=== PATIENT | male | born 1930 | race Caucasian/White ===

== ENCOUNTER 2017-05-12 09:23 | Emergency (ER) | payer MEDICARE, OTHER ==
[2017-05-12] MEDS ORDERED: Albuterol/Ipratropium 3.0-0.5 MG/3 ML Neb Soln NEB ONE (09:44)
[2017-05-12] MEDS ORDERED: Furosemide 40 MG Tab PO ONE (09:44)
[2017-05-12] MEDS ORDERED: Nitroglycerin 0.4 MG Tab.SL SL ONE (09:45)
[2017-05-12] MEDS ORDERED: Sodium Chloride 0.9% 10 ML Syringe FLUSH PRN (09:45)
--- NOTE | 2017-05-12 09:54 | EDM.PDOC ---
ED HPI GENERAL MEDICAL PROBLEM - General Chief Complaint: Respiratory Problem Stated Complaint[facility] Time Seen by Provider: 05/12/17 09:40 Source of Information: Reports: Patient, RN Notes Reviewed - History of Present Illness INITIAL COMMENTS - FREE TEXT/NARRATIVE: 86-year-old male comes in severely short of breath. He states he was somewhat short of breath during the night that became much worse this morning and as the morning has progressed. He denies chest pain. He does have occasional nonproductive cough. Yesterday he felt like he was doing quite well from a breathing standpoint. Have some history of COPD and also some history of congestive heart failure. He does have history of coronary artery disease. He states he had 2 stents placed this past February at a hospital in [place] when he happened to be visiting friends or family in that area. He also is diabetic. He is on Plavix, has been insulin diabetic for about 15-20 years. Does have history of renal insufficiency. He states he also is on medication for hypertension and also on a statin. He has not been running fever or chills. Did take his morning meds including his morning furosemide. No major abdominal pain nausea vomiting or diaphoresis. - Related Data Allergies Allergy/AdvReac Type Severity Reaction Status Date / Time No Known Allergies Allergy Verified 05/12/17 09:38 Home Meds: Home Meds Albuterol Sulfate [Proair Respiclick] 2 puff INH Q6H PRN 05/12/17 [History] Albuterol/Ipratropium [DuoNeb 3.0-0.5 MG/3 ML] 3 ml INH Q6H PRN 05/12/17 [ History] Allopurinol [Zyloprim] 300 mg PO DAILY 05/12/17 [History] Budesonide/Formoterol [Symbicort 80-4.5 MCG] 2 puff INH BID 05/12/17 [History] Carvedilol 12.5 mg PO BID 05/12/17 [History] Docusate Sodium [Stool Softener] 50 mg PO BID PRN 05/12/17 [History] FLUoxetine [PROzac] 20 mg PO DAILY 05/12/17 [History] Finasteride [Proscar] 5 mg PO DAILY 05/12/17 [History] Furosemide 40 mg PO DAILY 05/12/17 [History] Furosemide 60 mg PO DAILY 05/12/17 [History] Insulin Aspart [Novolog Flexpen] 25 units SUBCUT TID 05/12/17 [History] Insulin Glargine,Hum.Rec.Anlog [Lantus Solostar] 50 units SUBCUT BID 05/12/17 [ History] Levothyroxine 150 mcg PO DAILY 05/12/17 [History] Losartan [Cozaar] 50 mg PO BID 05/12/17 [History] Pantoprazole Sodium 40 mg PO DAILY 05/12/17 [History] Potassium Chloride 20 meq PO DAILY 05/12/17 [History] Simvastatin [Zocor] 40 mg PO BEDTIME 05/12/17 [History] Tamsulosin [Flomax] 0.4 mg PO BEDTIME 05/12/17 [History] Tiotropium [Spiriva HandiHaler] 2 puff INH DAILY 05/12/17 [History] atorvaSTATin Calcium [Atorvastatin Calcium] 40 mg PO BEDTIME 05/12/17 [History] ED ROS GENERAL - Review of Systems Review Of Systems: See Below Constitutional: Denies: Fever, Chills, Diaphoresis HEENT: Denies: Throat Pain Respiratory: Reports: Shortness of Breath, Wheezing, Cough. Denies: Sputum Cardiovascular: Reports: Lightheadedness. Denies: Chest Pain Endocrine: Reports: Fatigue GI/Abdominal: Denies: Abdominal Pain, Nausea, Vomiting Musculoskeletal: Denies: Shoulder Pain, Arm Pain Skin: Reports: No Symptoms Neurological: Reports: Dizziness ED EXAM, GENERAL - Physical Exam Exam: See Below General Appearance: Alert, Moderate Distress Eye Exam: Bilateral Eye: PERRL Throat/Mouth: Normal Inspection Head: Atraumatic. No: Facial Swelling Neck: Supple, Full Range of Motion, Other (No JVD) Respiratory/Chest: Respiratory Distress (Moderate), Rales (Mild bilateral), Wheezing (Mild bilateral) Cardiovascular: Tachycardia GI/Abdominal: Soft, Tender (Mild tenderness upper mid abdomen) Back Exam: No: CVA Tenderness (L), CVA Tenderness (R) Extremities: Pedal Edema. No: Leg Pain (Moderate bilateral calves nontender) Neurological: Alert, Oriented, No Motor/Sensory Deficits Skin Exam: Warm, Dry, Normal Color EKG INTERPRETATION EKG Date: 05/12/17 Rhythm: NSR P-Wave: Present QRS: Other (LAFB) ST-T: Depressed (Anterior leads) Course - Vital Signs Last Recorded V/S: Last Vital Signs Temp 97.0 F 05/12/17 09:39 Pulse 102 H 05/12/17 09:39 Resp BP 137/92 H 05/12/17 09:51 Pulse Ox 98 05/12/17 10:05 - Orders/Labs/Meds Orders: Active Orders 24 hr Category Date Time Status EKG 12 Lead [EKG Documentation Completion] [RC] STAT Care 05/12/17 09:46 Active Oxygen Therapy [RC] ASDIRECTED Care 05/12/17 09:46 Active Peripheral IV Care [RC] . DIRECTED Care 05/12/17 09:46 Active RT Aerosol Therapy [RC] ASDIRECTED Care 05/12/17 09:45 Active Sodium Chloride 0.9% [Saline Flush] Med 05/12/17 09:45 Active 10 ml FLUSH ASDIRECTED PRN Peripheral IV Insertion Adult [OM.PC] Stat Oth 05/12/17 09:46 Ordered Medication Orders Sodium Chloride (Saline Flush) 10 ml FLUSH ASDIRECTED PRN PRN Reason: Keep Vein Open Last Admin: 05/12/17 13:32 Dose: 10 ml Labs: Laboratory Tests 05/12/17 05/12/17 05/12/17 Range/Units 10:35 10:35 10:35 WBC 11.25 H (4.23-9.07) K/mm3 RBC 3.86 L (4.63-6.08) M/mm3 Hgb 12.1 L (13.7-17.5) gm/L Hct 37.8 L (40.1-51.0) % MCV 97.9 H (79.0-92.2) fl MCH 31.3 (25.7-32.2) pg MCHC 32.0 L (32.2-35.5) g/dl RDW Std Deviation 50.8 H (35.1-43.9) fL Plt Count 237 (163-337) K/mm3 MPV 11.2 (9.4-12.3) fl Neut % (Auto) 85.0 H (34.0-67.9) % Lymph % (Auto) 7.3 L (21.8-53.1) % [place] % (Auto) 5.0 L (5.3-12.2) % Eos % (Auto) 1.3 (0.8-7.0) Baso % (Auto) 0.5 (0.1-1.2) % Neut # (Auto) 9.56 H (1.78-5.38) K/mm3 Lymph # (Auto) 0.82 L (1.32-3.57) K/mm3 [place] # (Auto) 0.56 (0.30-0.82) K/mm3 Eos # (Auto) 0.15 (0.04-0.54) K/mm3 Baso # (Auto) 0.06 (0.01-0.08) K/mm3 Manual Slide Review Normal smear Sodium 135 L (136-145) mEq/L Potassium 5.5 H (3.5-5.1) mEq/L Chloride 102 (98-107) mEq/L Carbon Dioxide 26 (21-32) mEq/L Anion Gap 12.5 (5-15) BUN 36 H (7-18) mg/dL Creatinine 2.0 H (0.7-1.3) mg/dL Est Cr Clr Drug Dosing 22.20 mL/min Estimated GFR (MDRD) 32 (>60) mL/min BUN/Creatinine Ratio 18.0 (14-18) Glucose 331 H (83-115) mg/dL Calcium 9.1 (8.5-10.1) mg/dL Total Bilirubin 0.5 (0.2-1.0) mg/dL AST 22 (15-37) U/L ALT 22 (16-63) U/L Alkaline Phosphatase 97 (46-116) U/L Troponin I 0.349 H* (0.00-0.056) ng/mL C-Reactive Protein 0.7 (<1.0) mg/dL NT-Pro-B Natriuret Pep (0-450) pg/mL Total Protein 7.1 (6.4-8.2) g/dl Albumin 3.1 L (3.4-5.0) g/dl Globulin 4.0 gm/dL Albumin/Globulin Ratio 0.8 L (1-2) 05/12/ Range/Units 10:35 WBC (4.23-9.07) K/mm3 RBC (4.63-6.08) M/mm3 Hgb (13.7-17.5) gm/L Hct (40.1-51.0) % MCV (79.0-92.2) fl MCH (25.7-32.2) pg MCHC (32.2-35.5) g/dl RDW Std Deviation (35.1-43.9) fL Plt Count (163-337) K/mm3 MPV (9.4-12.3) fl Neut % (Auto) (34.0-67.9) % Lymph % (Auto) (21.8-53.1) % [place] % (Auto) (5.3-12.2) % Eos % (Auto) (0.8-7.0) Baso % (Auto) (0.1-1.2) % Neut # (Auto) (1.78-5.38) K/mm3 Lymph # (Auto) (1.32-3.57) K/mm3 [place] # (Auto) (0.30-0.82) K/mm3 Eos # (Auto) (0.04-0.54) K/mm3 Baso # (Auto) (0.01-0.08) K/mm3 Manual Slide Review Sodium (136-145) mEq/L Potassium (3.5-5.1) mEq/L Chloride (98-107) mEq/L Carbon Dioxide (21-32) mEq/L Anion Gap (5-15) BUN (7-18) mg/dL Creatinine (0.7-1.3) mg/dL Est Cr Clr Drug Dosing mL/min Estimated GFR (MDRD) (>60) mL/min BUN/Creatinine Ratio (14-18) Glucose (83-115) mg/dL Calcium (8.5-10.1) mg/dL Total Bilirubin (0.2-1.0) mg/dL AST (15-37) U/L ALT (16-63) U/L Alkaline Phosphatase (46-116) U/L Troponin I (0.00-0.056) ng/mL C-Reactive Protein (<1.0) mg/dL NT-Pro-B Natriuret Pep 4081 H (0-450) pg/mL Total Protein (6.4-8.2) g/dl Albumin (3.4-5.0) g/dl Globulin gm/dL Albumin/Globulin Ratio (1-2) Meds: Medications Generic Name Dose Route Start Last Admin Trade Name Cristine PRN Reason Stop Dose Admin Sodium Chloride 10 ml 05/12/17 09:45 05/12/17 13:32 Saline Flush FLUSH 10 ml ASDIRECTED PRN Administration Keep Vein Open Discontinued Medications Generic Name Dose Route Start Last Admin Trade Name Cristine PRN Reason Stop Dose Admin Albuterol/Ipratropium 3 ml 05/12/17 09:44 05/12/17 10:05 Duoneb 3.0-0.5 Mg/3 Ml NEB 05/12/17 09:45 3 ml ONETIME ONE Administration Furosemide 80 mg 05/12/17 09:44 05/12/17 09:50 Lasix PO 05/12/17 09:45 80 mg ONETIME ONE Administration Furosemide 40 mg 05/12/17 12:59 05/12/17 13:30 Lasix IVPUSH 05/12/17 13:00 40 mg NOW ONE Administration Nitroglycerin 0.4 mg 05/12/17 09:45 05/12/17 09:51 Nitrostat SL 05/12/17 09:46 0.4 mg ONETIME ONE Administration Nitroglycerin 1 gm 05/12/17 12:59 05/12/17 13:28 Nitro-Bid 2% TOP 05/12/17 13:00 1 gm ONETIME ONE Administration - Re-Assessments/Exams Free Text/Narrative Re-Assessment/Exam: 05/12/17 10:25. On arrival to ED patient was in quite severe respiratory distress as documented. His veins looked extremely difficult. With the realization that it was going to be a while before we get a working IV we did give furosemide 80 mg by mouth very quickly and also did give her nitroglycerin 0.4 mg sublingual. Those Meds did help him tremendously. His breathing is much more relaxed at this time. Sats continue to run 96-100%. EKG is abnormal with right bundle branch block, left anterior fascicular block and ST depression visible V3 to V6 in particular. Chest x-ray does show pulmonary congestion compatible with CHF 05/12/17 11:28. I have discussed this with our Hospitalist who has visited with patient. He has had patient visit with his sons regarding level of care who are requesting he be transferred to a higher level of care. He does request to remain Code Level 1. 05/12/17 13:[address] Macdonald, Hospitalist [facility] who does accept patient in transfer. Patient has requested [facility] because he has been there in the past. He will be transported ground ambulance. Vitals do remain stable and patient continues to breathe much more comfortably at time of transfer. Departure - Departure Time of Disposition: 13:46 Disposition: DC/Tfer to [facility] 02 Condition: Fair Clinical Impression: Renal insufficiency, Acute coronary syndrome Congestive heart failure Qualifiers: Congestive heart failure type: unspecified congestive heart failure type Congestive heart failure chronicity: acute on chronic Qualified Code(s): I50.9 - Heart failure, unspecified - Discharge Information Referrals: Kanchan Strange DO [Primary Care Provider] - Forms: ED Department Discharge - My Orders Last 24 Hours: My Active Orders 05/12/17 09:45 RT Aerosol Therapy [RC] ASDIRECTED Sodium Chloride 0.9% [Saline Flush] 10 ml FLUSH ASDIRECTED PRN 05/12/17 09:46 EKG 12 Lead [EKG Documentation Completion] [RC] STAT Oxygen Therapy [RC] ASDIRECTED Peripheral IV Care [RC] . DIRECTED Peripheral IV Insertion Adult [OM.PC] Stat - Assessment/Plan Last 24 Hours: My Active Orders 05/12/17 09:45 RT Aerosol Therapy [RC] ASDIRECTED Sodium Chloride 0.9% [Saline Flush] 10 ml FLUSH ASDIRECTED PRN 05/12/17 09:46 EKG 12 Lead [EKG Documentation Completion] [RC] STAT Oxygen Therapy [RC] ASDIRECTED Peripheral IV Care [RC] . DIRECTED Peripheral IV Insertion Adult [OM.PC] Stat
--- NOTE | 2017-05-12 10:34 | CR ---
Chest: Portable view of the chest was obtained. Comparison: No prior study. Heart size and mediastinum are within normal limits for portable technique. Central lung markings are mildly increased. Without old study difficult to know if this is chronic or due to slight bronchitis. Lungs otherwise are clear. Bony structures are grossly intact. Impression: 1. Increased central lung markings as described above. Diagnostic code #3
[2017-05-12] MEDS ORDERED: Furosemide 40 MG/4 ML VIAL IVPUSH ONE (12:59)
[2017-05-12] MEDS ORDERED: Nitroglycerin 2% Oint 1 GM UD Packet TOP ONE (12:59)
--- NOTE | 2017-05-12 14:45 | PCM.SN ---
- Free Text/Narrative Note: 05-12-17 Start 1210 end 1220 Called to ED for difficult IV start. Upon arrival the patient had multiple unsuccessful attempts. The left forearm was prepped with chloraprep. Sterile tegaderm applied to US probe. A vein was easily visualized with the US. 1% lidocaine used to localized insertion site. 20ga 1.88" IV inserted under US guidance. Good blood return. Lab there to obtain blood from the IV. 7ml of blood given to bal tech. Flushed well. Secured with tegaderm. Taped well. Patient tolerated procedure well. Steven Bai CRNA
[2017-05-12 14:57] VITALS: BP 148/65
== END 2017-05-12 14:15 ==
LOC: JD.ED 09:23
DX: I24.9 Acute ischemic heart disease, unspecified (principal); I11.0 Hypertensive heart disease with heart failure; E11.9 Type 2 diabetes mellitus without complications; I50.9 Heart failure, unspecified; N28.9 Disorder of kidney and ureter, unspecified; Z79.899 Other long term (current) drug therapy; Z79.4 Long term (current) use of insulin
CPT/HCPCS: 36415; 71010; 80053; 83880; 84484; 85025; 86140; 93005; 94640; 96374; 99285; A9270; J1940; J7050

== ENCOUNTER 2017-07-02 12:02 | Inpatient (IN) | payer OTHER, MEDICARE ==
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
[2017-07-02] MEDS ORDERED: Sodium Chloride 0.9% 10 ML Syringe FLUSH PRN (12:23)
[2017-07-02] MEDS ORDERED: methylPREDNISolone Sodium Succinate 125 MG/2 ML SDV IVPUSH ONE (12:25)
[2017-07-02] MEDS ORDERED: Albuterol/Ipratropium 3.0-0.5 MG/3 ML Neb Soln NEB ONE (12:25)
[2017-07-02] MEDS ORDERED: Furosemide 40 MG/4 ML VIAL IVPUSH ONE (12:26)
[2017-07-02] MEDS ORDERED: Furosemide 40 MG/4 ML VIAL ONE (12:34)
--- NOTE | 2017-07-02 14:02 | CR ---
Chest: Portable view of the chest was obtained. Comparison: Prior chest x-ray of 05/12/17. Heart size appears within normal limits for portable technique. Lung markings are diffusely increased possibly due to mild pulmonary vascular congestion. Small pleural effusions are also suggested. Impression: 1. Findings suspicious for mild CHF. Diagnostic code #3
--- NOTE | 2017-07-02 16:12 | US ---
Limited abdominal ultrasound: Multiple real-time images of the upper right abdomen were obtained. Technologist's note: Patient had difficulty holding breath, suboptimal exam due to body habitus Liver is echogenic. No discrete abnormality is otherwise seen within the liver. Gallbladder shows a single small intraluminal abnormality measuring about 8 mm most likely representing minimal polyp. No gallbladder wall thickening or biliary duct dilatation is seen. Cyst is noted within the right kidney measuring 2.7 cm. Right kidney shows no hydronephrosis. Right kidney measures 11.9 cm in length. Pancreas is incompletely seen. Visualized portions of the pancreas are within normal limits. Impression: 1. Less than optimal study as noted above. 2. Fatty infiltration within the liver is likely present. 3. Single small gallstone with no gallbladder wall thickening or biliary duct dilatation. 4. Incidental right renal cyst. Diagnostic code #3
[2017-07-02] MEDS ORDERED: Pantoprazole 40 MG Tab.CR PO ONE (16:52)
[2017-07-02] MEDS ORDERED: Potassium Chloride 20 MEQ Tab.ER PO ONE (16:53)
[2017-07-02] MEDS ORDERED: hydrALAZINE 25 MG Tab PO ONE (16:54)
[2017-07-02] MEDS ORDERED: Isosorbide Mononitrate 30 MG Tab.ER PO ONE (16:55)
[2017-07-02] MEDS ORDERED: Sodium Chloride 0.65% Nasal Spray 45 ML Bottle NAS PRN (18:07)
[2017-07-02] MEDS ORDERED: Docusate Sodium 100 MG Cap PO PRN (18:12)
[2017-07-02] MEDS ORDERED: Ondansetron 4 MG Tab.DIS PO PRN (18:12)
[2017-07-02] MEDS ORDERED: Ondansetron 4 MG/2 ML SDV IV PRN (18:12)
[2017-07-02] MEDS ORDERED: 50% Dextrose in Water 50 ML Syringe IVPUSH PRN (18:51)
--- NOTE | 2017-07-02 19:48 | PCM.HP ---
H&P History of Present Illness - General Date of Service: 07/02/17 Admit Problem/Dx: Admission Diagnosis/Problem Admission Diagnosis/Problem CHF, Congestive heart failure Source of Information: Patient, Old Records, Provider, RN, RN Notes Reviewed History Limitations: Reports: No Limitations - History of Present Illness Initial Comments - Free Text/Narative: Adilson Barajas (red) is an 86 yo male who presented to our ED today with shortness of breath that has been getting worse over the past several days. He notes a 45 pound weight gain along with pedal edema. He has needed to utilize his oxygen all the time, whereas before it was just overnight and when needed. He is normally on 3 L of oxygen. He has had some right-sided abdominal pain and nausea he denies fever, chills, cough, chest pain, vomiting, diarrhea. He has had decreased appetite. His history of CHF and COPD. Once in the ED a 12-lead was obtained showing a first 3 heart block with right bundle branch block at 67 bpm. QTC was 519. He was afebrile with a temperature of 97.6. Pulse 83. Respirations 25. Blood pressure 159/78. Pulse ox 99% on 3 L. Labs are obtained: WBC 7.3. Hemoglobin low at 10.6. Hematocrit low at 33.8. He wasn't macrocytic. Platelet normal at 234,000. Neutrophils elevated at 80.1%. Sodium 143. Potassium 3.9. Chloride 106. Carbon dioxide 29. Anion gap 11.9. BUN 26. Creatinine 1.8. GFR 36. Glucose elevated at 162. Calcium 9.0. Total bilirubin 0.5. Liver enzymes looked okay with AST at 12, ALT 20, alkaline phosphatase 88. Troponin was negative at 0.028. BNP was high at 3997. Protein normal at 6.6. Albumin was low at 3.0. His given a DuoNeb, 80 mg Lasix IVP, and 125 mg Solu-Medrol. Portal chest x- ray was obtained. Lung markings found to be diffusely increase possible for mild pulmonary vascular congestion. Small pleural effusions were also noted. This was interpreted by Dr. Lincoln as suspicious for mild CHF. Due to his abdominal pain and abdominal ultrasound was obtained. The patient had difficulty holding his breath and is suboptimal exam due to body habitus. This was interpreted by Dr. Lincoln as 1. Less than optimal study as noted. 2. Fatty infiltration within the liver is likely present. 3. Single small gallstone with no gallbladder wall thickening or biliary duct dilation. 4. Incidental right renal cyst. He carries a history of: Cataracts, CO with stent placement, COPD, interstitial lung disease, sleep apnea and wears CPAP at night, bladder cancer treated in December 2016, arthritis, type II DM, hypothyroidism, vitamin D deficiency, and melanoma. He is a former smoker. He was subsequently admitted to the medical floor on telemetry. He is a full code. [facility] Right Middle Abdomen Pain Score (Numeric/FACES): 5 - Related Data Allergies/Adverse Reactions: Allergies Allergy/AdvReac Type Severity Reaction Status Date / Time No Known Allergies Allergy Verified 07/02/17 18:45 Home Medications: Home Meds Allopurinol [Zyloprim] 150 mg PO DAILY 07/02/17 [History] Aspirin [Adult Low Dose Aspirin EC] 81 mg PO DAILY PRN 07/02/17 [History] Carvedilol 12.5 mg PO BID 07/02/17 [History] Clopidogrel Bisulfate [Plavix] 75 mg PO DAILY 07/02/17 [History] Docusate Sodium [Stool Softener] 50 mg PO DAILY PRN 07/02/17 [History] FLUoxetine HCl [Fluoxetine HCl] 20 mg PO DAILY 07/02/17 [History] Finasteride 5 mg PO DAILY 07/02/17 [History] Furosemide [Lasix] 40 mg PO BID 07/02/17 [History] Insulin Aspart [NovoLOG] 100 unit SUBCUT TIDAC 07/02/17 [History] Insulin Detemir [Levemir] 55 unit SUBCUT BEDTIME 07/02/17 [History] Isosorbide Dinitrate [Isordil] 30 mg PO TID 07/02/17 [History] Levothyroxine Sodium [Levoxyl] 0.5 mg PO 07/02/17 [History] Pantoprazole Sodium 40 mg PO DAILY 07/02/17 [History] Polyethylene Glycol 3350 [MiraLAX] 17 gm PO DAILY PRN 07/02/17 [History] Potassium Chloride 20 meq PO DAILY 07/02/17 [History] Tamsulosin HCl 0.4 mg PO BEDTIME 07/02/17 [History] atorvaSTATin Calcium [Atorvastatin Calcium] 40 mg PO BEDTIME 07/02/17 [History] hydrALAZINE HCl [Hydralazine HCl] 25 mg PO TID 07/02/17 [History] Past Medical History HEENT History: Reports: Cataract, Impaired Vision Other HEENT History: wears eye glasses Cardiovascular History: Reports: Heart Failure, High Cholesterol, CO, Stents, Other (See Below) Other Cardiovascular History: stents placed this february of 2017 Respiratory History: Reports: COPD, Sleep Apnea Other Respiratory History: wears CPAP at HS Gastrointestinal History: Reports: Diverticulosis, Other (See Below) Other Gastrointestinal History: 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 Other Genitourinary History: bladder CA Musculoskeletal History: Reports: Gout Endocrine/Metabolic History: Reports: Diabetes, Type II, Hypothyroidism, Obesity /BMI 30+ Hematologic History: Reports: Anticoagulation Therapy Oncologic (Cancer) History: Reports: Bladder Other Oncologic History: states had "tumor of the index wall" of abdomen removed many yrs ago. 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 Dermatologic History: Reports: Eczema, Melanoma Other Dermatologic History: from face removed x 2 in last 5 years - Infectious Disease History Infectious Disease History: Reports: Influenza, Measles, Mumps - Past Surgical History HEENT Surgical History: Reports: Cataract Surgery Cardiovascular Surgical History: Reports: None, Coronary Artery Stent Respiratory Surgical History: Reports: None GI Surgical History: Reports: Colonoscopy, EGD Male Surgical History: Reports: Other (See Below) Other Male Surgeries/Procedures: tumor in bladder x 3 burnt off in December 2016, been through chemo and radiation for the bladder cancer. follow up july 11. Endocrine Surgical History: Reports: None Musculoskeletal Surgical History: Reports: Amputation Other Musculoskeletal Surgeries/Procedures:: right pointer [facility] Oncologic Surgical History: Reports: Other (See Below) Other Oncologic Surgeries/Procedures: tumors burnt off in December 2016 Dermatological Surgical History: Reports: None Social & Family History - Family History Family Medical History: Noncontributory HEENT: Reports: None Cardiac: Reports: CAD, CO Oncologic: Reports: Esophageal, Prostate - Tobacco Use Smoking Status *Q: Former Smoker Used Tobacco, but Quit: Yes Month Tobacco Last Used: 1999 Second Hand Smoke Exposure: No - Caffeine Use Caffeine Use: Reports: Tea - Recreational Drug Use Recreational Drug Use: No H&P Review of Systems - Review of Systems: Review Of Systems: See Below General: Reports: Decreased Appetite, Weight Gain (4-5 lbs ). Denies: Fever, Chills, Malaise, Weakness, Fatigue HEENT: Reports: Sinus Congestion. Denies: Dysphasia, Ear Pain, Eye Pain, Headaches, Sore Throat, Vertigo Pulmonary: Reports: Shortness of Breath, Wheezing. Denies: Pleuritic Chest Pain , Cough, Sputum Cardiovascular: Reports: Dyspnea on Exertion, Orthopnea (Sleeps with 2 pillows) , Edema. Denies: Chest Pain, Palpitations, Lightheadedness, Syncope Gastrointestinal: Reports: Abdominal Pain (RUQ ), Nausea. Denies: Constipation , Diarrhea, Vomiting Genitourinary: Reports: No Symptoms. Denies: Dysuria, Frequency, Burning, Pain , Urgency Musculoskeletal: Reports: No Symptoms. Denies: Neck Pain, Shoulder Pain, Arm Pain, Back Pain, Hand Pain, Leg Pain, Foot Pain, Joint Pain, Joint Swelling Skin: Reports: No Symptoms. Denies: Cyanosis, Jaundice, Mottled, Pallor, Diaphoresis Psychiatric: Reports: No Symptoms. Denies: Confusion, Depression, Mood Lability , Anxiety, Hallucinations (Auditory) Neurological: Reports: No Symptoms. Denies: Confusion, Dizziness, Headache, Numbness, Tingling, Trouble Speaking, Difficulty Walking, Weakness, Gait Disturbance Hematologic/Lymphatic: Reports: No Symptoms Immunologic: Reports: No Symptoms Exam - Exam Exam: See Below - Vital Signs Vital Signs: Last Vital Signs Temp 97.6 F 07/02/17 12:12 Pulse 77 07/02/17 18:24 Resp 18 07/02/17 18:24 BP 177/82 H 07/02/17 18:24 Pulse Ox 96 07/02/17 18:24 Weight: 295 lb 6.4 oz - Exam Quality Assessment: Supplemental Oxygen (3L - baseline ), DVT Prophylaxis, Other (Morbidly obese) General: Alert, Oriented, Cooperative. No: Mild Distress HEENT: Conjunctiva Clear, EACs Clear, EOMI, Hearing Intact, Mucosa Moist & [place] , Nares Patent, Normal Nasal Septum, Posterior Pharynx Clear, PERRLA Neck: Supple, Trachea Midline. No: Lymphadenopathy, JVD Lungs: Normal Respiratory Effort, Decreased Breath Sounds, Rales, Wheezing. No : Rhonchi, Rub, Stridor Cardiovascular: Regular Rate, Regular Rhythm GI/Abdominal Exam: Normal Bowel Sounds, Soft, No Organomegaly, No Distention, No Abnormal Bruit, No Mass, Pelvis Stable, Tender (RUQ) (Male) Exam: Deferred Rectal (Males) Exam: Deferred Back Exam: Normal Inspection, Full Range of Motion Extremities: Normal Range of Motion, Non-Tender, Pedal Edema (2+), Other ( Discoloration, loss of hair, flaking of skin bilaterally on legs) Peripheral Pulses: 0: Posterior Tibial (L), Posterior Tibial (R), Dorsalis Pedis (L), Dorsalis Pedis (R), 1+: Radial (L), Radial (R) Skin: Warm, Dry Neurological: Cranial Nerves Intact (Grossly) Neuro Extensive - Mental Status: Alert, Oriented x3, Normal Mood/Affect, Normal Cognition Neuro Extensive - Motor, Sensory, Reflexes: CN II-XII Intact (Grossly), Normal Gait Psychiatric: Alert, Normal Affect, Normal Mood Physical Exam Comments:: Patient is lying in hospital bed when examined. He reportedly uses CPAP at night does not have this with him. Per his report he sleeps with 2 pillows at night. - Patient Data Lab Results Last 24 hrs: Laboratory Results - last 24 hr 07/02/17 Range/Units 18:11 POC Glucose 144 H (83-110) mg/dL Result Diagrams: 07/02/17 14:00 07/02/17 14:00 *Q Meaningful Use (ADM) - VTE *Q VTE Criteria *Q: - Stroke *Q Stroke Criteria *Q: - AMI *Q AMI Criteria *Q: - Problem List (1) CHF exacerbation SNOMED Code(s): 82805359 ICD Code: I50.9 - HEART FAILURE, UNSPECIFIED Status: Acute Priority: High Current Visit: Yes Qualifiers: Congestive heart failure type: unspecified congestive heart failure type Qualified Code(s): I50.9 - Heart failure, unspecified (2) COPD with exacerbation SNOMED Code(s): 628727003395499 ICD Code: J44.1 - CHRONIC OBSTRUCTIVE PULMONARY DISEASE W (ACUTE) EXACERBATION Status: Acute Priority: High Current Visit: Yes (3) Abdominal pain SNOMED Code(s): 67554745 ICD Code: R10.9 - UNSPECIFIED ABDOMINAL PAIN Status: Acute Priority: High Current Visit: Yes Qualifiers: Abdominal location: right upper quadrant Qualified Code(s): R10.11 - Right upper quadrant pain (4) Type II diabetes mellitus SNOMED Code(s): 30542379 ICD Code: E11.9 - TYPE 2 DIABETES MELLITUS WITHOUT COMPLICATIONS Status: Chronic Priority: Medium Current Visit: Yes Qualifiers: Diabetes mellitus complication status: with unspecified complications Diabetes mellitus prison insulin use: with 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 Qualified Code(s) : E11.8 - Type 2 diabetes mellitus with unspecified complications; Z79.4 - manager intermediate (current) use of insulin; Z79.4 - half-way (current) use of insulin; Z79.4 - manager intermediate (current) use of insulin; Z79.4 - manager intermediate (current) use of insulin (5) CKD (chronic kidney disease) stage 3, GFR 30-59 ml/min SNOMED Code(s): 261603317 ICD Code: N18.3 - CHRONIC KIDNEY DISEASE, STAGE 3 (MODERATE) Status: Chronic Priority: High Current Visit: Yes (6) Pedal edema SNOMED Code(s): 135750497 ICD Code: R60.0 - LOCALIZED EDEMA Status: Acute Priority: High Current Visit: Yes (7) Sleep apnea in adult SNOMED Code(s): 39991576 ICD Code: G47.30 - SLEEP APNEA, UNSPECIFIED Status: Chronic Priority: Medium Current Visit: Yes (8) Hypothyroidism SNOMED Code(s): 20647515 ICD Code: E03.9 - HYPOTHYROIDISM, UNSPECIFIED Status: Chronic Priority: Low Current Visit: No Qualifiers: Hypothyroidism type: unspecified Qualified Code(s): E03.9 - Hypothyroidism , unspecified (9) CAD (coronary artery disease) SNOMED Code(s): 64879190 ICD Code: I25.10 - ATHSCL HEART DISEASE OF [place] CORONARY ARTERY W/O ANG PCTRS Status: Chronic Priority: Medium Current Visit: No Qualifiers: Coronary Disease-Associated Artery/Lesion type: unspecified vessel or lesion type [place] vs. transplanted heart: [place] heart Associated angina: angina presence unspecified Qualified Code(s): I25.10 - Atherosclerotic heart disease of [place] coronary artery without angina pectoris (10) Morbid obesity with BMI of 50.0-59.9, adult SNOMED Code(s): 644680142 ICD Code: E66.01 - MORBID (SEVERE) OBESITY DUE TO EXCESS CALORIES; Z68.43 - BODY MASS INDEX (BMI) 50-59.9 , ADULT Status: Chronic Priority: Medium Current Visit: Yes (11) Nasal congestion SNOMED Code(s): 67569616 ICD Code: R09.81 - NASAL CONGESTION Status: Acute Priority: Low Current Visit: Yes Problem List Initiated/Reviewed/Updated: Yes Orders Last 24hrs: Active Orders 24 hr Category Date Time Status Ambulate [RC] , Care 07/02/17 18:12 Active Antiembolic Devices [RC] 10, Care 07/02/17 18:14 Active Blood Glucose Check, Bedside [RC] QIDACANDBED Care 07/02/17 18:12 Active Height and Weight [RC] 04 Care 07/02/17 18:12 Active Intake and Output [RC] 04,16 Care 07/02/17 18:12 Active RT Aerosol Therapy [RC] ASDIRECTED Care 07/02/17 18:14 Active Up With Assistance [RC] , Care 07/02/17 18:12 Active VTE/DVT Education [RC] , Care 07/02/17 18:12 Active Vital Signs [RC] Q4H Care 07/02/17 18:12 Active Consult to Case Management [CONS] Routine Cons 07/02/17 18:12 Active Consult to Dietary [Consult to Relay Adjuster] [CONS] Cons 07/02/17 19:12 Active Routine Consult to Carving Machine Operator [CONS] Routine Cons 07/02/17 18:12 Active OT Evaluation and Treatment [CONS] Routine Cons 07/02/17 18:12 Active PT Evaluation and Treatment [CONS] Routine Cons 07/02/17 18:12 Active Respiratory Care Assess and Treatment [CONS] Routine Cons 07/02/17 18:12 Active 2 Gram Sodium Diet [DIET] Diet 07/02/17 Dinner Active ADA Diabetic [[place] [employer] Diet] [DIET Diet 07/02/17 Dinner Active ] BASIC METABOLIC PANEL,BMP [CHEM] AM Lab 07/03/17 05:11 Ordered BASIC METABOLIC PANEL,BMP [CHEM] AM Lab 07/04/17 05:11 Ordered BASIC METABOLIC PANEL,BMP [CHEM] AM Lab 07/05/17 05:11 Ordered BASIC METABOLIC PANEL,BMP [CHEM] AM Lab 07/06/17 05:11 Ordered CBC WITH AUTO DIFF [HEME] AM Lab 07/03/17 05:11 Ordered CBC WITH AUTO DIFF [HEME] AM Lab 07/04/17 05:11 Ordered CBC WITH AUTO DIFF [HEME] AM Lab 07/05/17 05:11 Ordered CBC WITH AUTO DIFF [HEME] AM Lab 07/06/17 05:11 Ordered CRP [C-REACTIVE PROTEIN] [CHEM] Routine Lab 07/02/17 19:37 Ordered INFLUENZA A+B AG SCREEN [RM] Routine Lab 07/02/17 19:30 Ordered MAGNESIUM [CHEM] AM Lab 07/03/17 05:11 Ordered MAGNESIUM [CHEM] AM Lab 07/04/17 05:11 Ordered MAGNESIUM [CHEM] AM Lab 07/05/17 05:11 Ordered MAGNESIUM [CHEM] AM Lab 07/06/17 05:11 Ordered PRO B-TYPE NATRIUR PEPT,BNPPRO [CHEM] DAILY Lab 07/03/17 05:11 Ordered PRO B-TYPE NATRIUR PEPT,BNPPRO [CHEM] DAILY Lab 07/04/17 05:11 Ordered PRO B-TYPE NATRIUR PEPT,BNPPRO [CHEM] DAILY Lab 07/05/17 05:11 Ordered PRO B-TYPE NATRIUR PEPT,BNPPRO [CHEM] DAILY Lab 07/06/17 05:11 Ordered STREP PNEUMONIAE ANTIGEN [MREF] Routine Lab 07/02/17 18:20 Uncollected TROPONIN I [CHEM] Routine Lab 07/03/17 05:11 Ordered Acetaminophen [Tylenol] Med 07/02/17 18:12 Active 650 mg PO Q4H PRN Acetaminophen/HYDROcodone [[place] 325-5 MG] Med 07/02/17 18:12 Active 1 tab PO Q4H PRN Albuterol/Ipratropium [DuoNeb 3.0-0.5 MG/3 ML] Med 07/02/17 18:12 Active 3 ml NEB Q4H PRN Allopurinol [Zyloprim] Med 07/03/17 09:00 Active 150 mg PO DAILY Bumetanide [Bumex] Med 07/02/17 21:00 Active 1 mg IVPUSH BID Carvedilol [Coreg] Med 07/02/17 21:00 Active 12.5 mg PO BID Clopidogrel [Plavix] Med 07/03/17 09:00 Active 75 mg PO DAILY Dextrose 50% in Water Med 07/02/17 18:51 Active 25 - 50 ml IVPUSH ASDIRECTED PRN Docusate Sodium [Colace] Med 07/02/17 18:12 Active 100 mg PO BID PRN Docusate Sodium/Sennosides [Senna Plus] Med 07/02/17 18:12 Active 1 tab PO BID PRN FLUoxetine [PROzac] Med 07/03/17 09:00 Active 20 mg PO DAILY Finasteride [Proscar] Med 07/03/17 09:00 Active 5 mg PO DAILY Insulin Aspart [NovoLOG] Med 07/02/17 19:00 Active See Protocol SUBCUT QIDACANDBED Insulin Detemir [Levemir] Med 07/02/17 21:00 Active 55 unit SUBCUT BEDTIME Isosorbide Dinitrate [Isordil] Med 07/02/17 21:00 Active 30 mg PO TID Ondansetron [Zofran ODT] Med 07/02/17 18:12 Active 4 mg PO Q6H PRN Ondansetron [Zofran] Med 07/02/17 18:12 Active 4 mg IV Q6H PRN Polyethylene Glycol 3350 [MiraLAX] Med 07/02/17 18:12 Active 17 gm PO DAILY PRN Potassium Chloride [Klor-Con M20] Med 07/03/17 09:00 Active 20 meq PO DAILY Rosuvastatin [Crestor] Med 07/02/17 21:00 Active 10 mg PO BEDTIME Sodium Chloride 0.65% [[place] Nasal [place]] Med 07/02/17 18:07 Active 0 ml BUTCH QID PRN Tamsulosin [Flomax] Med 07/02/17 21:00 Active 0.4 mg PO BEDTIME hydrALAZINE [Apresoline] Med 07/02/17 21:00 Active 25 mg PO TID Antiembolic Hose [OM.PC] Per Unit Routine Oth 07/02/17 18:12 Ordered Resuscitation Status Routine Resus Stat 07/02/17 18:12 Ordered Medication Orders Acetaminophen (Tylenol) 650 mg PO Q4H PRN PRN Reason: Pain (Mild 1-3)/fever Hydrocodone Bitart/Acetaminophen ([place] 325-5 Mg) 1 tab PO Q4H PRN PRN Reason: Pain (moderate 4-6) Albuterol/Ipratropium (Duoneb 3.0-0.5 Mg/3 Ml) 3 ml NEB Q4H PRN PRN Reason: Shortness Of Breath/wheezing Allopurinol (Zyloprim) 150 mg PO DAILY [facility] Bumetanide (Bumex) 1 mg IVPUSH BID [facility] Carvedilol (Coreg) 12.5 mg PO BID [facility] Clopidogrel Bisulfate (Plavix) 75 mg PO DAILY [facility] Dextrose/Water (Dextrose 50% In Water) 25 - 50 ml IVPUSH ASDIRECTED PRN PRN Reason: hypoglycemia Docusate Sodium (Colace) 100 mg PO BID PRN PRN Reason: Constipation Finasteride (Proscar) 5 mg PO DAILY [facility] Fluoxetine HCl (Prozac) 20 mg PO DAILY [facility] Hydralazine HCl (Apresoline) 25 mg PO TID [facility] Insulin Aspart (Novolog) 0 unit SUBCUT QIDACANDBED [facility] PRN Reason: Protocol Insulin Detemir (Levemir) 55 unit SUBCUT BEDTIME [facility] Isosorbide Dinitrate (Isordil) 30 mg PO TID [facility] Ondansetron HCl (Zofran Odt) 4 mg PO Q6H PRN PRN Reason: nausea, able to take PO Ondansetron HCl (Zofran) 4 mg IV Q6H PRN PRN Reason: Nausea/Vomiting Polyethylene Glycol (Miralax) 17 gm PO DAILY PRN PRN Reason: Constipation Potassium Chloride (Klor-Con M20) 20 meq PO DAILY [facility] Rosuvastatin Calcium (Crestor) 10 mg PO BEDTIME [facility] Senna/Docusate Sodium (Senna Plus) 1 tab PO BID PRN PRN Reason: Constipation Sodium Chloride (Saline Flush) 10 ml FLUSH ASDIRECTED PRN PRN Reason: Keep Vein Open Last Admin: 07/02/17 12:48 Dose: 10 ml Sodium Chloride ([place] Nasal [place]) 0 ml BUTCH QID PRN PRN Reason: nasal congestion and dryness Tamsulosin HCl (Flomax) 0.4 mg PO BEDTIME [facility] Assessment/Plan Comment:: I/P: Acute: CHF exacerbation -SOB worsening over last few days -4-5 lb weight gain with increasing pedal edema -Usually utilized oxygen at night and PRN but has needed to utilize constantly recently -Usually sleeps with 2 pillows at night and utilizes CPAP -Pro-BNP in ED 3997, repeat in AM -Prior CO with stent placement in [place] recently -12-lead EKG shows RBBB with 1st degree HB at 67 BPM. This was unchanged from prior EKG in our system -Trop negative at 0.028 -80mg lasix given IV in ED -Will hold home PO lasix and order IVP bumex 1mg BID -Pt. reports SOB is improved from prior to ED, but still not at baseline -Titrate O2 as needed - pt. currently on 3L which is his home amount per his report -RT to evaluate and treat -Last echo from before pt. had stents placed in [place]. Echo ordered in AM -Consider fluid restrictions COPD exacerbation -Questioning possibility, symptoms most likely from CHF -In addition to above -125mg solu-medrol given in ED -CRP slightly elevated at 2.2 but WBC WNL. Azithromycin not recommended due to prolonged QTc. Doxycycline ordered -Denies fever or cough -Magnesium 2.3 -Mycoplasma pneumoniae negative -Influenza A and B, as well as strep pneumonia ordered -Consider f/u CXR in 24-48 hrs Abdominal pain -RUQ -Pain for last month -Nausea but no vomiting -Afebrile -Denies constipation or diarrhea -Abdominal ultrasound done in ED: -1. Less than optimal study due to body habitus and difficulty holding breath -2. Fatty infiltration within the liver is likely present -3. Single small gallstone with no gallbladder wall thickening or biliary duct dilation -4. Incidental renal cyst. -Lipase ordered -CRP elevated at 2.2 -WBC normal at 7.30 -Consider Abdominal CT and/or HIDA scan once respiratory status improves Nasal congestion -Reports difficult breathing out of both nostrils -Nasal saline flushes as ordered -Humidified oxygen -Consider Afrin if no improvement -Patient inquired about adding humidifier to his home oxygen setup - reports he has been contacted already about this CKD Stage III -BUN 26 -Creatinine 1.8 -eGFR 36 -Unsure what baseline is -He has only been here one other time and kidney function was similar then -Monitor need for fluids vs. worsening CHF Chronic: Type II DM - Continue long acting insulin, will switch from usual NovoLog to sliding scale with blood glucose checks as ordered; A1C 7.5 here Pedal edema - treat as above Sleep apnea on CPAP - Does not have own CPAP here, RT to assist Hypothyroidism CAD Morbid obesity with BMI of 50.7 Plan: Admit to medical floor with telemetry CM/SW for discharge planning PT/OT RT to assess and treat as above DVT/PE prophylaxis: SHAYLA lira, on Plavix as home med. Lovenox contraindicated due to poor renal function GI prophylaxis - Pepcid Routine AM labs Other orders as above Code status: Full Code. [facility]
[2017-07-02] MEDS: Insulin Aspart 100 Units/ML 3 ML Pen SUBCUT SCH ×2 (20:58→22:21)
[2017-07-02] MEDS ORDERED: Famotidine 20 MG Tab PO SCH (21:00)
[2017-07-02] MEDS ORDERED: Insulin Detemir 100 Units/ML 3 ML Pen SUBCUT SCH (21:00)
[2017-07-02] MEDS ORDERED: Bumetanide 1 MG/4 ML MDV IVPUSH SCH (21:00)
[2017-07-02] MEDS ORDERED: Aspirin 81 MG Tab.EC PO PRN (21:10)
[2017-07-02] MEDS: Isosorbide Dinitrate 10 MG Tab PO SCH (21:30)
[2017-07-02] MEDS: Acetaminophen 325 MG Tab PO PRN (21:31)
[2017-07-02] MEDS: Carvedilol 12.5 MG Tab PO SCH (21:31)
[2017-07-02] MEDS: hydrALAZINE 25 MG Tab PO SCH (21:31)
[2017-07-02] MEDS: Doxycycline 100 MG Cap PO SCH (21:31)
[2017-07-02] MEDS: Tamsulosin 0.4 MG Cap.ER PO SCH (21:32)
[2017-07-02] MEDS: Rosuvastatin 10 MG Tab PO SCH (21:32)
[2017-07-03] MEDS: Insulin Aspart 100 Units/ML 3 ML Pen SUBCUT SCH ×4 (06:56→22:08)
[2017-07-03] MEDS ORDERED: Bumetanide 1 MG/4 ML MDV IVPUSH SCH (09:00)
[2017-07-03] MEDS: hydrALAZINE 25 MG Tab PO SCH ×3 (09:05→20:27)
[2017-07-03] MEDS: Doxycycline 100 MG Cap PO SCH ×2 (09:05→20:26)
[2017-07-03] MEDS: Carvedilol 12.5 MG Tab PO SCH ×2 (09:05→20:26)
[2017-07-03] MEDS: Finasteride 5 MG Tab PO SCH (09:06)
[2017-07-03] MEDS: Isosorbide Dinitrate 10 MG Tab PO SCH ×3 (09:06→20:27)
[2017-07-03] MEDS: Famotidine 20 MG Tab PO SCH (09:06)
[2017-07-03] MEDS: Clopidogrel 75 MG Tab PO SCH (09:07)
[2017-07-03] MEDS: Potassium Chloride 20 MEQ Tab.ER PO SCH (09:07)
[2017-07-03] MEDS: Allopurinol 300 MG Tab PO SCH (09:07)
[2017-07-03] MEDS: FLUoxetine 20 MG Cap PO SCH (09:07)
[2017-07-03] MEDS: Albuterol/Ipratropium 3.0-0.5 MG/3 ML Neb Soln NEB PRN ×2 (09:14→14:04)
[2017-07-03] MEDS: Levothyroxine 75 MCG Tab PO SCH (11:48)
[2017-07-03] MEDS: Albuterol 0.083% 2.5 MG/3 ML Neb Soln INH SCH ×3 (14:48→20:57)
[2017-07-03] MEDS: Bumetanide 1 MG/4 ML MDV IVPUSH SCH (16:48)
--- NOTE | 2017-07-03 17:09 | PCM.PN ---
- General Info Date of Service: 07/03/17 Functional Status: Reports: Tolerating Diet - Review of Systems General: Reports: Weakness, Fatigue Pulmonary: Reports: Shortness of Breath Cardiovascular: Reports: No Symptoms Gastrointestinal: Reports: Abdominal Pain Genitourinary: Reports: No Symptoms Musculoskeletal: Reports: No Symptoms Skin: Reports: No Symptoms Neurological: Reports: No Symptoms Psychiatric: Reports: No Symptoms - Patient Data Vitals - Most Recent: Last Vital Signs Temp 36.4 C 07/03/17 15:12 Pulse 75 07/03/17 15:12 Resp 19 07/03/17 15:12 BP 161/93 H 07/03/17 15:13 Pulse Ox 100 07/03/17 15:12 Weight - Most Recent: 134.535 kg I&O - Last 24 Hours: Intake & Output 07/03/17 07/03/17 07/03/17 06:59 14:59 22:59 Intake Total 500 600 Balance 500 600 Lab Results Last 24 Hours: Laboratory Results - last 24 hr 07/02/17 07/02/17 07/03/17 Range/Units 18:11 22:02 05:57 WBC 7.58 (4.23-9.07) K/mm3 RBC 3.68 L (4.63-6.08) M/mm3 Hgb 11.1 L (13.7-17.5) gm/L Hct 36.0 L (40.1-51.0) % MCV 97.8 H (79.0-92.2) fl MCH 30.2 (25.7-32.2) pg MCHC 30.8 L (32.2-35.5) g/dl RDW Std Deviation 50.9 H (35.1-43.9) fL Plt Count 257 (163-337) K/mm3 MPV 11.0 (9.4-12.3) fl Neut % (Auto) 88.7 H (34.0-67.9) % Lymph % (Auto) 7.0 L (21.8-53.1) % [place] % (Auto) 4.2 L (5.3-12.2) % Eos % (Auto) 0 L (0.8-7.0) Baso % (Auto) 0.0 L (0.1-1.2) % Neut # (Auto) 6.72 H (1.78-5.38) K/mm3 Lymph # (Auto) 0.53 L (1.32-3.57) K/mm3 [place] # (Auto) 0.32 (0.30-0.82) K/mm3 Eos # (Auto) 0.00 L (0.04-0.54) K/mm3 Baso # (Auto) 0.00 L (0.01-0.08) K/mm3 Manual Slide Review Normal smear Sodium (136-145) mEq/L Potassium (3.5-5.1) mEq/L Chloride (98-107) mEq/L Carbon Dioxide (21-32) mEq/L Anion Gap (5-15) BUN (7-18) mg/dL Creatinine (0.7-1.3) mg/dL Est Cr Clr Drug Dosing mL/min Estimated GFR (MDRD) (>60) mL/min BUN/Creatinine Ratio (14-18) Glucose (83-115) mg/dL POC Glucose 144 H 370 H (83-110) mg/dL Calcium (8.5-10.1) mg/dL Magnesium (1.8-2.4) mg/dl Troponin I (0.00-0.056) ng/mL NT-Pro-B Natriuret Pep (0-450) pg/mL 07/03/17 07/03/17 07/03/17 Range/Units 05:57 05:57 06:41 WBC (4.23-9.07) K/mm3 RBC (4.63-6.08) M/mm3 Hgb (13.7-17.5) gm/L Hct (40.1-51.0) % MCV (79.0-92.2) fl MCH (25.7-32.2) pg MCHC (32.2-35.5) g/dl RDW Std Deviation (35.1-43.9) fL Plt Count (163-337) K/mm3 MPV (9.4-12.3) fl Neut % (Auto) (34.0-67.9) % Lymph % (Auto) (21.8-53.1) % [place] % (Auto) (5.3-12.2) % Eos % (Auto) (0.8-7.0) Baso % (Auto) (0.1-1.2) % Neut # (Auto) (1.78-5.38) K/mm3 Lymph # (Auto) (1.32-3.57) K/mm3 [place] # (Auto) (0.30-0.82) K/mm3 Eos # (Auto) (0.04-0.54) K/mm3 Baso # (Auto) (0.01-0.08) K/mm3 Manual Slide Review Sodium 143 (136-145) mEq/L Potassium 4.4 (3.5-5.1) mEq/L Chloride 106 (98-107) mEq/L Carbon Dioxide 27 (21-32) mEq/L Anion Gap 14.4 (5-15) BUN 31 H (7-18) mg/dL Creatinine 1.9 H (0.7-1.3) mg/dL Est Cr Clr Drug Dosing 23.37 mL/min Estimated GFR (MDRD) 34 (>60) mL/min BUN/Creatinine Ratio 16.3 (14-18) Glucose 245 H (83-115) mg/dL POC Glucose 220 H (83-110) mg/dL Calcium 9.6 (8.5-10.1) mg/dL Magnesium 2.4 (1.8-2.4) mg/dl Troponin I 0.024 (0.00-0.056) ng/mL NT-Pro-B Natriuret Pep 9126 H 9058 H (0-450) pg/mL 07/03/17 07/03/17 07/03/17 Range/Units 11:30 15:00 16:45 WBC (4.23-9.07) K/mm3 RBC (4.63-6.08) M/mm3 Hgb (13.7-17.5) gm/L Hct (40.1-51.0) % MCV (79.0-92.2) fl MCH (25.7-32.2) pg MCHC (32.2-35.5) g/dl RDW Std Deviation (35.1-43.9) fL Plt Count (163-337) K/mm3 MPV (9.4-12.3) fl Neut % (Auto) (34.0-67.9) % Lymph % (Auto) (21.8-53.1) % [place] % (Auto) (5.3-12.2) % Eos % (Auto) (0.8-7.0) Baso % (Auto) (0.1-1.2) % Neut # (Auto) (1.78-5.38) K/mm3 Lymph # (Auto) (1.32-3.57) K/mm3 [place] # (Auto) (0.30-0.82) K/mm3 Eos # (Auto) (0.04-0.54) K/mm3 Baso # (Auto) (0.01-0.08) K/mm3 Manual Slide Review Sodium (136-145) mEq/L Potassium (3.5-5.1) mEq/L Chloride (98-107) mEq/L Carbon Dioxide (21-32) mEq/L Anion Gap (5-15) BUN (7-18) mg/dL Creatinine (0.7-1.3) mg/dL Est Cr Clr Drug Dosing mL/min Estimated GFR (MDRD) (>60) mL/min BUN/Creatinine Ratio (14-18) Glucose (83-115) mg/dL POC Glucose 217 H 272 H (83-110) mg/dL Calcium (8.5-10.1) mg/dL Magnesium (1.8-2.4) mg/dl Troponin I (0.00-0.056) ng/mL NT-Pro-B Natriuret Pep 8054 H (0-450) pg/mL Omega Results Last 24 Hours: Microbiology 07/02/17 19:30 Influenza Type A Antigen Screen - Final Nasal, Left NEGATIVE INFLUENZA A VIRUS AG Influenza Type B Antigen Screen - Final NEGATIVE INFLUENZA B VIRUS AG Med Orders - Current: Current Medications Acetaminophen (Tylenol) 650 mg PO Q4H PRN PRN Reason: Pain (Mild 1-3)/fever Last Admin: 07/02/17 21:31 Dose: 650 mg Hydrocodone Bitart/Acetaminophen ([place] 325-5 Mg) 1 tab PO Q4H PRN PRN Reason: Pain (moderate 4-6) Albuterol (Proventil Neb Soln) 2.5 mg INH Q6HRRT [place] Last Admin: 07/03/17 14:48 Dose: Not Given Albuterol/Ipratropium (Duoneb 3.0-0.5 Mg/3 Ml) 3 ml NEB Q4H PRN PRN Reason: Shortness Of Breath/wheezing Last Admin: 07/03/17 14:04 Dose: 3 ml Allopurinol (Zyloprim) 150 mg PO DAILY [facility] Last Admin: 07/03/17 09:07 Dose: 150 mg Aspirin (Halfprin) 81 mg PO DAILY PRN PRN Reason: Chest Pain Last Admin: 07/02/17 21:30 Dose: 81 mg Bumetanide (Bumex) 1 mg IVPUSH BIDDIURETIC [facility] Last Admin: 07/03/17 16:48 Dose: 1 mg Carvedilol (Coreg) 12.5 mg PO BID [facility] Last Admin: 07/03/17 09:05 Dose: 12.5 mg Clopidogrel Bisulfate (Plavix) 75 mg PO DAILY [facility] Last Admin: 07/03/17 09:07 Dose: 75 mg Dextrose/Water (Dextrose 50% In Water) 25 - 50 ml IVPUSH ASDIRECTED PRN PRN Reason: hypoglycemia Docusate Sodium (Colace) 100 mg PO BID PRN PRN Reason: Constipation Doxycycline Hyclate (Vibramycin) 100 mg PO Q12HR [facility] Last Admin: 07/03/17 09:05 Dose: 100 mg Famotidine (Pepcid) 20 mg PO DAILY [facility] Last Admin: 07/03/17 09:06 Dose: 20 mg Finasteride (Proscar) 5 mg PO DAILY [facility] Last Admin: 07/03/17 09:06 Dose: 5 mg Fluoxetine HCl (Prozac) 20 mg PO DAILY [facility] Last Admin: 07/03/17 09:07 Dose: 20 mg Hydralazine HCl (Apresoline) 25 mg PO TID [facility] Last Admin: 07/03/17 15:13 Dose: 25 mg Insulin Aspart (Novolog) 0 unit SUBCUT QIDACANDBED [facility] PRN Reason: Protocol Last Admin: 07/03/17 16:49 Dose: 6 units Insulin Detemir (Levemir) 50 unit SUBCUT BID [facility] Isosorbide Dinitrate (Isordil) 30 mg PO TID [facility] Last Admin: 07/03/17 15:11 Dose: 30 mg Levothyroxine Sodium (Levothyroxine) 75 mcg PO DAILY [facility] Last Admin: 07/03/17 11:48 Dose: 75 mcg Methylprednisolone Sodium Succinate (Solu-Medrol) 125 mg IVPUSH Q6H [facility] Ondansetron HCl (Zofran Odt) 4 mg PO Q6H PRN PRN Reason: nausea, able to take PO Ondansetron HCl (Zofran) 4 mg IV Q6H PRN PRN Reason: Nausea/Vomiting Polyethylene Glycol (Miralax) 17 gm PO DAILY PRN PRN Reason: Constipation Potassium Chloride (Klor-Con M20) 20 meq PO DAILY [facility] Last Admin: 07/03/17 09:07 Dose: 20 meq Rosuvastatin Calcium (Crestor) 10 mg PO BEDTIME [facility] Last Admin: 07/02/17 21:32 Dose: 10 mg Senna/Docusate Sodium (Senna Plus) 1 tab PO BID PRN PRN Reason: Constipation Sodium Chloride (Saline Flush) 10 ml FLUSH ASDIRECTED PRN PRN Reason: Keep Vein Open Last Admin: 07/02/17 12:48 Dose: 10 ml Sodium Chloride ([place] Nasal [place]) 0 ml BUTCH QID PRN PRN Reason: nasal congestion and dryness Tamsulosin HCl (Flomax) 0.4 mg PO BEDTIME [facility] Last Admin: 07/02/17 21:32 Dose: 0.4 mg Tiotropium [place] (Spiriva Handihaler) 0 mcg INH DAILY [facility] Discontinued Medications Albuterol/Ipratropium (Duoneb 3.0-0.5 Mg/3 Ml) 3 ml NEB ONETIME ONE Stop: 07/02/17 12:26 Last Admin: 07/02/17 12:53 Dose: 3 ml Bumetanide (Bumex) 1 mg IVPUSH BID [facility] Last Admin: 07/03/17 01:50 Dose: Not Given Bumetanide (Bumex) 1 mg IVPUSH BID [facility] Last Admin: 07/03/17 09:07 Dose: 1 mg Famotidine (Pepcid) 20 mg PO BID [facility] Last Admin: 07/03/17 01:50 Dose: Not Given Furosemide (Lasix) 80 mg IVPUSH NOW ONE Stop: 07/02/17 12:27 Last Admin: 07/02/17 12:48 Dose: 80 mg Furosemide (Lasix) Confirm Administered Dose 40 mg .ROUTE .STK-MED ONE Stop: 07/02/17 12:35 Last Admin: 07/02/17 12:48 Dose: Not Given Hydralazine HCl (Apresoline) 25 mg PO ONETIME ONE Stop: 07/02/17 16:55 Last Admin: 07/02/17 17:16 Dose: 25 mg Insulin Detemir (Levemir) 55 unit SUBCUT BEDTIME [facility] Last Admin: 07/02/17 22:20 Dose: 55 units Isosorbide Mononitrate (Imdur) 30 mg PO ONETIME ONE Stop: 07/02/17 16:56 Last Admin: 07/02/17 17:16 Dose: 30 mg Methylprednisolone Sodium Succinate (Solu-Medrol) 125 mg IVPUSH ONETIME ONE Stop: 07/02/17 12:26 Last Admin: 07/02/17 12:46 Dose: 125 mg Pantoprazole Sodium (Protonix) 40 mg PO ONETIME ONE Stop: 07/02/17 16:53 Last Admin: 07/02/17 17:10 Dose: 40 mg Potassium Chloride (Klor-Con M20) 20 meq PO ONETIME ONE Stop: 07/02/17 16:54 Last Admin: 07/02/17 17:10 Dose: 20 meq - Exam Quality Assessment: DVT Prophylaxis General: Alert, Oriented, Cooperative, No Acute Distress HEENT: Pupils Equal, Pupils Reactive, EOMI Neck: Trachea Midline Lungs: Normal Respiratory Effort, Decreased Breath Sounds, Wheezing Cardiovascular: Regular Rate GI/Abdominal Exam: Normal Bowel Sounds, Soft, Tender (RUQ) (Male) Exam: Deferred Back Exam: Normal Inspection Extremities: Normal Inspection, Pedal Edema Skin: Warm Neurological: No New Focal Deficit Psy/Mental Status: Alert, Normal Affect, Normal Mood - Problem List Review Problem List Initiated/Reviewed/Updated: Yes - My Orders Last 24 Hours: My Active Orders 07/02/17 21:11 CPAP Adult [RT BiPAP/CPAP] [RC] ASDIRECTED 07/03/17 03:25 STREP PNEUMONIAE ANTIGEN [MREF] Routine 07/03/17 11:15 Levothyroxine 75 mcg PO DAILY 07/03/17 17:00 URINALYSIS W/MICROSCOPIC [UA W/MICROSCOPIC] [URIN] Routine methylPREDNISolone Sod Succ [Solu-MEDROL] 125 mg IVPUSH Q6H 07/03/17 17:01 CULTURE URINE [RM] Routine 07/03/17 17:02 RESPIRATORY PANEL BY PCR [MREF] Routine 07/03/17 Dinner Fluid Restriction [DIET] - Plan Plan:: I/P: Acute: CHF exacerbation -SOB worsening over last few days -4-5 lb weight gain with increasing pedal edema -Usually utilized oxygen at night and PRN but has needed to utilize constantly recently -Usually sleeps with 2 pillows at night and utilizes CPAP -Pro-BNP in ED 3997, repeat in AM -Prior MT with stent placement in [place] recently -12-lead EKG shows RBBB with 1st degree HB at 67 BPM. This was unchanged from prior EKG in our system -Trop negative at 0.028 -80mg lasix given IV in ED -Will hold home PO lasix and order IVP bumex 1mg BID -Pt. reports SOB is improved from prior to ED, but still not at baseline -Titrate O2 as needed - pt. currently on 3L which is his home amount per his report -RT to evaluate and treat -Last echo from before pt. had stents placed in [place]. Echo ordered in AM -Consider fluid restrictions COPD exacerbation -Questioning possibility, symptoms most likely from CHF -In addition to above -125mg solu-medrol given in ED; resumed today q 6 -CRP slightly elevated at 2.2 but WBC WNL. Azithromycin not recommended due to prolonged QTc. Doxycycline ordered -Resp panel -Magnesium 2.3 -Mycoplasma pneumoniae negative -Influenza A and B, as well as strep pneumonia ordered -Consider f/u CXR in 24-48 hrs Abdominal pain -RUQ -Pain for last month -Nausea but no vomiting -Afebrile -Denies constipation or diarrhea -Abdominal ultrasound done in ED: -1. Less than optimal study due to body habitus and difficulty holding breath -2. Fatty infiltration within the liver is likely present -3. Single small gallstone with no gallbladder wall thickening or biliary duct dilation -4. Incidental renal cyst. -Lipase ordered -CRP elevated at 2.2 -WBC normal at 7.30 -Consider Abdominal CT and/or HIDA scan once respiratory status improves; gen surg consult as needed. Nasal congestion -Reports difficult breathing out of both nostrils -Nasal saline flushes as ordered -Humidified oxygen -Consider Afrin if no improvement -Patient inquired about adding humidifier to his home oxygen setup - reports he has been contacted already about this CKD Stage III -BUN 26 -Creatinine 1.8 -eGFR 36 -Unsure what baseline is -He has only been here one other time and kidney function was similar then -Monitor need for fluids vs. worsening CHF Chronic: Type II DM - Continue long acting insulin, will switch from usual NovoLog to sliding scale with blood glucose checks as ordered; A1C 7.5 here Pedal edema - treat as above Sleep apnea on CPAP - Does not have own CPAP here, RT to assist Hypothyroidism CAD Morbid obesity with BMI of 50.7 Plan: Diurese as tolerated Continue Doxy orally for now 2 liter fluid restrict Trend cardiac enzymes UA/UC IV steroids CM/SW for discharge planning PT/OT RT to assess and treat as above DVT/PE prophylaxis: SHAYLA lira, on Plavix as home med. Lovenox contraindicated due to poor renal function GI prophylaxis - Pepcid Routine AM labs Other orders as above Code status: Full Code. His P[facility] is [facility].
[2017-07-03] MEDS: methylPREDNISolone Sodium Succinate 125 MG/2 ML SDV IVPUSH SCH ×2 (18:16→22:09)
--- NOTE | 2017-07-03 18:17 | PCM.SN ---
- Free Text/Narrative Note: 1757 in room IV start hand #24 ga. good flush good blood return X 2 attempts out room at 1814
[2017-07-03] MEDS: Rosuvastatin 10 MG Tab PO SCH (20:26)
[2017-07-03] MEDS: Tamsulosin 0.4 MG Cap.ER PO SCH (20:26)
[2017-07-03] MEDS: Insulin Detemir 100 Units/ML 3 ML Pen SUBCUT SCH (20:27)
[2017-07-04] MEDS: Albuterol 0.083% 2.5 MG/3 ML Neb Soln INH SCH ×4 (03:03→20:14)
[2017-07-04] MEDS: methylPREDNISolone Sodium Succinate 125 MG/2 ML SDV IVPUSH SCH ×3 (05:57→16:19)
[2017-07-04] MEDS: Bumetanide 1 MG/4 ML MDV IVPUSH SCH ×3 (06:05→17:07)
[2017-07-04] MEDS: Insulin Aspart 100 Units/ML 3 ML Pen SUBCUT SCH ×4 (06:47→21:17)
[2017-07-04] MEDS: Acetaminophen 325 MG Tab PO PRN (08:12)
[2017-07-04] MEDS: Acetaminophen/HYDROcodone 325-5 MG Tab PO PRN (08:41)
[2017-07-04] MEDS: Tiotropium Inhaler 18 MCG Inhalation Powder Cap Kit of 5 INH SCH (08:58)
--- NOTE | 2017-07-04 09:03 | CR ---
Chest: Two views of the chest are obtained. Comparison: Prior chest x-ray of 07/02/17. Blunting of the posterior costophrenic angles are seen compatible with small pleural effusions. Lung markings are mildly increased most likely due to mild pulmonary vascular congestion. Heart does not appear enlarged. Upper mediastinum within normal limits for the patient's age. Mild degenerative change is scattered within the spine. Impression: 1. Small pleural effusions. Mild pulmonary vascular congestion suggested. Diagnostic code #3
[2017-07-04] MEDS ORDERED: HYDROmorphone 0.5 MG/0.5 ML Syringe IVPUSH PRN (09:16)
[2017-07-04] MEDS: Insulin Detemir 100 Units/ML 3 ML Pen SUBCUT SCH ×2 (10:20→21:17)
[2017-07-04] MEDS: Doxycycline 100 MG Cap PO SCH (10:36)
[2017-07-04] MEDS: FLUoxetine 20 MG Cap PO SCH (10:36)
[2017-07-04] MEDS: Allopurinol 300 MG Tab PO SCH (10:37)
[2017-07-04] MEDS: Isosorbide Dinitrate 10 MG Tab PO SCH ×3 (10:37→21:16)
[2017-07-04] MEDS: Levothyroxine 75 MCG Tab PO SCH (10:38)
[2017-07-04] MEDS: Potassium Chloride 20 MEQ Tab.ER PO SCH (10:38)
[2017-07-04] MEDS: Famotidine 20 MG Tab PO SCH (10:39)
[2017-07-04] MEDS: Aspirin 81 MG Tab.EC PO SCH (10:39)
[2017-07-04] MEDS: hydrALAZINE 25 MG Tab PO SCH ×3 (10:39→21:15)
[2017-07-04] MEDS: Carvedilol 12.5 MG Tab PO SCH ×2 (10:39→21:15)
[2017-07-04] MEDS: Finasteride 5 MG Tab PO SCH (10:39)
[2017-07-04] MEDS: Clopidogrel 75 MG Tab PO SCH (10:39)
--- NOTE | 2017-07-04 15:42 | PCM.PN ---
- General Info Date of Service: 07/04/17 Admission Dx/Problem (Free Text): Admission Diagnosis/Problem Admission Diagnosis/Problem CHF, Congestive heart failure Subjective Update: Follow Up Functional Status: Reports: Pain Controlled, Ambulating, Urinating. Denies: Tolerating Diet, New Symptoms Pain Score: 3 - Review of Systems General: Denies: Fever, Chills HEENT: Reports: No Symptoms Pulmonary: Denies: Shortness of Breath Cardiovascular: Denies: Chest Pain Gastrointestinal: Reports: Abdominal Pain, Decreased Appetite, Flatus, Nausea. Denies: Vomiting Genitourinary: Reports: No Symptoms Musculoskeletal: Reports: No Symptoms Skin: Denies: Cyanosis, Jaundice, Mottled, Pallor, Diaphoresis, Bruising, Pruritis Neurological: Denies: Confusion, Pre-Existing Deficit, Weakness, Gait Disturbance Psychiatric: Denies: Depression, Anxiety, Agitation, Hallucinations Systems Review Comment:: No significant overnight issues. He had abdominal pain but improved with pain medication this morning. He is nauseous but w/o emesis. He has no new complaints. He has been afebrile w/o leukocytosis. His pressures are not controlled. - Patient Data Vitals - Most Recent: Last Vital Signs Temp 36.4 C 07/04/17 11:47 Pulse 77 07/04/17 11:47 Resp 18 07/04/17 11:47 BP 138/59 L 07/04/17 11:47 Pulse Ox 91 L 07/04/17 11:47 Weight - Most Recent: 134.309 kg I&O - Last 24 Hours: Intake & Output 07/04/17 07/04/17 07/04/17 06:59 14:59 22:59 Intake Total 400 360 Output Total 1000 Balance -600 360 Lab Results Last 24 Hours: Laboratory Results - last 24 hr 07/03/17 07/03/17 07/03/17 Range/Units 15:00 16:45 18:35 WBC (4.23-9.07) K/mm3 RBC (4.63-6.08) M/mm3 Hgb (13.7-17.5) gm/L Hct (40.1-51.0) % MCV (79.0-92.2) fl MCH (25.7-32.2) pg MCHC (32.2-35.5) g/dl RDW Std Deviation (35.1-43.9) fL Plt Count (163-337) K/mm3 MPV (9.4-12.3) fl Neut % (Auto) (34.0-67.9) % Lymph % (Auto) (21.8-53.1) % [place] % (Auto) (5.3-12.2) % Eos % (Auto) (0.8-7.0) Baso % (Auto) (0.1-1.2) % Neut # (Auto) (1.78-5.38) K/mm3 Lymph # (Auto) (1.32-3.57) K/mm3 [place] # (Auto) (0.30-0.82) K/mm3 Eos # (Auto) (0.04-0.54) K/mm3 Baso # (Auto) (0.01-0.08) K/mm3 Manual Slide Review Sodium (136-145) mEq/L Potassium (3.5-5.1) mEq/L Chloride (98-107) mEq/L Carbon Dioxide (21-32) mEq/L Anion Gap (5-15) BUN (7-18) mg/dL Creatinine (0.7-1.3) mg/dL Est Cr Clr Drug Dosing mL/min Estimated GFR (MDRD) (>60) mL/min BUN/Creatinine Ratio (14-18) Glucose (83-115) mg/dL POC Glucose 272 H (83-110) mg/dL Calcium (8.5-10.1) mg/dL Magnesium (1.8-2.4) mg/dl Total Bilirubin (0.2-1.0) mg/dL Direct Bilirubin (0.0-0.2) mg/dl Indirect Bilirubin AST (15-37) U/L ALT (16-63) U/L Alkaline Phosphatase (46-116) U/L Troponin I (0.00-0.056) ng/mL NT-Pro-B Natriuret Pep 8054 H (0-450) pg/mL Total Protein (6.4-8.2) g/dl Albumin (3.4-5.0) g/dl Globulin gm/dL Albumin/Globulin Ratio (1-2) Urine Color Yellow (Yellow) Urine Appearance Clear (Clear) Urine pH 5.5 (5.0-8.0) Ur Specific [place] 1.020 (1.005-1.030) Urine Protein 2+ H (Negative) Urine Glucose (UA) Negative (Negative) Urine Ketones Negative (Negative) Urine Occult Blood Negative (Negative) Urine Nitrite Negative (Negative) Urine Bilirubin Negative (Negative) Urine Urobilinogen 0.2 (0.2-1.0) Ur Leukocyte Esterase Negative (Negative) Urine RBC 0-5 (0-5) /hpf Urine WBC 0-5 (0-5) /hpf Ur Epithelial Cells 0-5 (0-5) /hpf Urine Bacteria Occasional (FEW) /hpf Urine Mucus Few (FEW) /hpf 07/03/17 07/04/17 07/04/17 Range/Units 19:53 06:15 06:15 WBC 6.43 (4.23-9.07) K/mm3 RBC 3.59 L (4.63-6.08) M/mm3 Hgb 11.1 L (13.7-17.5) gm/L Hct 35.4 L (40.1-51.0) % MCV 98.6 H (79.0-92.2) fl MCH 30.9 (25.7-32.2) pg MCHC 31.4 L (32.2-35.5) g/dl RDW Std Deviation 51.5 H (35.1-43.9) fL Plt Count 269 (163-337) K/mm3 MPV 10.8 (9.4-12.3) fl Neut % (Auto) 91.3 H (34.0-67.9) % Lymph % (Auto) 8.1 L (21.8-53.1) % Sherman % (Auto) 0.6 L (5.3-12.2) % Eos % (Auto) 0 L (0.8-7.0) Baso % (Auto) 0.0 L (0.1-1.2) % Neut # (Auto) 5.87 H (1.78-5.38) K/mm3 Lymph # (Auto) 0.52 L (1.32-3.57) K/mm3 Sherman # (Auto) 0.04 L (0.30-0.82) K/mm3 Eos # (Auto) 0.00 L (0.04-0.54) K/mm3 Baso # (Auto) 0.00 L (0.01-0.08) K/mm3 Manual Slide Review Abnormal smear Sodium 140 (136-145) mEq/L Potassium 5.3 H (3.5-5.1) mEq/L Chloride 104 (98-107) mEq/L Carbon Dioxide 23 (21-32) mEq/L Anion Gap 18.3 H (5-15) BUN 42 H (7-18) mg/dL Creatinine 2.1 H (0.7-1.3) mg/dL Est Cr Clr Drug Dosing 21.14 mL/min Estimated GFR (MDRD) 30 (>60) mL/min BUN/Creatinine Ratio 20.0 H (14-18) Glucose 340 H (83-115) mg/dL POC Glucose 267 H (83-110) mg/dL Calcium 9.6 (8.5-10.1) mg/dL Magnesium 2.4 (1.8-2.4) mg/dl Total Bilirubin (0.2-1.0) mg/dL Direct Bilirubin (0.0-0.2) mg/dl Indirect Bilirubin AST (15-37) U/L ALT (16-63) U/L Alkaline Phosphatase (46-116) U/L Troponin I (0.00-0.056) ng/mL NT-Pro-B Natriuret Pep 4597 H (0-450) pg/mL Total Protein (6.4-8.2) g/dl Albumin (3.4-5.0) g/dl Globulin gm/dL Albumin/Globulin Ratio (1-2) Urine Color (Yellow) Urine Appearance (Clear) Urine pH (5.0-8.0) Ur Specific [place] (1.005-1.030) Urine Protein (Negative) Urine Glucose (UA) (Negative) Urine Ketones (Negative) Urine Occult Blood (Negative) Urine Nitrite (Negative) Urine Bilirubin (Negative) Urine Urobilinogen (0.2-1.0) Ur Leukocyte Esterase (Negative) Urine RBC (0-5) /hpf Urine WBC (0-5) /hpf Ur Epithelial Cells (0-5) /hpf Urine Bacteria (FEW) /hpf Urine Mucus (FEW) /hpf 07/04/17 07/04/17 07/04/17 Range/Units 06:15 06:29 09:45 WBC (4.23-9.07) K/mm3 RBC (4.63-6.08) M/mm3 Hgb (13.7-17.5) gm/L Hct (40.1-51.0) % MCV (79.0-92.2) fl MCH (25.7-32.2) pg MCHC (32.2-35.5) g/dl RDW Std Deviation (35.1-43.9) fL Plt Count (163-337) K/mm3 MPV (9.4-12.3) fl Neut % (Auto) (34.0-67.9) % Lymph % (Auto) (21.8-53.1) % Sherman % (Auto) (5.3-12.2) % Eos % (Auto) (0.8-7.0) Baso % (Auto) (0.1-1.2) % Neut # (Auto) (1.78-5.38) K/mm3 Lymph # (Auto) (1.32-3.57) K/mm3 [place] # (Auto) (0.30-0.82) K/mm3 Eos # (Auto) (0.04-0.54) K/mm3 Baso # (Auto) (0.01-0.08) K/mm3 Manual Slide Review Sodium (136-145) mEq/L Potassium (3.5-5.1) mEq/L Chloride (98-107) mEq/L Carbon Dioxide (21-32) mEq/L Anion Gap (5-15) BUN (7-18) mg/dL Creatinine (0.7-1.3) mg/dL Est Cr Clr Drug Dosing mL/min Estimated GFR (MDRD) (>60) mL/min BUN/Creatinine Ratio (14-18) Glucose (83-115) mg/dL POC Glucose 291 H (83-110) mg/dL Calcium (8.5-10.1) mg/dL Magnesium (1.8-2.4) mg/dl Total Bilirubin 0.6 (0.2-1.0) mg/dL Direct Bilirubin 0.10 (0.0-0.2) mg/dl Indirect Bilirubin 0.50 AST 11 L (15-37) U/L ALT 20 (16-63) U/L Alkaline Phosphatase 105 (46-116) U/L Troponin I 0.018 (0.00-0.056) ng/mL NT-Pro-B Natriuret Pep (0-450) pg/mL Total Protein 7.8 (6.4-8.2) g/dl Albumin 3.5 (3.4-5.0) g/dl Globulin 4.3 gm/dL Albumin/Globulin Ratio 0.8 L (1-2) Urine Color (Yellow) Urine Appearance (Clear) Urine pH (5.0-8.0) Ur Specific [place] (1.005-1.030) Urine Protein (Negative) Urine Glucose (UA) (Negative) Urine Ketones (Negative) Urine Occult Blood (Negative) Urine Nitrite (Negative) Urine Bilirubin (Negative) Urine Urobilinogen (0.2-1.0) Ur Leukocyte Esterase (Negative) Urine RBC (0-5) /hpf Urine WBC (0-5) /hpf Ur Epithelial Cells (0-5) /hpf Urine Bacteria (FEW) /hpf Urine Mucus (FEW) /hpf 07/04/17 Range/Units 11:32 WBC (4.23-9.07) K/mm3 RBC (4.63-6.08) M/mm3 Hgb (13.7-17.5) gm/L Hct (40.1-51.0) % MCV (79.0-92.2) fl MCH (25.7-32.2) pg MCHC (32.2-35.5) g/dl RDW Std Deviation (35.1-43.9) fL Plt Count (163-337) K/mm3 MPV (9.4-12.3) fl Neut % (Auto) (34.0-67.9) % Lymph % (Auto) (21.8-53.1) % [place] % (Auto) (5.3-12.2) % Eos % (Auto) (0.8-7.0) Baso % (Auto) (0.1-1.2) % Neut # (Auto) (1.78-5.38) K/mm3 Lymph # (Auto) (1.32-3.57) K/mm3 [place] # (Auto) (0.30-0.82) K/mm3 Eos # (Auto) (0.04-0.54) K/mm3 Baso # (Auto) (0.01-0.08) K/mm3 Manual Slide Review Sodium (136-145) mEq/L Potassium (3.5-5.1) mEq/L Chloride (98-107) mEq/L Carbon Dioxide (21-32) mEq/L Anion Gap (5-15) BUN (7-18) mg/dL Creatinine (0.7-1.3) mg/dL Est Cr Clr Drug Dosing mL/min Estimated GFR (MDRD) (>60) mL/min BUN/Creatinine Ratio (14-18) Glucose (83-115) mg/dL POC Glucose 357 H (83-110) mg/dL Calcium (8.5-10.1) mg/dL Magnesium (1.8-2.4) mg/dl Total Bilirubin (0.2-1.0) mg/dL Direct Bilirubin (0.0-0.2) mg/dl Indirect Bilirubin AST (15-37) U/L ALT (16-63) U/L Alkaline Phosphatase (46-116) U/L Troponin I (0.00-0.056) ng/mL NT-Pro-B Natriuret Pep (0-450) pg/mL Total Protein (6.4-8.2) g/dl Albumin (3.4-5.0) g/dl Globulin gm/dL Albumin/Globulin Ratio (1-2) Urine Color (Yellow) Urine Appearance (Clear) Urine pH (5.0-8.0) Ur Specific [place] (1.005-1.030) Urine Protein (Negative) Urine Glucose (UA) (Negative) Urine Ketones (Negative) Urine Occult Blood (Negative) Urine Nitrite (Negative) Urine Bilirubin (Negative) Urine Urobilinogen (0.2-1.0) Ur Leukocyte Esterase (Negative) Urine RBC (0-5) /hpf Urine WBC (0-5) /hpf Ur Epithelial Cells (0-5) /hpf Urine Bacteria (FEW) /hpf Urine Mucus (FEW) /hpf Omega Results Last 24 Hours: Microbiology 07/03/17 18:35 Urine Culture - Preliminary Urine, Clean Catch NO GROWTH AFTER 1 DAY 07/03/17 03:25 Streptococcus pneumoniae Antigen (M - Final Urine Med Orders - Current: Current Medications Acetaminophen (Tylenol) 650 mg PO Q4H PRN PRN Reason: Pain (Mild 1-3)/fever Last Admin: 07/04/17 08:12 Dose: 650 mg Hydrocodone Bitart/Acetaminophen ([place] 325-5 Mg) 1 tab PO Q4H PRN PRN Reason: Pain (moderate 4-6) Last Admin: 07/04/17 08:41 Dose: 1 tab Albuterol (Proventil Neb Soln) 2.5 mg INH Q6HRRT [facility] Last Admin: 07/04/17 08:53 Dose: 2.5 mg Albuterol/Ipratropium (Duoneb 3.0-0.5 Mg/3 Ml) 3 ml NEB Q4H PRN PRN Reason: Shortness Of Breath/wheezing Last Admin: 07/03/17 14:04 Dose: 3 ml Allopurinol (Zyloprim) 150 mg PO DAILY [facility] Last Admin: 07/04/17 10:37 Dose: 150 mg Aspirin (Halfprin) 81 mg PO DAILY [facility] Last Admin: 07/04/17 10:39 Dose: 81 mg Bumetanide (Bumex) 1 mg IVPUSH BIDDIURETIC [facility] Last Admin: 07/04/17 13:46 Dose: 1 mg Carvedilol (Coreg) 12.5 mg PO BID [facility] Last Admin: 07/04/17 10:39 Dose: 12.5 mg Clopidogrel Bisulfate (Plavix) 75 mg PO DAILY [facility] Last Admin: 07/04/17 10:39 Dose: 75 mg Dextrose/Water (Dextrose 50% In Water) 25 - 50 ml IVPUSH ASDIRECTED PRN PRN Reason: hypoglycemia Docusate Sodium (Colace) 100 mg PO BID PRN PRN Reason: Constipation Last Admin: 07/04/17 10:41 Dose: 100 mg Doxycycline Hyclate (Vibramycin) 100 mg PO Q12HR [facility] Last Admin: 07/04/17 10:36 Dose: 100 mg Famotidine (Pepcid) 20 mg PO DAILY [facility] Last Admin: 07/04/17 10:39 Dose: 20 mg Finasteride (Proscar) 5 mg PO DAILY [facility] Last Admin: 07/04/17 10:39 Dose: 5 mg Fluoxetine HCl (Prozac) 20 mg PO DAILY [facility] Last Admin: 07/04/17 10:36 Dose: 20 mg Hydralazine HCl (Apresoline) 25 mg PO TID [facility] Last Admin: 07/04/17 10:39 Dose: 25 mg Hydromorphone HCl (Dilaudid) 0.5 mg IVPUSH Q4H PRN PRN Reason: Pain Last Admin: 07/04/17 09:28 Dose: 0.5 mg Insulin Aspart (Novolog) 0 unit SUBCUT QIDACANDBED [facility] PRN Reason: Protocol Last Admin: 07/04/17 11:36 Dose: 10 units Insulin Detemir (Levemir) 50 unit SUBCUT BID [facility] Last Admin: 07/04/17 10:20 Dose: 50 units Isosorbide Dinitrate (Isordil) 30 mg PO TID [facility] Last Admin: 07/04/17 10:37 Dose: 30 mg Levothyroxine Sodium (Levothyroxine) 75 mcg PO DAILY [facility] Last Admin: 07/04/17 10:38 Dose: 75 mcg Methylprednisolone Sodium Succinate (Solu-Medrol) 125 mg IVPUSH Q6H [facility] Last Admin: 07/04/17 10:21 Dose: 125 mg Ondansetron HCl (Zofran Odt) 4 mg PO Q6H PRN PRN Reason: nausea, able to take PO Ondansetron HCl (Zofran) 4 mg IV Q6H PRN PRN Reason: Nausea/Vomiting Polyethylene Glycol (Miralax) 17 gm PO DAILY PRN PRN Reason: Constipation Potassium Chloride (Klor-Con M20) 20 meq PO DAILY [facility] Last Admin: 07/04/17 10:38 Dose: 20 meq Rosuvastatin Calcium (Crestor) 10 mg PO BEDTIME [facility] Last Admin: 07/03/17 20:26 Dose: 10 mg Senna/Docusate Sodium (Senna Plus) 1 tab PO BID PRN PRN Reason: Constipation Sodium Chloride (Saline Flush) 10 ml FLUSH ASDIRECTED PRN PRN Reason: Keep Vein Open Last Admin: 07/02/17 12:48 Dose: 10 ml Sodium Chloride (Olar Nasal [place]) 0 ml BUTCH QID PRN PRN Reason: nasal congestion and dryness Tamsulosin HCl (Flomax) 0.4 mg PO BEDTIME [facility] Last Admin: 07/03/17 20:26 Dose: 0.4 mg Tiotropium [place] (Spiriva Handihaler) 0 mcg INH DAILY [facility] Last Admin: 07/04/17 08:58 Dose: 1 cap Discontinued Medications Albuterol/Ipratropium (Duoneb 3.0-0.5 Mg/3 Ml) 3 ml NEB ONETIME ONE Stop: 07/02/17 12:26 Last Admin: 07/02/17 12:53 Dose: 3 ml Aspirin (Halfprin) 81 mg PO DAILY PRN PRN Reason: Chest Pain Last Admin: 07/02/17 21:30 Dose: 81 mg Bumetanide (Bumex) 1 mg IVPUSH BID [facility] Last Admin: 07/03/17 01:50 Dose: Not Given Bumetanide (Bumex) 1 mg IVPUSH BID [facility] Last Admin: 07/03/17 09:07 Dose: 1 mg Famotidine (Pepcid) 20 mg PO BID [facility] Last Admin: 07/03/17 01:50 Dose: Not Given Furosemide (Lasix) 80 mg IVPUSH NOW ONE Stop: 07/02/17 12:27 Last Admin: 07/02/17 12:48 Dose: 80 mg Furosemide (Lasix) Confirm Administered Dose 40 mg .ROUTE .STK-MED ONE Stop: 07/02/17 12:35 Last Admin: 07/02/17 12:48 Dose: Not Given Hydralazine HCl (Apresoline) 25 mg PO ONETIME ONE Stop: 07/02/17 16:55 Last Admin: 07/02/17 17:16 Dose: 25 mg Insulin Detemir (Levemir) 55 unit SUBCUT BEDTIME [facility] Last Admin: 07/02/17 22:20 Dose: 55 units Isosorbide Mononitrate (Imdur) 30 mg PO ONETIME ONE Stop: 07/02/17 16:56 Last Admin: 07/02/17 17:16 Dose: 30 mg Methylprednisolone Sodium Succinate (Solu-Medrol) 125 mg IVPUSH ONETIME ONE Stop: 07/02/17 12:26 Last Admin: 07/02/17 12:46 Dose: 125 mg Pantoprazole Sodium (Protonix) 40 mg PO ONETIME ONE Stop: 07/02/17 16:53 Last Admin: 07/02/17 17:10 Dose: 40 mg Potassium Chloride (Klor-Con M20) 20 meq PO ONETIME ONE Stop: 07/02/17 16:54 Last Admin: 07/02/17 17:10 Dose: 20 meq - Exam Quality Assessment: Supplemental Oxygen General: Alert, Oriented, Cooperative, No Acute Distress, Other (Morbidly Obese. He is currently on CPAP) HEENT: Pupils Equal, Pupils Reactive, EOMI Neck: Supple, Trachea Midline, No JVD, Other (short and thick) Lungs: Normal Respiratory Effort, Decreased Breath Sounds, Rhonchi Cardiovascular: Regular Rate, Regular Rhythm GI/Abdominal Exam: Normal Bowel Sounds, Soft, No Organomegaly, No Distention, No Abnormal Bruit, Other (Obese; RUQ pain with palpation). No: Guarding, Rigid , Rebound (Male) Exam: Deferred Back Exam: Normal Inspection, Decreased Range of Motion Extremities: Normal Inspection, Normal Range of Motion, Non-Tender, Pedal Edema Peripheral Pulses: 1+: Dorsalis Pedis (L), Dorsalis Pedis (R) Skin: Warm, Dry, Intact Neurological: No New Focal Deficit Psy/Mental Status: Alert, Normal Affect, Normal Mood - Problem List Review Problem List Initiated/Reviewed/Updated: Yes - My Orders Last 24 Hours: My Active Orders 07/04/17 12:17 Consult to Physician [CONS] Routine 07/04/17 12:20 Notify Provider Consults [RC] ASDIRECTED - Plan Plan:: I/P: Acute: CHF Exacerbation - SOB worsening over last few days - 4-5 lb weight gain with increasing pedal edema - Usually utilized oxygen at night and PRN but has needed to utilize constantly recently - Usually sleeps with 2 pillows at night and utilizes CPAP - Pro-BNP in ED 3997, now 4597 - Prior MT with stent placement in [place] recently - 12-lead EKG shows RBBB with 1st degree HB at 67 BPM. This was unchanged from prior EKG in our system - Trop negative at 0.028 - Continue with reduced acuña of IVP Bumex 0.5 mg BID - Titrate O2 as needed - pt. currently on 3L which is his home amount per his report - RT to evaluate and treat - Last echo from before pt. had stents placed in [place]. Echo completed this AM - NPO except ice chips/sips of water due to gall bladder problem COPD Exacerbation - Questioning possibility, symptoms most likely from CHF - In addition to above - Changed 125 mg solu-medrol to TID form QID - CRP slightly elevated at 2.2 but WBC WNL - Respiratory panel still pending - Magnesium 2.3 --> 2.4 - Mycoplasma pneumoniae/Influenza A and B/strep pneumonia: all negative - Follow up CXR this am: Small pleural effusions and mildly increased pulmonary vascular congestion - Discontinue Doxycycline Cholelithiasis w/o Cholecystitis - RUQ - Pain for last month - Nausea but no vomiting - Afebrile w/o leukocytosis - Denies constipation or diarrhea - Abdominal ultrasound done in ED: 1. Less than optimal study due to body habitus and difficulty holding breath 2. Fatty infiltration within the liver is likely present 3. Single small gallstone with no gallbladder wall thickening or biliary duct dilation 4. Incidental renal cyst - Lipase 69; CRP elevated at 2.2; WBC normal at 7.30 - Pain control medication - MRCP this afternoon and General Surgery consult for further evaluation Nasal Congestion - Reports difficult breathing out of both nostrils - Nasal saline flushes as ordered - Humidified oxygen - Consider Afrin if no improvement - Patient inquired about adding humidifier to his home oxygen setup - reports he has been contacted already about this CKD Stage III, at baseline - BUN 26 - Creatinine 1.8 - eGFR 36 - Unsure what baseline is - He has only been here one other time and kidney function was similar then - Monitor need for fluids vs. worsening CHF Chronic: Type II DM - Continue long acting insulin, will switch from usual NovoLog to sliding scale with blood glucose checks as ordered; A1C 7.5 here Pedal edema - treat as above Sleep apnea on CPAP - Does not have own CPAP here, RT to assist Hypothyroidism CAD Morbid obesity with BMI of 50.7 Plan: He looks stable 2 liter fluid restrict once po meals NPO for now due to MRCP and cholelithiasis UA: negative Continue PT/OT/RT to assess and treat as above DVT/PE prophylaxis: SHAYLA lira, on Plavix as home med. Lovenox contraindicated due to poor renal function CM/SW for discharge planning GI prophylaxis: H2B Routine AM labs Other orders as above Code status: Full Code. His PCP is Dr. Strange with the [facility]
--- NOTE | 2017-07-04 16:23 | MR ---
MR cholangiogram Technique: Various sequences were obtained through the upper abdomen and axial coronal planes as well as MR cholangiogram study. Findings: Common bile duct and common hepatic duct appear within normal limits in size. No discrete filling defects are seen within the CHD or CBD. Cyst identified within each kidney. Several small filling defects are seen within the gallbladder suspicious for several small gallstones. Bilateral pleural effusions are seen. Atelectasis also appears to be present within both lung bases. Impression: 1. 2 filling defects within the gallbladder suspicious for small gallstones. No CHD or CBD dilatation is seen. No findings of choledocholithiasis. 2. Cyst within either kidney. 3. Small pleural effusions and bibasilar atelectasis. Diagnostic code #3
[2017-07-04] MEDS: Rosuvastatin 10 MG Tab PO SCH (21:15)
[2017-07-04] MEDS: Tamsulosin 0.4 MG Cap.ER PO SCH (21:16)
[2017-07-05] MEDS: methylPREDNISolone Sodium Succinate 125 MG/2 ML SDV IVPUSH SCH ×3 (00:15→20:57)
[2017-07-05] MEDS: Albuterol 0.083% 2.5 MG/3 ML Neb Soln INH SCH ×2 (03:07→08:01)
[2017-07-05] MEDS: Acetaminophen/HYDROcodone 325-5 MG Tab PO PRN (06:33)
[2017-07-05] MEDS: Bumetanide 1 MG/4 ML MDV IVPUSH SCH (06:33)
[2017-07-05] MEDS: Insulin Aspart 100 Units/ML 3 ML Pen SUBCUT SCH ×6 (06:47→22:51)
--- NOTE | 2017-07-05 07:47 | PCM.PN ---
- General Info Date of Service: 07/05/17 Admission Dx/Problem (Free Text): Admission Diagnosis/Problem Admission Diagnosis/Problem CHF, Congestive heart failure Subjective Update: Follow Up Functional Status: Reports: Pain Controlled, Ambulating, Urinating. Denies: New Symptoms - Review of Systems General: Denies: Fever, Weakness, Chills HEENT: Reports: No Symptoms Pulmonary: Denies: Shortness of Breath Cardiovascular: Denies: Chest Pain Gastrointestinal: Reports: Abdominal Pain, Flatus. Denies: Diarrhea, Nausea, Vomiting Genitourinary: Reports: No Symptoms Musculoskeletal: Reports: No Symptoms Skin: Denies: Cyanosis, Jaundice, Mottled, Pallor, Diaphoresis, Dryness Neurological: Reports: Difficulty Walking, Gait Disturbance. Denies: Confusion Psychiatric: Denies: Depression, Anxiety, Agitation, Hallucinations Systems Review Comment:: No significant overnight or acute issues. Pain is controlled at 3/10. He is not nauseous or dry heaving. He has no new complaints. He is afebrile w/o leukocytosis. - Patient Data Vitals - Most Recent: Last Vital Signs Temp 36.7 C 07/05/17 04:41 Pulse 69 07/05/17 04:41 Resp 12 07/05/17 04:41 BP 157/49 H 07/05/17 04:41 Pulse Ox 97 07/05/17 04:41 Weight - Most Recent: 131.995 kg I&O - Last 24 Hours: Intake & Output 07/04/17 07/05/17 07/05/17 22:59 06:59 14:59 Intake Total 200 100 Output Total 800 2050 Balance -600 -1950 Lab Results Last 24 Hours: Laboratory Results - last 24 hr 07/04/17 07/04/17 07/04/17 Range/Units 06:15 06:15 09:45 WBC (4.23-9.07) K/mm3 RBC (4.63-6.08) M/mm3 Hgb (13.7-17.5) gm/L Hct (40.1-51.0) % MCV (79.0-92.2) fl MCH (25.7-32.2) pg MCHC (32.2-35.5) g/dl RDW Std Deviation (35.1-43.9) fL Plt Count (163-337) K/mm3 MPV (9.4-12.3) fl Neut % (Auto) (34.0-67.9) % Lymph % (Auto) (21.8-53.1) % [place] % (Auto) (5.3-12.2) % Eos % (Auto) (0.8-7.0) Baso % (Auto) (0.1-1.2) % Neut # (Auto) (1.78-5.38) K/mm3 Lymph # (Auto) (1.32-3.57) K/mm3 [place] # (Auto) (0.30-0.82) K/mm3 Eos # (Auto) (0.04-0.54) K/mm3 Baso # (Auto) (0.01-0.08) K/mm3 Manual Slide Review Sodium 140 (136-145) mEq/L Potassium 5.3 H (3.5-5.1) mEq/L Chloride 104 (98-107) mEq/L Carbon Dioxide 23 (21-32) mEq/L Anion Gap 18.3 H (5-15) BUN 42 H (7-18) mg/dL Creatinine 2.1 H (0.7-1.3) mg/dL Est Cr Clr Drug Dosing 21.14 mL/min Estimated GFR (MDRD) 30 (>60) mL/min BUN/Creatinine Ratio 20.0 H (14-18) Glucose 340 H (83-115) mg/dL POC Glucose (83-110) mg/dL Calcium 9.6 (8.5-10.1) mg/dL Magnesium 2.4 (1.8-2.4) mg/dl Total Bilirubin 0.6 (0.2-1.0) mg/dL Direct Bilirubin 0.10 (0.0-0.2) mg/dl Indirect Bilirubin 0.50 AST 11 L (15-37) U/L ALT 20 (16-63) U/L Alkaline Phosphatase 105 (46-116) U/L Troponin I 0.018 (0.00-0.056) ng/mL NT-Pro-B Natriuret Pep 4597 H (0-450) pg/mL Total Protein 7.8 (6.4-8.2) g/dl Albumin 3.5 (3.4-5.0) g/dl Globulin 4.3 gm/dL Albumin/Globulin Ratio 0.8 L (1-2) 07/04/17 07/04/17 07/04/17 Range/Units 11:32 17:06 21:09 WBC (4.23-9.07) K/mm3 RBC (4.63-6.08) M/mm3 Hgb (13.7-17.5) gm/L Hct (40.1-51.0) % MCV (79.0-92.2) fl MCH (25.7-32.2) pg MCHC (32.2-35.5) g/dl RDW Std Deviation (35.1-43.9) fL Plt Count (163-337) K/mm3 MPV (9.4-12.3) fl Neut % (Auto) (34.0-67.9) % Lymph % (Auto) (21.8-53.1) % [place] % (Auto) (5.3-12.2) % Eos % (Auto) (0.8-7.0) Baso % (Auto) (0.1-1.2) % Neut # (Auto) (1.78-5.38) K/mm3 Lymph # (Auto) (1.32-3.57) K/mm3 [place] # (Auto) (0.30-0.82) K/mm3 Eos # (Auto) (0.04-0.54) K/mm3 Baso # (Auto) (0.01-0.08) K/mm3 Manual Slide Review Sodium (136-145) mEq/L Potassium (3.5-5.1) mEq/L Chloride (98-107) mEq/L Carbon Dioxide (21-32) mEq/L Anion Gap (5-15) BUN (7-18) mg/dL Creatinine (0.7-1.3) mg/dL Est Cr Clr Drug Dosing mL/min Estimated GFR (MDRD) (>60) mL/min BUN/Creatinine Ratio (14-18) Glucose (83-115) mg/dL POC Glucose 357 H 282 H 248 H (83-110) mg/dL Calcium (8.5-10.1) mg/dL Magnesium (1.8-2.4) mg/dl Total Bilirubin (0.2-1.0) mg/dL Direct Bilirubin (0.0-0.2) mg/dl Indirect Bilirubin AST (15-37) U/L ALT (16-63) U/L Alkaline Phosphatase (46-116) U/L Troponin I (0.00-0.056) ng/mL NT-Pro-B Natriuret Pep (0-450) pg/mL Total Protein (6.4-8.2) g/dl Albumin (3.4-5.0) g/dl Globulin gm/dL Albumin/Globulin Ratio (1-2) 07/05/17 07/05/17 07/05/17 Range/Units 06:16 06:16 06:44 WBC 7.29 (4.23-9.07) K/mm3 RBC 3.53 L (4.63-6.08) M/mm3 Hgb 10.8 L (13.7-17.5) gm/L Hct 34.3 L (40.1-51.0) % MCV 97.2 H (79.0-92.2) fl MCH 30.6 (25.7-32.2) pg MCHC 31.5 L (32.2-35.5) g/dl RDW Std Deviation 50.3 H (35.1-43.9) fL Plt Count 241 (163-337) K/mm3 MPV 10.7 (9.4-12.3) fl Neut % (Auto) 92.4 H (34.0-67.9) % Lymph % (Auto) 5.9 L (21.8-53.1) % [place] % (Auto) 1.6 L (5.3-12.2) % Eos % (Auto) 0 L (0.8-7.0) Baso % (Auto) 0.0 L (0.1-1.2) % Neut # (Auto) 6.73 H (1.78-5.38) K/mm3 Lymph # (Auto) 0.43 L (1.32-3.57) K/mm3 [place] # (Auto) 0.12 L (0.30-0.82) K/mm3 Eos # (Auto) 0.00 L (0.04-0.54) K/mm3 Baso # (Auto) 0.00 L (0.01-0.08) K/mm3 Manual Slide Review Abnormal smear Sodium 145 (136-145) mEq/L Potassium 4.2 (3.5-5.1) mEq/L Chloride 106 (98-107) mEq/L Carbon Dioxide 28 (21-32) mEq/L Anion Gap 15.2 H (5-15) BUN 48 H (7-18) mg/dL Creatinine 2.0 H (0.7-1.3) mg/dL Est Cr Clr Drug Dosing 22.20 mL/min Estimated GFR (MDRD) 32 (>60) mL/min BUN/Creatinine Ratio 24.0 H (14-18) Glucose 251 H (83-115) mg/dL POC Glucose 234 H (83-110) mg/dL Calcium 9.3 (8.5-10.1) mg/dL Magnesium 2.3 (1.8-2.4) mg/dl Total Bilirubin (0.2-1.0) mg/dL Direct Bilirubin (0.0-0.2) mg/dl Indirect Bilirubin AST (15-37) U/L ALT (16-63) U/L Alkaline Phosphatase (46-116) U/L Troponin I (0.00-0.056) ng/mL NT-Pro-B Natriuret Pep (0-450) pg/mL Total Protein (6.4-8.2) g/dl Albumin (3.4-5.0) g/dl Globulin gm/dL Albumin/Globulin Ratio (1-2) Omega Results Last 24 Hours: Microbiology 07/03/17 18:40 Respiratory Virus Panel (PCR) (OMEGA) - Final Nasopharyngeal Swab - Nare, Right 07/03/17 18:35 Urine Culture - Preliminary Urine, Clean Catch NO GROWTH AFTER 1 DAY 07/03/17 03:25 Streptococcus pneumoniae Antigen (M - Final Urine Med Orders - Current: Current Medications Acetaminophen (Tylenol) 650 mg PO Q4H PRN PRN Reason: Pain (Mild 1-3)/fever Last Admin: 07/04/17 08:12 Dose: 650 mg Hydrocodone Bitart/Acetaminophen ([place] 325-5 Mg) 1 tab PO Q4H PRN PRN Reason: Pain (moderate 4-6) Last Admin: 07/05/17 06:33 Dose: 1 tab Albuterol (Proventil Neb Soln) 2.5 mg INH Q6HRRT [place] Last Admin: 07/05/17 03:07 Dose: 2.5 mg Albuterol/Ipratropium (Duoneb 3.0-0.5 Mg/3 Ml) 3 ml NEB Q4H PRN PRN Reason: Shortness Of Breath/wheezing Last Admin: 07/03/17 14:04 Dose: 3 ml Allopurinol (Zyloprim) 150 mg PO DAILY [facility] Last Admin: 07/04/17 10:37 Dose: 150 mg Aspirin (Halfprin) 81 mg PO DAILY [facility] Last Admin: 07/04/17 10:39 Dose: 81 mg Bumetanide (Bumex) 0.5 mg IVPUSH BIDDIURETIC [facility] Last Admin: 07/05/17 06:33 Dose: 0.5 mg Carvedilol (Coreg) 12.5 mg PO BID [facility] Last Admin: 07/04/17 21:15 Dose: 12.5 mg Clopidogrel Bisulfate (Plavix) 75 mg PO DAILY [facility] Last Admin: 07/04/17 10:39 Dose: 75 mg Dextrose/Water (Dextrose 50% In Water) 25 - 50 ml IVPUSH ASDIRECTED PRN PRN Reason: hypoglycemia Docusate Sodium (Colace) 100 mg PO BID PRN PRN Reason: Constipation Last Admin: 07/04/17 10:41 Dose: 100 mg Famotidine (Pepcid) 20 mg PO DAILY [facility] Last Admin: 07/04/17 10:39 Dose: 20 mg Finasteride (Proscar) 5 mg PO DAILY [facility] Last Admin: 07/04/17 10:39 Dose: 5 mg Fluoxetine HCl (Prozac) 20 mg PO DAILY [facility] Last Admin: 07/04/17 10:36 Dose: 20 mg Hydralazine HCl (Apresoline) 25 mg PO TID [facility] Last Admin: 07/04/17 21:15 Dose: 25 mg Hydrochlorothiazide (Hydrochlorothiazide) 12.5 mg PO BIDDIURETIC [facility] Hydromorphone HCl (Dilaudid) 0.5 mg IVPUSH Q4H PRN PRN Reason: Pain Last Admin: 07/04/17 09:28 Dose: 0.5 mg Insulin Aspart (Novolog) 0 unit SUBCUT QIDACANDBED [facility] PRN Reason: Protocol Last Admin: 07/05/17 06:47 Dose: 4 units Insulin Detemir (Levemir) 50 unit SUBCUT BID [facility] Last Admin: 07/04/17 21:17 Dose: 50 units Isosorbide Dinitrate (Isordil) 30 mg PO TID [facility] Last Admin: 07/04/17 21:16 Dose: 30 mg Levothyroxine Sodium (Levothyroxine) 75 mcg PO DAILY [facility] Last Admin: 07/04/17 10:38 Dose: 75 mcg Methylprednisolone Sodium Succinate (Solu-Medrol) 125 mg IVPUSH Q8H [facility] Last Admin: 07/05/17 00:15 Dose: 125 mg Ondansetron HCl (Zofran Odt) 4 mg PO Q6H PRN PRN Reason: nausea, able to take PO Ondansetron HCl (Zofran) 4 mg IV Q6H PRN PRN Reason: Nausea/Vomiting Polyethylene Glycol (Miralax) 17 gm PO DAILY PRN PRN Reason: Constipation Potassium Chloride (Klor-Con M20) 20 meq PO DAILY [facility] Last Admin: 07/04/17 10:38 Dose: 20 meq Rosuvastatin Calcium (Crestor) 10 mg PO BEDTIME [facility] Last Admin: 07/04/17 21:15 Dose: 10 mg Senna/Docusate Sodium (Senna Plus) 1 tab PO BID PRN PRN Reason: Constipation Sodium Chloride (Saline Flush) 10 ml FLUSH ASDIRECTED PRN PRN Reason: Keep Vein Open Last Admin: 07/02/17 12:48 Dose: 10 ml Sodium Chloride ([place] Nasal [place]) 0 ml BUTCH QID PRN PRN Reason: nasal congestion and dryness Tamsulosin HCl (Flomax) 0.4 mg PO BEDTIME [facility] Last Admin: 07/04/17 21:16 Dose: 0.4 mg Tiotropium [place] (Spiriva Handihaler) 0 mcg INH DAILY [facility] Last Admin: 07/04/17 08:58 Dose: 1 cap Discontinued Medications Albuterol/Ipratropium (Duoneb 3.0-0.5 Mg/3 Ml) 3 ml NEB ONETIME ONE Stop: 07/02/17 12:26 Last Admin: 07/02/17 12:53 Dose: 3 ml Aspirin (Halfprin) 81 mg PO DAILY PRN PRN Reason: Chest Pain Last Admin: 07/02/17 21:30 Dose: 81 mg Bumetanide (Bumex) 1 mg IVPUSH BID [facility] Last Admin: 07/03/17 01:50 Dose: Not Given Bumetanide (Bumex) 1 mg IVPUSH BID [facility] Last Admin: 07/03/17 09:07 Dose: 1 mg Bumetanide (Bumex) 1 mg IVPUSH BIDDIURETIC [facility] Last Admin: 07/04/17 13:46 Dose: 1 mg Doxycycline Hyclate (Vibramycin) 100 mg PO Q12HR [facility] Last Admin: 07/04/17 10:36 Dose: 100 mg Famotidine (Pepcid) 20 mg PO BID [facility] Last Admin: 07/03/17 01:50 Dose: Not Given Furosemide (Lasix) 80 mg IVPUSH NOW ONE Stop: 07/02/17 12:27 Last Admin: 07/02/17 12:48 Dose: 80 mg Furosemide (Lasix) Confirm Administered Dose 40 mg .ROUTE .STK-MED ONE Stop: 07/02/17 12:35 Last Admin: 07/02/17 12:48 Dose: Not Given Hydralazine HCl (Apresoline) 25 mg PO ONETIME ONE Stop: 07/02/17 16:55 Last Admin: 07/02/17 17:16 Dose: 25 mg Insulin Detemir (Levemir) 55 unit SUBCUT BEDTIME [facility] Last Admin: 07/02/17 22:20 Dose: 55 units Isosorbide Mononitrate (Imdur) 30 mg PO ONETIME ONE Stop: 07/02/17 16:56 Last Admin: 07/02/17 17:16 Dose: 30 mg Methylprednisolone Sodium Succinate (Solu-Medrol) 125 mg IVPUSH ONETIME ONE Stop: 07/02/17 12:26 Last Admin: 07/02/17 12:46 Dose: 125 mg Methylprednisolone Sodium Succinate (Solu-Medrol) 125 mg IVPUSH Q6H [facility] Last Admin: 07/04/17 10:21 Dose: 125 mg Pantoprazole Sodium (Protonix) 40 mg PO ONETIME ONE Stop: 07/02/17 16:53 Last Admin: 07/02/17 17:10 Dose: 40 mg Potassium Chloride (Klor-Con M20) 20 meq PO ONETIME ONE Stop: 07/02/17 16:54 Last Admin: 07/02/17 17:10 Dose: 20 meq - Exam Quality Assessment: Supplemental Oxygen General: Alert, Oriented, Cooperative, No Acute Distress, Other (Morbidly Obese) HEENT: Pupils Equal, Pupils Reactive, EOMI, Mucous Membr. Moist/[place] Neck: Supple, Trachea Midline, No JVD, Other (short and thick) Lungs: Normal Respiratory Effort, Decreased Breath Sounds, Rhonchi Cardiovascular: Regular Rate, Regular Rhythm GI/Abdominal Exam: Normal Bowel Sounds, Soft, Non-Tender, No Organomegaly, No Distention, Other (Obese) (Male) Exam: Deferred Back Exam: Normal Inspection, Decreased Range of Motion Extremities: Normal Inspection, Normal Range of Motion, Non-Tender, Pedal Edema (trace edema), Redness (baseline) Peripheral Pulses: 1+: Dorsalis Pedis (L), Dorsalis Pedis (R) Skin: Warm, Dry, Intact Neurological: No New Focal Deficit Psy/Mental Status: Alert, Normal Affect, Normal Mood - Problem List Review Problem List Initiated/Reviewed/Updated: Yes - My Orders Last 24 Hours: My Active Orders 07/04/17 12:17 Consult to Physician [CONS] Routine 07/04/17 12:20 Notify Provider Consults [RC] ASDIRECTED 07/04/17 16:00 methylPREDNISolone Sod Succ [Solu-MEDROL] 125 mg IVPUSH Q8H 07/04/17 18:00 Bumetanide [Bumex] 0.5 mg IVPUSH BIDDIURETIC 07/05/17 18:00 Hydrochlorothiazide 12.5 mg PO BIDDIURETIC 07/05/17 Breakfast NPO Now [Nothing per Oral Now Diet] [DIET] - Plan Plan:: Assessment/Plan: Acute: CHF Exacerbation, Unchanged - SOB worsening over last few days - 4-5 lb weight gain with increasing pedal edema - Usually utilized oxygen at night and PRN but has needed to utilize constantly recently - Usually sleeps with 2 pillows at night and utilizes CPAP - Pro-BNP in ED 3997--> 8370 - Prior [place] with stent placement in [place] recently - 12-lead EKG shows RBBB with 1st degree HB at 67 BPM. This was unchanged from prior EKG in our system - Trop negative at 0.028 - Discontinue IVP Bumex 0.5 mg BID; resume lasix home dose - Titrate O2 as needed - pt. currently on 3L which is his home amount per his report - RT to evaluate and treat - Last echo from before pt. had stents placed in [place]. Echo completed this AM - Start clear liquid diet COPD Exacerbation, Significantly Improved - Questioning possibility, symptoms most likely from CHF - In addition to above - Changed 125 mg solu-medrol to 80 mg IVP BID - CRP slightly elevated at 2.2 but WBC WNL - Respiratory panel still pending - Magnesium 2.3 --> 2.4 - Mycoplasma pneumoniae/Influenza A and B/strep pneumonia: all negative - Follow up CXR this am: Small pleural effusions and mildly increased pulmonary vascular congestion - Discontinue Doxycycline Cholelithiasis w/o Cholecystitis, Improved Pain - RUQ - Pain for last month - Nausea but no vomiting - Afebrile w/o leukocytosis - Denies constipation or diarrhea - Abdominal ultrasound done in ED: 1. Less than optimal study due to body habitus and difficulty holding breath 2. Fatty infiltration within the liver is likely present 3. Single small gallstone with no gallbladder wall thickening or biliary duct dilation 4. Incidental renal cyst - Lipase 69; CRP elevated at 2.2; WBC normal at 7.29 - Pain control medication - MRCP report: 2 filling defects within the gallbladder suspicious for small gallstone. No CHD or CBD dilatation seen. No findings of choledocholelithiasis. Cyst within either kidneys. Small pleural effusions and bibasilar atelectasis. 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 Lovenox contraindicated due to poor renal function GI prophylaxis: H2B CM/SW for discharge planning Pending GS consult Other orders as above Code status: Full Code. [facility]
[2017-07-05] MEDS: Tiotropium Inhaler 18 MCG Inhalation Powder Cap Kit of 5 INH SCH (08:01)
[2017-07-05] MEDS: hydrALAZINE 25 MG Tab PO SCH ×3 (08:28→20:54)
[2017-07-05] MEDS: Carvedilol 12.5 MG Tab PO SCH ×2 (08:29→20:54)
[2017-07-05] MEDS: Aspirin 81 MG Tab.EC PO SCH (08:31)
[2017-07-05] MEDS: Isosorbide Dinitrate 10 MG Tab PO SCH ×3 (08:31→20:55)
[2017-07-05] MEDS: Potassium Chloride 20 MEQ Tab.ER PO SCH (08:32)
[2017-07-05] MEDS: Insulin Detemir 100 Units/ML 3 ML Pen SUBCUT SCH ×2 (08:32→20:56)
[2017-07-05] MEDS: Levothyroxine 75 MCG Tab PO SCH (08:36)
[2017-07-05] MEDS: Clopidogrel 75 MG Tab PO SCH (08:36)
[2017-07-05] MEDS: Famotidine 20 MG Tab PO SCH (08:37)
[2017-07-05] MEDS: Finasteride 5 MG Tab PO SCH (08:37)
[2017-07-05] MEDS: FLUoxetine 20 MG Cap PO SCH (08:37)
[2017-07-05] MEDS: Allopurinol 300 MG Tab PO SCH (08:38)
[2017-07-05] MEDS ORDERED: cloNIDine 0.2 MG/Day Transdermal Patch TRDERM SCH (12:00)
[2017-07-05] MEDS: Albuterol 0.083% 2.5 MG/3 ML Neb Soln NEB SCH ×2 (15:28→20:08)
[2017-07-05] MEDS: Hydrochlorothiazide 12.5 MG Cap PO SCH (17:43)
[2017-07-05] MEDS: Polyethylene Glycol 3350 Powder 17 GM Packet PO PRN (17:44)
[2017-07-05] MEDS: Tamsulosin 0.4 MG Cap.ER PO SCH (20:55)
[2017-07-05] MEDS: Rosuvastatin 10 MG Tab PO SCH (20:55)
[2017-07-05] MEDS: Furosemide 40 MG Tab PO SCH (20:56)
[2017-07-06] MEDS: Albuterol 0.083% 2.5 MG/3 ML Neb Soln NEB SCH ×4 (06:11→20:16)
[2017-07-06] MEDS: Insulin Aspart 100 Units/ML 3 ML Pen SUBCUT SCH ×7 (06:39→21:21)
[2017-07-06] MEDS: Hydrochlorothiazide 12.5 MG Cap PO SCH ×2 (06:41→14:09)
[2017-07-06] MEDS: Polyethylene Glycol 3350 Powder 17 GM Packet PO PRN (06:42)
--- NOTE | 2017-07-06 07:25 | PCM.PN ---
- General Info Date of Service: 07/06/17 Admission Dx/Problem (Free Text): Admission Diagnosis/Problem Admission Diagnosis/Problem CHF, Congestive heart failure Subjective Update: Follow Up Functional Status: Reports: Pain Controlled, Tolerating Diet, Ambulating, Urinating. Denies: New Symptoms - Review of Systems General: Denies: Fever, Chills HEENT: Denies: No Symptoms Pulmonary: Reports: Shortness of Breath (baseline). Denies: Wheezing Cardiovascular: Denies: Chest Pain Gastrointestinal: Reports: Abdominal Pain, Flatus. Denies: Decreased Appetite, Diarrhea, Nausea, Vomiting Genitourinary: Reports: No Symptoms Musculoskeletal: Reports: No Symptoms Skin: Denies: Cyanosis, Pallor, Diaphoresis Neurological: Reports: Gait Disturbance. Denies: Confusion, Pre-Existing Deficit, Weakness Psychiatric: Denies: Depression, Anxiety, Agitation, Hallucinations Systems Review Comment:: No overnight or acute issues. He slept good last night. He feels "not too bad" this morning. His pain is controlled 2/10 on pain scale. He has no new complaints. He is tolerating clear liquid diet. - Patient Data Vitals - Most Recent: Last Vital Signs Temp 36.9 C 07/06/17 02:18 Pulse 55 L 07/06/17 02:18 Resp 16 07/06/17 02:18 BP 151/47 H 07/06/17 02:18 Pulse Ox 99 07/06/17 06:11 Weight - Most Recent: 132.268 kg I&O - Last 24 Hours: Intake & Output 07/05/17 07/06/17 07/06/17 22:59 06:59 14:59 Intake Total 1200 400 Output Total 1000 900 Balance 200 -500 Lab Results Last 24 Hours: Laboratory Results - last 24 hr 07/05/17 07/05/17 07/05/17 Range/Units 06:16 10:43 17:01 POC Glucose 255 H 280 H (83-110) mg/dL NT-Pro-B Natriuret Pep 8370 H (0-450) pg/mL 07/05/17 07/06/17 Range/Units 20:53 06:38 POC Glucose 212 H 87 (83-110) mg/dL NT-Pro-B Natriuret Pep (0-450) pg/mL Omega Results Last 24 Hours: Microbiology 07/03/17 18:35 Urine Culture - Final Urine, Clean Catch NO GROWTH AFTER 2 DAYS Med Orders - Current: Current Medications Acetaminophen (Tylenol) 650 mg PO Q4H PRN PRN Reason: Pain (Mild 1-3)/fever Last Admin: 07/04/17 08:12 Dose: 650 mg Hydrocodone Bitart/Acetaminophen ([place] 325-5 Mg) 1 tab PO Q4H PRN PRN Reason: Pain (moderate 4-6) Last Admin: 07/05/17 06:33 Dose: 1 tab Albuterol (Proventil Neb Soln) 2.5 mg NEB QIDRT [facility] Last Admin: 07/06/17 06:11 Dose: 2.5 mg Albuterol/Ipratropium (Duoneb 3.0-0.5 Mg/3 Ml) 3 ml NEB Q4H PRN PRN Reason: Shortness Of Breath/wheezing Last Admin: 07/03/17 14:04 Dose: 3 ml Allopurinol (Zyloprim) 150 mg PO DAILY [facility] Last Admin: 07/05/17 08:38 Dose: 150 mg Aspirin (Halfprin) 81 mg PO DAILY [facility] Last Admin: 07/05/17 08:31 Dose: 81 mg Carvedilol (Coreg) 12.5 mg PO BID [facility] Last Admin: 07/05/17 20:54 Dose: 12.5 mg Clonidine HCl (Catapres Tts-2) 0.2 mg TRDERM Sa@1200 [facility] Last Admin: 07/05/17 12:47 Dose: 0.2 mg Clopidogrel Bisulfate (Plavix) 75 mg PO DAILY [facility] Last Admin: 07/05/17 08:36 Dose: 75 mg Dextrose/Water (Dextrose 50% In Water) 25 - 50 ml IVPUSH ASDIRECTED PRN PRN Reason: hypoglycemia Docusate Sodium (Colace) 100 mg PO BID PRN PRN Reason: Constipation Last Admin: 07/04/17 10:41 Dose: 100 mg Famotidine (Pepcid) 20 mg PO DAILY [facility] Last Admin: 07/05/17 08:37 Dose: 20 mg Finasteride (Proscar) 5 mg PO DAILY [facility] Last Admin: 07/05/17 08:37 Dose: 5 mg Fluoxetine HCl (Prozac) 20 mg PO DAILY [facility] Last Admin: 07/05/17 08:37 Dose: 20 mg Furosemide (Lasix) 40 mg PO BID [facility] Last Admin: 07/05/17 20:56 Dose: 40 mg Hydralazine HCl (Apresoline) 25 mg PO TID [facility] Last Admin: 07/05/17 20:54 Dose: 25 mg Hydrochlorothiazide (Hydrochlorothiazide) 12.5 mg PO BIDDIURETIC [facility] Last Admin: 07/06/17 06:41 Dose: 12.5 mg Hydromorphone HCl (Dilaudid) 0.5 mg IVPUSH Q4H PRN PRN Reason: Pain Last Admin: 07/04/17 09:28 Dose: 0.5 mg Insulin Aspart (Novolog) 0 unit SUBCUT QIDACANDBED [facility] PRN Reason: Protocol Last Admin: 07/06/17 06:39 Dose: Not Given Insulin Aspart (Novolog) 25 unit SUBCUT TIDAC [facility] Last Admin: 07/06/17 06:40 Dose: Not Given Insulin Detemir (Levemir) 50 unit SUBCUT BID [facility] Last Admin: 07/05/17 20:56 Dose: 50 units Isosorbide Dinitrate (Isordil) 30 mg PO TID [facility] Last Admin: 07/05/17 20:55 Dose: 30 mg Levothyroxine Sodium (Levothyroxine) 75 mcg PO DAILY [facility] Last Admin: 07/05/17 08:36 Dose: 75 mcg Methylprednisolone Sodium Succinate (Solu-Medrol) 80 mg IVPUSH Q12H [facility] Last Admin: 07/05/17 20:57 Dose: 80 mg Miscellaneous Information (Remove Patch) 0 ea TRDERM Sa@1200 [facility] Ondansetron HCl (Zofran Odt) 4 mg PO Q6H PRN PRN Reason: nausea, able to take PO Ondansetron HCl (Zofran) 4 mg IV Q6H PRN PRN Reason: Nausea/Vomiting Polyethylene Glycol (Miralax) 17 gm PO DAILY PRN PRN Reason: Constipation Last Admin: 07/06/17 06:42 Dose: 17 gm Potassium Chloride (Klor-Con M20) 20 meq PO DAILY [facility] Last Admin: 07/05/17 08:32 Dose: 20 meq Rosuvastatin Calcium (Crestor) 10 mg PO BEDTIME [facility] Last Admin: 07/05/17 20:55 Dose: 10 mg Senna/Docusate Sodium (Senna Plus) 1 tab PO BID PRN PRN Reason: Constipation Sodium Chloride (Saline Flush) 10 ml FLUSH ASDIRECTED PRN PRN Reason: Keep Vein Open Last Admin: 07/02/17 12:48 Dose: 10 ml Sodium Chloride ([place] Nasal [place]) 0 ml BUTCH QID PRN PRN Reason: nasal congestion and dryness Tamsulosin HCl (Flomax) 0.4 mg PO BEDTIME [facility] Last Admin: 07/05/17 20:55 Dose: 0.4 mg Tiotropium [place] (Spiriva Handihaler) 0 mcg INH DAILY [facility] Last Admin: 07/05/17 08:01 Dose: 1 cap Discontinued Medications Albuterol (Proventil Neb Soln) 2.5 mg INH Q6HRRT [facility] Last Admin: 07/05/17 08:01 Dose: 2.5 mg Albuterol/Ipratropium (Duoneb 3.0-0.5 Mg/3 Ml) 3 ml NEB ONETIME ONE Stop: 07/02/17 12:26 Last Admin: 07/02/17 12:53 Dose: 3 ml Aspirin (Halfprin) 81 mg PO DAILY PRN PRN Reason: Chest Pain Last Admin: 07/02/17 21:30 Dose: 81 mg Bumetanide (Bumex) 1 mg IVPUSH BID [facility] Last Admin: 07/03/17 01:50 Dose: Not Given Bumetanide (Bumex) 1 mg IVPUSH BID [facility] Last Admin: 07/03/17 09:07 Dose: 1 mg Bumetanide (Bumex) 1 mg IVPUSH BIDDIURETIC [facility] Last Admin: 07/04/17 13:46 Dose: 1 mg Bumetanide (Bumex) 0.5 mg IVPUSH BIDDIURETIC [facility] Last Admin: 07/05/17 06:33 Dose: 0.5 mg Doxycycline Hyclate (Vibramycin) 100 mg PO Q12HR [facility] Last Admin: 07/04/17 10:36 Dose: 100 mg Famotidine (Pepcid) 20 mg PO BID [facility] Last Admin: 07/03/17 01:50 Dose: Not Given Furosemide (Lasix) 80 mg IVPUSH NOW ONE Stop: 07/02/17 12:27 Last Admin: 07/02/17 12:48 Dose: 80 mg Furosemide (Lasix) Confirm Administered Dose 40 mg .ROUTE .STK-MED ONE Stop: 07/02/17 12:35 Last Admin: 07/02/17 12:48 Dose: Not Given Hydralazine HCl (Apresoline) 25 mg PO ONETIME ONE Stop: 07/02/17 16:55 Last Admin: 07/02/17 17:16 Dose: 25 mg Insulin Aspart (Novolog) 0 unit SUBCUT QIDACANDBED [facility] PRN Reason: Protocol Last Admin: 07/05/17 12:59 Dose: 6 units Insulin Detemir (Levemir) 55 unit SUBCUT BEDTIME [facility] Last Admin: 07/02/17 22:20 Dose: 55 units Isosorbide Mononitrate (Imdur) 30 mg PO ONETIME ONE Stop: 07/02/17 16:56 Last Admin: 07/02/17 17:16 Dose: 30 mg Methylprednisolone Sodium Succinate (Solu-Medrol) 125 mg IVPUSH ONETIME ONE Stop: 07/02/17 12:26 Last Admin: 07/02/17 12:46 Dose: 125 mg Methylprednisolone Sodium Succinate (Solu-Medrol) 125 mg IVPUSH Q6H [facility] Last Admin: 07/04/17 10:21 Dose: 125 mg Methylprednisolone Sodium Succinate (Solu-Medrol) 125 mg IVPUSH Q8H [facility] Last Admin: 07/05/17 08:23 Dose: 125 mg Pantoprazole Sodium (Protonix) 40 mg PO ONETIME ONE Stop: 07/02/17 16:53 Last Admin: 07/02/17 17:10 Dose: 40 mg Potassium Chloride (Klor-Con M20) 20 meq PO ONETIME ONE Stop: 07/02/17 16:54 Last Admin: 07/02/17 17:10 Dose: 20 meq - Exam Quality Assessment: Supplemental Oxygen General: Alert, Oriented, Cooperative, No Acute Distress, Other (Obese) HEENT: Pupils Equal, Pupils Reactive, EOMI, Mucous Membr. Moist/[place] Neck: Supple, Trachea Midline, No JVD, No Thyromegaly, Other (short and thick) Lungs: Normal Respiratory Effort, Decreased Breath Sounds, Crackles (mild) Cardiovascular: Regular Rate, Regular Rhythm GI/Abdominal Exam: Normal Bowel Sounds, Soft, No Organomegaly, No Distention, Tender (right upper quadrant), Other (Obese). No: No Abnormal Bruit, Distended , Guarding, Rigid, Rebound (Male) Exam: Deferred Back Exam: Normal Inspection, Decreased Range of Motion Extremities: Normal Inspection, Normal Range of Motion, Non-Tender, No Pedal Edema Peripheral Pulses: 2+: Dorsalis Pedis (L), Dorsalis Pedis (R) Skin: Warm, Dry, Intact Neurological: No New Focal Deficit Psy/Mental Status: Alert, Normal Affect, Normal Mood - Problem List Review Problem List Initiated/Reviewed/Updated: Yes - My Orders Last 24 Hours: My Active Orders 07/05/17 11:37 Incentive Spirometry [RT Incentive Spirometry] [RC] ASDIRECTED 07/05/17 12:00 cloNIDine [Catapres TTS-2] 0.2 mg TRDERM Sa@1200 07/05/17 16:00 Albuterol [Proventil Neb Soln] 2.5 mg NEB QIDRT 07/05/17 17:00 Insulin Aspart [NovoLOG] 25 unit SUBCUT TIDAC Insulin Aspart [NovoLOG] See Protocol SUBCUT QIDACANDBED 07/05/17 18:00 Hydrochlorothiazide 12.5 mg PO BIDDIURETIC 07/05/17 21:00 Furosemide [Lasix] 40 mg PO BID methylPREDNISolone Sod Succ [Solu-MEDROL] 80 mg IVPUSH Q12H 07/05/17 Dinner Fluid Restriction [DIET] 07/05/17 Lunch Clear Liquid Diet [DIET] 07/07/17 05:11 BMP [BASIC METABOLIC PANEL,BMP] [CHEM] AM MG [MAGNESIUM] [CHEM] AM 07/12/17 12:00 Remove Patch 0 ea TRDERM Sa@1200 - Plan Plan:: Assessment/Plan: Acute: CHF Exacerbation - He is improving clinically - SOB worsening over last few days - 4-5 lb weight gain with increasing pedal edema - Usually utilized oxygen at night and PRN but has needed to utilize constantly recently - Usually sleeps with 2 pillows at night and utilizes CPAP - Pro-BNP in ED 3997--> 8370 --> 6206 - Prior ND with stent placement in [place] recently - 12-lead EKG shows RBBB with 1st degree HB at 67 BPM. This was unchanged from prior EKG in our system - Trop negative at 0.028 - Titrate O2 as needed - pt. currently on 3L which is his home amount per his report - RT to evaluate and treat - Last echo from before pt. had stents placed in [place]. Echo completed- awaiting final report Cholelithiasis w/o Cholecystitis, Improved Pain - RUQ - Pain for last month - Nausea but no vomiting - Afebrile w/o leukocytosis - Denies constipation or diarrhea - Abdominal ultrasound done in ED: 1. Less than optimal study due to body habitus and difficulty holding breath 2. Fatty infiltration within the liver is likely present 3. Single small gallstone with no gallbladder wall thickening or biliary duct dilation 4. Incidental renal cyst - Lipase 69; CRP elevated at 2.2; WBC remains normal at 7.56 - Pain control medication - MRCP report: 2 filling defects within the gallbladder suspicious for small gallstone. No CHD or CBD dilatation seen. No findings of choledocholelithiasis. Cyst within either kidneys. Small pleural effusions and bibasilar atelectasis. Small Pleural Effusion and Basilar Atelectasis - 2/2 COPD and CHF above - Encourage to use IS as directed Resolved: COPD Exacerbation - Questioning possibility, symptoms most likely from CHF - In addition to above - Changed 125 mg solu-medrol to 80 mg IVP BID - CRP slightly elevated at 2.2 but WBC WNL - Respiratory panel still pending - Magnesium 2.3 --> 2.4 - Mycoplasma pneumoniae/Influenza A and B/strep pneumonia: all negative - Follow up CXR this am: Small pleural effusions and mildly increased pulmonary vascular congestion - Discontinue Doxycycline Nasal Congestion - Reports difficult breathing out of both nostrils - Nasal saline flushes as ordered - Humidified oxygen - Consider Afrin if no improvement - Patient inquired about adding humidifier to his home oxygen setup - reports he has been contacted already about this 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 [facility] LOS > 96 hrs due to slow response to treatment and pending GS evaluation
[2017-07-06] MEDS: hydrALAZINE 25 MG Tab PO SCH ×3 (08:08→20:52)
[2017-07-06] MEDS: Aspirin 81 MG Tab.EC PO SCH (08:15)
[2017-07-06] MEDS: Isosorbide Dinitrate 10 MG Tab PO SCH ×3 (08:15→20:53)
[2017-07-06] MEDS: Carvedilol 12.5 MG Tab PO SCH ×2 (08:15→20:52)
[2017-07-06] MEDS: Potassium Chloride 20 MEQ Tab.ER PO SCH (08:16)
[2017-07-06] MEDS: Levothyroxine 75 MCG Tab PO SCH (08:17)
[2017-07-06] MEDS: Furosemide 40 MG Tab PO SCH ×2 (08:17→20:53)
[2017-07-06] MEDS: Finasteride 5 MG Tab PO SCH (08:18)
[2017-07-06] MEDS: Famotidine 20 MG Tab PO SCH (08:18)
[2017-07-06] MEDS: Clopidogrel 75 MG Tab PO SCH (08:18)
[2017-07-06] MEDS: FLUoxetine 20 MG Cap PO SCH (08:19)
[2017-07-06] MEDS: Allopurinol 300 MG Tab PO SCH (08:19)
[2017-07-06] MEDS: methylPREDNISolone Sodium Succinate 125 MG/2 ML SDV IVPUSH SCH ×2 (08:20→20:54)
[2017-07-06] MEDS: Tiotropium Inhaler 18 MCG Inhalation Powder Cap Kit of 5 INH SCH (10:48)
[2017-07-06] MEDS: Insulin Detemir 100 Units/ML 3 ML Pen SUBCUT SCH ×2 (11:59→20:54)
[2017-07-06] MEDS ORDERED: Bumetanide 1 MG/4 ML MDV IVPUSH ONE (15:02)
[2017-07-06] MEDS ORDERED: Heparin Sodium 10,000 Units/1 ML MDV SUBCUT SCH (16:00)
[2017-07-06] MEDS ORDERED: Heparin Sodium 5,000 Units/ML Vial SUBCUT SCH (18:00)
--- NOTE | 2017-07-06 19:46 | PCM.CONSN ---
- General Info Date of Service: 07/06/17 - Patient Data Vitals - Most Recent: Last Vital Signs Temp 97.9 F 07/06/17 16:53 Pulse 43 L 07/06/17 16:55 Resp 18 07/06/17 16:55 BP 161/48 H 07/06/17 16:55 Pulse Ox 100 07/06/17 16:55 Weight - Most Recent: 132.268 kg I&O - Last 24 Hours: Intake & Output 07/06/17 07/06/17 07/06/17 07:59 15:59 23:59 Intake Total 400 800 800 Output Total 900 850 Balance -500 800 -50 Lab Results Last 24 Hours: Laboratory Results - last 24 hr 07/05/17 07/06/17 07/06/17 Range/Units 20:53 06:38 06:55 WBC 7.56 (4.23-9.07) K/mm3 RBC 3.74 L (4.63-6.08) M/mm3 Hgb 11.5 L (13.7-17.5) gm/L Hct 36.4 L (40.1-51.0) % MCV 97.3 H (79.0-92.2) fl MCH 30.7 (25.7-32.2) pg MCHC 31.6 L (32.2-35.5) g/dl RDW Std Deviation 49.9 H (35.1-43.9) fL Plt Count 235 (163-337) K/mm3 MPV 11.0 (9.4-12.3) fl Neut % (Auto) 89.1 H (34.0-67.9) % Lymph % (Auto) 7.9 L (21.8-53.1) % [place] % (Auto) 2.6 L (5.3-12.2) % Eos % (Auto) 0 L (0.8-7.0) Baso % (Auto) 0.0 L (0.1-1.2) % Neut # (Auto) 6.73 H (1.78-5.38) K/mm3 Lymph # (Auto) 0.60 L (1.32-3.57) K/mm3 [place] # (Auto) 0.20 L (0.30-0.82) K/mm3 Eos # (Auto) 0.00 L (0.04-0.54) K/mm3 Baso # (Auto) 0.00 L (0.01-0.08) K/mm3 Manual Slide Review Abnormal smear Sodium (136-145) mEq/L Potassium (3.5-5.1) mEq/L Chloride (98-107) mEq/L Carbon Dioxide (21-32) mEq/L Anion Gap (5-15) BUN (7-18) mg/dL Creatinine (0.7-1.3) mg/dL Est Cr Clr Drug Dosing mL/min Estimated GFR (MDRD) (>60) mL/min BUN/Creatinine Ratio (14-18) Glucose (83-115) mg/dL POC Glucose 212 H 87 (83-110) mg/dL Calcium (8.5-10.1) mg/dL Magnesium (1.8-2.4) mg/dl NT-Pro-B Natriuret Pep (0-450) pg/mL 07/06/17 07/06/17 07/06/17 Range/Units 06:55 10:05 12:07 WBC (4.23-9.07) K/mm3 RBC (4.63-6.08) M/mm3 Hgb (13.7-17.5) gm/L Hct (40.1-51.0) % MCV (79.0-92.2) fl MCH (25.7-32.2) pg MCHC (32.2-35.5) g/dl RDW Std Deviation (35.1-43.9) fL Plt Count (163-337) K/mm3 MPV (9.4-12.3) fl Neut % (Auto) (34.0-67.9) % Lymph % (Auto) (21.8-53.1) % [place] % (Auto) (5.3-12.2) % Eos % (Auto) (0.8-7.0) Baso % (Auto) (0.1-1.2) % Neut # (Auto) (1.78-5.38) K/mm3 Lymph # (Auto) (1.32-3.57) K/mm3 [place] # (Auto) (0.30-0.82) K/mm3 Eos # (Auto) (0.04-0.54) K/mm3 Baso # (Auto) (0.01-0.08) K/mm3 Manual Slide Review Sodium 145 (136-145) mEq/L Potassium 4.3 (3.5-5.1) mEq/L Chloride 109 H (98-107) mEq/L Carbon Dioxide 29 (21-32) mEq/L Anion Gap 11.3 (5-15) BUN 47 H (7-18) mg/dL Creatinine 1.8 H (0.7-1.3) mg/dL Est Cr Clr Drug Dosing 24.67 mL/min Estimated GFR (MDRD) 36 (>60) mL/min BUN/Creatinine Ratio 26.1 H (14-18) Glucose 87 (83-115) mg/dL POC Glucose 84 80 L (83-110) mg/dL Calcium 9.1 (8.5-10.1) mg/dL Magnesium 2.7 H (1.8-2.4) mg/dl NT-Pro-B Natriuret Pep 6206 H (0-450) pg/mL 07/06/17 Range/Units 16:54 WBC (4.23-9.07) K/mm3 RBC (4.63-6.08) M/mm3 Hgb (13.7-17.5) gm/L Hct (40.1-51.0) % MCV (79.0-92.2) fl MCH (25.7-32.2) pg MCHC (32.2-35.5) g/dl RDW Std Deviation (35.1-43.9) fL Plt Count (163-337) K/mm3 MPV (9.4-12.3) fl Neut % (Auto) (34.0-67.9) % Lymph % (Auto) (21.8-53.1) % [place] % (Auto) (5.3-12.2) % Eos % (Auto) (0.8-7.0) Baso % (Auto) (0.1-1.2) % Neut # (Auto) (1.78-5.38) K/mm3 Lymph # (Auto) (1.32-3.57) K/mm3 [place] # (Auto) (0.30-0.82) K/mm3 Eos # (Auto) (0.04-0.54) K/mm3 Baso # (Auto) (0.01-0.08) K/mm3 Manual Slide Review Sodium (136-145) mEq/L Potassium (3.5-5.1) mEq/L Chloride (98-107) mEq/L Carbon Dioxide (21-32) mEq/L Anion Gap (5-15) BUN (7-18) mg/dL Creatinine (0.7-1.3) mg/dL Est Cr Clr Drug Dosing mL/min Estimated GFR (MDRD) (>60) mL/min BUN/Creatinine Ratio (14-18) Glucose (83-115) mg/dL POC Glucose 103 (83-110) mg/dL Calcium (8.5-10.1) mg/dL Magnesium (1.8-2.4) mg/dl NT-Pro-B Natriuret Pep (0-450) pg/mL Med Orders - Current: Current Medications Acetaminophen (Tylenol) 650 mg PO Q4H PRN PRN Reason: Pain (Mild 1-3)/fever Last Admin: 07/04/17 08:12 Dose: 650 mg Hydrocodone Bitart/Acetaminophen ([place] 325-5 Mg) 1 tab PO Q4H PRN PRN Reason: Pain (moderate 4-6) Last Admin: 07/05/17 06:33 Dose: 1 tab Albuterol (Proventil Neb Soln) 2.5 mg NEB QIDRT [facility] Last Admin: 07/06/17 15:19 Dose: 2.5 mg Albuterol/Ipratropium (Duoneb 3.0-0.5 Mg/3 Ml) 3 ml NEB Q4H PRN PRN Reason: Shortness Of Breath/wheezing Last Admin: 07/03/17 14:04 Dose: 3 ml Allopurinol (Zyloprim) 150 mg PO DAILY [facility] Last Admin: 07/06/17 08:19 Dose: 150 mg Aspirin (Halfprin) 81 mg PO DAILY [facility] Last Admin: 07/06/17 08:15 Dose: 81 mg Carvedilol (Coreg) 12.5 mg PO BID [facility] Last Admin: 07/06/17 08:15 Dose: 12.5 mg Clonidine HCl (Catapres Tts-2) 0.2 mg TRDERM Sa@1200 [facility] Last Admin: 07/05/17 12:47 Dose: 0.2 mg Clopidogrel Bisulfate (Plavix) 75 mg PO DAILY [facility] Last Admin: 07/06/17 08:18 Dose: 75 mg Dextrose/Water (Dextrose 50% In Water) 25 - 50 ml IVPUSH ASDIRECTED PRN PRN Reason: hypoglycemia Docusate Sodium (Colace) 100 mg PO BID PRN PRN Reason: Constipation Last Admin: 07/04/17 10:41 Dose: 100 mg Famotidine (Pepcid) 20 mg PO DAILY [facility] Last Admin: 07/06/17 08:18 Dose: 20 mg Finasteride (Proscar) 5 mg PO DAILY [facility] Last Admin: 07/06/17 08:18 Dose: 5 mg Fluoxetine HCl (Prozac) 20 mg PO DAILY [facility] Last Admin: 07/06/17 08:19 Dose: 20 mg Furosemide (Lasix) 40 mg PO BID [facility] Last Admin: 07/06/17 08:17 Dose: 40 mg Heparin Sodium (Porcine) (Heparin Sodium) 5,000 units SUBCUT Q8H [facility] Last Admin: 07/06/17 18:12 Dose: 5,000 units Hydralazine HCl (Apresoline) 25 mg PO TID [facility] Last Admin: 07/06/17 14:10 Dose: 25 mg Hydrochlorothiazide (Hydrochlorothiazide) 12.5 mg PO BIDDIURETIC [facility] Last Admin: 07/06/17 14:09 Dose: 12.5 mg Hydromorphone HCl (Dilaudid) 0.5 mg IVPUSH Q4H PRN PRN Reason: Pain Last Admin: 07/04/17 09:28 Dose: 0.5 mg Insulin Aspart (Novolog) 0 unit SUBCUT QIDACANDBED [facility] PRN Reason: Protocol Last Admin: 07/06/17 19:19 Dose: Not Given Insulin Aspart (Novolog) 25 unit SUBCUT TIDAC [facility] Last Admin: 07/06/17 17:05 Dose: Not Given Insulin Detemir (Levemir) 50 unit SUBCUT BID [facility] Last Admin: 07/06/17 11:59 Dose: Not Given Isosorbide Dinitrate (Isordil) 30 mg PO TID [facility] Last Admin: 07/06/17 14:10 Dose: 30 mg Levothyroxine Sodium (Levothyroxine) 75 mcg PO DAILY [facility] Last Admin: 07/06/17 08:17 Dose: 75 mcg Methylprednisolone Sodium Succinate (Solu-Medrol) 80 mg IVPUSH Q12H [facility] Last Admin: 07/06/17 08:20 Dose: 80 mg Miscellaneous Information (Remove Patch) 0 ea TRDERM Sa@1200 [facility] Ondansetron HCl (Zofran Odt) 4 mg PO Q6H PRN PRN Reason: nausea, able to take PO Ondansetron HCl (Zofran) 4 mg IV Q6H PRN PRN Reason: Nausea/Vomiting Polyethylene Glycol (Miralax) 17 gm PO DAILY PRN PRN Reason: Constipation Last Admin: 07/06/17 06:42 Dose: 17 gm Potassium Chloride (Klor-Con M20) 20 meq PO DAILY [facility] Last Admin: 07/06/17 08:16 Dose: 20 meq Rosuvastatin Calcium (Crestor) 10 mg PO BEDTIME [facility] Last Admin: 07/05/17 20:55 Dose: 10 mg Senna/Docusate Sodium (Senna Plus) 1 tab PO BID PRN PRN Reason: Constipation Sodium Chloride (Saline Flush) 10 ml FLUSH ASDIRECTED PRN PRN Reason: Keep Vein Open Last Admin: 07/02/17 12:48 Dose: 10 ml Sodium Chloride ([place] Nasal [place]) 0 ml BUTCH QID PRN PRN Reason: nasal congestion and dryness Tamsulosin HCl (Flomax) 0.4 mg PO BEDTIME [facility] Last Admin: 07/05/17 20:55 Dose: 0.4 mg Tiotropium [place] (Spiriva Handihaler) 0 mcg INH DAILY [facility] Last Admin: 07/06/17 10:48 Dose: 1 cap Discontinued Medications Albuterol (Proventil Neb Soln) 2.5 mg INH Q6HRRT [facility] Last Admin: 07/05/17 08:01 Dose: 2.5 mg Albuterol/Ipratropium (Duoneb 3.0-0.5 Mg/3 Ml) 3 ml NEB ONETIME ONE Stop: 07/02/17 12:26 Last Admin: 07/02/17 12:53 Dose: 3 ml Aspirin (Halfprin) 81 mg PO DAILY PRN PRN Reason: Chest Pain Last Admin: 07/02/17 21:30 Dose: 81 mg Bumetanide (Bumex) 1 mg IVPUSH BID [facility] Last Admin: 07/03/17 01:50 Dose: Not Given Bumetanide (Bumex) 1 mg IVPUSH BID [facility] Last Admin: 07/03/17 09:07 Dose: 1 mg Bumetanide (Bumex) 1 mg IVPUSH BIDDIURETIC [facility] Last Admin: 07/04/17 13:46 Dose: 1 mg Bumetanide (Bumex) 0.5 mg IVPUSH BIDDIURETIC [facility] Last Admin: 07/05/17 06:33 Dose: 0.5 mg Bumetanide (Bumex) 1 mg IVPUSH ONETIME ONE Stop: 07/06/17 15:03 Last Admin: 07/06/17 17:00 Dose: 1 mg Doxycycline Hyclate (Vibramycin) 100 mg PO Q12HR [facility] Last Admin: 07/04/17 10:36 Dose: 100 mg Famotidine (Pepcid) 20 mg PO BID [facility] Last Admin: 07/03/17 01:50 Dose: Not Given Furosemide (Lasix) 80 mg IVPUSH NOW ONE Stop: 07/02/17 12:27 Last Admin: 07/02/17 12:48 Dose: 80 mg Furosemide (Lasix) Confirm Administered Dose 40 mg .ROUTE .STK-MED ONE Stop: 07/02/17 12:35 Last Admin: 07/02/17 12:48 Dose: Not Given Heparin Sodium (Porcine) (Heparin Sodium) 5,000 units SUBCUT Q8H [facility] Hydralazine HCl (Apresoline) 25 mg PO ONETIME ONE Stop: 07/02/17 16:55 Last Admin: 07/02/17 17:16 Dose: 25 mg Insulin Aspart (Novolog) 0 unit SUBCUT QIDACANDBED [facility] PRN Reason: Protocol Last Admin: 07/05/17 12:59 Dose: 6 units Insulin Detemir (Levemir) 55 unit SUBCUT BEDTIME [facility] Last Admin: 07/02/17 22:20 Dose: 55 units Isosorbide Mononitrate (Imdur) 30 mg PO ONETIME ONE Stop: 07/02/17 16:56 Last Admin: 07/02/17 17:16 Dose: 30 mg Methylprednisolone Sodium Succinate (Solu-Medrol) 125 mg IVPUSH ONETIME ONE Stop: 07/02/17 12:26 Last Admin: 07/02/17 12:46 Dose: 125 mg Methylprednisolone Sodium Succinate (Solu-Medrol) 125 mg IVPUSH Q6H [facility] Last Admin: 07/04/17 10:21 Dose: 125 mg Methylprednisolone Sodium Succinate (Solu-Medrol) 125 mg IVPUSH Q8H [facility] Last Admin: 07/05/17 08:23 Dose: 125 mg Pantoprazole Sodium (Protonix) 40 mg PO ONETIME ONE Stop: 07/02/17 16:53 Last Admin: 07/02/17 17:10 Dose: 40 mg Potassium Chloride (Klor-Con M20) 20 meq PO ONETIME ONE Stop: 07/02/17 16:54 Last Admin: 07/02/17 17:10 Dose: 20 meq Consult PN Assessment/Plan Procedures: Procedures AIRWAY INHALATION TREATMENT (05/12/17) ASSAY OF NATRIURETIC PEPTIDE (05/12/17) ASSAY OF TROPONIN QUANT (05/12/17) C-REACTIVE PROTEIN (05/12/17) CHEST X-RAY 1 VIEW FRONTAL (05/12/17) COMPLETE CBC W/AUTO DIFF WBC (05/12/17) COMPREHEN METABOLIC PANEL (05/12/17) ELECTROCARDIOGRAM TRACING (05/12/17) EMERGENCY DEPT VISIT (05/12/17) EMERGENCY DEPT VISIT (05/30/15) ROUTINE VENIPUNCTURE (05/12/17) THER/PROPH/DIAG INJ IV PUSH (05/12/17) URINALYSIS AUTO W/O SCOPE (05/30/15) Problem List Initiated/Reviewed/Updated: Yes My Orders Last 24 Hours: surgical consult dictated RITA
[2017-07-06] MEDS: Rosuvastatin 10 MG Tab PO SCH (20:52)
[2017-07-06] MEDS: Tamsulosin 0.4 MG Cap.ER PO SCH (20:52)
[2017-07-07] MEDS: Albuterol 0.083% 2.5 MG/3 ML Neb Soln NEB SCH ×4 (06:11→20:03)
[2017-07-07] MEDS: Hydrochlorothiazide 12.5 MG Cap PO SCH ×2 (06:34→15:28)
[2017-07-07] MEDS: Furosemide 40 MG Tab PO SCH ×2 (06:34→15:27)
[2017-07-07] MEDS: Heparin Sodium 5,000 Units/ML Vial SUBCUT SCH ×3 (06:34→22:17)
[2017-07-07] MEDS: Insulin Aspart 100 Units/ML 3 ML Pen SUBCUT SCH ×8 (06:44→22:20)
[2017-07-07] MEDS ORDERED: Insulin Aspart 100 Units/ML 3 ML Pen SUBCUT ONE (07:15)
--- NOTE | 2017-07-07 07:21 | CONS ---
CONSULTING PHYSICIAN: Ozzie Valero MD DATE OF CONSULTATION: 07/06/2017 HISTORY OF PRESENT ILLNESS: The patient is an 86-year-old male I was asked to see because of cholelithiasis and abdominal pain. He presented on the 02 of July to the ER with complaint of shortness of breath that was getting worse over the last few days with swelling of the legs, 4 to 5 pound weight gain, and some right-sided abdominal pain that has been going on, he said to the ER about a month, but to me he said it is about 2 months. He denied any nausea or vomiting with the pain. The pain in the right side was more suprapubic and right lower quadrant. He was admitted to the hospital with a diagnosis of congestive heart failure based on the chest x-ray showing prominent markings with pleural effusion and presence of rales. His BNP was elevated at 3900, and gallstones were noted on ultrasound. The patient was admitted to the hospital with cholelithiasis, congestive heart failure. The patient was also noted to have type 2 diabetes, some COPD, chronic kidney disease with glomerular filtration rate about 30 to 59 mm/minutes, some edema, and sleep apnea. Treated hypothyroidism, coronary artery disease with stents and on Plavix, morbid obesity, and the need for nasal cannula. Vital signs; weight, the patient diuresis off some weight. Although his weight is 134 kg, I will see if I can get that to go all the way 34 kg, and it was down to 131 kg. He did continue on his Plavix. He states that his abdominal pain has improved. Further workup of his abdominal pain consists of an MRI scan showing 2 filling defects in the gallstones, no common hepatic duct or common bile duct dilatation were noted and the ultrasound did not show any edema, and his liver enzymes were not elevated and total bilirubin was normal. The patient's description of the pain is says it has been with him for 2 months, it would occur in the right lower quadrant and suprapubic area and then rotate up to the mid abdomen. It seemed to occur about 3 o'clock in the morning, and when it happened, he would notice his pulse rate go up and described it as very severe unless he had got some pain medication. There is no nausea or vomiting with it. No radiation into the back. He is pretty certain he says that it is abdominal, it is due to his gallbladder because his mother had similar problems. The patient also last year had bladder cancer which was treated initially with radiation and chemotherapy due to that and he was seen last December and he states that he told them they got it off. He has not had any bladder problems particularly such as dysuria or bleeding from the urine. His UA is negative for blood. The patient denies any BPH symptoms or bladder urgency. REVIEW OF SYSTEMS: Denies any chest pain. Does have shortness of breath. No cough or hoarseness. Does have lower extremity swelling. No fainting, weakness, numbness, convulsions. MEDICATIONS: Per medication reconciliation form. He is as stated above on Plavix, is on Catapres and Coreg, is on subcu heparin. SOCIAL HISTORY: Noncontributory except for gallstones in the mother. Tobacco use, a former smoker, last used 17 years ago, 1999, and no recreational drug. ALLERGIES: None known. PHYSICAL EXAMINATION: GENERAL: Reveals an obese male, morbid obesity with oxygen in place. He states he is short of breath. He states that the pain is quite severe and he wishes something done about it. VITAL SIGNS: Show a blood pressure of 153/42, his temperature is 97.5, respirations 18. CHEST: X-ray done on the shows small pleural effusion and mild pulmonary vascular congestion. EYES: Sclerae white. Extraocular muscle motion normal. Oral cavity healthy mucous membrane. NECK: Supple. No nodes. No thyromegaly. LUNGS: Clear. I do not hear any rales or rhonchi. HEART: Tones regular rate at this time. No S3. ABDOMEN: Rotund. No tenderness, guarding, or rebound. Could not feel ventral inguinal hernias. EXTREMITIES: Lower extremities show 3+ pitting edema. Upper extremities unremarkable. Moves all 4 extremities. No sensorineural deficit. NEUROLOGIC: He is alert and cooperative. SKIN: Warm and dry. ASSESSMENT: Abdominal pain and not clearly gallbladder in nature, although there are presence of gallstones. Other possibilities, he indeed has pain from his urinary bladder or possibility of peptic ulcer disease, possibility of nondescript abdominal pain from his congestive heart failure. RECOMMENDATION: Recommendation is that he is too high a surgical risk to have his gallbladder removed here at this time, and if it is to be done, it probably should be done in a higher level of care such as [facility]. Would at least recommend that he give a trial of Prilosec for the possibility of peptic ulcer disease as source of his pain. KATINA /[id number]
[2017-07-07] MEDS: Insulin Detemir 100 Units/ML 3 ML Pen SUBCUT SCH ×2 (08:30→22:25)
[2017-07-07] MEDS: Acetaminophen 325 MG Tab PO PRN (08:34)
[2017-07-07] MEDS: Famotidine 20 MG Tab PO SCH (08:34)
[2017-07-07] MEDS: Isosorbide Dinitrate 10 MG Tab PO SCH ×3 (08:35→22:19)
[2017-07-07] MEDS: FLUoxetine 20 MG Cap PO SCH (08:36)
[2017-07-07] MEDS: Clopidogrel 75 MG Tab PO SCH (08:36)
[2017-07-07] MEDS: Finasteride 5 MG Tab PO SCH (08:37)
[2017-07-07] MEDS: Pantoprazole 40 MG Tab.CR PO SCH (08:37)
[2017-07-07] MEDS: Levothyroxine 75 MCG Tab PO SCH (08:37)
[2017-07-07] MEDS: Potassium Chloride 20 MEQ Tab.ER PO SCH (08:37)
[2017-07-07] MEDS: Aspirin 81 MG Tab.EC PO SCH (08:38)
[2017-07-07] MEDS: Allopurinol 300 MG Tab PO SCH (08:38)
[2017-07-07] MEDS: methylPREDNISolone Sodium Succinate 125 MG/2 ML SDV IVPUSH SCH ×2 (08:39→22:18)
[2017-07-07] MEDS: hydrALAZINE 25 MG Tab PO SCH ×3 (08:41→22:18)
[2017-07-07] MEDS: Carvedilol 12.5 MG Tab PO SCH ×2 (08:41→22:19)
[2017-07-07] MEDS: Tiotropium Inhaler 18 MCG Inhalation Powder Cap Kit of 5 INH SCH (09:01)
--- NOTE | 2017-07-07 09:17 | PCM.PN ---
- General Info Date of Service: 07/07/17 Admission Dx/Problem (Free Text): Admission Diagnosis/Problem Admission Diagnosis/Problem CHF, Congestive heart failure Subjective Update: Follow Up Functional Status: Reports: Pain Controlled, Tolerating Diet, Urinating. Denies : New Symptoms - Review of Systems General: Denies: Fever, Chills HEENT: Reports: No Symptoms Cardiovascular: Denies: Chest Pain, Palpitations, Dyspnea on Exertion, Lightheadedness Gastrointestinal: Reports: Abdominal Pain (10/04). Denies: Constipation, Decreased Appetite, Diarrhea, Difficulty Swallowing, Nausea, Vomiting Genitourinary: Reports: No Symptoms Musculoskeletal: Reports: No Symptoms Skin: Denies: Cyanosis, Pallor, Diaphoresis, Pruritis, Rash Neurological: Reports: Gait Disturbance. Denies: Confusion, Pre-Existing Deficit, Weakness Psychiatric: Denies: Depression, Anxiety, Agitation, Hallucinations Systems Review Comment:: No significant overnight or acute issues. His pain is controlled. He has been tolerating clear liquids. He feels some tingling right after he eats but he tells me he does not get any other symptoms. He remains afebrile w/o leukocytosis. Dr. Valero saw him last night. - Patient Data Vitals - Most Recent: Last Vital Signs Temp 36.3 C 07/07/17 08:28 Pulse 60 07/07/17 08:28 Resp 20 07/07/17 08:28 BP 157/59 H 07/07/17 08:35 Pulse Ox 99 07/07/17 09:02 Weight - Most Recent: 130.317 kg I&O - Last 24 Hours: Intake & Output 07/06/17 07/07/17 07/07/17 22:59 06:59 14:59 Intake Total 800 300 Output Total 850 500 Balance -50 -200 Lab Results Last 24 Hours: Laboratory Results - last 24 hr 07/06/17 07/06/17 07/06/17 Range/Units 10:05 12:07 16:54 WBC (4.23-9.07) K/mm3 RBC (4.63-6.08) M/mm3 Hgb (13.7-17.5) gm/L Hct (40.1-51.0) % MCV (79.0-92.2) fl MCH (25.7-32.2) pg MCHC (32.2-35.5) g/dl RDW Std Deviation (35.1-43.9) fL Plt Count (163-337) K/mm3 MPV (9.4-12.3) fl Sodium (136-145) mEq/L Potassium (3.5-5.1) mEq/L Chloride (98-107) mEq/L Carbon Dioxide (21-32) mEq/L Anion Gap (5-15) BUN (7-18) mg/dL Creatinine (0.7-1.3) mg/dL Est Cr Clr Drug Dosing mL/min Estimated GFR (MDRD) (>60) mL/min BUN/Creatinine Ratio (14-18) Glucose (83-115) mg/dL POC Glucose 84 80 L 103 (83-110) mg/dL Calcium (8.5-10.1) mg/dL Magnesium (1.8-2.4) mg/dl 07/06/17 07/07/17 07/07/17 Range/Units 20:39 06:40 07:20 WBC (4.23-9.07) K/mm3 RBC (4.63-6.08) M/mm3 Hgb (13.7-17.5) gm/L Hct (40.1-51.0) % MCV (79.0-92.2) fl MCH (25.7-32.2) pg MCHC (32.2-35.5) g/dl RDW Std Deviation (35.1-43.9) fL Plt Count (163-337) K/mm3 MPV (9.4-12.3) fl Sodium 143 (136-145) mEq/L Potassium 4.2 (3.5-5.1) mEq/L Chloride 106 (98-107) mEq/L Carbon Dioxide 28 (21-32) mEq/L Anion Gap 13.2 (5-15) BUN 48 H (7-18) mg/dL Creatinine 1.8 H (0.7-1.3) mg/dL Est Cr Clr Drug Dosing 24.67 mL/min Estimated GFR (MDRD) 36 (>60) mL/min BUN/Creatinine Ratio 26.7 H (14-18) Glucose 190 H (83-115) mg/dL POC Glucose 146 H 163 H (83-110) mg/dL Calcium 8.9 (8.5-10.1) mg/dL Magnesium 2.6 H (1.8-2.4) mg/dl 07/07/17 Range/Units 07:20 WBC 5.51 (4.23-9.07) K/mm3 RBC 3.88 L (4.63-6.08) M/mm3 Hgb 11.7 L (13.7-17.5) gm/L Hct 37.4 L (40.1-51.0) % MCV 96.4 H (79.0-92.2) fl MCH 30.2 (25.7-32.2) pg MCHC 31.3 L (32.2-35.5) g/dl RDW Std Deviation 50.3 H (35.1-43.9) fL Plt Count 239 (163-337) K/mm3 MPV 11.1 (9.4-12.3) fl Sodium (136-145) mEq/L Potassium (3.5-5.1) mEq/L Chloride (98-107) mEq/L Carbon Dioxide (21-32) mEq/L Anion Gap (5-15) BUN (7-18) mg/dL Creatinine (0.7-1.3) mg/dL Est Cr Clr Drug Dosing mL/min Estimated GFR (MDRD) (>60) mL/min BUN/Creatinine Ratio (14-18) Glucose (83-115) mg/dL POC Glucose (83-110) mg/dL Calcium (8.5-10.1) mg/dL Magnesium (1.8-2.4) mg/dl Med Orders - Current: Current Medications Acetaminophen (Tylenol) 650 mg PO Q4H PRN PRN Reason: Pain (Mild 1-3)/fever Last Admin: 07/07/17 08:34 Dose: 650 mg Hydrocodone Bitart/Acetaminophen ([place] 325-5 Mg) 1 tab PO Q4H PRN PRN Reason: Pain (moderate 4-6) Last Admin: 07/05/17 06:33 Dose: 1 tab Albuterol (Proventil Neb Soln) 2.5 mg NEB QIDRT [facility] Last Admin: 07/07/17 09:01 Dose: 2.5 mg Albuterol/Ipratropium (Duoneb 3.0-0.5 Mg/3 Ml) 3 ml NEB Q4H PRN PRN Reason: Shortness Of Breath/wheezing Last Admin: 07/03/17 14:04 Dose: 3 ml Allopurinol (Zyloprim) 150 mg PO DAILY [facility] Last Admin: 07/07/17 08:38 Dose: 150 mg Aspirin (Halfprin) 81 mg PO DAILY [facility] Last Admin: 07/07/17 08:38 Dose: 81 mg Carvedilol (Coreg) 12.5 mg PO BID [facility] Last Admin: 07/07/17 08:41 Dose: Not Given Clonidine HCl (Catapres Tts-2) 0.2 mg TRDERM Sa@1200 [facility] Last Admin: 07/05/17 12:47 Dose: 0.2 mg Clopidogrel Bisulfate (Plavix) 75 mg PO DAILY [facility] Last Admin: 07/07/17 08:36 Dose: 75 mg Dextrose/Water (Dextrose 50% In Water) 25 - 50 ml IVPUSH ASDIRECTED PRN PRN Reason: hypoglycemia Docusate Sodium (Colace) 100 mg PO BID PRN PRN Reason: Constipation Last Admin: 07/04/17 10:41 Dose: 100 mg Famotidine (Pepcid) 20 mg PO DAILY [facility] Last Admin: 07/07/17 08:34 Dose: 20 mg Finasteride (Proscar) 5 mg PO DAILY [facility] Last Admin: 07/07/17 08:37 Dose: 5 mg Fluoxetine HCl (Prozac) 20 mg PO DAILY [facility] Last Admin: 07/07/17 08:36 Dose: 20 mg Furosemide (Lasix) 40 mg PO BIDDIURETIC [facility] Last Admin: 07/07/17 06:34 Dose: 40 mg Heparin Sodium (Porcine) (Heparin Sodium) 5,000 units SUBCUT Q8H [facility] Last Admin: 07/07/17 06:34 Dose: 5,000 units Hydralazine HCl (Apresoline) 25 mg PO TID [facility] Last Admin: 07/07/17 08:41 Dose: Not Given Hydrochlorothiazide (Hydrochlorothiazide) 12.5 mg PO BIDDIURETIC [facility] Last Admin: 07/07/17 06:34 Dose: 12.5 mg Hydromorphone HCl (Dilaudid) 0.5 mg IVPUSH Q4H PRN PRN Reason: Pain Last Admin: 07/04/17 09:28 Dose: 0.5 mg Insulin Aspart (Novolog) 0 unit SUBCUT QIDACANDBED [facility] PRN Reason: Protocol Last Admin: 07/07/17 06:44 Dose: Not Given Insulin Aspart (Novolog) 10 unit SUBCUT TIDAC [facility] Last Admin: 07/07/17 08:29 Dose: 10 units Insulin Detemir (Levemir) 50 unit SUBCUT BID [facility] Last Admin: 07/07/17 08:30 Dose: 50 units Isosorbide Dinitrate (Isordil) 30 mg PO TID [facility] Last Admin: 07/07/17 08:35 Dose: 30 mg Levothyroxine Sodium (Levothyroxine) 75 mcg PO DAILY [facility] Last Admin: 07/07/17 08:37 Dose: 75 mcg Methylprednisolone Sodium Succinate (Solu-Medrol) 80 mg IVPUSH Q12H [facility] Last Admin: 07/07/17 08:39 Dose: 80 mg Miscellaneous Information (Remove Patch) 0 ea TRDERM Sa@1200 [facility] Ondansetron HCl (Zofran Odt) 4 mg PO Q6H PRN PRN Reason: nausea, able to take PO Ondansetron HCl (Zofran) 4 mg IV Q6H PRN PRN Reason: Nausea/Vomiting Pantoprazole Sodium (Protonix) 40 mg PO DAILY [facility] Last Admin: 07/07/17 08:37 Dose: 40 mg Polyethylene Glycol (Miralax) 17 gm PO DAILY PRN PRN Reason: Constipation Last Admin: 07/06/17 06:42 Dose: 17 gm Potassium Chloride (Klor-Con M20) 20 meq PO DAILY [facility] Last Admin: 07/07/17 08:37 Dose: 20 meq Rosuvastatin Calcium (Crestor) 10 mg PO BEDTIME [facility] Last Admin: 07/06/17 20:52 Dose: 10 mg Senna/Docusate Sodium (Senna Plus) 1 tab PO BID PRN PRN Reason: Constipation Sodium Chloride (Saline Flush) 10 ml FLUSH ASDIRECTED PRN PRN Reason: Keep Vein Open Last Admin: 07/02/17 12:48 Dose: 10 ml Sodium Chloride (Webb Nasal [place]) 0 ml BUTCH QID PRN PRN Reason: nasal congestion and dryness Tamsulosin HCl (Flomax) 0.4 mg PO BEDTIME [facility] Last Admin: 07/06/17 20:52 Dose: 0.4 mg Tiotropium [place] (Spiriva Handihaler) 0 mcg INH DAILY [facility] Last Admin: 07/07/17 09:01 Dose: 1 cap Discontinued Medications Albuterol (Proventil Neb Soln) 2.5 mg INH Q6HRRT [facility] Last Admin: 07/05/17 08:01 Dose: 2.5 mg Albuterol/Ipratropium (Duoneb 3.0-0.5 Mg/3 Ml) 3 ml NEB ONETIME ONE Stop: 07/02/17 12:26 Last Admin: 07/02/17 12:53 Dose: 3 ml Aspirin (Halfprin) 81 mg PO DAILY PRN PRN Reason: Chest Pain Last Admin: 07/02/17 21:30 Dose: 81 mg Bumetanide (Bumex) 1 mg IVPUSH BID [facility] Last Admin: 07/03/17 01:50 Dose: Not Given Bumetanide (Bumex) 1 mg IVPUSH BID [facility] Last Admin: 07/03/17 09:07 Dose: 1 mg Bumetanide (Bumex) 1 mg IVPUSH BIDDIURETIC [facility] Last Admin: 07/04/17 13:46 Dose: 1 mg Bumetanide (Bumex) 0.5 mg IVPUSH BIDDIURETIC [facility] Last Admin: 07/05/17 06:33 Dose: 0.5 mg Bumetanide (Bumex) 1 mg IVPUSH ONETIME ONE Stop: 07/06/17 15:03 Last Admin: 07/06/17 17:00 Dose: 1 mg Doxycycline Hyclate (Vibramycin) 100 mg PO Q12HR [facility] Last Admin: 07/04/17 10:36 Dose: 100 mg Famotidine (Pepcid) 20 mg PO BID [facility] Last Admin: 07/03/17 01:50 Dose: Not Given Furosemide (Lasix) 80 mg IVPUSH NOW ONE Stop: 07/02/17 12:27 Last Admin: 07/02/17 12:48 Dose: 80 mg Furosemide (Lasix) Confirm Administered Dose 40 mg .ROUTE .STK-MED ONE Stop: 07/02/17 12:35 Last Admin: 07/02/17 12:48 Dose: Not Given Furosemide (Lasix) 40 mg PO BID [facility] Last Admin: 07/06/17 20:53 Dose: 40 mg Heparin Sodium (Porcine) (Heparin Sodium) 5,000 units SUBCUT Q8H [facility] Last Admin: 07/06/17 21:45 Dose: Not Given Heparin Sodium (Porcine) (Heparin Sodium) 5,000 units SUBCUT Q8H [facility] Last Admin: 07/06/17 18:12 Dose: 5,000 units Hydralazine HCl (Apresoline) 25 mg PO ONETIME ONE Stop: 07/02/17 16:55 Last Admin: 07/02/17 17:16 Dose: 25 mg Insulin Aspart (Novolog) 0 unit SUBCUT QIDACANDBED [facility] PRN Reason: Protocol Last Admin: 07/05/17 12:59 Dose: 6 units Insulin Aspart (Novolog) 25 unit SUBCUT TIDAC [facility] Last Admin: 07/07/17 06:57 Dose: Not Given Insulin Aspart (Novolog) 15 unit SUBCUT ONETIME ONE Stop: 07/07/17 07:16 Last Admin: 07/07/17 07:44 Dose: Not Given Insulin Detemir (Levemir) 55 unit SUBCUT BEDTIME [facility] Last Admin: 07/02/17 22:20 Dose: 55 units Isosorbide Mononitrate (Imdur) 30 mg PO ONETIME ONE Stop: 07/02/17 16:56 Last Admin: 07/02/17 17:16 Dose: 30 mg Methylprednisolone Sodium Succinate (Solu-Medrol) 125 mg IVPUSH ONETIME ONE Stop: 07/02/17 12:26 Last Admin: 07/02/17 12:46 Dose: 125 mg Methylprednisolone Sodium Succinate (Solu-Medrol) 125 mg IVPUSH Q6H [facility] Last Admin: 07/04/17 10:21 Dose: 125 mg Methylprednisolone Sodium Succinate (Solu-Medrol) 125 mg IVPUSH Q8H [facility] Last Admin: 07/05/17 08:23 Dose: 125 mg Pantoprazole Sodium (Protonix) 40 mg PO ONETIME ONE Stop: 07/02/17 16:53 Last Admin: 07/02/17 17:10 Dose: 40 mg Potassium Chloride (Klor-Con M20) 20 meq PO ONETIME ONE Stop: 07/02/17 16:54 Last Admin: 07/02/17 17:10 Dose: 20 meq - Exam Quality Assessment: Supplemental Oxygen General: Alert, Oriented, Cooperative, No Acute Distress, Mild Distress, Other ( Morbidly Obese) HEENT: Pupils Equal, Pupils Reactive, EOMI, Mucous Membr. Moist/[place] Neck: Supple, Trachea Midline, No JVD, No Thyromegaly, Other (short and thick) Lungs: Normal Respiratory Effort Cardiovascular: Regular Rate, Regular Rhythm GI/Abdominal Exam: Normal Bowel Sounds, Soft, No Organomegaly, No Distention, No Abnormal Bruit, Tender (Mildly tender left sided ), Other (Obese) (Male) Exam: Deferred Back Exam: Normal Inspection, Decreased Range of Motion Extremities: Normal Inspection, Normal Range of Motion, Non-Tender, No Pedal Edema, Normal Capillary Refill Peripheral Pulses: 2+: Dorsalis Pedis (L), Dorsalis Pedis (R) Skin: Warm, Dry, Intact Neurological: No New Focal Deficit Psy/Mental Status: Alert, Normal Affect, Normal Mood - Problem List Review Problem List Initiated/Reviewed/Updated: Yes - My Orders Last 24 Hours: My Active Orders 07/07/17 06:00 Furosemide [Lasix] 40 mg PO BIDDIURETIC Heparin Sodium 5,000 units SUBCUT Q8H 07/07/17 Breakfast Full Liquid Diet [DIET] 07/10/17 07:00 CBC W/O DIFF,HEMOGRAM [HEME] MOTH@0700 07/12/17 12:00 Remove Patch 0 ea TRDERM Sa@1200 07/14/17 07:00 CBC W/O DIFF,HEMOGRAM [HEME] MOTH@0700 07/17/17 07:00 CBC W/O DIFF,HEMOGRAM [HEME] MOTH@0700 07/21/17 07:00 CBC W/O DIFF,HEMOGRAM [HEME] MOTH@0700 07/24/17 07:00 CBC W/O DIFF,HEMOGRAM [HEME] MOTH@0700 - Plan Plan:: Assessment/Plan: Acute: CHF Exacerbation - He is improving clinically - SOB worsening over last few days - 4-5 lb weight gain with increasing pedal edema - Usually utilized oxygen at night and PRN but has needed to utilize constantly recently - Usually sleeps with 2 pillows at night and utilizes CPAP - Pro-BNP in ED 3997--> 8370 --> 6926 - Prior NH with stent placement in [place] recently - 12-lead EKG shows RBBB with 1st degree HB at 67 BPM. This was unchanged from prior EKG in our system - Trop negative at 0.028 - Titrate O2 as needed - pt. currently on 3L which is his home amount per his report - RT to evaluate and treat - Last echo from before pt. had stents placed in [place]. Echo 07/03/2017: LVEF 55-60%. Grade 1 diastolic dysfunction. Moderate aortic valve sclerosis. Moderate to severe mitral calcification. Moderate to severe mitral valve regurgitation. Moderate tricuspid valve regurgitation. Cholelithiasis w/o Cholecystitis, Improved Pain - RUQ - Pain for last month - Nausea but no vomiting - Afebrile w/o leukocytosis - Denies constipation or diarrhea - Abdominal ultrasound done in ED: 1. Less than optimal study due to body habitus and difficulty holding breath 2. Fatty infiltration within the liver is likely present 3. Single small gallstone with no gallbladder wall thickening or biliary duct dilation 4. Incidental renal cyst - Lipase 69; CRP elevated at 2.2; WBC remains normal at 7.56 - Pain control medication - MRCP report: 2 filling defects within the gallbladder suspicious for small gallstone. No CHD or CBD dilatation seen. No findings of choledocholelithiasis. Cyst within either kidneys. Small pleural effusions and bibasilar atelectasis. - Still reports after eating, describes as tingling - Dr. Valero felt elective and not urgent if he wishes his GB taken out - Will advanced diet as tolerated and HIDA scan to assess his GB function Small Pleural Effusion and Basilar Atelectasis - 2/2 COPD and CHF above - Encourage to use IS as directed Resolved: COPD Exacerbation - Questioning possibility, symptoms most likely from CHF - In addition to above - Changed 125 mg solu-medrol to 80 mg IVP BID - CRP slightly elevated at 2.2 but WBC WNL - Respiratory panel still pending - Magnesium 2.3 --> 2.4 - Mycoplasma pneumoniae/Influenza A and B/strep pneumonia: all negative - Follow up CXR this am: Small pleural effusions and mildly increased pulmonary vascular congestion - Discontinue Doxycycline Nasal Congestion - Reports difficult breathing out of both nostrils - Nasal saline flushes as ordered - Humidified oxygen - Consider Afrin if no improvement - Patient inquired about adding humidifier to his home oxygen setup - reports he has been contacted already about this Chronic: Type II DM with Hyperglycemia due to Steroid- Continue insulin regimen, added SA insulin with ISS coverage Pedal edema - treat as above Sleep apnea on CPAP - Does not have own CPAP here, RT to assist Hypothyroidism CKDF Stage 3, At baseline CAD Morbid obesity with BMI of 50.7 Plan: He remains clinically stable Continue current treatment Routine AM labs Continue PT/OT/RT to assess and treat as above; he has been refusing PT/OT DVT/PE/GI prophylaxis: Heparin 5000 units SubQ TID/H2B CM/SW for discharge planning GS consulted Other orders as above Code status: Full Code. His PCP is Dr. Strange with [facility] Patient is wanting to be shipped out to [place], I advised him will do HIDA scan and then will be making phone calls most likely in AM. LOS > 96 hrs due to slow response to treatment and possible transfer to [place] if accepted w/ pending HIDA scan test scheduled for tomorrow.
--- NOTE | 2017-07-07 20:12 | PCM.SN ---
- Free Text/Narrative Note: Patient was upset this afternoon and wanting to speak with me. He was promised he will have his surgery done today if not transferred to [place]. He was also told he will be leaving tomorrow. He told me that he was not clear with our game plan and that numerous staff told him different informations. I proceeded to see him back this evening and re-assured him of our game plan just as I explained to him this morning. We will advance his diet, get a HIDA scan and then make phone calls in AM. He will be NPO'd midnight. Patient expressed understanding and mellowed out.
[2017-07-07] MEDS: Tamsulosin 0.4 MG Cap.ER PO SCH (22:18)
[2017-07-07] MEDS: Rosuvastatin 10 MG Tab PO SCH (22:18)
[2017-07-08] MEDS: Albuterol 0.083% 2.5 MG/3 ML Neb Soln NEB SCH ×4 (08:59→20:32)
[2017-07-08] MEDS: Tiotropium Inhaler 18 MCG Inhalation Powder Cap Kit of 5 INH SCH (08:59)
[2017-07-08] MEDS: Hydrochlorothiazide 12.5 MG Cap PO SCH ×2 (11:55→16:21)
[2017-07-08] MEDS: Heparin Sodium 5,000 Units/ML Vial SUBCUT SCH ×3 (11:55→21:19)
[2017-07-08] MEDS: Furosemide 40 MG Tab PO SCH ×2 (11:55→16:21)
[2017-07-08] MEDS: Insulin Aspart 100 Units/ML 3 ML Pen SUBCUT SCH ×7 (11:56→21:19)
[2017-07-08] MEDS: Carvedilol 12.5 MG Tab PO SCH (11:58)
[2017-07-08] MEDS: hydrALAZINE 25 MG Tab PO SCH ×3 (11:58→21:18)
[2017-07-08] MEDS: Aspirin 81 MG Tab.EC PO SCH (11:58)
[2017-07-08] MEDS: Isosorbide Dinitrate 10 MG Tab PO SCH ×3 (11:59→21:19)
[2017-07-08] MEDS: Potassium Chloride 20 MEQ Tab.ER PO SCH (11:59)
[2017-07-08] MEDS: Insulin Detemir 100 Units/ML 3 ML Pen SUBCUT SCH ×2 (12:00→21:20)
[2017-07-08] MEDS: Finasteride 5 MG Tab PO SCH (12:06)
[2017-07-08] MEDS: Levothyroxine 75 MCG Tab PO SCH (12:06)
[2017-07-08] MEDS: Clopidogrel 75 MG Tab PO SCH (12:06)
[2017-07-08] MEDS: FLUoxetine 20 MG Cap PO SCH (12:07)
[2017-07-08] MEDS: Allopurinol 300 MG Tab PO SCH (12:07)
[2017-07-08] MEDS: Pantoprazole 40 MG Tab.CR PO SCH (12:07)
--- NOTE | 2017-07-08 14:56 | NM ---
Biliary HIDA scan with ejection fraction Technique: 3.0 mCi of technetium 99m mebrofenin was given intravenously. Scintigraphic imaging then obtained over the upper abdomen. During the study, 3 ounces of heavy whipping cream was given with 1 teaspoon of sugar. Continued scintigraphic imaging was performed. Findings: Normal activity seen within gallbladder and within small bowel. Gallbladder ejection fraction is normal at 53%. Impression: 1. Normal biliary HIDA scan with normal gallbladder ejection fraction. Diagnostic code #1
[2017-07-08] MEDS: Tamsulosin 0.4 MG Cap.ER PO SCH (21:19)
[2017-07-08] MEDS: Rosuvastatin 10 MG Tab PO SCH (21:19)
--- NOTE | 2017-07-08 23:42 | PCM.PN ---
- General Info Date of Service: 07/08/17 Admission Dx/Problem (Free Text): Admission Diagnosis/Problem Admission Diagnosis/Problem CHF, Congestive heart failure Subjective Update: Follow Up Functional Status: Reports: Pain Controlled, Tolerating Diet, Ambulating, Urinating. Denies: New Symptoms Pain Score: 2 - Review of Systems General: Denies: Fever, Chills HEENT: Reports: No Symptoms Pulmonary: Denies: Shortness of Breath Cardiovascular: Denies: Chest Pain Gastrointestinal: Reports: Abdominal Pain. Denies: Difficulty Swallowing, Nausea, Vomiting Genitourinary: Reports: No Symptoms Musculoskeletal: Reports: No Symptoms Skin: Denies: Cyanosis Neurological: Denies: Confusion, Difficulty Walking, Weakness, Gait Disturbance Psychiatric: Reports: Agitation. Denies: Depression, Anxiety, Hallucinations Systems Review Comment:: No overnight or acute issues. He slept really good. He has no new complaints. He is tolerating his regular diet. His abdominal pain is very mild. - Patient Data Vitals - Most Recent: Last Vital Signs Temp 36.6 C 07/08/17 19:58 Pulse 50 L 07/08/17 19:58 Resp 18 07/08/17 19:58 BP 131/81 07/08/17 21:19 Pulse Ox 96 07/08/17 20:32 Weight - Most Recent: 129.682 kg I&O - Last 24 Hours: Intake & Output 07/08/17 07/08/17 07/09/17 14:59 22:59 06:59 Intake Total 1460 Balance 1460 Lab Results Last 24 Hours: Laboratory Results - last 24 hr 07/08/17 07/08/17 07/08/17 Range/Units 06:20 06:29 16:51 POC Glucose 284 H 346 H (83-110) mg/dL NT-Pro-B Natriuret Pep 4862 H (0-450) pg/mL 07/08/17 Range/Units 20:41 POC Glucose 242 H (83-110) mg/dL NT-Pro-B Natriuret Pep (0-450) pg/mL Med Orders - Current: Current Medications Acetaminophen (Tylenol) 650 mg PO Q4H PRN PRN Reason: Pain (Mild 1-3)/fever Last Admin: 07/07/17 08:34 Dose: 650 mg Hydrocodone Bitart/Acetaminophen ([place] 325-5 Mg) 1 tab PO Q4H PRN PRN Reason: Pain (moderate 4-6) Last Admin: 07/05/17 06:33 Dose: 1 tab Albuterol (Proventil Neb Soln) 2.5 mg NEB QIDRT [facility] Last Admin: 07/08/17 20:32 Dose: 2.5 mg Albuterol/Ipratropium (Duoneb 3.0-0.5 Mg/3 Ml) 3 ml NEB Q4H PRN PRN Reason: Shortness Of Breath/wheezing Last Admin: 07/03/17 14:04 Dose: 3 ml Allopurinol (Zyloprim) 150 mg PO DAILY [facility] Last Admin: 07/08/17 12:07 Dose: Not Given Aspirin (Halfprin) 81 mg PO DAILY [facility] Last Admin: 07/08/17 11:58 Dose: Not Given Carvedilol (Coreg) 12.5 mg PO DAILY [facility] Last Admin: 07/08/17 11:58 Dose: Not Given Clopidogrel Bisulfate (Plavix) 75 mg PO DAILY [facility] Last Admin: 07/08/17 12:06 Dose: Not Given Dextrose/Water (Dextrose 50% In Water) 25 - 50 ml IVPUSH ASDIRECTED PRN PRN Reason: hypoglycemia Docusate Sodium (Colace) 100 mg PO BID PRN PRN Reason: Constipation Last Admin: 07/04/17 10:41 Dose: 100 mg Finasteride (Proscar) 5 mg PO DAILY [facility] Last Admin: 07/08/17 12:06 Dose: Not Given Fluoxetine HCl (Prozac) 20 mg PO DAILY [facility] Last Admin: 07/08/17 12:07 Dose: Not Given Furosemide (Lasix) 40 mg PO BIDDIURETIC [facility] Last Admin: 07/08/17 16:21 Dose: 40 mg Heparin Sodium (Porcine) (Heparin Sodium) 5,000 units SUBCUT Q8H [facility] Last Admin: 07/08/17 21:19 Dose: 5,000 units Hydralazine HCl (Apresoline) 25 mg PO TID [facility] Last Admin: 07/08/17 21:18 Dose: 25 mg Hydrochlorothiazide (Hydrochlorothiazide) 12.5 mg PO BIDDIURETIC [facility] Last Admin: 07/08/17 16:21 Dose: 12.5 mg Hydromorphone HCl (Dilaudid) 0.5 mg IVPUSH Q4H PRN PRN Reason: Pain Last Admin: 07/04/17 09:28 Dose: 0.5 mg Insulin Aspart (Novolog) 0 unit SUBCUT QIDACANDBED [facility] PRN Reason: Protocol Last Admin: 07/08/17 21:19 Dose: 6 units Insulin Aspart (Novolog) 10 unit SUBCUT TIDAC [facility] Last Admin: 07/08/17 16:54 Dose: 10 units Insulin Detemir (Levemir) 50 unit SUBCUT BID [facility] Last Admin: 07/08/17 21:20 Dose: 50 units Isosorbide Dinitrate (Isordil) 30 mg PO TID [facility] Last Admin: 07/08/17 21:19 Dose: 30 mg Levothyroxine Sodium (Levothyroxine) 75 mcg PO DAILY [facility] Last Admin: 07/08/17 12:06 Dose: Not Given Ondansetron HCl (Zofran Odt) 4 mg PO Q6H PRN PRN Reason: nausea, able to take PO Ondansetron HCl (Zofran) 4 mg IV Q6H PRN PRN Reason: Nausea/Vomiting Pantoprazole Sodium (Protonix) 40 mg PO DAILY [facility] Last Admin: 07/08/17 12:07 Dose: Not Given Polyethylene Glycol (Miralax) 17 gm PO DAILY PRN PRN Reason: Constipation Last Admin: 07/06/17 06:42 Dose: 17 gm Potassium Chloride (Klor-Con M20) 20 meq PO DAILY [facility] Last Admin: 07/08/17 11:59 Dose: Not Given Rosuvastatin Calcium (Crestor) 10 mg PO BEDTIME [facility] Last Admin: 07/08/17 21:19 Dose: 10 mg Senna/Docusate Sodium (Senna Plus) 1 tab PO BID PRN PRN Reason: Constipation Sodium Chloride (Saline Flush) 10 ml FLUSH ASDIRECTED PRN PRN Reason: Keep Vein Open Last Admin: 07/02/17 12:48 Dose: 10 ml Sodium Chloride ([place] Nasal [place]) 0 ml BUTCH QID PRN PRN Reason: nasal congestion and dryness Tamsulosin HCl (Flomax) 0.4 mg PO BEDTIME [facility] Last Admin: 07/08/17 21:19 Dose: 0.4 mg Tiotropium [place] (Spiriva Handihaler) 0 mcg INH DAILY [facility] Last Admin: 07/08/17 08:59 Dose: 1 cap Discontinued Medications Albuterol (Proventil Neb Soln) 2.5 mg INH Q6HRRT [facility] Last Admin: 07/05/17 08:01 Dose: 2.5 mg Albuterol/Ipratropium (Duoneb 3.0-0.5 Mg/3 Ml) 3 ml NEB ONETIME ONE Stop: 07/02/17 12:26 Last Admin: 07/02/17 12:53 Dose: 3 ml Aspirin (Halfprin) 81 mg PO DAILY PRN PRN Reason: Chest Pain Last Admin: 07/02/17 21:30 Dose: 81 mg Bumetanide (Bumex) 1 mg IVPUSH BID [facility] Last Admin: 07/03/17 01:50 Dose: Not Given Bumetanide (Bumex) 1 mg IVPUSH BID [facility] Last Admin: 07/03/17 09:07 Dose: 1 mg Bumetanide (Bumex) 1 mg IVPUSH BIDDIURETIC [facility] Last Admin: 07/04/17 13:46 Dose: 1 mg Bumetanide (Bumex) 0.5 mg IVPUSH BIDDIURETIC [facility] Last Admin: 07/05/17 06:33 Dose: 0.5 mg Bumetanide (Bumex) 1 mg IVPUSH ONETIME ONE Stop: 07/06/17 15:03 Last Admin: 07/06/17 17:00 Dose: 1 mg Carvedilol (Coreg) 12.5 mg PO BID [facility] Last Admin: 07/07/17 22:19 Dose: Not Given Clonidine HCl (Catapres Tts-2) 0.2 mg TRDERM Sa@1200 [facility] Last Admin: 07/05/17 12:47 Dose: 0.2 mg Doxycycline Hyclate (Vibramycin) 100 mg PO Q12HR [facility] Last Admin: 07/04/17 10:36 Dose: 100 mg Famotidine (Pepcid) 20 mg PO BID [facility] Last Admin: 07/03/17 01:50 Dose: Not Given Famotidine (Pepcid) 20 mg PO DAILY [facility] Last Admin: 07/07/17 08:34 Dose: 20 mg Furosemide (Lasix) 80 mg IVPUSH NOW ONE Stop: 07/02/17 12:27 Last Admin: 07/02/17 12:48 Dose: 80 mg Furosemide (Lasix) Confirm Administered Dose 40 mg .ROUTE .STK-MED ONE Stop: 07/02/17 12:35 Last Admin: 07/02/17 12:48 Dose: Not Given Furosemide (Lasix) 40 mg PO BID [facility] Last Admin: 07/06/17 20:53 Dose: 40 mg Heparin Sodium (Porcine) (Heparin Sodium) 5,000 units SUBCUT Q8H [facility] Last Admin: 07/06/17 21:45 Dose: Not Given Heparin Sodium (Porcine) (Heparin Sodium) 5,000 units SUBCUT Q8H [facility] Last Admin: 07/06/17 18:12 Dose: 5,000 units Hydralazine HCl (Apresoline) 25 mg PO ONETIME ONE Stop: 07/02/17 16:55 Last Admin: 07/02/17 17:16 Dose: 25 mg Insulin Aspart (Novolog) 0 unit SUBCUT QIDACANDBED [facility] PRN Reason: Protocol Last Admin: 07/05/17 12:59 Dose: 6 units Insulin Aspart (Novolog) 25 unit SUBCUT TIDAC [facility] Last Admin: 07/07/17 06:57 Dose: Not Given Insulin Aspart (Novolog) 15 unit SUBCUT ONETIME ONE Stop: 07/07/17 07:16 Last Admin: 07/07/17 07:44 Dose: Not Given Insulin Detemir (Levemir) 55 unit SUBCUT BEDTIME [facility] Last Admin: 07/02/17 22:20 Dose: 55 units Isosorbide Mononitrate (Imdur) 30 mg PO ONETIME ONE Stop: 07/02/17 16:56 Last Admin: 07/02/17 17:16 Dose: 30 mg Methylprednisolone Sodium Succinate (Solu-Medrol) 125 mg IVPUSH ONETIME ONE Stop: 07/02/17 12:26 Last Admin: 07/02/17 12:46 Dose: 125 mg Methylprednisolone Sodium Succinate (Solu-Medrol) 125 mg IVPUSH Q6H [facility] Last Admin: 07/04/17 10:21 Dose: 125 mg Methylprednisolone Sodium Succinate (Solu-Medrol) 125 mg IVPUSH Q8H [facility] Last Admin: 07/05/17 08:23 Dose: 125 mg Methylprednisolone Sodium Succinate (Solu-Medrol) 80 mg IVPUSH Q12H [facility] Last Admin: 07/07/17 22:18 Dose: 80 mg Miscellaneous Information (Remove Patch) 0 ea LIS Sa@1200 [facility] Pantoprazole Sodium (Protonix) 40 mg PO ONETIME ONE Stop: 07/02/17 16:53 Last Admin: 07/02/17 17:10 Dose: 40 mg Potassium Chloride (Klor-Con M20) 20 meq PO ONETIME ONE Stop: 07/02/17 16:54 Last Admin: 07/02/17 17:10 Dose: 20 meq - Exam General: Alert, Oriented, Cooperative, No Acute Distress HEENT: Pupils Equal, Pupils Reactive, EOMI, Mucous Membr. Moist/[place] Neck: Supple, Trachea Midline, No JVD, No Thyromegaly Lungs: Clear to Auscultation, Normal Respiratory Effort Cardiovascular: Regular Rate, Regular Rhythm GI/Abdominal Exam: Normal Bowel Sounds, Soft, No Organomegaly, No Distention, No Abnormal Bruit, No Mass, Tender (Mild tenderness on right upper quadrant). No: Guarding, Rigid, Rebound (Male) Exam: Deferred Back Exam: Normal Inspection, Decreased Range of Motion Extremities: Normal Inspection, Normal Range of Motion, Non-Tender, No Pedal Edema, Normal Capillary Refill Peripheral Pulses: 2+: Dorsalis Pedis (L), Dorsalis Pedis (R) Skin: Warm, Dry, Intact Wound/Incisions: Healing Well Neurological: No New Focal Deficit Psy/Mental Status: Alert, Normal Affect, Normal Mood - Problem List Review Problem List Initiated/Reviewed/Updated: Yes - My Orders Last 24 Hours: My Active Orders 07/08/17 09:00 Carvedilol [Coreg] 12.5 mg PO DAILY 07/10/17 07:00 CBC W/O DIFF,HEMOGRAM [HEME] MOTH@0700 07/14/17 07:00 CBC W/O DIFF,HEMOGRAM [HEME] MOTH@00 07/17/17 07:00 CBC W/O DIFF,HEMOGRAM [HEME] MOTH@00 07/21/17 07:00 CBC W/O DIFF,HEMOGRAM [HEME] MOTH@00 07/24/17 07:00 CBC W/O DIFF,HEMOGRAM [HEME] MOTH@0700 - Plan Plan:: Assessment/Plan: Acute: Cholelithiasis w/o Cholecystitis, Stable - RUQ - Pain for last month - Nausea but no vomiting - Afebrile w/o leukocytosis - Denies constipation or diarrhea - Abdominal ultrasound done in ED: 1. Less than optimal study due to body habitus and difficulty holding breath 2. Fatty infiltration within the liver is likely present 3. Single small gallstone with no gallbladder wall thickening or biliary duct dilation 4. Incidental renal cyst - Lipase 69; CRP elevated at 2.2; WBC remains normal at 7.56 - Pain control medication - MRCP report: 2 filling defects within the gallbladder suspicious for small gallstone. No CHD or CBD dilatation seen. No findings of choledocholelithiasis. Cyst within either kidneys. Small pleural effusions and bibasilar atelectasis. - Still reports after eating, describes as tingling - Dr. Valero felt elective and not urgent if he wishes his GB taken out - HIDA scan today Small Pleural Effusion and Basilar Atelectasis - 2/2 COPD and CHF above - Encourage to use IS as directed Labile HTN - Adjusted BP meds - PRN Hydralazine - Continue to monitor Resolved: COPD Exacerbation - Questioning possibility, symptoms most likely from CHF - In addition to above - Changed 125 mg solu-medrol to 80 mg IVP BID - CRP slightly elevated at 2.2 but WBC WNL - Respiratory panel still pending - Magnesium 2.3 --> 2.4 - Mycoplasma pneumoniae/Influenza A and B/strep pneumonia: all negative - Follow up CXR this am: Small pleural effusions and mildly increased pulmonary vascular congestion - Discontinue Doxycycline Nasal Congestion - Reports difficult breathing out of both nostrils - Nasal saline flushes as ordered - Humidified oxygen - Consider Afrin if no improvement - Patient inquired about adding humidifier to his home oxygen setup - reports he has been contacted already about this CHF Exacerbation - He is improving clinically - SOB worsening over last few days - 4-5 lb weight gain with increasing pedal edema - Usually utilized oxygen at night and PRN but has needed to utilize constantly recently - Usually sleeps with 2 pillows at night and utilizes CPAP - Pro-BNP in ED 3997--> 8370 --> 6206 - Prior CO with stent placement in [place] recently - 12-lead EKG shows RBBB with 1st degree HB at 67 BPM. This was unchanged from prior EKG in our system - Trop negative at 0.028 - Titrate O2 as needed - pt. currently on 3L which is his home amount per his report - RT to evaluate and treat - Last echo from before pt. had stents placed in [place]. Echo 07/03/2017: LVEF 55-60%. Grade 1 diastolic dysfunction. Moderate aortic valve sclerosis. Moderate to severe mitral calcification. Moderate to severe mitral valve regurgitation. Moderate tricuspid valve regurgitation. Chronic: Type II DM with Hyperglycemia due to Steroid- Continue insulin regimen, added SA insulin with ISS coverage Pedal edema - treat as above Sleep apnea on CPAP - Does not have own CPAP here, RT to assist Hypothyroidism CKDF Stage 3, At baseline CAD Morbid obesity with BMI of 50.7 Plan: He remains clinically stable Continue current treatment Routine AM labs Consider CT scan with contrast Continue PT/OT/RT to assess and treat as above; he has been refusing PT/OT DVT/PE/GI prophylaxis: Heparin 5000 units SubQ TID/H2B CM/SW for discharge planning GS consulted Other orders as above Code status: Full Code. His P[facility] Possible discharge/transfer in AM HIDA scan today, if negative it would be really hard to transfer him out. LOS > 96 hrs due to slow response to treatment.
[2017-07-09] MEDS: Acetaminophen 325 MG Tab PO PRN (03:53)
[2017-07-09] MEDS: Albuterol 0.083% 2.5 MG/3 ML Neb Soln NEB SCH ×2 (06:03→10:07)
[2017-07-09] MEDS: Furosemide 40 MG Tab PO SCH ×2 (06:31→14:47)
[2017-07-09] MEDS: Heparin Sodium 5,000 Units/ML Vial SUBCUT SCH ×2 (06:31→14:46)
[2017-07-09] MEDS: Hydrochlorothiazide 12.5 MG Cap PO SCH ×2 (06:31→14:47)
[2017-07-09] MEDS ORDERED: Diatrizoate Meglumine/Diatrizoate Sodium 37% 120 ML Bottle PO ONE (08:05)
[2017-07-09] MEDS: Tiotropium Inhaler 18 MCG Inhalation Powder Cap Kit of 5 INH SCH (10:07)
[2017-07-09] MEDS: Potassium Chloride 20 MEQ Tab.ER PO SCH (10:21)
[2017-07-09] MEDS: Finasteride 5 MG Tab PO SCH (10:22)
[2017-07-09] MEDS: Aspirin 81 MG Tab.EC PO SCH (10:22)
[2017-07-09] MEDS: Clopidogrel 75 MG Tab PO SCH (10:23)
[2017-07-09] MEDS: FLUoxetine 20 MG Cap PO SCH (10:26)
[2017-07-09] MEDS: Pantoprazole 40 MG Tab.CR PO SCH (10:26)
[2017-07-09] MEDS: Levothyroxine 75 MCG Tab PO SCH (10:26)
[2017-07-09] MEDS: Allopurinol 300 MG Tab PO SCH (10:30)
[2017-07-09] MEDS: Insulin Aspart 100 Units/ML 3 ML Pen SUBCUT SCH ×4 (10:31→11:59)
[2017-07-09] MEDS: Insulin Detemir 100 Units/ML 3 ML Pen SUBCUT SCH (10:33)
[2017-07-09] MEDS: Carvedilol 12.5 MG Tab PO SCH (11:41)
[2017-07-09] MEDS: hydrALAZINE 25 MG Tab PO SCH ×2 (11:41→14:53)
[2017-07-09] MEDS: Isosorbide Dinitrate 10 MG Tab PO SCH ×2 (11:42→14:53)
--- NOTE | 2017-07-09 11:43 | CT ---
CT abdomen and pelvis Technique: Multiple axial sections were obtained from above the dome of the diaphragm inferiorly through the pubic symphysis. Oral contrast has been given. No intravenous contrast was utilized due to elevated creatinine. Comparison: No prior CT abdomen or pelvis exam. Previous MRI cholangiogram study of 07/04/17 is available. Findings: Small bilateral pleural effusions are seen. Mild right basilar atelectasis is noted. Liver shows no focal parenchymal abnormality. Gallbladder shows a small calcified gallstone. Spleen appears within normal limits. Adrenal glands show no nodule. Pancreas is within normal limits. Aorta shows atherosclerotic change which continues into the iliac vessels. No aneurysm is seen within the aorta. Cysts are seen within both kidneys. Extrarenal pelvis is noted on the left side. No abnormal calcifications are seen along the course of the ureters. No pelvic mass or adenopathy is seen. No inflammatory change or free fluid is seen. No bowel dilatation is identified. Appendix not definitely visualized. Bone window settings were reviewed showing scattered degenerative change throughout the spine. Impression: 1. Small bilateral pleural effusions with mild right basilar atelectasis. 2. Small calcified gallstone within the gallbladder. 3. Other incidental findings. Nothing acute is appreciated on CT study of the abdomen and pelvis. Diagnostic code #3
--- NOTE | 2017-07-09 14:11 | PCM.DCSUM1 ---
Discharge Summary - Hospital Course Brief History: Adilson Barajas (red) is an 86 yo male who presented to our ED today with shortness of breath that has been getting worse over the past several days. He notes a 45 pound weight gain along with pedal edema. He has needed to utilize his oxygen all the time, whereas before it was just overnight and when needed. He is normally on 3 L of oxygen. He has had some right-sided abdominal pain and nausea he denies fever, chills, cough, chest pain, vomiting, diarrhea. He was primarily admitted for treatment of CHF and COPD. - Discharge Data Discharge Date: 07/09/17 Discharge Disposition: Home, Self-Care 01 Condition: Good - Discharge Diagnosis/Problem(s) (1) Cholelithiasis SNOMED Code(s): 725726691 ICD Code: K80.20 - CALCULUS OF GALLBLADDER W/O CHOLECYSTITIS W/O OBSTRUCTION Status: Chronic Qualifiers: Cholelithiasis location: gallbladder Cholecystitis presence: without cholecystitis Biliary obstruction: without biliary obstruction Qualified Code(s): K80.20 - Calculus of gallbladder without cholecystitis without obstruction (2) CHF exacerbation SNOMED Code(s): 61637890 ICD Code: I50.9 - HEART FAILURE, UNSPECIFIED Status: Resolved Priority: High Qualifiers: Congestive heart failure type: unspecified congestive heart failure type Qualified Code(s): I50.9 - Heart failure, unspecified (3) COPD with exacerbation SNOMED Code(s): 577798413256175 ICD Code: J44.1 - CHRONIC OBSTRUCTIVE PULMONARY DISEASE W (ACUTE) EXACERBATION Status: Resolved Priority: High (4) Morbid obesity with BMI of 50.0-59.9, adult SNOMED Code(s): 119825929 ICD Code: E66.01 - MORBID (SEVERE) OBESITY DUE TO EXCESS CALORIES; Z68.43 - BODY MASS INDEX (BMI) 50-59.9 , ADULT Status: Chronic Priority: Medium (5) Sleep apnea in adult SNOMED Code(s): 31449641 ICD Code: G47.30 - SLEEP APNEA, UNSPECIFIED Status: Chronic Priority: Medium (6) Type II diabetes mellitus SNOMED Code(s): 25744346 ICD Code: E11.9 - TYPE 2 DIABETES MELLITUS WITHOUT COMPLICATIONS Status: Chronic Priority: Medium Qualifiers: Diabetes mellitus complication status: with unspecified complications Diabetes mellitus assisted insulin use: with assisted use Qualified Code(s) : E11.8 - Type 2 diabetes mellitus with unspecified complications; 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; Z79.4 - group home (current) use of insulin; 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; Z79.4 - group home (current) use of insulin - Patient Summary/Data Operative Procedure(s) Performed: None Complications: None Consults: Consultations 07/02/17 18:12 Consult to Case Management [CONS] Routine Consult to [employer] [place] [CONS] Routine OT Evaluation and Treatment [CONS] Routine PT Evaluation and Treatment [CONS] Routine Respiratory Care Assess and Treatment [CONS] Routine 07/02/17 19:12 Consult to Dietary [Consult to Student Liaison Officer] [CONS] Routine 07/04/17 12:17 Consult to Physician [CONS] Routine Labs Pending at D/C: None Recommended Follow-up Testing/Procedures: None Planned Operative Procedure(s) after DC: None Hospital Course: Patient was primarily admitted for COPD and CHF treatment. He was put on routine respiratory care and heart failure protocol and he slowly improved on this regimen. His hospital course was complicated by his abdominal pain which we felt due to cholelithiasis. All imaging studies showed no cholecystitis but small gallstone. General surgery was consulted but Dr. Valero recommended elective surgery be performed in [place] due to his significant co-morbidities. Overall, "Vincenzo" had done well since admission. He breathed better and his edema significantly improved. His colicky pain had improved and was able to tolerate regular meals prior to discharge. Once stable, Vincenzo was discharged to home. He was provided PRN medications for nausea/vomiting along with short course of narcotic pain pills. He was advised to see Chirag Aleman MD in [place] on Friday at 11:30 [employer] for further evaluation of his gallstones pain. Patient was further advised to come back or seek immediate care should his symptoms persist or get worse. - Patient Instructions Diet: Heart Healthy Diet, Usual Diet as Tolerated (but non-dairy, nonfatty or greasy meal), Low Sodium, Diabetic Diet, Weight Loss Diet Activity: As Tolerated Driving: Do Not Drive Showering/Bathing: May Shower - Discharge Plan Prescriptions/Med Rec: Docusate Sodium [Colace] 100 mg PO BID #10 cap Ondansetron [Zofran ODT] 4 mg PO Q6H #12 tab.dis oxyCODONE 10 mg PO Q6H #16 ml Scopolamine [Transderm-Scop] 1.5 mg TRDERM Q72H PRN #1 patch PRN Reason: Other Home Medications: Home Meds Allopurinol [Zyloprim] 150 mg PO DAILY 07/02/17 [History] Aspirin [Adult Low Dose Aspirin EC] 81 mg PO DAILY 07/02/17 [History] Carvedilol 12.5 mg PO BID 07/02/17 [History] Clopidogrel Bisulfate [Plavix] 75 mg PO DAILY 07/02/17 [History] FLUoxetine HCl [Fluoxetine HCl] 20 mg PO DAILY 07/02/17 [History] Finasteride 5 mg PO DAILY 07/02/17 [History] Furosemide [Lasix] 40 mg PO BID 07/02/17 [History] Insulin Aspart [NovoLOG] 25 unit SUBCUT TIDAC 07/02/17 [History] Isosorbide Dinitrate [Isordil] 30 mg PO TID 07/02/17 [History] Pantoprazole Sodium 40 mg PO DAILY 07/02/17 [History] Polyethylene Glycol 3350 [MiraLAX] 17 gm PO DAILY PRN 07/02/17 [History] Potassium Chloride 20 meq PO DAILY 07/02/17 [History] Tamsulosin HCl 0.4 mg PO BEDTIME 07/02/17 [History] atorvaSTATin Calcium [Atorvastatin Calcium] 40 mg PO BEDTIME 07/02/17 [History] hydrALAZINE HCl [Hydralazine HCl] 25 mg PO TID 07/02/17 [History] Albuterol Sulfate [Proair Respiclick] 2 puff INH Q6H PRN 07/03/17 [History] Albuterol [Proventil Neb Soln] 1 vial INH Q6H 07/03/17 [History] Furosemide 40 mg PO ASDIRECTED PRN 07/03/17 [History] Insulin Glarg,Human.Rec.Analog [LantUS Solostar] 50 units SQ BID 07/03/17 [ History] Levothyroxine Sodium [Synthroid] 75 mcg PO DAILY 07/03/17 [History] Tiotropium [Spiriva HandiHaler] 2 puff INH DAILY 07/03/17 [History] Docusate Sodium [Colace] 100 mg PO BID #10 cap 07/09/17 [Rx] Ondansetron [Zofran ODT] 4 mg PO Q6H #12 tab.dis 07/09/17 [Rx] Scopolamine [Transderm-Scop] 1.5 mg TRDERM Q72H PRN #1 patch 07/09/17 [Rx] oxyCODONE 10 mg PO Q6H #16 ml 07/09/17 [Rx] Patient Handouts: Clopidogrel tablets, Type 1 Diabetes Mellitus, Adult, Sleep Apnea, [id number], CPAP and BIPAP Information, Obesity, Heart Failure, Easy-to -Read, Aspirin, ASA oral tablets Referrals: Kanchan Strange DO [Primary Care Provider] - (Please call the [place] clinic to make your own follow-up appointment.) - Discharge Summary/Plan Comment DC Time >30 min.: Yes (45 mins) Discharge Summary/Plan Comment: Discharge to Home - General Info Date of Service: 07/09/17 Admission Dx/Problem (Free Text: Admission Diagnosis/Problem Admission Diagnosis/Problem CHF, Congestive heart failure Subjective Update: Follow Up Functional Status: Reports: Pain Controlled, Tolerating Diet, Ambulating, Urinating. Denies: New Symptoms - Review of Systems General: Denies: Fever, Weakness, Fatigue, Malaise, Chills HEENT: Reports: No Symptoms Pulmonary: Reports: Shortness of Breath Cardiovascular: Denies: Chest Pain Gastrointestinal: Reports: Abdominal Pain, Flatus. Denies: Constipation, Decreased Appetite, Diarrhea, Difficulty Swallowing, Nausea, Vomiting Genitourinary: Reports: No Symptoms Musculoskeletal: Reports: No Symptoms Skin: Denies: Cyanosis Neurological: Reports: Difficulty Walking, Gait Disturbance. Denies: Confusion , Weakness Psychiatric: Denies: Depression, Anxiety, Agitation, Hallucinations Systems Review Comment: No significant overnight or acute issues. He is doing just fine. He is tolerating his regular diet. He has no new complaints. - Patient Data Vitals - Most Recent: Last Vital Signs Temp 35.8 C 07/09/17 13:03 Pulse 48 L 07/09/17 11:53 Resp 20 07/09/17 11:53 BP 119/78 07/09/17 11:53 Pulse Ox 100 07/09/17 11:53 Weight - Most Recent: 129.954 kg I&O - Last 24 hours: Intake & Output 07/08/17 07/09/17 07/09/17 22:59 06:59 14:59 Intake Total 1460 700 Output Total 1050 Balance 1460 -350 Lab Results - Last 24 hrs: Laboratory Results - last 24 hr 07/08/17 07/08/17 07/09/17 Range/Units 16:51 20:41 05:59 Sodium (136-145) mEq/L Potassium (3.5-5.1) mEq/L Chloride (98-107) mEq/L Carbon Dioxide (21-32) mEq/L Anion Gap (5-15) BUN (7-18) mg/dL Creatinine (0.7-1.3) mg/dL Est Cr Clr Drug Dosing mL/min Estimated GFR (MDRD) (>60) mL/min BUN/Creatinine Ratio (14-18) Glucose (83-115) mg/dL POC Glucose 346 H 242 H 164 H (83-110) mg/dL Calcium (8.5-10.1) mg/dL Magnesium (1.8-2.4) mg/dl 07/09/17 07/09/17 Range/Units 06:09 11:54 Sodium 140 (136-145) mEq/L Potassium 3.3 L (3.5-5.1) mEq/L Chloride 101 (98-107) mEq/L Carbon Dioxide 33 H (21-32) mEq/L Anion Gap 9.3 (5-15) BUN 60 H (7-18) mg/dL Creatinine 2.0 H (0.7-1.3) mg/dL Est Cr Clr Drug Dosing 22.20 mL/min Estimated GFR (MDRD) 32 (>60) mL/min BUN/Creatinine Ratio 30.0 H (14-18) Glucose 162 H (83-115) mg/dL POC Glucose 77 L (83-110) mg/dL Calcium 8.5 (8.5-10.1) mg/dL Magnesium 2.7 H (1.8-2.4) mg/dl Med Orders - Current: Current Medications Acetaminophen (Tylenol) 650 mg PO Q4H PRN PRN Reason: Pain (Mild 1-3)/fever Last Admin: 07/09/17 03:53 Dose: 650 mg Hydrocodone Bitart/Acetaminophen ([place] 325-5 Mg) 1 tab PO Q4H PRN PRN Reason: Pain (moderate 4-6) Last Admin: 07/05/17 06:33 Dose: 1 tab Albuterol (Proventil Neb Soln) 2.5 mg NEB QIDRT [facility] Last Admin: 07/09/17 10:07 Dose: 2.5 mg Albuterol/Ipratropium (Duoneb 3.0-0.5 Mg/3 Ml) 3 ml NEB Q4H PRN PRN Reason: Shortness Of Breath/wheezing Last Admin: 07/03/17 14:04 Dose: 3 ml Allopurinol (Zyloprim) 150 mg PO DAILY [facility] Last Admin: 07/09/17 10:30 Dose: 150 mg Aspirin (Halfprin) 81 mg PO DAILY [facility] Last Admin: 07/09/17 10:22 Dose: 81 mg Carvedilol (Coreg) 12.5 mg PO DAILY [facility] Last Admin: 07/09/17 11:41 Dose: Not Given Clopidogrel Bisulfate (Plavix) 75 mg PO DAILY [facility] Last Admin: 07/09/17 10:23 Dose: 75 mg Dextrose/Water (Dextrose 50% In Water) 25 - 50 ml IVPUSH ASDIRECTED PRN PRN Reason: hypoglycemia Docusate Sodium (Colace) 100 mg PO BID PRN PRN Reason: Constipation Last Admin: 07/04/17 10:41 Dose: 100 mg Finasteride (Proscar) 5 mg PO DAILY [facility] Last Admin: 07/09/17 10:22 Dose: 5 mg Fluoxetine HCl (Prozac) 20 mg PO DAILY [facility] Last Admin: 07/09/17 10:26 Dose: 20 mg Furosemide (Lasix) 40 mg PO BIDDIURETIC [facility] Last Admin: 07/09/17 06:31 Dose: 40 mg Heparin Sodium (Porcine) (Heparin Sodium) 5,000 units SUBCUT Q8H [facility] Last Admin: 07/09/17 06:31 Dose: 5,000 units Hydralazine HCl (Apresoline) 25 mg PO TID [facility] Last Admin: 07/09/17 11:41 Dose: Not Given Hydrochlorothiazide (Hydrochlorothiazide) 12.5 mg PO BIDDIURETIC [facility] Last Admin: 07/09/17 06:31 Dose: 12.5 mg Hydromorphone HCl (Dilaudid) 0.5 mg IVPUSH Q4H PRN PRN Reason: Pain Last Admin: 07/04/17 09:28 Dose: 0.5 mg Insulin Aspart (Novolog) 0 unit SUBCUT QIDACANDBED [facility] PRN Reason: Protocol Last Admin: 07/09/17 11:59 Dose: Not Given Insulin Aspart (Novolog) 10 unit SUBCUT TIDAC [facility] Last Admin: 07/09/17 11:59 Dose: Not Given Insulin Detemir (Levemir) 50 unit SUBCUT BID [facility] Last Admin: 07/09/17 10:33 Dose: Not Given Isosorbide Dinitrate (Isordil) 30 mg PO TID [facility] Last Admin: 07/09/17 11:42 Dose: Not Given Levothyroxine Sodium (Levothyroxine) 75 mcg PO DAILY [facility] Last Admin: 07/09/17 10:26 Dose: 75 mcg Ondansetron HCl (Zofran Odt) 4 mg PO Q6H PRN PRN Reason: nausea, able to take PO Ondansetron HCl (Zofran) 4 mg IV Q6H PRN PRN Reason: Nausea/Vomiting Pantoprazole Sodium (Protonix) 40 mg PO DAILY [facility] Last Admin: 07/09/17 10:26 Dose: 40 mg Polyethylene Glycol (Miralax) 17 gm PO DAILY PRN PRN Reason: Constipation Last Admin: 07/06/17 06:42 Dose: 17 gm Potassium Chloride (Klor-Con M20) 20 meq PO DAILY [facility] Last Admin: 07/09/17 10:21 Dose: 20 meq Rosuvastatin Calcium (Crestor) 10 mg PO BEDTIME [facility] Last Admin: 07/08/17 21:19 Dose: 10 mg Senna/Docusate Sodium (Senna Plus) 1 tab PO BID PRN PRN Reason: Constipation Sodium Chloride (Saline Flush) 10 ml FLUSH ASDIRECTED PRN PRN Reason: Keep Vein Open Last Admin: 07/02/17 12:48 Dose: 10 ml Sodium Chloride ([place] Nasal [place]) 0 ml BUTCH QID PRN PRN Reason: nasal congestion and dryness Tamsulosin HCl (Flomax) 0.4 mg PO BEDTIME [facility] Last Admin: 07/08/17 21:19 Dose: 0.4 mg Tiotropium [place] (Spiriva Handihaler) 0 mcg INH DAILY [facility] Last Admin: 07/09/17 10:07 Dose: 1 cap Discontinued Medications Albuterol (Proventil Neb Soln) 2.5 mg INH Q6HRRT [facility] Last Admin: 07/05/17 08:01 Dose: 2.5 mg Albuterol/Ipratropium (Duoneb 3.0-0.5 Mg/3 Ml) 3 ml NEB ONETIME ONE Stop: 07/02/17 12:26 Last Admin: 07/02/17 12:53 Dose: 3 ml Aspirin (Halfprin) 81 mg PO DAILY PRN PRN Reason: Chest Pain Last Admin: 07/02/17 21:30 Dose: 81 mg Bumetanide (Bumex) 1 mg IVPUSH BID [facility] Last Admin: 07/03/17 01:50 Dose: Not Given Bumetanide (Bumex) 1 mg IVPUSH BID [facility] Last Admin: 07/03/17 09:07 Dose: 1 mg Bumetanide (Bumex) 1 mg IVPUSH BIDDIURETIC [facility] Last Admin: 07/04/17 13:46 Dose: 1 mg Bumetanide (Bumex) 0.5 mg IVPUSH BIDDIURETIC [facility] Last Admin: 07/05/17 06:33 Dose: 0.5 mg Bumetanide (Bumex) 1 mg IVPUSH ONETIME ONE Stop: 07/06/17 15:03 Last Admin: 07/06/17 17:00 Dose: 1 mg Carvedilol (Coreg) 12.5 mg PO BID [facility] Last Admin: 07/07/17 22:19 Dose: Not Given Clonidine HCl (Catapres Tts-2) 0.2 mg TRDERM Sa@1200 [facility] Last Admin: 07/05/17 12:47 Dose: 0.2 mg Diatrizoate Megl[place]/Diatrizoate Sod (Gastrografin 37%) 120 ml PO ONETIME ONE Stop: 07/09/17 08:06 Last Admin: 07/09/17 08:55 Dose: 90 ml Doxycycline Hyclate (Vibramycin) 100 mg PO Q12HR [facility] Last Admin: 07/04/17 10:36 Dose: 100 mg Famotidine (Pepcid) 20 mg PO BID [facility] Last Admin: 07/03/17 01:50 Dose: Not Given Famotidine (Pepcid) 20 mg PO DAILY [facility] Last Admin: 07/07/17 08:34 Dose: 20 mg Furosemide (Lasix) 80 mg IVPUSH NOW ONE Stop: 07/02/17 12:27 Last Admin: 07/02/17 12:48 Dose: 80 mg Furosemide (Lasix) Confirm Administered Dose 40 mg .ROUTE .STK-MED ONE Stop: 07/02/17 12:35 Last Admin: 07/02/17 12:48 Dose: Not Given Furosemide (Lasix) 40 mg PO BID [facility] Last Admin: 07/06/17 20:53 Dose: 40 mg Heparin Sodium (Porcine) (Heparin Sodium) 5,000 units SUBCUT Q8H [facility] Last Admin: 07/06/17 21:45 Dose: Not Given Heparin Sodium (Porcine) (Heparin Sodium) 5,000 units SUBCUT Q8H [facility] Last Admin: 07/06/17 18:12 Dose: 5,000 units Hydralazine HCl (Apresoline) 25 mg PO ONETIME ONE Stop: 07/02/17 16:55 Last Admin: 07/02/17 17:16 Dose: 25 mg Insulin Aspart (Novolog) 0 unit SUBCUT QIDACANDBED [facility] PRN Reason: Protocol Last Admin: 07/05/17 12:59 Dose: 6 units Insulin Aspart (Novolog) 25 unit SUBCUT TIDAC [facility] Last Admin: 07/07/17 06:57 Dose: Not Given Insulin Aspart (Novolog) 15 unit SUBCUT ONETIME ONE Stop: 07/07/17 07:16 Last Admin: 07/07/17 07:44 Dose: Not Given Insulin Detemir (Levemir) 55 unit SUBCUT BEDTIME [facility] Last Admin: 07/02/17 22:20 Dose: 55 units Isosorbide Mononitrate (Imdur) 30 mg PO ONETIME ONE Stop: 07/02/17 16:56 Last Admin: 07/02/17 17:16 Dose: 30 mg Methylprednisolone Sodium Succinate (Solu-Medrol) 125 mg IVPUSH ONETIME ONE Stop: 07/02/17 12:26 Last Admin: 07/02/17 12:46 Dose: 125 mg Methylprednisolone Sodium Succinate (Solu-Medrol) 125 mg IVPUSH Q6H [facility] Last Admin: 07/04/17 10:21 Dose: 125 mg Methylprednisolone Sodium Succinate (Solu-Medrol) 125 mg IVPUSH Q8H [facility] Last Admin: 07/05/17 08:23 Dose: 125 mg Methylprednisolone Sodium Succinate (Solu-Medrol) 80 mg IVPUSH Q12H [facility] Last Admin: 07/07/17 22:18 Dose: 80 mg Miscellaneous Information (Remove Patch) 0 ea TRDERM Sa@1200 [facility] Pantoprazole Sodium (Protonix) 40 mg PO ONETIME ONE Stop: 07/02/17 16:53 Last Admin: 07/02/17 17:10 Dose: 40 mg Potassium Chloride (Klor-Con M20) 20 meq PO ONETIME ONE Stop: 07/02/17 16:54 Last Admin: 07/02/17 17:10 Dose: 20 meq - Exam Quality Assessment: Reports: Supplemental Oxygen General: Reports: Alert, Oriented, Cooperative, No Acute Distress, Other ( Morbidly Obese) HEENT: Reports: Pupils Equal, Pupils Reactive, EOMI, Mucous Membr. Moist/[place] Neck: Reports: Supple, Trachea Midline, No JVD, No Thyromegaly, Other (short and thick) Lungs: Reports: Normal Respiratory Effort, Decreased Breath Sounds Cardiovascular: Reports: Regular Rate, Regular Rhythm GI/Abdominal Exam: Normal Bowel Sounds, Soft, Non-Tender, No Organomegaly, No Distention, No Abnormal Bruit, No Mass, Other (Obese) (Male) Exam: Deferred Rectal (Males) Exam: Deferred Back Exam: Reports: Normal Inspection, Decreased Range of Motion Extremities: Normal Inspection, Non-Tender, Normal Capillary Refill, Pedal Edema (trace), Limited Range of Motion Skin: Reports: Warm, Dry, Intact Neurological: Reports: No New Focal Deficit Psy/Mental Status: Reports: Alert, Normal Affect, Normal Mood *Q Meaningful Use (DIS) - VTE *Q VTE Criteria *Q: - Stroke *Q Stroke Criteria *Q: - AMI *Q AMI Criteria *Q:
[2017-07-09 14:54] VITALS: BP 143/42
== END 2017-07-09 15:43 | disposition home or self-care (01) | DRG 292 ==
LOC: JD.ED 12:02 → UNDOADMIN 17:17 → JD.MS 17:17
PROVIDERS: ADMIT Internal Medicine Cardiovascular Disease; ATTEND Internal Medicine Cardiovascular Disease
DX: I50.9 Heart failure, unspecified (principal); J44.1 Chronic obstructive pulmonary disease with (acute) exacerbation; Z68.43 Body mass index [BMI] 50.0-59.9, adult; K80.20 Calculus of gallbladder without cholecystitis without obstruction; N18.3 Chronic kidney disease, stage 3 (moderate); E11.9 Type 2 diabetes mellitus without complications; E03.9 Hypothyroidism, unspecified; I25.10 Atherosclerotic heart disease of native coronary artery without angina pectoris; Z95.5 Presence of coronary angioplasty implant and graft; I25.2 Old myocardial infarction; Z87.891 Personal history of nicotine dependence; E66.01 Morbid (severe) obesity due to excess calories; R09.81 Nasal congestion; M19.90 Unspecified osteoarthritis, unspecified site; E55.9 Vitamin D deficiency, unspecified; M10.9 Gout, unspecified; H54.7 Unspecified visual loss; Z79.02 Long term (current) use of antithrombotics/antiplatelets; Z79.82 Long term (current) use of aspirin; Z79.4 Long term (current) use of insulin; Z99.81 Dependence on supplemental oxygen; Z79.899 Other long term (current) drug therapy
CPT/HCPCS: 36415; 71010; 71010-26; 71020; 71020-26; 74176; 74176-26; 74181; 74181-26; 76705; 76705-26; 78227; 78227-26; 80048; 80053; 80076; 81001; 82962; 83036; 83690; 83735; 83880; 84484; 85025; 85027; 86140; 86738; 87086; 87486; 87581; 87633; 87798; 87804; 87899; 93005; 93010; 93306; 94640; 94660; 94761; 96374; 96375; 97110-GP; 97116-GP; 97162-GP; 97165-GO; 97530-GO; 99285-25; A9270; A9270-GY; A9537; J1170; J1644; J1815-GY; J1940; J2930; J7050; Q9963

== ENCOUNTER 2018-12-14 11:27 | Emergency (ER) | payer OTHER, MEDICARE, MEDICAID ==
[2018-12-14 11:40] VITALS: BP 126/65
[2018-12-14] MEDS ORDERED: Sodium Chloride 0.9% 10 ML Syringe FLUSH PRN (11:52)
[2018-12-14] MEDS ORDERED: Furosemide 40 MG/4 ML VIAL IVPUSH ONE ×2 (11:58→16:43)
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
[2018-12-14] MEDS ORDERED: Albuterol/Ipratropium 3.0-0.5 MG/3 ML Neb Soln NEB ONE ×2 (13:10→17:42)
--- NOTE | 2018-12-14 14:16 | CR ---
Chest: Two views of the chest were obtained. Prior chest x-ray of 05/24/18. Heart is enlarged. Pulmonary vessels are mildly congested. Small bilateral pleural effusions are seen. Degenerative endplate spurring is noted within the spine. Impression: 1. Findings suspicious for mild CHF. Other incidental findings. Diagnostic code #3
== END 2018-12-14 18:06 ==
LOC: JD.ED 11:27
DX: I11.0 Hypertensive heart disease with heart failure (principal); I50.43 Acute on chronic combined systolic (congestive) and diastolic (congestive) heart failure; J44.9 Chronic obstructive pulmonary disease, unspecified; E11.9 Type 2 diabetes mellitus without complications; E03.9 Hypothyroidism, unspecified; E78.00 Pure hypercholesterolemia, unspecified; Z79.82 Long term (current) use of aspirin; Z79.899 Other long term (current) drug therapy; Z79.4 Long term (current) use of insulin; Z95.5 Presence of coronary angioplasty implant and graft; Z79.01 Long term (current) use of anticoagulants; Z87.891 Personal history of nicotine dependence
CPT/HCPCS: 36415; 71046; 80053; 83880; 84484; 85007; 85027; 85379; 85610; 85730; 86738; 87804; 93005; 94640; 96374; 96376; 99285; J1940; J7620-GY

== ENCOUNTER 2019-01-08 13:13 | Inpatient (IN) | payer OTHER, MEDICARE, MEDICAID ==
[2019-01-08] MEDS ORDERED: Sodium Chloride 0.9% 10 ML Syringe FLUSH PRN (13:38)
[2019-01-08] MEDS ORDERED: Albuterol/Ipratropium 3.0-0.5 MG/3 ML Neb Soln NEB ONE ×2 (13:39→14:06)
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
[2019-01-08] MEDS ORDERED: Furosemide 20 MG/2 ML VIAL IVPUSH ONE (15:23)
[2019-01-08] MEDS ORDERED: Bumetanide 1 MG/4 ML MDV IVPUSH ONE (15:32)
[2019-01-08] MEDS ORDERED: Metolazone 5 MG Tab PO ONE ×2 (17:35→21:50)
[2019-01-08] MEDS ORDERED: acetaZOLAMIDE 250 MG Tab PO SCH (17:38)
[2019-01-08] MEDS ORDERED: Furosemide 100 MG/10 ML SDV IVPUSH ONE (17:42)
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
[2019-01-08] MEDS ORDERED: Magnesium Hydroxide 400 MG/5 ML Susp 30 ML Cup PO ONE (20:07)
[2019-01-08] MEDS: Isosorbide Dinitrate 20 MG Tab PO SCH ×2 (20:34→22:11)
[2019-01-08] MEDS: acetaZOLAMIDE 250 MG Tab PO SCH (20:37)
[2019-01-08] MEDS: Heparin Sodium 5,000 Units/ML Vial SUBCUT SCH (20:37)
[2019-01-08] MEDS: Carvedilol 12.5 MG Tab PO SCH (20:49)
[2019-01-08] MEDS ORDERED: Torsemide 20 MG Tab PO SCH (21:00)
[2019-01-08] MEDS ORDERED: Non-Formulary Medication 1 Each (Ticagrelor 90 MG) PO SCH (21:00)
[2019-01-08] MEDS ORDERED: Rosuvastatin 10 MG Tab PO SCH (21:00)
[2019-01-08] MEDS ORDERED: Furosemide 100 MG/10 ML SDV ONE (21:49)
[2019-01-08] MEDS: Tamsulosin 0.4 MG Cap.ER PO SCH (22:02)
[2019-01-08] MEDS: Formoterol/Mometasone 200-5 MCG 8.8 GM Inhaler IH SCH (22:22)
[2019-01-08] MEDS: Albuterol/Ipratropium 3.0-0.5 MG/3 ML Neb Soln NEB PRN (22:45)
[2019-01-08] MEDS: Insulin Lispro 100 Units/ML 3 ML Vial SUBCUT SCH (23:38)
[2019-01-09] MEDS: hydrALAZINE 20 MG/ML SDV IVPUSH SCH ×7 (00:32→20:52)
[2019-01-09] MEDS: acetaZOLAMIDE 250 MG Tab PO SCH ×5 (02:20→22:33)
[2019-01-09] MEDS: Heparin Sodium 5,000 Units/ML Vial SUBCUT SCH ×3 (02:21→18:02)
[2019-01-09 06:22] LABS: HEMOGLOBIN A1C 7.9 % (4.50-6.20)
[2019-01-09] MEDS: Pantoprazole 40 MG Tab.CR PO SCH (06:42)
[2019-01-09] MEDS: Insulin Lispro 100 Units/ML 3 ML Vial SUBCUT SCH ×4 (06:42→22:31)
[2019-01-09] MEDS: Levothyroxine 75 MCG Tab PO SCH (06:42)
[2019-01-09] MEDS: Insulin Glarg,Human.Rec.Analog 100 UNIT/ML ML SUBCUT SCH (08:21)
[2019-01-09] MEDS: Isosorbide Dinitrate 20 MG Tab PO SCH ×3 (08:22→20:45)
[2019-01-09] MEDS: Carvedilol 12.5 MG Tab PO SCH (08:22)
[2019-01-09] MEDS: FLUoxetine 20 MG Cap PO SCH (08:22)
[2019-01-09] MEDS: Clopidogrel 75 MG Tab PO SCH (08:22)
[2019-01-09] MEDS: Aspirin 81 MG Tab.EC PO SCH (08:26)
[2019-01-09] MEDS: Finasteride 5 MG Tab PO SCH (08:27)
[2019-01-09] MEDS: Formoterol/Mometasone 200-5 MCG 8.8 GM Inhaler IH SCH ×2 (08:34→20:14)
[2019-01-09] MEDS ORDERED: Tiotropium Inhaler 18 MCG Inhalation Powder Cap Kit of 5 INH SCH (09:00)
[2019-01-09] MEDS: Glycopyrrolate 15.6 MCG Cap.W.Dev Kit of 6 IH SCH ×2 (10:40→20:15)
[2019-01-09] MEDS ORDERED: acetaZOLAMIDE 250 MG Tab PO SCH (10:45)
--- NOTE | 2019-01-09 11:15 | PCM.PN ---
- General Info Date of Service: 01/09/19 Admission Dx/Problem (Free Text): 88 yo WM with h/o MO, CHF, CKD3, COPD, hypothyroidism admitted with recent weight gain, no response to usual doses of home diuretic. Admits to flu like symptoms 4 days prior to visit, admits to decreased appetite. Poorly responded to IV loop diuretics in ED, elevated pro-BNP. Admitted with CHF exacerbation for further treatment. 01/09/19, moderate response to diuresis, will attempt continuous infusion, SOB slightly improved. - Review of Systems Systems Review Comment:: General: Reports: Decreased Appetite, Weight Gain. Denies: Fever, Chills HEENT: Denies: Dysphasia, Vertigo Pulmonary: Reports: Shortness of Breath. Denies: Wheezing Cardiovascular: Reports: Dyspnea on Exertion, Orthopnea, Edema. Denies: Chest Pain, Palpitations, Syncope, Claudication Gastrointestinal: Denies: Abdominal Pain, Black Stool, Diarrhea, Vomiting Genitourinary: Denies: Dysuria, Frequency, Hematuria Skin: Denies: Cyanosis, Jaundice Psychiatric: Denies: Confusion, Depression Neurological: Denies: Seizure, Syncope Hematologic/Lymphatic: Denies: Easy Bleeding, Easy Bruising - Patient Data Vitals - Most Recent: Last Vital Signs Temp 98.1 F 01/09/19 08:20 Pulse 57 L 01/09/19 08:25 Resp 18 01/09/19 08:20 BP 103/52 L 01/09/19 08:22 Pulse Ox 98 01/09/19 08:35 Weight - Most Recent: 254 lb I&O - Last 24 Hours: Intake & Output 01/08/19 01/09/19 01/09/19 19:59 03:59 11:59 Intake Total 540 1200 Output Total 1500 Balance 540 -300 Lab Results Last 24 Hours: Laboratory Results - last 24 hr 01/08/19 01/08/19 01/08/19 Range/Units 13:50 13:50 13:50 WBC 8.12 (4.23-9.07) K/mm3 RBC 3.41 L (4.63-6.08) M/mm3 Hgb 10.0 L (13.7-17.5) gm/L Hct 32.6 L (40.1-51.0) % MCV 95.6 H (79.0-92.2) fl MCH 29.3 (25.7-32.2) pg MCHC 30.7 L (32.2-35.5) g/dl RDW Std Deviation 53.8 H (35.1-43.9) fL Plt Count 275 (163-337) K/mm3 MPV 10.4 (9.4-12.3) fl Neut % (Auto) 72.0 H (34.0-67.9) % Lymph % (Auto) 11.2 L (21.8-53.1) % Garfield % (Auto) 9.2 (5.3-12.2) % Eos % (Auto) 7.0 (0.8-7.0) Baso % (Auto) 0.5 (0.1-1.2) % Neut # (Auto) 5.84 H (1.78-5.38) K/mm3 Lymph # (Auto) 0.91 L (1.32-3.57) K/mm3 Garfield # (Auto) 0.75 (0.30-0.82) K/mm3 Eos # (Auto) 0.57 H (0.04-0.54) K/mm3 Baso # (Auto) 0.04 (0.01-0.08) K/mm3 PT (9.5-12.1) SECONDS INR APTT (24-31) SECONDS Sodium 140 (136-145) mEq/L Potassium 3.9 (3.5-5.1) mEq/L Chloride 104 (98-107) mEq/L Carbon Dioxide 31 (21-32) mEq/L Anion Gap 8.9 (5-15) BUN 45 H (7-18) mg/dL Creatinine 1.8 H (0.7-1.3) mg/dL Est Cr Clr Drug Dosing 23.75 mL/min Estimated GFR (MDRD) 36 (>60) mL/min BUN/Creatinine Ratio 25.0 H (14-18) Glucose 93 (83-115) mg/dL POC Glucose (83-110) mg/dL Hemoglobin A1c (4.50-6.20) % Lactic Acid (0.4-2.0) mmol/L Calcium 9.3 (8.5-10.1) mg/dL Phosphorus (2.6-4.7) mg/dL Magnesium (1.8-2.4) mg/dl Total Bilirubin 0.6 (0.2-1.0) mg/dL AST 14 L (15-37) U/L ALT 22 (16-63) U/L Alkaline Phosphatase 78 (46-116) U/L Troponin I 0.031 (0.00-0.056) ng/mL NT-Pro-B Natriuret Pep 6065 H (0-450) pg/mL Total Protein 6.8 (6.4-8.2) g/dl Albumin 2.6 L (3.4-5.0) g/dl Globulin 4.2 gm/dL Albumin/Globulin Ratio 0.6 L (1-2) Triglycerides (<150) mg/dL Cholesterol (<200) mg/dL LDL Cholesterol Direct (<100) mg/dL HDL Cholesterol (40-59) mg/dL TSH 3rd Generation (0.358-3.74) uIU/mL 01/08/19 01/08/19 01/09/19 Range/Units 22:00 23:30 05:32 WBC (4.23-9.07) K/mm3 RBC (4.63-6.08) M/mm3 Hgb (13.7-17.5) gm/L Hct (40.1-51.0) % MCV (79.0-92.2) fl MCH (25.7-32.2) pg MCHC (32.2-35.5) g/dl RDW Std Deviation (35.1-43.9) fL Plt Count (163-337) K/mm3 MPV (9.4-12.3) fl Neut % (Auto) (34.0-67.9) % Lymph % (Auto) (21.8-53.1) % Garfield % (Auto) (5.3-12.2) % Eos % (Auto) (0.8-7.0) Baso % (Auto) (0.1-1.2) % Neut # (Auto) (1.78-5.38) K/mm3 Lymph # (Auto) (1.32-3.57) K/mm3 Garfield # (Auto) (0.30-0.82) K/mm3 Eos # (Auto) (0.04-0.54) K/mm3 Baso # (Auto) (0.01-0.08) K/mm3 PT (9.5-12.1) SECONDS INR APTT (24-31) SECONDS Sodium 135 L (136-145) mEq/L Potassium 5.0 (3.5-5.1) mEq/L Chloride 101 (98-107) mEq/L Carbon Dioxide 30 (21-32) mEq/L Anion Gap 9.0 (5-15) BUN 47 H (7-18) mg/dL Creatinine 1.8 H (0.7-1.3) mg/dL Est Cr Clr Drug Dosing 23.75 mL/min Estimated GFR (MDRD) 36 (>60) mL/min BUN/Creatinine Ratio 26.1 H (14-18) Glucose 251 H (83-115) mg/dL POC Glucose 241 H 122 H (83-110) mg/dL Hemoglobin A1c (4.50-6.20) % Lactic Acid (0.4-2.0) mmol/L Calcium 9.5 (8.5-10.1) mg/dL Phosphorus 3.3 (2.6-4.7) mg/dL Magnesium 2.5 H (1.8-2.4) mg/dl Total Bilirubin (0.2-1.0) mg/dL AST (15-37) U/L ALT (16-63) U/L Alkaline Phosphatase (46-116) U/L Troponin I 0.033 (0.00-0.056) ng/mL NT-Pro-B Natriuret Pep (0-450) pg/mL Total Protein (6.4-8.2) g/dl Albumin (3.4-5.0) g/dl Globulin gm/dL Albumin/Globulin Ratio (1-2) Triglycerides (<150) mg/dL Cholesterol (<200) mg/dL LDL Cholesterol Direct (<100) mg/dL HDL Cholesterol (40-59) mg/dL TSH 3rd Generation (0.358-3.74) uIU/mL 01/09/19 01/09/19 01/09/19 Range/Units 05:35 05:35 05:35 WBC 6.53 (4.23-9.07) K/mm3 RBC 3.24 L (4.63-6.08) M/mm3 Hgb 9.6 L (13.7-17.5) gm/L Hct 31.4 L (40.1-51.0) % MCV 96.9 H (79.0-92.2) fl MCH 29.6 (25.7-32.2) pg MCHC 30.6 L (32.2-35.5) g/dl RDW Std Deviation 53.5 H (35.1-43.9) fL Plt Count 252 (163-337) K/mm3 MPV 11.1 (9.4-12.3) fl Neut % (Auto) 65.4 (34.0-67.9) % Lymph % (Auto) 14.4 L (21.8-53.1) % Garfield % (Auto) 10.4 (5.3-12.2) % Eos % (Auto) 8.7 H (0.8-7.0) Baso % (Auto) 0.8 (0.1-1.2) % Neut # (Auto) 4.27 (1.78-5.38) K/mm3 Lymph # (Auto) 0.94 L (1.32-3.57) K/mm3 Garfield # (Auto) 0.68 (0.30-0.82) K/mm3 Eos # (Auto) 0.57 H (0.04-0.54) K/mm3 Baso # (Auto) 0.05 (0.01-0.08) K/mm3 PT 11.4 (9.5-12.1) SECONDS INR 1.05 APTT 29 (24-31) SECONDS Sodium (136-145) mEq/L Potassium (3.5-5.1) mEq/L Chloride (98-107) mEq/L Carbon Dioxide (21-32) mEq/L Anion Gap (5-15) BUN (7-18) mg/dL Creatinine (0.7-1.3) mg/dL Est Cr Clr Drug Dosing mL/min Estimated GFR (MDRD) (>60) mL/min BUN/Creatinine Ratio (14-18) Glucose (83-115) mg/dL POC Glucose (83-110) mg/dL Hemoglobin A1c (4.50-6.20) % Lactic Acid (0.4-2.0) mmol/L Calcium (8.5-10.1) mg/dL Phosphorus 4.4 (2.6-4.7) mg/dL Magnesium 2.5 H (1.8-2.4) mg/dl Total Bilirubin (0.2-1.0) mg/dL AST (15-37) U/L ALT (16-63) U/L Alkaline Phosphatase (46-116) U/L Troponin I (0.00-0.056) ng/mL NT-Pro-B Natriuret Pep (0-450) pg/mL Total Protein (6.4-8.2) g/dl Albumin (3.4-5.0) g/dl Globulin gm/dL Albumin/Globulin Ratio (1-2) Triglycerides (<150) mg/dL Cholesterol (<200) mg/dL LDL Cholesterol Direct (<100) mg/dL HDL Cholesterol (40-59) mg/dL TSH 3rd Generation (0.358-3.74) uIU/mL 01/09/19 01/09/19 01/09/19 Range/Units 05:35 05:35 05:35 WBC (4.23-9.07) K/mm3 RBC (4.63-6.08) M/mm3 Hgb (13.7-17.5) gm/L Hct (40.1-51.0) % MCV (79.0-92.2) fl MCH (25.7-32.2) pg MCHC (32.2-35.5) g/dl RDW Std Deviation (35.1-43.9) fL Plt Count (163-337) K/mm3 MPV (9.4-12.3) fl Neut % (Auto) (34.0-67.9) % Lymph % (Auto) (21.8-53.1) % Garfield % (Auto) (5.3-12.2) % Eos % (Auto) (0.8-7.0) Baso % (Auto) (0.1-1.2) % Neut # (Auto) (1.78-5.38) K/mm3 Lymph # (Auto) (1.32-3.57) K/mm3 Garfield # (Auto) (0.30-0.82) K/mm3 Eos # (Auto) (0.04-0.54) K/mm3 Baso # (Auto) (0.01-0.08) K/mm3 PT (9.5-12.1) SECONDS INR APTT (24-31) SECONDS Sodium 141 (136-145) mEq/L Potassium 3.4 L D (3.5-5.1) mEq/L Chloride 102 (98-107) mEq/L Carbon Dioxide 33 H (21-32) mEq/L Anion Gap 9.4 (5-15) BUN 47 H (7-18) mg/dL Creatinine 2.0 H (0.7-1.3) mg/dL Est Cr Clr Drug Dosing 21.38 mL/min Estimated GFR (MDRD) 32 (>60) mL/min BUN/Creatinine Ratio 23.5 H (14-18) Glucose 112 (83-115) mg/dL POC Glucose (83-110) mg/dL Hemoglobin A1c (4.50-6.20) % Lactic Acid 0.9 (0.4-2.0) mmol/L Calcium 9.2 (8.5-10.1) mg/dL Phosphorus (2.6-4.7) mg/dL Magnesium (1.8-2.4) mg/dl Total Bilirubin 0.6 (0.2-1.0) mg/dL AST 14 L (15-37) U/L ALT 19 (16-63) U/L Alkaline Phosphatase 72 (46-116) U/L Troponin I 0.043 (0.00-0.056) ng/mL NT-Pro-B Natriuret Pep 7158 H (0-450) pg/mL Total Protein 7.0 (6.4-8.2) g/dl Albumin 2.9 L (3.4-5.0) g/dl Globulin 4.1 gm/dL Albumin/Globulin Ratio 0.7 L (1-2) Triglycerides 84 (<150) mg/dL Cholesterol 83 (<200) mg/dL LDL Cholesterol Direct 43 (<100) mg/dL HDL Cholesterol 33.0 L (40-59) mg/dL TSH 3rd Generation 2.977 (0.358-3.74) uIU/mL 01/09/19 Range/Units 06:00 WBC (4.23-9.07) K/mm3 RBC (4.63-6.08) M/mm3 Hgb (13.7-17.5) gm/L Hct (40.1-51.0) % MCV (79.0-92.2) fl MCH (25.7-32.2) pg MCHC (32.2-35.5) g/dl RDW Std Deviation (35.1-43.9) fL Plt Count (163-337) K/mm3 MPV (9.4-12.3) fl Neut % (Auto) (34.0-67.9) % Lymph % (Auto) (21.8-53.1) % Garfield % (Auto) (5.3-12.2) % Eos % (Auto) (0.8-7.0) Baso % (Auto) (0.1-1.2) % Neut # (Auto) (1.78-5.38) K/mm3 Lymph # (Auto) (1.32-3.57) K/mm3 Garfield # (Auto) (0.30-0.82) K/mm3 Eos # (Auto) (0.04-0.54) K/mm3 Baso # (Auto) (0.01-0.08) K/mm3 PT (9.5-12.1) SECONDS INR APTT (24-31) SECONDS Sodium (136-145) mEq/L Potassium (3.5-5.1) mEq/L Chloride (98-107) mEq/L Carbon Dioxide (21-32) mEq/L Anion Gap (5-15) BUN (7-18) mg/dL Creatinine (0.7-1.3) mg/dL Est Cr Clr Drug Dosing mL/min Estimated GFR (MDRD) (>60) mL/min BUN/Creatinine Ratio (14-18) Glucose (83-115) mg/dL POC Glucose (83-110) mg/dL Hemoglobin A1c 7.90 H (4.50-6.20) % Lactic Acid (0.4-2.0) mmol/L Calcium (8.5-10.1) mg/dL Phosphorus (2.6-4.7) mg/dL Magnesium (1.8-2.4) mg/dl Total Bilirubin (0.2-1.0) mg/dL AST (15-37) U/L ALT (16-63) U/L Alkaline Phosphatase (46-116) U/L Troponin I (0.00-0.056) ng/mL NT-Pro-B Natriuret Pep (0-450) pg/mL Total Protein (6.4-8.2) g/dl Albumin (3.4-5.0) g/dl Globulin gm/dL Albumin/Globulin Ratio (1-2) Triglycerides (<150) mg/dL Cholesterol (<200) mg/dL LDL Cholesterol Direct (<100) mg/dL HDL Cholesterol (40-59) mg/dL TSH 3rd Generation (0.358-3.74) uIU/mL Med Orders - Current: Current Medications Acetazolamide (Diamox) 250 mg PO Q4H [facility] Stop: 01/09/19 23:01 Albuterol/Ipratropium (Duoneb 3.0-0.5 Mg/3 Ml) 3 ml NEB Q6HR PRN PRN Reason: Wheezing Last Admin: 01/08/19 22:45 Dose: 3 ml Aspirin (Halfprin) 81 mg PO DAILY [facility] Last Admin: 01/09/19 08:26 Dose: 81 mg Carvedilol (Coreg) 25 mg PO BID [facility] Last Admin: 01/09/19 08:22 Dose: Not Given Clopidogrel Bisulfate (Plavix) 75 mg PO DAILY [facility] Last Admin: 01/09/19 08:22 Dose: 75 mg Finasteride (Proscar) 5 mg PO DAILY [facility] Last Admin: 01/09/19 08:27 Dose: 5 mg Fluoxetine HCl (Prozac) 20 mg PO DAILY [facility] Last Admin: 01/09/19 08:22 Dose: 20 mg Glycopyrrolate (Seebri Neohaler) 18 mcg IH BID [facility] Last Admin: 01/09/19 10:40 Dose: 1 cap Heparin Sodium (Porcine) (Heparin Sodium) 5,000 units SUBCUT Q8H [facility] Last Admin: 01/09/19 02:21 Dose: 5,000 units Hydralazine HCl (Apresoline) 15 mg IVPUSH Q4H [facility] Last Admin: 01/09/19 10:20 Dose: Not Given Furosemide 100 mg/ Sodium (Chloride) 100 mls @ 5 mls/hr IV CONTINUOUS [facility] Albumin Human (Flexbumin 25%) 25 gm in 100 mls @ 100 mls/hr IV Q6H [facility] Stop: 01/09/19 23:44 Insulin Glargine (Lantus) 34 unit SUBCUT DAILY [facility] Last Admin: 01/09/19 08:21 Dose: 34 unit Insulin Human Lispro (Humalog) 0 unit SUBCUT QIDACANDBED [facility]; Protocol Last Admin: 01/09/19 06:42 Dose: Not Given Isosorbide Dinitrate (Isordil) 20 mg PO TID [facility] Last Admin: 01/09/19 08:22 Dose: 20 mg Levothyroxine Sodium (Levothyroxine) 75 mcg PO ACBRK [facility] Last Admin: 01/09/19 06:42 Dose: 75 mcg Mometasone Furoate/Formoterol Fumar (Dulera 200-5 Mcg) 2 puff IH BID [facility] Last Admin: 01/09/19 08:34 Dose: 2 puff Pantoprazole Sodium (Protonix) 40 mg PO 0700 [facility] Last Admin: 01/09/19 06:42 Dose: 40 mg Rosuvastatin Calcium (Crestor) 10 mg PO BEDTIME [facility] Last Admin: 01/08/19 22:01 Dose: 10 mg Sodium Chloride (Saline Flush) 10 ml FLUSH ASDIRECTED PRN PRN Reason: Keep Vein Open Last Admin: 01/08/19 15:45 Dose: 10 ml Tamsulosin HCl (Flomax) 0.4 mg PO BEDTIME [facility] Last Admin: 01/08/19 22:02 Dose: 0.4 mg Discontinued Medications Acetazolamide (Diamox) 250 mg PO Q6H [facility] Stop: 01/09/19 05:39 Last Admin: 01/09/19 00:36 Dose: Not Given Acetazolamide (Diamox) 250 mg PO Q6H [facility] Stop: 01/09/19 08:16 Last Admin: 01/09/19 08:26 Dose: 250 mg Acetazolamide (Diamox) 250 mg PO Q4H [facility] Stop: 01/09/19 18:46 Albuterol/Ipratropium (Duoneb 3.0-0.5 Mg/3 Ml) 3 ml NEB ONETIME ONE Stop: 01/08/19 13:40 Last Admin: 01/08/19 13:56 Dose: 3 ml Albuterol/Ipratropium (Duoneb 3.0-0.5 Mg/3 Ml) 3 ml NEB ONETIME ONE Stop: 01/08/19 14:07 Last Admin: 01/08/19 15:59 Dose: Not Given Bumetanide (Bumex) 1 mg IVPUSH ONETIME ONE Stop: 01/08/19 15:33 Last Admin: 01/08/19 15:45 Dose: 1 mg Furosemide (Lasix) 40 mg IVPUSH ONETIME ONE Stop: 01/08/19 15:24 Last Admin: 01/08/19 17:29 Dose: Not Given Furosemide (Lasix) 100 mg IVPUSH NOW ONE Stop: 01/08/19 17:43 Last Admin: 01/08/19 22:00 Dose: 100 mg Furosemide (Lasix) Confirm Administered Dose 100 mg .ROUTE .STK-MED ONE Stop: 01/08/19 21:50 Last Admin: 01/08/19 22:10 Dose: Not Given Albumin Human (Flexbumin 25%) 25 gm in 100 mls @ 100 mls/hr IV ONETIME ONE Stop: 01/08/19 18:36 Last Admin: 01/08/19 20:56 Dose: 100 mls/hr Magnesium Hydroxide (Milk Of Magnesia) 30 ml PO ONETIME ONE Stop: 01/08/19 20:08 Last Admin: 01/09/19 00:32 Dose: Not Given Metolazone (Zaroxolyn) 5 mg PO ONETIME ONE Stop: 01/08/19 17:36 Last Admin: 01/08/19 22:01 Dose: 5 mg Metolazone (Zaroxolyn) 5 mg PO ONETIME ONE Stop: 01/08/19 21:51 Last Admin: 01/08/19 22:10 Dose: Not Given Non-Formulary Medication (Ticagrelor) 90 mg PO BID [facility] Last Admin: 01/09/19 00:34 Dose: Not Given Tiotropium [employer] (Spiriva Handihaler) 18 mcg INH DAILY [facility] Torsemide (Demadex) 60 mg PO BID [facility] - Exam Physical Findings Comments:: General: Alert, Oriented, Cooperative HEENT: Conjunctiva Clear, EOMI, Pupils Equal. No: Hearing Intact Neck: Supple, Trachea Midline, +2 Carotid Pulse wo Bruit Lungs: Rales. No: Normal Respiratory Effort Cardiovascular: Regular Rate, Regular Rhythm, Normal S1, Normal S2 GI/Abdominal Exam: Normal Bowel Sounds, Soft, Non-Tender Extremities: Pedal Edema, Redness Peripheral Pulses: 2+: Dorsalis Pedis (L), Dorsalis Pedis (R) Skin: Warm, Dry Neurological: Cranial Nerves Intact, Reflexes Equal Bilateral, Normal Speech. No: Focal Deficit Neuro Extensive - Mental Status: Alert, Oriented x3, Normal Mood/Affect, Normal Cognition, Memory Intact Neuro Extensive - Motor, Sensory, Reflexes: CN II-XII Intact. No: Ataxia, Motor /Sensory Deficits Psychiatric: Normal Affect, Normal Mood - Problem List & Annotations (1) Acute exacerbation of CHF (congestive heart failure) SNOMED Code(s): 209528045 Code(s): I50.9 - HEART FAILURE, UNSPECIFIED Status: Acute Current Visit: Yes Qualifiers: Heart failure type: combined systolic and diastolic Qualified Code(s): I50.43 - 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) heart failure (2) CKD (chronic kidney disease) stage 4, GFR 15-29 ml/min SNOMED Code(s): 309134426 Code(s): N18.4 - CHRONIC KIDNEY DISEASE, STAGE 4 (SEVERE) Status: Acute Priority: High Current Visit: No (3) Sleep apnea in adult SNOMED Code(s): 52975734 Code(s): G47.30 - SLEEP APNEA, UNSPECIFIED Status: Acute Priority: High Current Visit: Yes (4) Type II diabetes mellitus SNOMED Code(s): 39359624 Code(s): E11.9 - TYPE 2 DIABETES MELLITUS WITHOUT COMPLICATIONS Status: Chronic Priority: Medium Current Visit: No Qualifiers: Diabetes mellitus buttermaker continuous churn insulin use: with group home use Diabetes mellitus complication status: with unspecified complications Qualified Code(s) : E11.8 - Type 2 diabetes mellitus with unspecified complications; 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; 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 DIRECTED Intake and Output Strict [RC] ASDIRECTED Pulse Oximetry Continuous Monitoring [OM.PC] Routine 01/08/19 17:45 hydrALAZINE [Apresoline] 15 mg IVPUSH Q4H 01/08/19 18:15 Heparin Sodium 5,000 units SUBCUT Q8H 01/08/19 21:00 Carvedilol [Coreg] 25 mg PO BID Mometasone/Formoterol [Dulera 200-5 MCG] 2 puff IH BID Rosuvastatin [Crestor] 10 mg PO BEDTIME Tamsulosin [Flomax] 0.4 mg PO BEDTIME 01/08/19 21:49 EKG 12 Lead [EK] Routine 01/08/19 22:00 Insulin Lispro [HumaLOG] See Protocol SUBCUT QIDACANDBED 01/08/19 23:36 Oxygen Therapy [RC] ASDIRECTED 01/09/19 05:00 RT Arterial Blood Gases, ABG [RC] AMPROC ABG [BLOOD GAS ARTERIAL] [BG] Timed 01/09/19 06:00 Levothyroxine 75 mcg PO ACBRK 01/09/19 07:00 Pantoprazole [ProTONIX] 40 mg PO 0700 01/09/19 09:00 Aspirin [Halfprin] 81 mg PO DAILY Clopidogrel [Plavix] 75 mg PO DAILY FLUoxetine [PROzac] 20 mg PO DAILY Finasteride [Proscar] 5 mg PO DAILY Glycopyrrolate [Seebri Neohaler] 18 mcg IH BID Insulin Glarg,Human.Rec.Analog [LantUS] 34 unit SUBCUT DAILY 01/09/19 10:45 Albumin 25% [Flexbumin 25%] 25 gm in 100 ml IV Q6H Furosemide [Lasix] 100 mg Sodium Chloride 0.9% [Normal Saline] 90 ml IV CONTINUOUS 01/09/19 15:00 acetaZOLAMIDE [Diamox] 250 mg PO Q4H 01/09/19 20:00 BMP [BASIC METABOLIC PANEL,BMP] [CHEM] Timed MAGNESIUM [CHEM] Timed PHOSPHORUS [CHEM] Timed 01/09/19 Breakfast Heart Healthy Diet [DIET] 01/10/19 05:00 MAGNESIUM [CHEM] AM PHOSPHORUS [CHEM] AM 01/10/19 05:11 BMP [BASIC METABOLIC PANEL,BMP] [CHEM] AM CBC WITH AUTO DIFF [HEME] AM PRO B-TYPE NATRIUR PEPT,BNPPRO [CHEM] AM 01/11/19 07:00 Echo Comp wo Cont [US] Routine - Plan Plan:: 1. Unload with hydralazine and isordil, continue carvedilol, may benefit from spironolactone, more aggressive diuresis with combination of loop diuretic, albumin, thiazide and acetazolamide, daily weights, will obtain ECHO, old records. 2. Avoid nephrotoxic agents, will avoid ACEi/ARB, strict I&Os, try to maintain adequate perfusion(cardiac monitoring, MAP>70 mmHg). 3. Continue with glargine and SSI, obtain HbA1C. 4. Will apply CPAP at night. 5. DVTP with UFH SC.
[2019-01-09] MEDS: Furosemide 100 MG in Sodium Chloride 0.9% 90 ML IV SCH (14:16)
[2019-01-09] MEDS: Rosuvastatin 10 MG Tab PO SCH (20:45)
[2019-01-09] MEDS: Tamsulosin 0.4 MG Cap.ER PO SCH (20:46)
[2019-01-10] MEDS ORDERED: Aluminum Hydroxide/Magnesium Hydroxide/Simethicone Susp 30 ML Cup PO PRN (00:31)
[2019-01-10] MEDS: hydrALAZINE 20 MG/ML SDV IVPUSH SCH ×2 (01:17→06:32)
[2019-01-10] MEDS: Heparin Sodium 5,000 Units/ML Vial SUBCUT SCH ×3 (01:19→17:50)
[2019-01-10] MEDS: Furosemide 100 MG in Sodium Chloride 0.9% 90 ML IV SCH (06:02)
[2019-01-10] MEDS: Levothyroxine 75 MCG Tab PO SCH (06:26)
[2019-01-10] MEDS: Pantoprazole 40 MG Tab.CR PO SCH (06:26)
[2019-01-10] MEDS: Formoterol/Mometasone 200-5 MCG 8.8 GM Inhaler IH SCH ×2 (08:26→20:11)
[2019-01-10] MEDS: Glycopyrrolate 15.6 MCG Cap.W.Dev Kit of 6 IH SCH ×2 (08:27→20:11)
[2019-01-10] MEDS: Insulin Lispro 100 Units/ML 3 ML Vial SUBCUT SCH ×4 (08:38→21:14)
[2019-01-10] MEDS: Insulin Glarg,Human.Rec.Analog 100 UNIT/ML ML SUBCUT SCH (08:41)
[2019-01-10] MEDS: Finasteride 5 MG Tab PO SCH (08:43)
[2019-01-10] MEDS: FLUoxetine 20 MG Cap PO SCH (08:43)
[2019-01-10] MEDS: Aspirin 81 MG Tab.EC PO SCH (08:43)
[2019-01-10] MEDS: Clopidogrel 75 MG Tab PO SCH (08:43)
[2019-01-10] MEDS: Isosorbide Dinitrate 20 MG Tab PO SCH ×3 (08:56→21:03)
--- NOTE | 2019-01-10 09:55 | PCM.PN ---
- General Info Date of Service: 01/10/19 Admission Dx/Problem (Free Text): 88 yo WM with h/o MO, CHF, CKD3, COPD, hypothyroidism admitted with recent weight gain, no response to usual doses of home diuretic. Admits to flu like symptoms 4 days prior to visit, admits to decreased appetite. Poorly responded to IV loop diuretics in ED, elevated pro-BNP. Admitted with CHF exacerbation for further treatment. 01/09/19, moderate response to diuresis, will attempt continuous infusion, SOB slightly improved. 01/10/19, responded to diuresis moderately, SOB improved to preadmission baseline level, SCr at 2.3, will switch furosemide IV gtt to torsemide PO, IV hydralazine to PO formulation, expected LOS 2 more days, will obtain ECHO prior to discharge. The patient needs to have arrangements made for CPAP since his equipment is not in order. - Review of Systems Systems Review Comment:: General: Reports: Decreased Appetite, Weight Gain. Denies: Fever, Chills HEENT: Denies: Dysphasia, Vertigo Pulmonary: Reports: Shortness of Breath. Denies: Wheezing Cardiovascular: Reports: Dyspnea on Exertion, Orthopnea, Edema. Denies: Chest Pain, Palpitations, Syncope, Claudication Gastrointestinal: Denies: Abdominal Pain, Black Stool, Diarrhea, Vomiting Genitourinary: Denies: Dysuria, Frequency, Hematuria Skin: Denies: Cyanosis, Jaundice Psychiatric: Denies: Confusion, Depression Neurological: Denies: Seizure, Syncope Hematologic/Lymphatic: Denies: Easy Bleeding, Easy Bruising - Patient Data Vitals - Most Recent: Last Vital Signs Temp 97.5 F 01/10/19 08:35 Pulse 61 01/10/19 08:00 Resp 16 01/10/19 08:00 BP 126/76 01/10/19 08:56 Pulse Ox 100 01/10/19 08:24 Weight - Most Recent: 252 lb 14.4 oz I&O - Last 24 Hours: Intake & Output 01/09/19 01/10/19 01/10/19 19:59 03:59 11:59 Intake Total 1558 536 164 Output Total 5069 2050 600 Balance -965 -2797 -015 Lab Results Last 24 Hours: Laboratory Results - last 24 hr 01/09/19 01/09/19 01/09/19 Range/Units 11:35 17:23 20:20 WBC (4.23-9.07) K/mm3 RBC (4.63-6.08) M/mm3 Hgb (13.7-17.5) gm/L Hct (40.1-51.0) % MCV (79.0-92.2) fl MCH (25.7-32.2) pg MCHC (32.2-35.5) g/dl RDW Std Deviation (35.1-43.9) fL Plt Count (163-337) K/mm3 MPV (9.4-12.3) fl Neut % (Auto) (34.0-67.9) % Lymph % (Auto) (21.8-53.1) % [place] % (Auto) (5.3-12.2) % Eos % (Auto) (0.8-7.0) Baso % (Auto) (0.1-1.2) % Neut # (Auto) (1.78-5.38) K/mm3 Lymph # (Auto) (1.32-3.57) K/mm3 [place] # (Auto) (0.30-0.82) K/mm3 Eos # (Auto) (0.04-0.54) K/mm3 Baso # (Auto) (0.01-0.08) K/mm3 Sodium 139 (136-145) mEq/L Potassium 3.4 L (3.5-5.1) mEq/L Chloride 100 (98-107) mEq/L Carbon Dioxide 31 (21-32) mEq/L Anion Gap 11.4 (5-15) BUN 48 H (7-18) mg/dL Creatinine 2.2 H (0.7-1.3) mg/dL Est Cr Clr Drug Dosing 19.43 mL/min Estimated GFR (MDRD) 28 (>60) mL/min BUN/Creatinine Ratio 21.8 H (14-18) Glucose 194 H (83-115) mg/dL POC Glucose 224 H 224 H (83-110) mg/dL Calcium 9.1 (8.5-10.1) mg/dL Phosphorus 4.5 (2.6-4.7) mg/dL Magnesium 2.5 H (1.8-2.4) mg/dl NT-Pro-B Natriuret Pep (0-450) pg/mL 01/09/19 01/10/19 01/10/19 Range/Units 22:18 05:27 05:27 WBC 6.16 (4.23-9.07) K/mm3 RBC 3.03 L (4.63-6.08) M/mm3 Hgb 8.9 L (13.7-17.5) gm/L Hct 29.5 L (40.1-51.0) % MCV 97.4 H (79.0-92.2) fl MCH 29.4 (25.7-32.2) pg MCHC 30.2 L (32.2-35.5) g/dl RDW Std Deviation 54.1 H (35.1-43.9) fL Plt Count 253 (163-337) K/mm3 MPV 10.6 (9.4-12.3) fl Neut % (Auto) 63.8 (34.0-67.9) % Lymph % (Auto) 12.8 L (21.8-53.1) % [place] % (Auto) 10.4 (5.3-12.2) % Eos % (Auto) 12.2 H (0.8-7.0) Baso % (Auto) 0.5 (0.1-1.2) % Neut # (Auto) 3.93 (1.78-5.38) K/mm3 Lymph # (Auto) 0.79 L (1.32-3.57) K/mm3 [place] # (Auto) 0.64 (0.30-0.82) K/mm3 Eos # (Auto) 0.75 H (0.04-0.54) K/mm3 Baso # (Auto) 0.03 (0.01-0.08) K/mm3 Sodium (136-145) mEq/L Potassium (3.5-5.1) mEq/L Chloride (98-107) mEq/L Carbon Dioxide (21-32) mEq/L Anion Gap (5-15) BUN (7-18) mg/dL Creatinine (0.7-1.3) mg/dL Est Cr Clr Drug Dosing mL/min Estimated GFR (MDRD) (>60) mL/min BUN/Creatinine Ratio (14-18) Glucose (83-115) mg/dL POC Glucose 202 H (83-110) mg/dL Calcium (8.5-10.1) mg/dL Phosphorus 5.1 H (2.6-4.7) mg/dL Magnesium 2.8 H (1.8-2.4) mg/dl NT-Pro-B Natriuret Pep (0-450) pg/mL 01/10/19 01/10/19 01/10/19 Range/Units 05:27 05:27 06:25 WBC (4.23-9.07) K/mm3 RBC (4.63-6.08) M/mm3 Hgb (13.7-17.5) gm/L Hct (40.1-51.0) % MCV (79.0-92.2) fl MCH (25.7-32.2) pg MCHC (32.2-35.5) g/dl RDW Std Deviation (35.1-43.9) fL Plt Count (163-337) K/mm3 MPV (9.4-12.3) fl Neut % (Auto) (34.0-67.9) % Lymph % (Auto) (21.8-53.1) % [place] % (Auto) (5.3-12.2) % Eos % (Auto) (0.8-7.0) Baso % (Auto) (0.1-1.2) % Neut # (Auto) (1.78-5.38) K/mm3 Lymph # (Auto) (1.32-3.57) K/mm3 [place] # (Auto) (0.30-0.82) K/mm3 Eos # (Auto) (0.04-0.54) K/mm3 Baso # (Auto) (0.01-0.08) K/mm3 Sodium 140 (136-145) mEq/L Potassium 3.2 L (3.5-5.1) mEq/L Chloride 98 (98-107) mEq/L Carbon Dioxide 33 H (21-32) mEq/L Anion Gap 12.2 (5-15) BUN 53 H (7-18) mg/dL Creatinine 2.3 H (0.7-1.3) mg/dL Est Cr Clr Drug Dosing 18.59 mL/min Estimated GFR (MDRD) 27 (>60) mL/min BUN/Creatinine Ratio 23.0 H (14-18) Glucose 197 H (83-115) mg/dL POC Glucose 214 H (83-110) mg/dL Calcium 9.9 (8.5-10.1) mg/dL Phosphorus (2.6-4.7) mg/dL Magnesium (1.8-2.4) mg/dl NT-Pro-B Natriuret Pep 5329 H (0-450) pg/mL Med Orders - Current: Current Medications Al Hydroxide/Mg Hydroxide (Mag-Al Plus) 30 ml PO Q4H PRN PRN Reason: Indigestion Last Admin: 01/10/19 00:34 Dose: 30 ml Albuterol/Ipratropium (Duoneb 3.0-0.5 Mg/3 Ml) 3 ml NEB Q6HR PRN PRN Reason: Wheezing Last Admin: 01/08/19 22:45 Dose: 3 ml Aspirin (Halfprin) 81 mg PO DAILY [facility] Last Admin: 01/10/19 08:43 Dose: 81 mg Clopidogrel Bisulfate (Plavix) 75 mg PO DAILY [facility] Last Admin: 01/10/19 08:43 Dose: 75 mg Finasteride (Proscar) 5 mg PO DAILY [facility] Last Admin: 01/10/19 08:43 Dose: 5 mg Fluoxetine HCl (Prozac) 20 mg PO DAILY [facility] Last Admin: 01/10/19 08:43 Dose: 20 mg Glycopyrrolate (Seebri Neohaler) 18 mcg IH BID [facility] Last Admin: 01/10/19 08:27 Dose: 1 cap Heparin Sodium (Porcine) (Heparin Sodium) 5,000 units SUBCUT Q8H [facility] Last Admin: 01/10/19 01:19 Dose: 5,000 units Hydralazine HCl (Apresoline) 10 mg PO Q8H [facility] Insulin Glargine (Lantus) 34 unit SUBCUT DAILY [facility] Last Admin: 01/10/19 08:41 Dose: 34 unit Insulin Human Lispro (Humalog) 0 unit SUBCUT QIDACANDBED [facility]; Protocol Last Admin: 01/10/19 08:38 Dose: 6 units Isosorbide Dinitrate (Isordil) 20 mg PO TID [facility] Last Admin: 01/10/19 08:56 Dose: 20 mg Levothyroxine Sodium (Levothyroxine) 75 mcg PO ACBRK [facility] Last Admin: 01/10/19 06:26 Dose: 75 mcg Mometasone Furoate/Formoterol Fumar (Dulera 200-5 Mcg) 2 puff IH BID [facility] Last Admin: 01/10/19 08:26 Dose: 2 puff Pantoprazole Sodium (Protonix) 40 mg PO 0700 [facility] Last Admin: 01/10/19 06:26 Dose: 40 mg Rosuvastatin Calcium (Crestor) 10 mg PO BEDTIME [facility] Last Admin: 01/09/19 20:45 Dose: 10 mg Sodium Chloride (Saline Flush) 10 ml FLUSH ASDIRECTED PRN PRN Reason: Keep Vein Open Last Admin: 01/08/19 15:45 Dose: 10 ml Tamsulosin HCl (Flomax) 0.4 mg PO BEDTIME [facility] Last Admin: 01/09/19 20:46 Dose: 0.4 mg Torsemide (Demadex) 20 mg PO BIDDIURETIC [facility] Discontinued Medications Acetazolamide (Diamox) 250 mg PO Q6H [facility] Stop: 01/09/19 05:39 Last Admin: 01/09/19 00:36 Dose: Not Given Acetazolamide (Diamox) 250 mg PO Q6H [facility] Stop: 01/09/19 08:16 Last Admin: 01/09/19 08:26 Dose: 250 mg Acetazolamide (Diamox) 250 mg PO Q4H [facility] Stop: 01/09/19 18:46 Last Admin: 01/09/19 11:28 Dose: Not Given Acetazolamide (Diamox) 250 mg PO Q4H [facility] Stop: 01/09/19 23:01 Last Admin: 01/09/19 22:33 Dose: 250 mg Albuterol/Ipratropium (Duoneb 3.0-0.5 Mg/3 Ml) 3 ml NEB ONETIME ONE Stop: 01/08/19 13:40 Last Admin: 01/08/19 13:56 Dose: 3 ml Albuterol/Ipratropium (Duoneb 3.0-0.5 Mg/3 Ml) 3 ml NEB ONETIME ONE Stop: 01/08/19 14:07 Last Admin: 01/08/19 15:59 Dose: Not Given Bumetanide (Bumex) 1 mg IVPUSH ONETIME ONE Stop: 01/08/19 15:33 Last Admin: 01/08/19 15:45 Dose: 1 mg Carvedilol (Coreg) 25 mg PO BID [facility] Last Admin: 01/09/19 08:22 Dose: Not Given Furosemide (Lasix) 40 mg IVPUSH ONETIME ONE Stop: 01/08/19 15:24 Last Admin: 01/08/19 17:29 Dose: Not Given Furosemide (Lasix) 100 mg IVPUSH NOW ONE Stop: 01/08/19 17:43 Last Admin: 01/08/19 22:00 Dose: 100 mg Furosemide (Lasix) Confirm Administered Dose 100 mg .ROUTE .STK-MED ONE Stop: 01/08/19 21:50 Last Admin: 01/08/19 22:10 Dose: Not Given Hydralazine HCl (Apresoline) 15 mg IVPUSH Q4H [facility] Last Admin: 01/10/19 06:32 Dose: Not Given Albumin Human (Flexbumin 25%) 25 gm in 100 mls @ 100 mls/hr IV ONETIME ONE Stop: 01/08/19 18:36 Last Admin: 01/08/19 20:56 Dose: 100 mls/hr Furosemide 100 mg/ Sodium (Chloride) 100 mls @ 5 mls/hr IV CONTINUOUS [facility] Last Admin: 01/10/19 06:02 Dose: 5 mg/hr, 5 mls/hr Albumin Human (Flexbumin 25%) 25 gm in 100 mls @ 100 mls/hr IV Q6H [facility] Stop: 01/09/19 23:44 Last Admin: 01/09/19 22:32 Dose: 100 mls/hr Magnesium Hydroxide (Milk Of Magnesia) 30 ml PO ONETIME ONE Stop: 01/08/19 20:08 Last Admin: 01/09/19 00:32 Dose: Not Given Metolazone (Zaroxolyn) 5 mg PO ONETIME ONE Stop: 01/08/19 17:36 Last Admin: 01/08/19 22:01 Dose: 5 mg Metolazone (Zaroxolyn) 5 mg PO ONETIME ONE Stop: 01/08/19 21:51 Last Admin: 01/08/19 22:10 Dose: Not Given Non-Formulary Medication (Ticagrelor) 90 mg PO BID [facility] Last Admin: 01/09/19 00:34 Dose: Not Given Rosuvastatin Calcium (Crestor) 10 mg PO BEDTIME [facility] Last Admin: 01/08/19 22:01 Dose: 10 mg Tiotropium [place] (Spiriva Handihaler) 18 mcg INH DAILY [facility] Last Admin: 01/09/19 11:28 Dose: Not Given Torsemide (Demadex) 60 mg PO BID [facility] - Exam Physical Findings Comments:: General: Alert, Oriented, Cooperative HEENT: Conjunctiva Clear, EOMI, Pupils Equal. No: Hearing Intact Neck: Supple, Trachea Midline, +2 Carotid Pulse wo Bruit Lungs: Rales. No: Normal Respiratory Effort Cardiovascular: Regular Rate, Regular Rhythm, Normal S1, Normal S2 GI/Abdominal Exam: Normal Bowel Sounds, Soft, Non-Tender Extremities: Pedal Edema, Redness Peripheral Pulses: 2+: Dorsalis Pedis (L), Dorsalis Pedis (R) Skin: Warm, Dry Neurological: Cranial Nerves Intact, Reflexes Equal Bilateral, Normal Speech. No: Focal Deficit Neuro Extensive - Mental Status: Alert, Oriented x3, Normal Mood/Affect, Normal Cognition, Memory Intact Neuro Extensive - Motor, Sensory, Reflexes: CN II-XII Intact. No: Ataxia, Motor /Sensory Deficits Psychiatric: Normal Affect, Normal Mood - Problem List & Annotations (1) Acute exacerbation of CHF (congestive heart failure) SNOMED Code(s): 331042443 Code(s): I50.9 - HEART FAILURE, UNSPECIFIED Status: Acute Current Visit: Yes Qualifiers: Heart failure type: combined systolic and diastolic Qualified Code(s): I50.43 - 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) heart failure (2) CKD (chronic kidney disease) stage 4, GFR 15-29 ml/min SNOMED Code(s): 617646159 Code(s): N18.4 - CHRONIC KIDNEY DISEASE, STAGE 4 (SEVERE) Status: Acute Priority: High Current Visit: No (3) Sleep apnea in adult SNOMED Code(s): 84042584 Code(s): G47.30 - SLEEP APNEA, UNSPECIFIED Status: Acute Priority: High Current Visit: Yes (4) Type II diabetes mellitus SNOMED Code(s): 12840479 Code(s): E11.9 - TYPE 2 DIABETES MELLITUS WITHOUT COMPLICATIONS Status: Chronic Priority: Medium Current Visit: No Qualifiers: Diabetes mellitus mcfp insulin use: with mcfp use Diabetes mellitus complication status: with unspecified complications Qualified Code(s) : E11.8 - Type 2 diabetes mellitus with unspecified complications; Z79.4 - emt intermediate (current) use of insulin; Z79.4 - intermediate (current) use of insulin; Z79.4 - emt intermediate (current) use of insulin; Z79.4 - emt intermediate (current) use of insulin - Problem List Review Problem List Initiated/Reviewed/Updated: Yes - My Orders Last 24 Hours: My Active Orders 01/09/19 09:00 Aspirin [Halfprin] 81 mg PO DAILY Clopidogrel [Plavix] 75 mg PO DAILY FLUoxetine [PROzac] 20 mg PO DAILY Finasteride [Proscar] 5 mg PO DAILY Glycopyrrolate [Seebri Neohaler] 18 mcg IH BID Insulin Glarg,Human.Rec.Analog [LantUS] 34 unit SUBCUT DAILY 01/09/19 21:00 Rosuvastatin [Crestor] 10 mg PO BEDTIME 01/10/19 00:31 Alum Hydrox/Mag Hydrox/Simeth [Mag-Al Plus] 30 ml PO Q4H PRN 01/10/19 06:26 Blood Glucose Check, Bedside [RC] QIDACANDBED 01/10/19 09:15 Torsemide [Demadex] 20 mg PO BIDDIURETIC 01/10/19 09:30 hydrALAZINE [Apresoline] 10 mg PO Q8H 01/11/19 07:00 Echo Comp wo Cont [US] Routine - Plan Plan:: 1. Unload with hydralazine and isordil, continue carvedilol, may benefit from spironolactone, more aggressive diuresis with combination of loop diuretic, albumin, thiazide and acetazolamide, daily weights, will obtain ECHO, old records. 2. Avoid nephrotoxic agents, will avoid ACEi/ARB, strict I&Os, try to maintain adequate perfusion(cardiac monitoring, MAP>70 mmHg). 3. Continue with glargine and SSI, obtain HbA1C. 4. Will apply CPAP at night. 5. DVTP with UFH SC.
[2019-01-10] MEDS ORDERED: Hydrochlorothiazide 25 MG Tab PO ONE ×2 (09:58→12:22)
[2019-01-10] MEDS: hydrALAZINE 10 MG Tab PO SCH ×2 (10:03→17:50)
[2019-01-10] MEDS: Torsemide 20 MG Tab PO SCH ×2 (10:03→17:50)
[2019-01-10] MEDS ORDERED: Sodium Chloride 0.9% 250 ML IV SCH (11:45)
[2019-01-10] MEDS: Potassium Chloride 10 MEQ in Premix Bag 1 BAG IV SCH ×4 (12:33→16:41)
[2019-01-10] MEDS: Rosuvastatin 10 MG Tab PO SCH (21:02)
[2019-01-10] MEDS: Tamsulosin 0.4 MG Cap.ER PO SCH (21:03)
[2019-01-11] MEDS: hydrALAZINE 10 MG Tab PO SCH ×3 (01:38→17:01)
[2019-01-11] MEDS: Heparin Sodium 5,000 Units/ML Vial SUBCUT SCH ×3 (01:41→14:30)
[2019-01-11] MEDS: Torsemide 20 MG Tab PO SCH ×3 (05:52→14:49)
[2019-01-11] MEDS: Levothyroxine 75 MCG Tab PO SCH (05:53)
[2019-01-11] MEDS: Pantoprazole 40 MG Tab.CR PO SCH (06:00)
--- NOTE | 2019-01-11 07:28 | CR ---
Chest: Two views of the chest were obtained. Comparison: Prior chest x-ray of 12/14/18. Blunting of both costophrenic angles is seen suspicious for small pleural effusions. Pulmonary vessels appear congested which appear similar to prior exam. Lungs otherwise are clear. Heart does not appear enlarged. Slight degenerative change is noted within the spine. Impression: 1. Findings as noted above. No significant change from prior chest x-ray is seen. Diagnostic code #3
[2019-01-11] MEDS: Formoterol/Mometasone 200-5 MCG 8.8 GM Inhaler IH SCH ×2 (08:14→20:30)
[2019-01-11] MEDS: Glycopyrrolate 15.6 MCG Cap.W.Dev Kit of 6 IH SCH ×2 (08:15→20:30)
[2019-01-11] MEDS: Albuterol/Ipratropium 3.0-0.5 MG/3 ML Neb Soln NEB PRN ×3 (08:15→20:30)
[2019-01-11] MEDS ORDERED: Isosorbide Mononitrate 30 MG Tab.ER PO SCH (09:00)
[2019-01-11] MEDS ORDERED: Potassium Chloride 20 MEQ Tab.ER PO ONE (09:00)
[2019-01-11] MEDS ORDERED: Carvedilol 6.25 MG Tab PO SCH ×2 (09:00)
[2019-01-11] MEDS: Finasteride 5 MG Tab PO SCH (09:20)
[2019-01-11] MEDS: FLUoxetine 20 MG Cap PO SCH (09:20)
[2019-01-11] MEDS: Clopidogrel 75 MG Tab PO SCH (09:20)
[2019-01-11] MEDS: Aspirin 81 MG Tab.EC PO SCH (09:20)
[2019-01-11] MEDS: Insulin Lispro 100 Units/ML 3 ML Vial SUBCUT SCH ×4 (09:22→21:33)
[2019-01-11] MEDS: Insulin Glarg,Human.Rec.Analog 100 UNIT/ML ML SUBCUT SCH (09:33)
[2019-01-11] MEDS: Carvedilol 6.25 MG Tab PO SCH ×2 (09:34→20:06)
[2019-01-11] MEDS: Isosorbide Dinitrate 20 MG Tab PO SCH ×3 (09:35→20:06)
[2019-01-11] MEDS ORDERED: Heparin Sodium 5,000 Units/ML Vial SUBCUT SCH (10:45)
--- NOTE | 2019-01-11 11:38 | PCM.PN ---
- General Info Date of Service: 01/11/19 Admission Dx/Problem (Free Text): 88 yo WM with h/o MO, CHF, CKD3, COPD, hypothyroidism admitted with recent weight gain, no response to usual doses of home diuretic. Admits to flu like symptoms 4 days prior to visit, admits to decreased appetite. Poorly responded to IV loop diuretics in ED, elevated pro-BNP. Admitted with CHF exacerbation for further treatment. 01/09/19, moderate response to diuresis, will attempt continuous infusion, SOB slightly improved. 01/10/19, responded to diuresis moderately, SOB improved to preadmission baseline level, SCr at 2.3, will switch furosemide IV gtt to torsemide PO, IV hydralazine to PO formulation, expected LOS 2 more days, will obtain ECHO prior to discharge. The patient needs to have arrangements made for CPAP since his equipment is not in order. 01/11/19, continues to improve gradually, SCr stabilizing, will continue unloading, start PT. - Review of Systems Systems Review Comment:: General: Denies: Fever, Chills HEENT: Denies: Dysphasia, Vertigo Pulmonary: Reports: Shortness of Breath. Denies: Wheezing Cardiovascular: Reports: Dyspnea on Exertion, Orthopnea, Edema. Denies: Chest Pain, Palpitations, Syncope, Claudication Gastrointestinal: Denies: Abdominal Pain, Black Stool, Diarrhea, Vomiting Genitourinary: Denies: Dysuria, Frequency, Hematuria Skin: Denies: Cyanosis, Jaundice Psychiatric: Denies: Confusion, Depression Neurological: Denies: Seizure, Syncope Hematologic/Lymphatic: Denies: Easy Bleeding, Easy Bruising - Patient Data Vitals - Most Recent: Last Vital Signs Temp 96.3 F 01/11/19 07:52 Pulse 64 01/11/19 09:34 Resp 20 01/11/19 07:52 BP 112/48 L 01/11/19 09:35 Pulse Ox 99 01/11/19 08:15 Weight - Most Recent: 251 lb 12.8 oz I&O - Last 24 Hours: Intake & Output 01/10/19 01/11/19 01/11/19 19:59 03:59 11:59 Intake Total 1520 505 470 Output Total 725 725 500 Balance 795 -220 -30 Lab Results Last 24 Hours: Laboratory Results - last 24 hr 01/10/19 01/10/19 01/11/19 Range/Units 17:18 21:09 05:35 Sodium (136-145) mEq/L Potassium (3.5-5.1) mEq/L Chloride (98-107) mEq/L Carbon Dioxide (21-32) mEq/L Anion Gap (5-15) BUN (7-18) mg/dL Creatinine (0.7-1.3) mg/dL Est Cr Clr Drug Dosing mL/min Estimated GFR (MDRD) (>60) mL/min BUN/Creatinine Ratio (14-18) Glucose (83-115) mg/dL POC Glucose 191 H 290 H (83-110) mg/dL Calcium (8.5-10.1) mg/dL Phosphorus 4.8 H (2.6-4.7) mg/dL Magnesium 2.7 H (1.8-2.4) mg/dl Troponin I (0.00-0.056) ng/mL NT-Pro-B Natriuret Pep (0-450) pg/mL 01/11/19 01/11/19 Range/Units 05:35 05:35 Sodium 139 (136-145) mEq/L Potassium 3.1 L (3.5-5.1) mEq/L Chloride 99 (98-107) mEq/L Carbon Dioxide 30 (21-32) mEq/L Anion Gap 13.1 (5-15) BUN 58 H (7-18) mg/dL Creatinine 2.3 H (0.7-1.3) mg/dL Est Cr Clr Drug Dosing 18.59 mL/min Estimated GFR (MDRD) 27 (>60) mL/min BUN/Creatinine Ratio 25.2 H (14-18) Glucose 178 H (83-115) mg/dL POC Glucose (83-110) mg/dL Calcium 9.5 (8.5-10.1) mg/dL Phosphorus (2.6-4.7) mg/dL Magnesium (1.8-2.4) mg/dl Troponin I 0.032 (0.00-0.056) ng/mL NT-Pro-B Natriuret Pep 5150 H (0-450) pg/mL Med Orders - Current: Current Medications Albuterol/Ipratropium (Duoneb 3.0-0.5 Mg/3 Ml) 3 ml NEB Q6HR PRN PRN Reason: Wheezing Last Admin: 01/11/19 08:15 Dose: 3 ml Aspirin (Halfprin) 81 mg PO DAILY [facility] Last Admin: 01/11/19 09:20 Dose: 81 mg Carvedilol (Coreg) 6.25 mg PO BID [facility] Last Admin: 01/11/19 09:34 Dose: 3.125 mg Clopidogrel Bisulfate (Plavix) 75 mg PO DAILY [facility] Last Admin: 01/11/19 09:20 Dose: 75 mg Finasteride (Proscar) 5 mg PO DAILY [facility] Last Admin: 01/11/19 09:20 Dose: 5 mg Fluoxetine HCl (Prozac) 20 mg PO DAILY [facility] Last Admin: 01/11/19 09:20 Dose: 20 mg Glycopyrrolate (Seebri Neohaler) 18 mcg IH BID [facility] Last Admin: 01/11/19 08:15 Dose: 1 cap Heparin Sodium (Porcine) (Heparin Sodium) 5,000 units SUBCUT Q12H [facility] Hydralazine HCl (Apresoline) 10 mg PO Q8H [facility] Last Admin: 01/11/19 09:24 Dose: 10 mg Insulin Glargine (Lantus) 34 unit SUBCUT DAILY [facility] Last Admin: 01/11/19 09:33 Dose: 34 unit Insulin Human Lispro (Humalog) 0 unit SUBCUT QIDACANDBED [facility]; Protocol Last Admin: 01/11/19 09:22 Dose: 3 units Isosorbide Dinitrate (Isordil) 20 mg PO TID [facility] Levothyroxine Sodium (Levothyroxine) 75 mcg PO ACBRK [facility] Last Admin: 01/11/19 05:53 Dose: 75 mcg Mometasone Furoate/Formoterol Fumar (Dulera 200-5 Mcg) 2 puff IH BID [facility] Last Admin: 01/11/19 08:14 Dose: 2 puff Pantoprazole Sodium (Protonix) 40 mg PO 0700 [facility] Last Admin: 01/11/19 06:00 Dose: 40 mg Rosuvastatin Calcium (Crestor) 10 mg PO BEDTIME [facility] Last Admin: 01/10/19 21:02 Dose: 10 mg Sodium Chloride (Saline Flush) 10 ml FLUSH ASDIRECTED PRN PRN Reason: Keep Vein Open Last Admin: 01/08/19 15:45 Dose: 10 ml Tamsulosin HCl (Flomax) 0.4 mg PO BEDTIME [facility] Last Admin: 01/10/19 21:03 Dose: 0.4 mg Torsemide (Demadex) 20 mg PO BIDDIURETIC [facility] Last Admin: 01/11/19 10:14 Dose: 20 mg Discontinued Medications Acetazolamide (Diamox) 250 mg PO Q6H [facility] Stop: 01/09/19 05:39 Last Admin: 01/09/19 00:36 Dose: Not Given Acetazolamide (Diamox) 250 mg PO Q6H [facility] Stop: 01/09/19 08:16 Last Admin: 01/09/19 08:26 Dose: 250 mg Acetazolamide (Diamox) 250 mg PO Q4H [facility] Stop: 01/09/19 18:46 Last Admin: 01/09/19 11:28 Dose: Not Given Acetazolamide (Diamox) 250 mg PO Q4H [facility] Stop: 01/09/19 23:01 Last Admin: 01/09/19 22:33 Dose: 250 mg Al Hydroxide/Mg Hydroxide (Mag-Al Plus) 30 ml PO Q4H PRN PRN Reason: Indigestion Last Admin: 01/10/19 00:34 Dose: 30 ml Albuterol/Ipratropium (Duoneb 3.0-0.5 Mg/3 Ml) 3 ml NEB ONETIME ONE Stop: 01/08/19 13:40 Last Admin: 01/08/19 13:56 Dose: 3 ml Albuterol/Ipratropium (Duoneb 3.0-0.5 Mg/3 Ml) 3 ml NEB ONETIME ONE Stop: 01/08/19 14:07 Last Admin: 01/08/19 15:59 Dose: Not Given Bumetanide (Bumex) 1 mg IVPUSH ONETIME ONE Stop: 01/08/19 15:33 Last Admin: 01/08/19 15:45 Dose: 1 mg Carvedilol (Coreg) 25 mg PO BID [facility] Last Admin: 01/09/19 08:22 Dose: Not Given Carvedilol (Coreg) 6.25 mg PO BID [facility] Last Admin: 01/11/19 09:35 Dose: Not Given Carvedilol (Coreg) 6.25 mg PO BID [facility] Last Admin: 01/11/19 09:35 Dose: Not Given Furosemide (Lasix) 40 mg IVPUSH ONETIME ONE Stop: 01/08/19 15:24 Last Admin: 01/08/19 17:29 Dose: Not Given Furosemide (Lasix) 100 mg IVPUSH NOW ONE Stop: 01/08/19 17:43 Last Admin: 01/08/19 22:00 Dose: 100 mg Furosemide (Lasix) Confirm Administered Dose 100 mg .ROUTE .STK-MED ONE Stop: 01/08/19 21:50 Last Admin: 01/08/19 22:10 Dose: Not Given Heparin Sodium (Porcine) (Heparin Sodium) 5,000 units SUBCUT Q8H [facility] Last Admin: 01/11/19 10:14 Dose: Not Given Heparin Sodium (Porcine) (Heparin Sodium) 5,000 units SUBCUT Q12H [facility] Last Admin: 01/11/19 10:57 Dose: Not Given Hydralazine HCl (Apresoline) 15 mg IVPUSH Q4H [facility] Last Admin: 01/10/19 06:32 Dose: Not Given Hydralazine HCl (Apresoline) 10 mg PO Q8H [facility] Last Admin: 01/11/19 01:38 Dose: Not Given Hydrochlorothiazide (Hydrochlorothiazide) 25 mg PO ONETIME ONE Stop: 01/10/19 09:59 Last Admin: 01/10/19 12:29 Dose: Not Given Hydrochlorothiazide (Hydrochlorothiazide) 25 mg PO ONETIME ONE Stop: 01/10/19 12:23 Last Admin: 01/10/19 12:38 Dose: 25 mg Albumin Human (Flexbumin 25%) 25 gm in 100 mls @ 100 mls/hr IV ONETIME ONE Stop: 01/08/19 18:36 Last Admin: 01/08/19 20:56 Dose: 100 mls/hr Furosemide 100 mg/ Sodium (Chloride) 100 mls @ 5 mls/hr IV CONTINUOUS [facility] Last Admin: 01/10/19 06:02 Dose: 5 mg/hr, 5 mls/hr Albumin Human (Flexbumin 25%) 25 gm in 100 mls @ 100 mls/hr IV Q6H [facility] Stop: 01/09/19 23:44 Last Admin: 01/09/19 22:32 Dose: 100 mls/hr Potassium Chloride 10 meq/ (Premix) 100 mls @ 100 mls/hr IV Q1H [facility] Stop: 01/10/19 15:44 Last Admin: 01/10/19 16:41 Dose: 100 mls/hr Sodium Chloride (Normal Saline) 250 mls @ 50 mls/hr IV ASDIRECTED [facility] Last Admin: 01/10/19 12:31 Dose: 50 mls/hr Isosorbide Dinitrate (Isordil) 20 mg PO TID [facility] Last Admin: 01/11/19 09:35 Dose: 20 mg Isosorbide Mononitrate (Imdur) 20 mg PO TID [facility] Last Admin: 01/11/19 09:35 Dose: Not Given Magnesium Hydroxide (Milk Of Magnesia) 30 ml PO ONETIME ONE Stop: 01/08/19 20:08 Last Admin: 01/09/19 00:32 Dose: Not Given Metolazone (Zaroxolyn) 5 mg PO ONETIME ONE Stop: 01/08/19 17:36 Last Admin: 01/08/19 22:01 Dose: 5 mg Metolazone (Zaroxolyn) 5 mg PO ONETIME ONE Stop: 01/08/19 21:51 Last Admin: 01/08/19 22:10 Dose: Not Given Non-Formulary Medication (Ticagrelor) 90 mg PO BID [facility] Last Admin: 01/09/19 00:34 Dose: Not Given Potassium Chloride (Klor-Con M20) 40 meq PO ONETIME ONE Stop: 01/11/19 09:01 Last Admin: 01/11/19 09:20 Dose: 40 meq Rosuvastatin Calcium (Crestor) 10 mg PO BEDTIME [facility] Last Admin: 01/08/19 22:01 Dose: 10 mg Tiotropium [place] (Spiriva Handihaler) 18 mcg INH DAILY [facility] Last Admin: 01/09/19 11:28 Dose: Not Given Torsemide (Demadex) 60 mg PO BID [facility] Torsemide (Demadex) 20 mg PO BIDDIURETIC [facility] Last Admin: 01/11/19 05:52 Dose: 20 mg Torsemide (Demadex) 20 mg PO BIDDIURETIC [facility] - Exam Physical Findings Comments:: General: Alert, Oriented, Cooperative HEENT: Conjunctiva Clear, EOMI, Pupils Equal. No: Hearing Intact Neck: Supple, Trachea Midline, +2 Carotid Pulse wo Bruit Lungs: Rales. No: Normal Respiratory Effort Cardiovascular: Regular Rate, Regular Rhythm, Normal S1, Normal S2 GI/Abdominal Exam: Normal Bowel Sounds, Soft, Non-Tender Extremities: Pedal Edema, Redness Peripheral Pulses: 2+: Dorsalis Pedis (L), Dorsalis Pedis (R) Skin: Warm, Dry Neurological: Cranial Nerves Intact, Reflexes Equal Bilateral, Normal Speech. No: Focal Deficit Neuro Extensive - Mental Status: Alert, Oriented x3, Normal Mood/Affect, Normal Cognition, Memory Intact Neuro Extensive - Motor, Sensory, Reflexes: CN II-XII Intact. No: Ataxia, Motor /Sensory Deficits Psychiatric: Normal Affect, Normal Mood - Problem List & Annotations (1) Acute exacerbation of CHF (congestive heart failure) SNOMED Code(s): 415291489 Code(s): I50.9 - HEART FAILURE, UNSPECIFIED Status: Acute Current Visit: Yes Qualifiers: Heart failure type: combined systolic and diastolic Qualified Code(s): I50.43 - 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) heart failure (2) CKD (chronic kidney disease) stage 4, GFR 15-29 ml/min SNOMED Code(s): 701732025 Code(s): N18.4 - CHRONIC KIDNEY DISEASE, STAGE 4 (SEVERE) Status: Acute Priority: High Current Visit: No (3) Sleep apnea in adult SNOMED Code(s): 07925817 Code(s): G47.30 - SLEEP APNEA, UNSPECIFIED Status: Acute Priority: High Current Visit: Yes (4) Type II diabetes mellitus SNOMED Code(s): 29312319 Code(s): E11.9 - TYPE 2 DIABETES MELLITUS WITHOUT COMPLICATIONS Status: Chronic Priority: Medium Current Visit: No Qualifiers: Diabetes mellitus fci insulin use: with 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 Diabetes mellitus complication status: with unspecified complications Qualified Code(s) : E11.8 - Type 2 diabetes mellitus with unspecified complications; Z79.4 - halfway (current) use of insulin; Z79.4 - manager intermediate (current) use of insulin; Z79.4 - manager intermediate (current) use of insulin; Z79.4 - manager intermediate (current) use of insulin - Problem List Review Problem List Initiated/Reviewed/Updated: Yes - My Orders Last 24 Hours: My Active Orders 01/10/19 Dinner ADA Diabetic [[employer] Diet] [DIET] 01/11/19 09:00 hydrALAZINE [Apresoline] 10 mg PO Q8H 01/11/19 09:30 Carvedilol [Coreg] 6.25 mg PO BID Torsemide [Demadex] 20 mg PO BIDDIURETIC 01/11/19 10:46 Consult to Physical Therapy [PT Evaluation and Treatment] [CONS] Routine 01/11/19 13:30 Heparin Sodium 5,000 units SUBCUT Q12H 01/11/19 15:00 Isosorbide Dinitrate [Isordil] 20 mg PO TID 01/14/19 07:00 CBC W/O DIFF,HEMOGRAM [HEME] MOTH@0701/18/19 07:00 CBC W/O DIFF,HEMOGRAM [HEME] MOTH@69901/21/19 07:00 CBC W/O DIFF,HEMOGRAM [HEME] MOTH@0700 01/25/19 07:00 CBC W/O DIFF,HEMOGRAM [HEME] MOTH@0701/28/19 07:00 CBC W/O DIFF,HEMOGRAM [HEME] MOTH@69902/01/19 07:00 CBC W/O DIFF,HEMOGRAM [HEME] MOTH@0700 - Plan Plan:: 1. Unload with hydralazine and isordil, continue carvedilol, may benefit from spironolactone, continue torsemide. 2. Avoid nephrotoxic agents, will avoid ACEi/ARB, strict I&Os, try to maintain adequate perfusion(cardiac monitoring, MAP>70 mmHg). 3. Continue with glargine and SSI, obtain HbA1C. 4. Will apply CPAP at night. 5. DVTP with [facility] SC.
[2019-01-11] MEDS ORDERED: Torsemide 20 MG Tab PO SCH (14:00)
[2019-01-11] MEDS: Tamsulosin 0.4 MG Cap.ER PO SCH (20:07)
[2019-01-11] MEDS: Rosuvastatin 10 MG Tab PO SCH (20:07)
[2019-01-12] MEDS: Heparin Sodium 5,000 Units/ML Vial SUBCUT SCH ×2 (01:55→13:36)
[2019-01-12] MEDS: hydrALAZINE 10 MG Tab PO SCH ×3 (01:55→16:37)
[2019-01-12] MEDS: Levothyroxine 75 MCG Tab PO SCH (06:38)
[2019-01-12] MEDS: Pantoprazole 40 MG Tab.CR PO SCH (06:38)
[2019-01-12] MEDS: Albuterol/Ipratropium 3.0-0.5 MG/3 ML Neb Soln NEB PRN ×2 (08:00→20:27)
[2019-01-12] MEDS: Glycopyrrolate 15.6 MCG Cap.W.Dev Kit of 6 IH SCH ×2 (08:00→20:27)
[2019-01-12] MEDS: Formoterol/Mometasone 200-5 MCG 8.8 GM Inhaler IH SCH ×2 (08:00→20:27)
[2019-01-12] MEDS: Insulin Glarg,Human.Rec.Analog 100 UNIT/ML ML SUBCUT SCH (09:07)
[2019-01-12] MEDS: Insulin Lispro 100 Units/ML 3 ML Vial SUBCUT SCH ×4 (09:07→22:07)
[2019-01-12] MEDS: Carvedilol 6.25 MG Tab PO SCH ×2 (09:13→20:20)
[2019-01-12] MEDS: Clopidogrel 75 MG Tab PO SCH (09:16)
[2019-01-12] MEDS: Aspirin 81 MG Tab.EC PO SCH (09:17)
[2019-01-12] MEDS: Finasteride 5 MG Tab PO SCH (09:17)
[2019-01-12] MEDS: FLUoxetine 20 MG Cap PO SCH (09:18)
[2019-01-12] MEDS ORDERED: Potassium Chloride 20 MEQ Tab.ER PO ONE (09:44)
--- NOTE | 2019-01-12 11:09 | PCM.PN ---
- General Info Date of Service: 01/12/19 Admission Dx/Problem (Free Text): 88 yo WM with h/o MO, CHF, CKD3, COPD, hypothyroidism admitted with recent weight gain, no response to usual doses of home diuretic. Admits to flu like symptoms 4 days prior to visit, admits to decreased appetite. Poorly responded to IV loop diuretics in ED, elevated pro-BNP. Admitted with CHF exacerbation for further treatment. 01/09/19, moderate response to diuresis, will attempt continuous infusion, SOB slightly improved. 01/10/19, responded to diuresis moderately, SOB improved to preadmission baseline level, SCr at 2.3, will switch furosemide IV gtt to torsemide PO, IV hydralazine to PO formulation, expected LOS 2 more days, will obtain ECHO prior to discharge. The patient needs to have arrangements made for CPAP since his equipment is not in order. 01/11/19, continues to improve gradually, SCr stabilizing, will continue unloading, start PT. 01/12/19, Pt. out of bed and eating breakfast. States he is at baseline for his SOB. SCr same as yesterday. Old records show SCr ranges from 1.7-2.7/ - Review of Systems General: Reports: No Symptoms HEENT: Reports: No Symptoms Pulmonary: Reports: Shortness of Breath Cardiovascular: Reports: Orthopnea, Edema. Denies: Chest Pain Gastrointestinal: Reports: No Symptoms, Abdominal Pain Psychiatric: Reports: No Symptoms, Confusion, Depression - Patient Data Vitals - Most Recent: Last Vital Signs Temp 97.7 F 01/12/19 09:05 Pulse 62 01/12/19 09:13 Resp 16 01/12/19 09:05 BP 90/49 L 01/12/19 09:13 Pulse Ox 99 01/12/19 09:05 Weight - Most Recent: 252 lb 3.2 oz I&O - Last 24 Hours: Intake & Output 01/11/19 01/12/19 01/12/19 22:59 06:59 14:59 Intake Total 1100 100 490 Output Total 875 600 150 Balance 225 -500 340 Lab Results Last 24 Hours: Laboratory Results - last 24 hr 01/11/19 01/11/19 01/11/19 Range/Units 05:51 11:07 16:52 Sodium (136-145) mEq/L Potassium (3.5-5.1) mEq/L Chloride (98-107) mEq/L Carbon Dioxide (21-32) mEq/L Anion Gap (5-15) BUN (7-18) mg/dL Creatinine (0.7-1.3) mg/dL Est Cr Clr Drug Dosing mL/min Estimated GFR (MDRD) (>60) mL/min BUN/Creatinine Ratio (14-18) Glucose (83-115) mg/dL POC Glucose 193 H 315 H 243 H (83-110) mg/dL Calcium (8.5-10.1) mg/dL Phosphorus (2.6-4.7) mg/dL Magnesium (1.8-2.4) mg/dl 01/11/19 01/12/19 01/12/19 Range/Units 21:29 05:00 05:00 Sodium 137 (136-145) mEq/L Potassium 3.4 L (3.5-5.1) mEq/L Chloride 99 (98-107) mEq/L Carbon Dioxide 27 (21-32) mEq/L Anion Gap 14.4 (5-15) BUN 65 H (7-18) mg/dL Creatinine 2.3 H (0.7-1.3) mg/dL Est Cr Clr Drug Dosing 18.59 mL/min Estimated GFR (MDRD) 27 (>60) mL/min BUN/Creatinine Ratio 28.3 H (14-18) Glucose 202 H (83-115) mg/dL POC Glucose 278 H (83-110) mg/dL Calcium 9.4 (8.5-10.1) mg/dL Phosphorus 4.7 (2.6-4.7) mg/dL Magnesium 2.8 H (1.8-2.4) mg/dl Med Orders - Current: Current Medications Albuterol/Ipratropium (Duoneb 3.0-0.5 Mg/3 Ml) 3 ml NEB Q6HR PRN PRN Reason: Wheezing Last Admin: 01/12/19 08:00 Dose: 3 ml Aspirin (Halfprin) 81 mg PO DAILY [facility] Last Admin: 01/12/19 09:17 Dose: 81 mg Carvedilol (Coreg) 6.25 mg PO BID [facility] Last Admin: 01/12/19 09:13 Dose: Not Given Clopidogrel Bisulfate (Plavix) 75 mg PO DAILY [facility] Last Admin: 01/12/19 09:16 Dose: 75 mg Finasteride (Proscar) 5 mg PO DAILY [facility] Last Admin: 01/12/19 09:17 Dose: 5 mg Fluoxetine HCl (Prozac) 20 mg PO DAILY [facility] Last Admin: 01/12/19 09:18 Dose: 20 mg Glycopyrrolate (Seebri Neohaler) 18 mcg IH BID [facility] Last Admin: 01/12/19 08:00 Dose: 1 cap Heparin Sodium (Porcine) (Heparin Sodium) 5,000 units SUBCUT Q12H [facility] Last Admin: 01/12/19 01:55 Dose: 5,000 units Hydralazine HCl (Apresoline) 10 mg PO Q8H [facility] Last Admin: 01/12/19 09:12 Dose: Not Given Insulin Glargine (Lantus) 34 unit SUBCUT DAILY [facility] Last Admin: 01/12/19 09:07 Dose: 34 unit Insulin Glargine (Lantus) 40 unit SUBCUT BEDTIME [facility] Insulin Human Lispro (Humalog) 0 unit SUBCUT QIDACANDBED [facility]; Protocol Last Admin: 01/12/19 09:07 Dose: 6 units Levothyroxine Sodium (Levothyroxine) 75 mcg PO ACBRK [facility] Last Admin: 01/12/19 06:38 Dose: 75 mcg Mometasone Furoate/Formoterol Fumar (Dulera 200-5 Mcg) 2 puff IH BID [facility] Last Admin: 01/12/19 08:00 Dose: 2 puff Pantoprazole Sodium (Protonix) 40 mg PO 0700 [facility] Last Admin: 01/12/19 06:38 Dose: 40 mg Rosuvastatin Calcium (Crestor) 10 mg PO BEDTIME [facility] Last Admin: 01/11/19 20:07 Dose: 10 mg Sodium Chloride (Saline Flush) 10 ml FLUSH ASDIRECTED PRN PRN Reason: Keep Vein Open Last Admin: 01/08/19 15:45 Dose: 10 ml Tamsulosin HCl (Flomax) 0.4 mg PO BEDTIME [facility] Last Admin: 01/11/19 20:07 Dose: 0.4 mg Discontinued Medications Acetazolamide (Diamox) 250 mg PO Q6H [facility] Stop: 01/09/19 05:39 Last Admin: 01/09/19 00:36 Dose: Not Given Acetazolamide (Diamox) 250 mg PO Q6H [facility] Stop: 01/09/19 08:16 Last Admin: 01/09/19 08:26 Dose: 250 mg Acetazolamide (Diamox) 250 mg PO Q4H [facility] Stop: 01/09/19 18:46 Last Admin: 01/09/19 11:28 Dose: Not Given Acetazolamide (Diamox) 250 mg PO Q4H [facility] Stop: 01/09/19 23:01 Last Admin: 01/09/19 22:33 Dose: 250 mg Al Hydroxide/Mg Hydroxide (Mag-Al Plus) 30 ml PO Q4H PRN PRN Reason: Indigestion Last Admin: 01/10/19 00:34 Dose: 30 ml Albuterol/Ipratropium (Duoneb 3.0-0.5 Mg/3 Ml) 3 ml NEB ONETIME ONE Stop: 01/08/19 13:40 Last Admin: 01/08/19 13:56 Dose: 3 ml Albuterol/Ipratropium (Duoneb 3.0-0.5 Mg/3 Ml) 3 ml NEB ONETIME ONE Stop: 01/08/19 14:07 Last Admin: 01/08/19 15:59 Dose: Not Given Bumetanide (Bumex) 1 mg IVPUSH ONETIME ONE Stop: 01/08/19 15:33 Last Admin: 01/08/19 15:45 Dose: 1 mg Carvedilol (Coreg) 25 mg PO BID [facility] Last Admin: 01/09/19 08:22 Dose: Not Given Carvedilol (Coreg) 6.25 mg PO BID [facility] Last Admin: 01/11/19 09:35 Dose: Not Given Carvedilol (Coreg) 6.25 mg PO BID [facility] Last Admin: 01/11/19 09:35 Dose: Not Given Furosemide (Lasix) 40 mg IVPUSH ONETIME ONE Stop: 01/08/19 15:24 Last Admin: 01/08/19 17:29 Dose: Not Given Furosemide (Lasix) 100 mg IVPUSH NOW ONE Stop: 01/08/19 17:43 Last Admin: 01/08/19 22:00 Dose: 100 mg Furosemide (Lasix) Confirm Administered Dose 100 mg .ROUTE .STK-MED ONE Stop: 01/08/19 21:50 Last Admin: 01/08/19 22:10 Dose: Not Given Heparin Sodium (Porcine) (Heparin Sodium) 5,000 units SUBCUT Q8H [facility] Last Admin: 01/11/19 10:14 Dose: Not Given Heparin Sodium (Porcine) (Heparin Sodium) 5,000 units SUBCUT Q12H [facility] Last Admin: 01/11/19 10:57 Dose: Not Given Hydralazine HCl (Apresoline) 15 mg IVPUSH Q4H [facility] Last Admin: 01/10/19 06:32 Dose: Not Given Hydralazine HCl (Apresoline) 10 mg PO Q8H [facility] Last Admin: 01/11/19 01:38 Dose: Not Given Hydrochlorothiazide (Hydrochlorothiazide) 25 mg PO ONETIME ONE Stop: 01/10/19 09:59 Last Admin: 01/10/19 12:29 Dose: Not Given Hydrochlorothiazide (Hydrochlorothiazide) 25 mg PO ONETIME ONE Stop: 01/10/19 12:23 Last Admin: 01/10/19 12:38 Dose: 25 mg Albumin Human (Flexbumin 25%) 25 gm in 100 mls @ 100 mls/hr IV ONETIME ONE Stop: 01/08/19 18:36 Last Admin: 01/08/19 20:56 Dose: 100 mls/hr Furosemide 100 mg/ Sodium (Chloride) 100 mls @ 5 mls/hr IV CONTINUOUS [facility] Last Admin: 01/10/19 06:02 Dose: 5 mg/hr, 5 mls/hr Albumin Human (Flexbumin 25%) 25 gm in 100 mls @ 100 mls/hr IV Q6H [facility] Stop: 01/09/19 23:44 Last Admin: 01/09/19 22:32 Dose: 100 mls/hr Potassium Chloride 10 meq/ (Premix) 100 mls @ 100 mls/hr IV Q1H [facility] Stop: 01/10/19 15:44 Last Admin: 01/10/19 16:41 Dose: 100 mls/hr Sodium Chloride (Normal Saline) 250 mls @ 50 mls/hr IV ASDIRECTED [facility] Last Admin: 01/10/19 12:31 Dose: 50 mls/hr Isosorbide Dinitrate (Isordil) 20 mg PO TID [facility] Last Admin: 01/11/19 09:35 Dose: 20 mg Isosorbide Dinitrate (Isordil) 20 mg PO TID [facility] Last Admin: 01/11/19 20:06 Dose: 20 mg Isosorbide Mononitrate (Imdur) 20 mg PO TID [facility] Last Admin: 01/11/19 09:35 Dose: Not Given Magnesium Hydroxide (Milk Of Magnesia) 30 ml PO ONETIME ONE Stop: 01/08/19 20:08 Last Admin: 01/09/19 00:32 Dose: Not Given Metolazone (Zaroxolyn) 5 mg PO ONETIME ONE Stop: 01/08/19 17:36 Last Admin: 01/08/19 22:01 Dose: 5 mg Metolazone (Zaroxolyn) 5 mg PO ONETIME ONE Stop: 01/08/19 21:51 Last Admin: 01/08/19 22:10 Dose: Not Given Non-Formulary Medication (Ticagrelor) 90 mg PO BID [facility] Last Admin: 01/09/19 00:34 Dose: Not Given Potassium Chloride (Klor-Con M20) 40 meq PO ONETIME ONE Stop: 01/11/19 09:01 Last Admin: 01/11/19 09:20 Dose: 40 meq Potassium Chloride (Klor-Con M20) 20 meq PO ONETIME ONE Stop: 01/12/19 09:45 Last Admin: 01/12/19 09:58 Dose: 20 meq Rosuvastatin Calcium (Crestor) 10 mg PO BEDTIME [facility] Last Admin: 01/08/19 22:01 Dose: 10 mg Tiotropium [place] (Spiriva Handihaler) 18 mcg INH DAILY [facility] Last Admin: 01/09/19 11:28 Dose: Not Given Torsemide (Demadex) 60 mg PO BID [facility] Torsemide (Demadex) 20 mg PO BIDDIURETIC [facility] Last Admin: 01/11/19 05:52 Dose: 20 mg Torsemide (Demadex) 20 mg PO BIDDIURETIC [facility] Torsemide (Demadex) 20 mg PO BIDDIURETIC [facility] Last Admin: 01/11/19 14:49 Dose: Not Given - Exam Quality Assessment: Supplemental Oxygen General: Alert, Oriented Lungs: Clear to Auscultation, Normal Respiratory Effort Cardiovascular: Regular Rate, Regular Rhythm Extremities: Normal Inspection, Pedal Edema Skin: Warm, Dry - Problem List & Annotations (1) Acute exacerbation of CHF (congestive heart failure) SNOMED Code(s): 915381740 Code(s): I50.9 - HEART FAILURE, UNSPECIFIED Status: Acute Current Visit: Yes Qualifiers: Heart failure type: combined systolic and diastolic Qualified Code(s): I50.43 - 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) heart failure (2) Hypertensive heart disease SNOMED Code(s): 18460627 Code(s): I11.9 - HYPERTENSIVE HEART DISEASE WITHOUT HEART FAILURE Status: Acute Current Visit: Yes Qualifiers: Heart failure presence: with heart failure Heart failure type: unspecified Qualified Code(s): I11.0 - Hypertensive heart disease with heart failure (3) CKD (chronic kidney disease) stage 4, GFR 15-29 ml/min SNOMED Code(s): 546895546 Code(s): N18.4 - CHRONIC KIDNEY DISEASE, STAGE 4 (SEVERE) Status: Acute Priority: High Current Visit: No (4) COPD (chronic obstructive pulmonary disease) SNOMED Code(s): 86946252 Code(s): J44.9 - CHRONIC OBSTRUCTIVE PULMONARY DISEASE, UNSPECIFIED Status : Acute Current Visit: No Qualifiers: COPD type: unspecified COPD Qualified Code(s): J44.9 - Chronic obstructive pulmonary disease, unspecified - Problem List Review Problem List Initiated/Reviewed/Updated: Yes - My Orders Last 24 Hours: My Active Orders 01/13/19 05:11 CBC WITH AUTO DIFF [HEME] AM CMP [COMPREHENSIVE METABOLIC PN,CMP] [CHEM] AM MAGNESIUM [CHEM] AM - Plan Plan:: 1. Held carvedilol, hydralazine, Isordil and torsemide for low BP 2. Avoid nephrotoxic agents, will avoid ACEi/ARB, strict I&Os, try to maintain adequate perfusion(cardiac monitoring, MAP>70 mmHg). 3. Add evening dose of glargine and continue SSI, obtain HbA1C. 4. Will apply CPAP at night. 5. DVTP with UFH SC. LOS > 96 hours 2/2 worsening renal function
[2019-01-12] MEDS ORDERED: Aluminum Hydroxide/Magnesium Hydroxide/Simethicone Susp 30 ML Cup PO PRN (20:03)
[2019-01-12] MEDS ORDERED: Acetaminophen 325 MG Tab PO PRN (20:03)
[2019-01-12] MEDS: Tamsulosin 0.4 MG Cap.ER PO SCH (20:20)
[2019-01-12] MEDS: Rosuvastatin 10 MG Tab PO SCH (20:20)
[2019-01-12] MEDS ORDERED: Insulin Glarg,Human.Rec.Analog 100 UNIT/ML ML SUBCUT SCH (21:00)
[2019-01-13] MEDS: Heparin Sodium 5,000 Units/ML Vial SUBCUT SCH ×2 (01:36→13:22)
[2019-01-13] MEDS: hydrALAZINE 10 MG Tab PO SCH ×2 (01:37→08:51)
[2019-01-13] MEDS: Levothyroxine 75 MCG Tab PO SCH (05:12)
[2019-01-13] MEDS: Pantoprazole 40 MG Tab.CR PO SCH (07:27)
[2019-01-13] MEDS: Formoterol/Mometasone 200-5 MCG 8.8 GM Inhaler IH SCH (08:16)
[2019-01-13] MEDS: Glycopyrrolate 15.6 MCG Cap.W.Dev Kit of 6 IH SCH (08:17)
[2019-01-13] MEDS: Aspirin 81 MG Tab.EC PO SCH (08:51)
[2019-01-13] MEDS: Finasteride 5 MG Tab PO SCH (08:51)
[2019-01-13] MEDS: Clopidogrel 75 MG Tab PO SCH (08:51)
[2019-01-13] MEDS: Carvedilol 6.25 MG Tab PO SCH (08:52)
[2019-01-13] MEDS: Insulin Glarg,Human.Rec.Analog 100 UNIT/ML ML SUBCUT SCH (08:52)
[2019-01-13] MEDS: FLUoxetine 20 MG Cap PO SCH (08:52)
[2019-01-13] MEDS: Insulin Lispro 100 Units/ML 3 ML Vial SUBCUT SCH ×2 (08:53→11:45)
[2019-01-13 08:54] VITALS: BP 107/81
--- NOTE | 2019-01-13 11:13 | PCM.DCSUM1 ---
Discharge Summary - Hospital Course HPI Initial Comments: 88 yo WM with h/o MO, CHF, CKD3, COPD, hypothyroidism admitted with recent weight gain, no response to usual doses of home diuretic. Admits to flu like symptoms 4 days prior to visit, admits to decreased appetite. Poorly responded to IV loop diuretics in ED, elevated pro-BNP. Admitted with CHF exacerbation for further treatment. Brief History: 88 yo WM with h/o MO, CHF, CKD3, COPD, hypothyroidism admitted with recent weight gain, no response to usual doses of home diuretic. Admits to flu like symptoms 4 days prior to visit, admits to decreased appetite. Poorly responded to IV loop diuretics in ED, elevated pro-BNP. Admitted with CHF exacerbation for further treatment. 01/09/19, moderate response to diuresis, will attempt continuous infusion, SOB slightly improved. 01/10/19, responded to diuresis moderately, SOB improved to preadmission baseline level, SCr at 2.3, will switch furosemide IV gtt to torsemide PO, IV hydralazine to PO formulation , expected LOS 2 more days, will obtain ECHO prior to discharge. The patient needs to have arrangements made for CPAP since his equipment is not in order. , continues to improve gradually, SCr stabilizing, will continue unloading , start PT. 01/12/19, Pt. out of bed and eating breakfast. States he is at baseline for his SOB. SCr same as yesterday. Old records show SCr ranges from 1.7-2.7/. 01/13/19, Pt. continues to improve. Weight up 2 lbs today, but did not receive any diuretics yesterday 2/2 pre-renal azotemia and increase in creatinine. Creatinine is down to 2.0 today, but BUN still elevated to 66. Pt. ready for discharge. Diagnosis: Stroke: No - Discharge Data Discharge Date: 01/13/19 Discharge Disposition: Home, W Home Health Agency 06 Condition: Fair - Discharge Diagnosis/Problem(s) (1) Acute exacerbation of CHF (congestive heart failure) SNOMED Code(s): 143736796 ICD Code: I50.9 - HEART FAILURE, UNSPECIFIED Status: Acute Current Visit : Yes Qualifiers: Heart failure type: combined systolic and diastolic Qualified Code(s): I50.43 - 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) heart failure (2) Hypertensive heart disease SNOMED Code(s): 03091119 ICD Code: I11.9 - HYPERTENSIVE HEART DISEASE WITHOUT HEART FAILURE Status: Acute Current Visit: Yes Qualifiers: Heart failure presence: with heart failure Heart failure type: unspecified Qualified Code(s): I11.0 - Hypertensive heart disease with heart failure (3) CKD (chronic kidney disease) stage 4, GFR 15-29 ml/min SNOMED Code(s): 282933840 ICD Code: N18.4 - CHRONIC KIDNEY DISEASE, STAGE 4 (SEVERE) Status: Acute Priority: High Current Visit: No (4) COPD (chronic obstructive pulmonary disease) SNOMED Code(s): 12780209 ICD Code: J44.9 - CHRONIC OBSTRUCTIVE PULMONARY DISEASE, UNSPECIFIED Status : Acute Current Visit: No Qualifiers: COPD type: unspecified COPD Qualified Code(s): J44.9 - Chronic obstructive pulmonary disease, unspecified - Patient Summary/Data Consults: Consultations 01/11/19 10:46 Consult to Physical Therapy [PT Evaluation and Treatment] [CONS] Routine 01/11/19 11:40 PT Evaluation and Treatment [CONS] Routine - Patient Instructions Diet: Heart Healthy Diet Activity: As Tolerated Driving: Do Not Drive Showering/Bathing: May Shower Other/Special Instructions: Follow up with PCP in 2 days. Restart home meds, except decrease carvedilol to 6.25 mg twice a day (cut 12.5 mg tabs in half). If 3-5 lbs weight gain call your provider. - Discharge Plan *PRESCRIPTION DRUG MONITORING PROGRAM REVIEWED*: No *COPY OF PRESCRIPTION DRUG MONITORING REPORT IN PATIENT TIP: No Home Medications: Home Meds Allopurinol [Zyloprim] 150 mg PO DAILY 07/02/17 [History] Aspirin [Adult Low Dose Aspirin EC] 81 mg PO DAILY 07/02/17 [History] FLUoxetine HCl [Fluoxetine HCl] 20 mg PO DAILY 07/02/17 [History] Finasteride 5 mg PO DAILY 07/02/17 [History] Insulin Aspart [NovoLOG] See Protocol SUBCUT WITHMEALSANDBED 07/02/17 [History] Pantoprazole Sodium 40 mg PO DAILY 07/02/17 [History] Tamsulosin HCl 0.4 mg PO BEDTIME 07/02/17 [History] Albuterol Sulfate [Proair Respiclick] 1 puff INH Q6H PRN 07/03/17 [History] Levothyroxine Sodium [Synthroid] 75 mcg PO DAILY 07/03/17 [History] Tiotropium [Spiriva HandiHaler] 1 cap INH DAILY 07/03/17 [History] Albuterol/Ipratropium [DuoNeb 3.0-0.5 MG/3 ML] 3 ml NEB Q6HR PRN 05/21/18 [ History] Budesonide/Formoterol [Symbicort 160-4.5 MCG] 2 puff INH BID 05/21/18 [History] Insulin Glarg,Human.Rec.Analog [Lantus Solostar] 40 units SUBCUT BEDTIME [History] Insulin Glarg,Human.Rec.Analog [Lantus] 34 units SQ DAILY 12/14/18 [History] Nitroglycerin 0.4 mg PO TID PRN 12/14/18 [History] Sennosides/Docusate Sodium [Docusate Sodium-Senna Tablet] 1 tab PO BID 12/14/18 [History] Ticagrelor [Brilinta] 90 mg PO BID 12/14/18 [History] Torsemide 60 mg PO BID 12/14/18 [History] hydrALAZINE [Apresoline] 10 mg PO TID 12/14/18 [History] atorvaSTATin Calcium [Atorvastatin Calcium] 40 mg PO BEDTIME 01/08/19 [History] Carvedilol [Coreg] 6.25 mg PO BID tablet 01/13/19 [Rx] Oxygen Therapy Mode: Nasal Cannula Oxygen Flow Rate (L/min): 2 Patient Handouts: Heart Failure, [id number] Forms: ED Department Discharge Referrals: Carla Smalls MD [Primary Care Provider] - - Discharge Summary/Plan Comment DC Time >30 min.: Yes Discharge Summary/Plan Comment: Patient is back at his preferred dry weight in his renal function is stable. Unfortunately, he is a very high readmission risk because of his progressively deteriorating disease and age. Patient states that when his at-home heart failure program nurse told him to go to the emergency room last Friday he weighted 2 more days before he went in. I encouraged him to not wait next time and follow the directions of the heart failure program. Patient will need to be seen by his primary care provider in the next couple of days with lab work to include a basic metabolic panel. His BUN did increase and has stabilized at 66 and his creatinine is at 2.0. - General Info Date of Service: 01/13/19 Admission Dx/Problem (Free Text: 88 yo WM with h/o MO, CHF, CKD3, COPD, hypothyroidism admitted with recent weight gain, no response to usual doses of home diuretic. Admits to flu like symptoms 4 days prior to visit, admits to decreased appetite. Poorly responded to IV loop diuretics in ED, elevated pro-BNP. Admitted with CHF exacerbation for further treatment. 01/09/19, moderate response to diuresis, will attempt continuous infusion, SOB slightly improved. 01/10/19, responded to diuresis moderately, SOB improved to preadmission baseline level, SCr at 2.3, will switch furosemide IV gtt to torsemide PO, IV hydralazine to PO formulation, expected LOS 2 more days, will obtain ECHO prior to discharge. The patient needs to have arrangements made for CPAP since his equipment is not in order. 01/11/19, continues to improve gradually, SCr stabilizing, will continue unloading, start PT. 01/12/19, Pt. out of bed and eating breakfast. States he is at baseline for his SOB. SCr same as yesterday. Old records show SCr ranges from 1.7-2.7/ 01/13/19, Pt. continues to improve. Weight up 2 lbs today, but did not receive any diuretics yesterday 2/2 pre-renal azotemia and increase in creatinine. Creatinine is down to 2.0 today, but BUN still elevated to 66. Pt. ready for discharge. Functional Status: Reports: Pain Controlled - Review of Systems General: Reports: No Symptoms HEENT: Reports: No Symptoms Pulmonary: Reports: Hemoptysis. Denies: Shortness of Breath, Cough Cardiovascular: Reports: Edema. Denies: Chest Pain, Palpitations, Dyspnea on Exertion Gastrointestinal: Reports: No Symptoms. Denies: Abdominal Pain Neurological: Reports: No Symptoms Psychiatric: Reports: No Symptoms - Patient Data Vitals - Most Recent: Last Vital Signs Temp 97.5 F 01/13/19 08:48 Pulse 64 01/13/19 08:52 Resp 14 01/13/19 08:48 BP 107/81 01/13/19 08:52 Pulse Ox 100 01/13/19 08:48 Weight - Most Recent: 254 lb 11.2 oz I&O - Last 24 hours: Intake & Output 01/12/19 01/13/19 01/13/19 22:59 06:59 14:59 Intake Total 630 500 100 Output Total 500 1000 0 Balance 130 -500 100 Lab Results - Last 24 hrs: Laboratory Results - last 24 hr 01/12/19 01/12/19 01/12/19 Range/Units 06:36 11:21 16:35 WBC (4.23-9.07) K/mm3 RBC (4.63-6.08) M/mm3 Hgb (13.7-17.5) gm/L Hct (40.1-51.0) % MCV (79.0-92.2) fl MCH (25.7-32.2) pg MCHC (32.2-35.5) g/dl RDW Std Deviation (35.1-43.9) fL Plt Count (163-337) K/mm3 MPV (9.4-12.3) fl Neut % (Auto) (34.0-67.9) % Lymph % (Auto) (21.8-53.1) % [place] % (Auto) (5.3-12.2) % Eos % (Auto) (0.8-7.0) Baso % (Auto) (0.1-1.2) % Neut # (Auto) (1.78-5.38) K/mm3 Lymph # (Auto) (1.32-3.57) K/mm3 [place] # (Auto) (0.30-0.82) K/mm3 Eos # (Auto) (0.04-0.54) K/mm3 Baso # (Auto) (0.01-0.08) K/mm3 Sodium (136-145) mEq/L Potassium (3.5-5.1) mEq/L Chloride (98-107) mEq/L Carbon Dioxide (21-32) mEq/L Anion Gap (5-15) BUN (7-18) mg/dL Creatinine (0.7-1.3) mg/dL Est Cr Clr Drug Dosing mL/min Estimated GFR (MDRD) (>60) mL/min BUN/Creatinine Ratio (14-18) Glucose (83-115) mg/dL POC Glucose 215 H 285 H 192 H (83-110) mg/dL Calcium (8.5-10.1) mg/dL Magnesium (1.8-2.4) mg/dl Total Bilirubin (0.2-1.0) mg/dL AST (15-37) U/L ALT (16-63) U/L Alkaline Phosphatase (46-116) U/L Total Protein (6.4-8.2) g/dl Albumin (3.4-5.0) g/dl Globulin gm/dL Albumin/Globulin Ratio (1-2) 01/12/19 01/13/19 01/13/19 Range/Units 22:00 05:47 05:47 WBC 6.93 (4.23-9.07) K/mm3 RBC 3.23 L (4.63-6.08) M/mm3 Hgb 9.5 L (13.7-17.5) gm/L Hct 30.6 L (40.1-51.0) % MCV 94.7 H (79.0-92.2) fl MCH 29.4 (25.7-32.2) pg MCHC 31.0 L (32.2-35.5) g/dl RDW Std Deviation 52.3 H (35.1-43.9) fL Plt Count 281 (163-337) K/mm3 MPV 11.3 (9.4-12.3) fl Neut % (Auto) 66.6 (34.0-67.9) % Lymph % (Auto) 14.1 L (21.8-53.1) % [place] % (Auto) 10.0 (5.3-12.2) % Eos % (Auto) 7.9 H (0.8-7.0) Baso % (Auto) 0.7 (0.1-1.2) % Neut # (Auto) 4.61 (1.78-5.38) K/mm3 Lymph # (Auto) 0.98 L (1.32-3.57) K/mm3 [place] # (Auto) 0.69 (0.30-0.82) K/mm3 Eos # (Auto) 0.55 H (0.04-0.54) K/mm3 Baso # (Auto) 0.05 (0.01-0.08) K/mm3 Sodium 136 (136-145) mEq/L Potassium 3.5 (3.5-5.1) mEq/L Chloride 100 (98-107) mEq/L Carbon Dioxide 26 (21-32) mEq/L Anion Gap 13.5 (5-15) BUN 66 H (7-18) mg/dL Creatinine 2.0 H (0.7-1.3) mg/dL Est Cr Clr Drug Dosing 21.38 mL/min Estimated GFR (MDRD) 32 (>60) mL/min BUN/Creatinine Ratio 33.0 H (14-18) Glucose 215 H (83-115) mg/dL POC Glucose 303 H (83-110) mg/dL Calcium 9.5 (8.5-10.1) mg/dL Magnesium 2.8 H (1.8-2.4) mg/dl Total Bilirubin 0.4 (0.2-1.0) mg/dL AST 12 L (15-37) U/L ALT 20 (16-63) U/L Alkaline Phosphatase 77 (46-116) U/L Total Protein 7.0 (6.4-8.2) g/dl Albumin 3.2 L (3.4-5.0) g/dl Globulin 3.8 gm/dL Albumin/Globulin Ratio 0.8 L (1-2) 01/13/19 Range/Units 06:17 WBC (4.23-9.07) K/mm3 RBC (4.63-6.08) M/mm3 Hgb (13.7-17.5) gm/L Hct (40.1-51.0) % MCV (79.0-92.2) fl MCH (25.7-32.2) pg MCHC (32.2-35.5) g/dl RDW Std Deviation (35.1-43.9) fL Plt Count (163-337) K/mm3 MPV (9.4-12.3) fl Neut % (Auto) (34.0-67.9) % Lymph % (Auto) (21.8-53.1) % [place] % (Auto) (5.3-12.2) % Eos % (Auto) (0.8-7.0) Baso % (Auto) (0.1-1.2) % Neut # (Auto) (1.78-5.38) K/mm3 Lymph # (Auto) (1.32-3.57) K/mm3 [place] # (Auto) (0.30-0.82) K/mm3 Eos # (Auto) (0.04-0.54) K/mm3 Baso # (Auto) (0.01-0.08) K/mm3 Sodium (136-145) mEq/L Potassium (3.5-5.1) mEq/L Chloride (98-107) mEq/L Carbon Dioxide (21-32) mEq/L Anion Gap (5-15) BUN (7-18) mg/dL Creatinine (0.7-1.3) mg/dL Est Cr Clr Drug Dosing mL/min Estimated GFR (MDRD) (>60) mL/min BUN/Creatinine Ratio (14-18) Glucose (83-115) mg/dL POC Glucose 211 H (83-110) mg/dL Calcium (8.5-10.1) mg/dL Magnesium (1.8-2.4) mg/dl Total Bilirubin (0.2-1.0) mg/dL AST (15-37) U/L ALT (16-63) U/L Alkaline Phosphatase (46-116) U/L Total Protein (6.4-8.2) g/dl Albumin (3.4-5.0) g/dl Globulin gm/dL Albumin/Globulin Ratio (1-2) Med Orders - Current: Current Medications Acetaminophen (Tylenol) 650 mg PO Q4H PRN PRN Reason: Pain Last Admin: 01/12/19 20:20 Dose: 650 mg Al Hydroxide/Mg Hydroxide (Mag-Al Plus) 30 ml PO Q4H PRN PRN Reason: Heartburn Last Admin: 01/12/19 20:20 Dose: 30 ml Albuterol/Ipratropium (Duoneb 3.0-0.5 Mg/3 Ml) 3 ml NEB Q6HR PRN PRN Reason: Wheezing Last Admin: 01/12/19 20:27 Dose: 3 ml Aspirin (Halfprin) 81 mg PO DAILY [facility] Last Admin: 01/13/19 08:51 Dose: 81 mg Carvedilol (Coreg) 6.25 mg PO BID [facility] Last Admin: 01/13/19 08:52 Dose: 6.25 mg Clopidogrel Bisulfate (Plavix) 75 mg PO DAILY [facility] Last Admin: 01/13/19 08:51 Dose: 75 mg Finasteride (Proscar) 5 mg PO DAILY [facility] Last Admin: 01/13/19 08:51 Dose: 5 mg Fluoxetine HCl (Prozac) 20 mg PO DAILY [facility] Last Admin: 01/13/19 08:52 Dose: 20 mg Glycopyrrolate (Seebri Neohaler) 18 mcg IH BID [facility] Last Admin: 01/13/19 08:17 Dose: 1 cap Heparin Sodium (Porcine) (Heparin Sodium) 5,000 units SUBCUT Q12H [facility] Last Admin: 01/13/19 01:36 Dose: 5,000 units Hydralazine HCl (Apresoline) 10 mg PO Q8H [facility] Last Admin: 01/13/19 08:51 Dose: 10 mg Insulin Glargine (Lantus) 34 unit SUBCUT DAILY [facility] Last Admin: 01/13/19 08:52 Dose: 34 unit Insulin Glargine (Lantus) 40 unit SUBCUT BEDTIME [facility] Last Admin: 01/12/19 22:02 Dose: 40 units Insulin Human Lispro (Humalog) 0 unit SUBCUT QIDACANDBED [facility]; Protocol Last Admin: 01/13/19 08:53 Dose: 6 units Levothyroxine Sodium (Levothyroxine) 75 mcg PO ACBRK [facility] Last Admin: 01/13/19 05:12 Dose: 75 mcg Mometasone Furoate/Formoterol Fumar (Dulera 200-5 Mcg) 2 puff IH BID [facility] Last Admin: 01/13/19 08:16 Dose: 2 puff Pantoprazole Sodium (Protonix) 40 mg PO 0700 [facility] Last Admin: 01/13/19 07:27 Dose: 40 mg Rosuvastatin Calcium (Crestor) 10 mg PO BEDTIME [facility] Last Admin: 01/12/19 20:20 Dose: 10 mg Sodium Chloride (Saline Flush) 10 ml FLUSH ASDIRECTED PRN PRN Reason: Keep Vein Open Last Admin: 01/08/19 15:45 Dose: 10 ml Tamsulosin HCl (Flomax) 0.4 mg PO BEDTIME [facility] Last Admin: 01/12/19 20:20 Dose: 0.4 mg Discontinued Medications Acetazolamide (Diamox) 250 mg PO Q6H [facility] Stop: 01/09/19 05:39 Last Admin: 01/09/19 00:36 Dose: Not Given Acetazolamide (Diamox) 250 mg PO Q6H [facility] Stop: 01/09/19 08:16 Last Admin: 01/09/19 08:26 Dose: 250 mg Acetazolamide (Diamox) 250 mg PO Q4H [facility] Stop: 01/09/19 18:46 Last Admin: 01/09/19 11:28 Dose: Not Given Acetazolamide (Diamox) 250 mg PO Q4H [facility] Stop: 01/09/19 23:01 Last Admin: 01/09/19 22:33 Dose: 250 mg Al Hydroxide/Mg Hydroxide (Mag-Al Plus) 30 ml PO Q4H PRN PRN Reason: Indigestion Last Admin: 01/10/19 00:34 Dose: 30 ml Albuterol/Ipratropium (Duoneb 3.0-0.5 Mg/3 Ml) 3 ml NEB ONETIME ONE Stop: 01/08/19 13:40 Last Admin: 01/08/19 13:56 Dose: 3 ml Albuterol/Ipratropium (Duoneb 3.0-0.5 Mg/3 Ml) 3 ml NEB ONETIME ONE Stop: 01/08/19 14:07 Last Admin: 01/08/19 15:59 Dose: Not Given Bumetanide (Bumex) 1 mg IVPUSH ONETIME ONE Stop: 01/08/19 15:33 Last Admin: 01/08/19 15:45 Dose: 1 mg Carvedilol (Coreg) 25 mg PO BID [facility] Last Admin: 01/09/19 08:22 Dose: Not Given Carvedilol (Coreg) 6.25 mg PO BID [facility] Last Admin: 01/11/19 09:35 Dose: Not Given Carvedilol (Coreg) 6.25 mg PO BID [facility] Last Admin: 01/11/19 09:35 Dose: Not Given Furosemide (Lasix) 40 mg IVPUSH ONETIME ONE Stop: 01/08/19 15:24 Last Admin: 01/08/19 17:29 Dose: Not Given Furosemide (Lasix) 100 mg IVPUSH NOW ONE Stop: 01/08/19 17:43 Last Admin: 01/08/19 22:00 Dose: 100 mg Furosemide (Lasix) Confirm Administered Dose 100 mg .ROUTE .STK-MED ONE Stop: 01/08/19 21:50 Last Admin: 01/08/19 22:10 Dose: Not Given Heparin Sodium (Porcine) (Heparin Sodium) 5,000 units SUBCUT Q8H [facility] Last Admin: 01/11/19 10:14 Dose: Not Given Heparin Sodium (Porcine) (Heparin Sodium) 5,000 units SUBCUT Q12H [facility] Last Admin: 01/11/19 10:57 Dose: Not Given Hydralazine HCl (Apresoline) 15 mg IVPUSH Q4H [facility] Last Admin: 01/10/19 06:32 Dose: Not Given Hydralazine HCl (Apresoline) 10 mg PO Q8H [facility] Last Admin: 01/11/19 01:38 Dose: Not Given Hydrochlorothiazide (Hydrochlorothiazide) 25 mg PO ONETIME ONE Stop: 01/10/19 09:59 Last Admin: 01/10/19 12:29 Dose: Not Given Hydrochlorothiazide (Hydrochlorothiazide) 25 mg PO ONETIME ONE Stop: 01/10/19 12:23 Last Admin: 01/10/19 12:38 Dose: 25 mg Albumin Human (Flexbumin 25%) 25 gm in 100 mls @ 100 mls/hr IV ONETIME ONE Stop: 01/08/19 18:36 Last Admin: 01/08/19 20:56 Dose: 100 mls/hr Furosemide 100 mg/ Sodium (Chloride) 100 mls @ 5 mls/hr IV CONTINUOUS [facility] Last Admin: 01/10/19 06:02 Dose: 5 mg/hr, 5 mls/hr Albumin Human (Flexbumin 25%) 25 gm in 100 mls @ 100 mls/hr IV Q6H [facility] Stop: 01/09/19 23:44 Last Admin: 01/09/19 22:32 Dose: 100 mls/hr Potassium Chloride 10 meq/ (Premix) 100 mls @ 100 mls/hr IV Q1H [facility] Stop: 01/10/19 15:44 Last Admin: 01/10/19 16:41 Dose: 100 mls/hr Sodium Chloride (Normal Saline) 250 mls @ 50 mls/hr IV ASDIRECTED [facility] Last Admin: 01/10/19 12:31 Dose: 50 mls/hr Isosorbide Dinitrate (Isordil) 20 mg PO TID [facility] Last Admin: 01/11/19 09:35 Dose: 20 mg Isosorbide Dinitrate (Isordil) 20 mg PO TID [facility] Last Admin: 01/11/19 20:06 Dose: 20 mg Isosorbide Mononitrate (Imdur) 20 mg PO TID [facility] Last Admin: 01/11/19 09:35 Dose: Not Given Magnesium Hydroxide (Milk Of Magnesia) 30 ml PO ONETIME ONE Stop: 01/08/19 20:08 Last Admin: 01/09/19 00:32 Dose: Not Given Metolazone (Zaroxolyn) 5 mg PO ONETIME ONE Stop: 01/08/19 17:36 Last Admin: 01/08/19 22:01 Dose: 5 mg Metolazone (Zaroxolyn) 5 mg PO ONETIME ONE Stop: 01/08/19 21:51 Last Admin: 01/08/19 22:10 Dose: Not Given Non-Formulary Medication (Ticagrelor) 90 mg PO BID [facility] Last Admin: 01/09/19 00:34 Dose: Not Given Potassium Chloride (Klor-Con M20) 40 meq PO ONETIME ONE Stop: 01/11/19 09:01 Last Admin: 01/11/19 09:20 Dose: 40 meq Potassium Chloride (Klor-Con M20) 20 meq PO ONETIME ONE Stop: 01/12/19 09:45 Last Admin: 01/12/19 09:58 Dose: 20 meq Rosuvastatin Calcium (Crestor) 10 mg PO BEDTIME [facility] Last Admin: 01/08/19 22:01 Dose: 10 mg Tiotropium [place] (Spiriva Handihaler) 18 mcg INH DAILY [facility] Last Admin: 01/09/19 11:28 Dose: Not Given Torsemide (Demadex) 60 mg PO BID [facility] Torsemide (Demadex) 20 mg PO BIDDIURETIC [facility] Last Admin: 01/11/19 05:52 Dose: 20 mg Torsemide (Demadex) 20 mg PO BIDDIURETIC [facility] Torsemide (Demadex) 20 mg PO BIDDIURETIC [facility] Last Admin: 01/11/19 14:49 Dose: Not Given - Exam Quality Assessment: Reports: Supplemental Oxygen General: Reports: Alert, Oriented HEENT: Reports: Pupils Equal Neck: Reports: Supple Lungs: Reports: Clear to Auscultation, Normal Respiratory Effort Cardiovascular: Reports: Regular Rate, Regular Rhythm GI/Abdominal Exam: Normal Bowel Sounds, No Distention (Male) Exam: No Hernia Extremities: Normal Inspection, Normal Range of Motion, Pedal Edema Skin: Reports: Warm, Dry, Intact Psy/Mental Status: Reports: Alert, Normal Affect, Normal Mood
== END 2019-01-13 14:05 | disposition home health service (06) | DRG 291 ==
LOC: JD.ED 13:13 → JD.MS 16:52
PROVIDERS: ADMIT Internal Medicine; ATTEND Internal Medicine
DX: I11.0 Hypertensive heart disease with heart failure (principal); I13.0 Hypertensive heart and chronic kidney disease with heart failure and stage 1 through stage 4 chronic kidney disease, or unspecified chronic kidney disease; I50.9 Heart failure, unspecified; I50.43 Acute on chronic combined systolic (congestive) and diastolic (congestive) heart failure; N18.4 Chronic kidney disease, stage 4 (severe); J44.9 Chronic obstructive pulmonary disease, unspecified; E78.00 Pure hypercholesterolemia, unspecified; E11.22 Type 2 diabetes mellitus with diabetic chronic kidney disease; E11.9 Type 2 diabetes mellitus without complications; G47.30 Sleep apnea, unspecified; N40.0 Benign prostatic hyperplasia without lower urinary tract symptoms; N18.9 Chronic kidney disease, unspecified; M10.9 Gout, unspecified; E03.9 Hypothyroidism, unspecified; E66.9 Obesity, unspecified; L30.9 Dermatitis, unspecified; H54.7 Unspecified visual loss; I25.2 Old myocardial infarction; Z85.3 Personal history of malignant neoplasm of breast; Z95.5 Presence of coronary angioplasty implant and graft; Z79.890 Hormone replacement therapy; Z79.4 Long term (current) use of insulin; Z99.81 Dependence on supplemental oxygen; R53.83 Other fatigue; R06.02 Shortness of breath; Z79.82 Long term (current) use of aspirin; Z79.899 Other long term (current) drug therapy; Z85.51 Personal history of malignant neoplasm of bladder; Z87.891 Personal history of nicotine dependence; R79.89 Other specified abnormal findings of blood chemistry
CPT/HCPCS: 36415; 71046; 80053; 83880; 84484; 85025; 93005; 94640; 96374; 99285; J3490; 80048; 80061; 82962; 83036; 83605; 83735; 84100; 84443; 85610; 85730; 93010; 94760; 94761; 94762; 97116-GP; 97162-GP; A9270-GY; J1644; J1815-GY; J1940; J3480; J7030; J7050; J7620-GY; P9047

== ENCOUNTER 2019-02-11 16:49 | Inpatient (IN) | payer OTHER, MEDICARE, MEDICAID ==
[2019-02-11] MEDS ORDERED: Sodium Chloride 0.9% 10 ML Syringe FLUSH PRN (16:59)
[2019-02-11] MEDS ORDERED: Albuterol/Ipratropium 3.0-0.5 MG/3 ML Neb Soln NEB ONE (17:02)
[2019-02-11] MEDS ORDERED: methylPREDNISolone Sodium Succinate 125 MG/2 ML SDV IVPUSH ONE (17:02)
[2019-02-11] MEDS ORDERED: Furosemide 40 MG/4 ML VIAL IVPUSH ONE (17:03)
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
[2019-02-11] MEDS ORDERED: Acetaminophen 325 MG Tab PO PRN (20:49)
[2019-02-11] MEDS ORDERED: Ondansetron 4 MG Tab.DIS PO PRN (20:49)
[2019-02-11] MEDS ORDERED: Albuterol 0.083% 2.5 MG/3 ML Neb Soln NEB PRN (20:49)
[2019-02-11] MEDS ORDERED: Ondansetron 4 MG/2 ML SDV IV PRN (20:49)
[2019-02-11] MEDS ORDERED: Furosemide 80 MG Tab PO ONE (20:55)
[2019-02-11] MEDS: Tamsulosin 0.4 MG Cap.ER PO SCH (21:20)
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
[2019-02-11] MEDS: hydrALAZINE 10 MG Tab PO SCH (21:21)
[2019-02-11] MEDS: Rosuvastatin 10 MG Tab PO SCH (21:21)
[2019-02-11] MEDS: Carvedilol 6.25 MG Tab PO SCH (21:21)
[2019-02-11] MEDS: Albuterol/Ipratropium 3.0-0.5 MG/3 ML Neb Soln NEB SCH (22:14)
[2019-02-11] MEDS: Formoterol/Mometasone 200-5 MCG 8.8 GM Inhaler IH SCH (22:15)
[2019-02-11] MEDS: Insulin Lispro 100 Units/ML 3 ML Vial SUBCUT SCH (22:36)
[2019-02-11] MEDS: Isosorbide Dinitrate 10 MG Tab PO SCH (23:03)
[2019-02-12] MEDS: Formoterol/Mometasone 200-5 MCG 8.8 GM Inhaler IH SCH ×3 (00:34→20:45)
[2019-02-12] MEDS: Albuterol/Ipratropium 3.0-0.5 MG/3 ML Neb Soln NEB SCH ×4 (03:40→20:46)
[2019-02-12] MEDS: Pantoprazole 40 MG Tab.CR PO SCH (06:37)
[2019-02-12] MEDS: Isosorbide Dinitrate 10 MG Tab PO SCH ×3 (06:37→17:48)
[2019-02-12] MEDS: Levothyroxine 75 MCG Tab PO SCH (06:40)
[2019-02-12] MEDS: Insulin Lispro 100 Units/ML 3 ML Vial SUBCUT SCH ×4 (07:33→21:27)
--- NOTE | 2019-02-12 08:22 | CR ---
Chest: Portable view of the chest was obtained. Comparison: Previous chest x-ray of 02/11/19. Heart size is at the upper limits of normal. Pulmonary vessels are felt to be slightly congested. Small bilateral pleural effusions and chronic pleural thickening are noted. Bony structure shows degenerative endplate spurring within the spine. Impression: 1. Pulmonary vascular congestion with possible small pleural effusion superimposed upon chronic pleural thickening. Diagnostic code #3
[2019-02-12] MEDS: Insulin Glarg,Human.Rec.Analog 100 UNIT/ML ML SUBCUT SCH ×2 (08:31→20:58)
[2019-02-12] MEDS: Carvedilol 6.25 MG Tab PO SCH ×2 (08:32→21:43)
[2019-02-12] MEDS: FLUoxetine 20 MG Cap PO SCH (08:32)
[2019-02-12] MEDS: Aspirin 81 MG Tab.EC PO SCH (08:32)
[2019-02-12] MEDS: Enoxaparin 30 MG/0.3 ML Syringe SUBCUT SCH (08:33)
[2019-02-12] MEDS: Allopurinol 300 MG Tab PO SCH (08:33)
[2019-02-12] MEDS: hydrALAZINE 10 MG Tab PO SCH ×3 (08:33→21:43)
[2019-02-12] MEDS: Finasteride 5 MG Tab PO SCH (08:33)
--- NOTE | 2019-02-12 09:01 | CR ---
Chest: Portable view of the chest was obtained. Comparison: Prior chest x-ray of 01/08/19. Heart is at the upper limits of normal. Minimal chronic blunting is seen of the costophrenic angles. Lungs show no acute parenchymal change. Bony structures are grossly intact. Impression: 1. Nothing acute is definitely appreciated. Diagnostic code #2
[2019-02-12] MEDS ORDERED: Furosemide 40 MG/4 ML VIAL IVPUSH ONE (09:10)
--- NOTE | 2019-02-12 13:52 | PCM.PN ---
- General Info Date of Service: 02/12/19 Admission Dx/Problem (Free Text): admitted with acute chf and copd causing acute acuña and resp distress. trop normal and pvcs seen but no arrythmia started on iv lasix and steriods and nebs i/os 600/580 weight 119 kg. chest xray shows increased pulm. vasc. and enlarged heart probnp 7900 hgn 9.7 rpeat bnp this am little higher nebs q 4 hours with noticeable stabilization over night abg 7.45 po2 78/ pco2 45 on 4 liters n.c still feels tight this am bs increased to 350 despite sliding scale insulin . denies angina at home and is very compliant with meds and is 2.5 liters o2 continuous . lungs clear but decreased and fair air exchange this am . last echo sept reviewed mild hypokinesis inferior. e.f 50 % dialated rt and left atrium . meds reviewed in detail follows low sodium and fluid restriction and compliant with meds admits getting difficult despite neighbors and son a nd home health through [facility] assessment reviewed with team plan reviewed with team cont diuresis attempt and modify meds daily . cont 02 ad current diet and fluid restrictions and wean steriods correct bs. 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 check iron levels Functional Status: Reports: Pain Controlled - Review of Systems General: Reports: No Symptoms HEENT: Reports: No Symptoms Pulmonary: Reports: No Symptoms, Shortness of Breath Cardiovascular: Reports: No Symptoms, Orthopnea, Edema Gastrointestinal: Reports: No Symptoms Genitourinary: Reports: No Symptoms Musculoskeletal: Reports: No Symptoms Skin: Reports: No Symptoms Neurological: Reports: No Symptoms Psychiatric: Reports: No Symptoms - Patient Data Vitals - Most Recent: Last Vital Signs Temp 36.3 C 02/12/19 11:18 Pulse 69 02/12/19 11:18 Resp 16 02/12/19 11:18 BP 104/60 02/12/19 11:18 Pulse Ox 98 02/12/19 11:18 Weight - Most Recent: 119.839 kg I&O - Last 24 Hours: Intake & Output 02/11/19 02/12/19 02/12/19 22:59 06:59 14:59 Intake Total 600 480 Output Total 580 Balance 20 480 Lab Results Last 24 Hours: Laboratory Results - last 24 hr 06/02/11/19 02/11/19 Range/Units 18:00 18:00 18:00 WBC 8.77 (4.23-9.07) K/mm3 RBC 3.26 L (4.63-6.08) M/mm3 Hgb 9.6 L (13.7-17.5) gm/L Hct 31.5 L (40.1-51.0) % MCV 96.6 H (79.0-92.2) fl MCH 29.4 (25.7-32.2) pg MCHC 30.5 L (32.2-35.5) g/dl RDW Std Deviation 57.9 H (35.1-43.9) fL Plt Count 274 (163-337) K/mm3 MPV 10.8 (9.4-12.3) fl Neut % (Auto) 73.5 H (34.0-67.9) % Lymph % (Auto) 13.7 L (21.8-53.1) % Jerauld % (Auto) 9.0 (5.3-12.2) % Eos % (Auto) 3.1 (0.8-7.0) Baso % (Auto) 0.5 (0.1-1.2) % Neut # (Auto) 6.45 H (1.78-5.38) K/mm3 Lymph # (Auto) 1.20 L (1.32-3.57) K/mm3 J[place] # (Auto) 0.79 (0.30-0.82) K/mm3 Eos # (Auto) 0.27 (0.04-0.54) K/mm3 Baso # (Auto) 0.04 (0.01-0.08) K/mm3 Manual Slide Review Puncture Site ABG pH (7.35-7.45) ABG pCO2 (35.0-45.0) mmHg ABG pO2 (80.0-100.0) mmHg ABG HCO3 (22.0-26.0) meq/L ABG O2 Saturation (96.0-97.0) % ABG Base Excess (-2-2.0) Mohit Test A-a Gradient mmHg O2 Delivery Device Oxygen Flow Rate FiO2 (21.00-100.00) % Sodium 143 (136-145) mEq/L Potassium 3.6 (3.5-5.1) mEq/L Chloride 105 (98-107) mEq/L Carbon Dioxide 30 (21-32) mEq/L Anion Gap 11.6 (5-15) BUN 39 H D (7-18) mg/dL Creatinine 1.7 H (0.7-1.3) mg/dL Est Cr Clr Drug Dosing 25.15 mL/min Estimated GFR (MDRD) 38 (>60) mL/min BUN/Creatinine Ratio 22.9 H (14-18) Glucose 109 (83-115) mg/dL POC Glucose (83-110) mg/dL Calcium 8.9 (8.5-10.1) mg/dL Magnesium (1.8-2.4) mg/dl Total Bilirubin 0.5 (0.2-1.0) mg/dL AST 12 L (15-37) U/L ALT 17 (16-63) U/L Alkaline Phosphatase 79 (46-116) U/L Troponin I 0.042 (0.00-0.056) ng/mL NT-Pro-B Natriuret Pep 7913 H (0-450) pg/mL Total Protein 6.6 (6.4-8.2) g/dl Albumin 3.0 L (3.4-5.0) g/dl Globulin 3.6 gm/dL Albumin/Globulin Ratio 0.8 L (1-2) 02/11/19 02/12/19 02/12/19 Range/Units 20:38 05:30 05:30 WBC 5.18 (4.23-9.07) K/mm3 RBC 3.37 L (4.63-6.08) M/mm3 Hgb 9.9 L (13.7-17.5) gm/L Hct 32.4 L (40.1-51.0) % MCV 96.1 H (79.0-92.2) fl MCH 29.4 (25.7-32.2) pg MCHC 30.6 L (32.2-35.5) g/dl RDW Std Deviation 58.4 H (35.1-43.9) fL Plt Count 267 (163-337) K/mm3 MPV 11.0 (9.4-12.3) fl Neut % (Auto) 90.7 H (34.0-67.9) % Lymph % (Auto) 8.3 L (21.8-53.1) % Jerauld % (Auto) 0.8 L (5.3-12.2) % Eos % (Auto) 0 L (0.8-7.0) Baso % (Auto) 0.0 L (0.1-1.2) % Neut # (Auto) 4.70 (1.78-5.38) K/mm3 Lymph # (Auto) 0.43 L (1.32-3.57) K/mm3 [place] # (Auto) 0.04 L (0.30-0.82) K/mm3 Eos # (Auto) 0.00 L (0.04-0.54) K/mm3 Baso # (Auto) 0.00 L (0.01-0.08) K/mm3 Manual Slide Review Abnormal smear Puncture Site ABG pH (7.35-7.45) ABG pCO2 (35.0-45.0) mmHg ABG pO2 (80.0-100.0) mmHg ABG HCO3 (22.0-26.0) meq/L ABG O2 Saturation (96.0-97.0) % ABG Base Excess (-2-2.0) Mohit Test A-a Gradient mmHg O2 Delivery Device Oxygen Flow Rate FiO2 (21.00-100.00) % Sodium 138 (136-145) mEq/L Potassium 4.1 (3.5-5.1) mEq/L Chloride 102 (98-107) mEq/L Carbon Dioxide 29 (21-32) mEq/L Anion Gap 11.1 (5-15) BUN 41 H (7-18) mg/dL Creatinine 1.9 H (0.7-1.3) mg/dL Est Cr Clr Drug Dosing 22.50 mL/min Estimated GFR (MDRD) 34 (>60) mL/min BUN/Creatinine Ratio 21.6 H (14-18) Glucose 342 H (83-115) mg/dL POC Glucose 143 H (83-110) mg/dL Calcium 8.9 (8.5-10.1) mg/dL Magnesium 2.3 (1.8-2.4) mg/dl Total Bilirubin 0.5 (0.2-1.0) mg/dL AST 10 L (15-37) U/L ALT 16 (16-63) U/L Alkaline Phosphatase 80 (46-116) U/L Troponin I (0.00-0.056) ng/mL NT-Pro-B Natriuret Pep (0-450) pg/mL Total Protein 6.8 (6.4-8.2) g/dl Albumin 2.8 L (3.4-5.0) g/dl Globulin 4.0 gm/dL Albumin/Globulin Ratio 0.7 L (1-2) 02/12/19 02/12/19 02/12/19 Range/Units 05:30 06:34 06:35 WBC (4.23-9.07) K/mm3 RBC (4.63-6.08) M/mm3 Hgb (13.7-17.5) gm/L Hct (40.1-51.0) % MCV (79.0-92.2) fl MCH (25.7-32.2) pg MCHC (32.2-35.5) g/dl RDW Std Deviation (35.1-43.9) fL Plt Count (163-337) K/mm3 MPV (9.4-12.3) fl Neut % (Auto) (34.0-67.9) % Lymph % (Auto) (21.8-53.1) % [place] % (Auto) (5.3-12.2) % Eos % (Auto) (0.8-7.0) Baso % (Auto) (0.1-1.2) % Neut # (Auto) (1.78-5.38) K/mm3 Lymph # (Auto) (1.32-3.57) K/mm3 [place] # (Auto) (0.30-0.82) K/mm3 Eos # (Auto) (0.04-0.54) K/mm3 Baso # (Auto) (0.01-0.08) K/mm3 Manual Slide Review Puncture Site Lt radial ABG pH 7.45 (7.35-7.45) ABG pCO2 39.2 (35.0-45.0) mmHg ABG pO2 78.0 L (80.0-100.0) mmHg ABG HCO3 26.9 H (22.0-26.0) meq/L ABG O2 Saturation 96.0 (96.0-97.0) % ABG Base Excess 3.2 H (-2-2.0) Mohit Test Positive A-a Gradient 65 mmHg O2 Delivery Device Bipap 10/5 Oxygen Flow Rate 2.5 FiO2 30.00 (21.00-100.00) % Sodium (136-145) mEq/L Potassium (3.5-5.1) mEq/L Chloride (98-107) mEq/L Carbon Dioxide (21-32) mEq/L Anion Gap (5-15) BUN (7-18) mg/dL Creatinine (0.7-1.3) mg/dL Est Cr Clr Drug Dosing mL/min Estimated GFR (MDRD) (>60) mL/min BUN/Creatinine Ratio (14-18) Glucose (83-115) mg/dL POC Glucose 353 H (83-110) mg/dL Calcium (8.5-10.1) mg/dL Magnesium (1.8-2.4) mg/dl Total Bilirubin (0.2-1.0) mg/dL AST (15-37) U/L ALT (16-63) U/L Alkaline Phosphatase (46-116) U/L Troponin I (0.00-0.056) ng/mL NT-Pro-B Natriuret Pep 9032 H (0-450) pg/mL Total Protein (6.4-8.2) g/dl Albumin (3.4-5.0) g/dl Globulin gm/dL Albumin/Globulin Ratio (1-2) 02/12/19 Range/Units 11:52 WBC (4.23-9.07) K/mm3 RBC (4.63-6.08) M/mm3 Hgb (13.7-17.5) gm/L Hct (40.1-51.0) % MCV (79.0-92.2) fl MCH (25.7-32.2) pg MCHC (32.2-35.5) g/dl RDW Std Deviation (35.1-43.9) fL Plt Count (163-337) K/mm3 MPV (9.4-12.3) fl Neut % (Auto) (34.0-67.9) % Lymph % (Auto) (21.8-53.1) % [place] % (Auto) (5.3-12.2) % Eos % (Auto) (0.8-7.0) Baso % (Auto) (0.1-1.2) % Neut # (Auto) (1.78-5.38) K/mm3 Lymph # (Auto) (1.32-3.57) K/mm3 J[place] # (Auto) (0.30-0.82) K/mm3 Eos # (Auto) (0.04-0.54) K/mm3 Baso # (Auto) (0.01-0.08) K/mm3 Manual Slide Review Puncture Site ABG pH (7.35-7.45) ABG pCO2 (35.0-45.0) mmHg ABG pO2 (80.0-100.0) mmHg ABG HCO3 (22.0-26.0) meq/L ABG O2 Saturation (96.0-97.0) % ABG Base Excess (-2-2.0) Mohit Test A-a Gradient mmHg O2 Delivery Device Oxygen Flow Rate FiO2 (21.00-100.00) % Sodium (136-145) mEq/L Potassium (3.5-5.1) mEq/L Chloride (98-107) mEq/L Carbon Dioxide (21-32) mEq/L Anion Gap (5-15) BUN (7-18) mg/dL Creatinine (0.7-1.3) mg/dL Est Cr Clr Drug Dosing mL/min Estimated GFR (MDRD) (>60) mL/min BUN/Creatinine Ratio (14-18) Glucose 374 H (83-115) mg/dL POC Glucose (83-110) mg/dL Calcium (8.5-10.1) mg/dL Magnesium (1.8-2.4) mg/dl Total Bilirubin (0.2-1.0) mg/dL AST (15-37) U/L ALT (16-63) U/L Alkaline Phosphatase (46-116) U/L Troponin I (0.00-0.056) ng/mL NT-Pro-B Natriuret Pep (0-450) pg/mL Total Protein (6.4-8.2) g/dl Albumin (3.4-5.0) g/dl Globulin gm/dL Albumin/Globulin Ratio (1-2) Med Orders - Current: Current Medications Acetaminophen (Tylenol) 650 mg PO Q4H PRN PRN Reason: Pain (Mild 1-3)/fever Albuterol (Proventil Neb Soln) 2.5 mg NEB Q2H PRN PRN Reason: Shortness Of Breath/wheezing Albuterol/Ipratropium (Duoneb 3.0-0.5 Mg/3 Ml) 3 ml NEB Q6HRRT [facility] Last Admin: 02/12/19 09:10 Dose: 3 ml Allopurinol (Zyloprim) 150 mg PO DAILY [facility] Last Admin: 02/12/19 08:33 Dose: 150 mg Aspirin (Halfprin) 81 mg PO DAILY [facility] Last Admin: 02/12/19 08:32 Dose: 81 mg Carvedilol (Coreg) 6.25 mg PO BID [facility] Last Admin: 02/12/19 08:32 Dose: 6.25 mg Enoxaparin Sodium (Lovenox) 30 mg SUBCUT DAILY [facility] Last Admin: 02/12/19 08:33 Dose: 30 mg Finasteride (Proscar) 5 mg PO DAILY [facility] Last Admin: 02/12/19 08:33 Dose: 5 mg Fluoxetine HCl (Prozac) 20 mg PO DAILY [facility] Last Admin: 02/12/19 08:32 Dose: 20 mg Hydralazine HCl (Apresoline) 10 mg PO TID [facility] Last Admin: 02/12/19 08:33 Dose: 10 mg Insulin Glargine (Lantus) 34 unit SUBCUT DAILY [facility] Last Admin: 02/12/19 08:31 Dose: 34 units Insulin Glargine (Lantus) 40 unit SUBCUT BEDTIME [facility] Insulin Human Lispro (Humalog) 0 unit SUBCUT QIDACANDBED [facility]; Protocol Last Admin: 02/12/19 12:32 Dose: 10 units Isosorbide Dinitrate (Isordil) 10 mg PO Q6HR [facility] Last Admin: 02/12/19 12:01 Dose: Not Given Levothyroxine Sodium (Levothyroxine) 75 mcg PO ACBREAKFAST [facility] Last Admin: 02/12/19 06:40 Dose: 75 mcg Mometasone Furoate/Formoterol Fumar (Dulera 200-5 Mcg) 0 puff IH BID [facility] Last Admin: 02/12/19 09:10 Dose: 2 puff Ondansetron HCl (Zofran Odt) 4 mg PO Q4H PRN PRN Reason: nausea, able to take PO Ondansetron HCl (Zofran) 4 mg IV Q4H PRN PRN Reason: Nausea/Vomiting Pantoprazole Sodium (Protonix) 40 mg PO ACBREAKFAST [facility] Last Admin: 02/12/19 06:37 Dose: 40 mg Rosuvastatin Calcium (Crestor) 10 mg PO BEDTIME [facility] Last Admin: 02/11/19 21:21 Dose: 10 mg Sodium Chloride (Saline Flush) 10 ml FLUSH ASDIRECTED PRN PRN Reason: Keep Vein Open Last Admin: 02/11/19 17:47 Dose: 10 ml Tamsulosin HCl (Flomax) 0.4 mg PO BEDTIME [facility] Last Admin: 02/11/19 21:20 Dose: 0.4 mg Discontinued Medications Albuterol/Ipratropium (Duoneb 3.0-0.5 Mg/3 Ml) 3 ml NEB ONETIME ONE Stop: 02/11/19 17:03 Last Admin: 02/11/19 17:09 Dose: 3 ml Furosemide (Lasix) 80 mg IVPUSH NOW ONE Stop: 02/11/19 17:04 Last Admin: 02/11/19 17:46 Dose: 80 mg Furosemide (Lasix) 100 mg PO ONETIME ONE Stop: 02/11/19 20:56 Last Admin: 02/11/19 21:21 Dose: 100 mg Furosemide (Lasix) 80 mg IVPUSH NOW ONE Stop: 02/12/19 09:11 Last Admin: 02/12/19 09:29 Dose: 80 mg Methylprednisolone Sodium Succinate (Solu-Medrol) 125 mg IVPUSH ONETIME ONE Stop: 02/11/19 17:03 Last Admin: 02/11/19 17:46 Dose: 125 mg - Exam Quality Assessment: Supplemental Oxygen General: Alert, Oriented, Mild Distress HEENT: Pupils Equal, Pupils Reactive, EOMI, Mucous Membr. Moist/[place] Neck: Supple Lungs: Clear to Auscultation, Normal Respiratory Effort, Decreased Breath Sounds Cardiovascular: Regular Rate, Regular Rhythm GI/Abdominal Exam: Normal Bowel Sounds, Soft, Non-Tender, No Organomegaly, No Distention, No Abnormal Bruit, No Mass, Pelvis Stable (Male) Exam: No Hernia, Normal Inspection, Normal Prostate, Circumcised Back Exam: Normal Inspection, Full Range of Motion Extremities: Normal Inspection, Normal Range of Motion, Non-Tender, No Pedal Edema, Normal Capillary Refill Skin: Warm, Dry, Intact Wound/Incisions: Healing Well Neurological: No New Focal Deficit Psy/Mental Status: Alert, Normal Affect, Normal Mood, Anxious - Problem List Review Problem List Initiated/Reviewed/Updated: Yes - My Orders Last 24 Hours: My Active Orders 02/12/19 11:38 OT Evaluation and Treatment [CONS] Routine PT Evaluation and Treatment [CONS] Routine lab ordered and check iron level as well - Assessment Assessment:: day 2 assess unchanged resp deterioration chf responding poorly to lasix add nitrate today but notte narrow pulse pressure. decreased steriods as it appears to be primarly chf. bnp unchanged and weight unchanged crf stable anemia check iron and b12 and folate bone marrow looks normal by smear but increased mcv noted.echo report reviewed and a little out proportion to e.f suspect chronic renal insuff and deconditioning and co morbidities adding to difficulties and high readmission rate discussed home going and he needs palliative care referral - Plan Plan:: lasix 80 mg i.v this am decreased steriods to prednisone 20 mg day x 5 days then off cont nebs correct bs. home going discussion with family and patient . he has alot of assistance and yet is highly likely to be refractory in treatment of chf consider nitrates alpha blockers and dig. all high risk meds discussed with team
[2019-02-12] MEDS ORDERED: predniSONE 20 MG Tab PO ONE (13:59)
[2019-02-12] MEDS: Tamsulosin 0.4 MG Cap.ER PO SCH (20:59)
[2019-02-12] MEDS: Rosuvastatin 10 MG Tab PO SCH (20:59)
[2019-02-13] MEDS: Isosorbide Dinitrate 10 MG Tab PO SCH ×4 (00:49→17:45)
[2019-02-13] MEDS: Albuterol/Ipratropium 3.0-0.5 MG/3 ML Neb Soln NEB SCH ×4 (03:56→20:32)
[2019-02-13] MEDS: Levothyroxine 75 MCG Tab PO SCH (05:51)
[2019-02-13] MEDS: Pantoprazole 40 MG Tab.CR PO SCH (05:52)
[2019-02-13] MEDS ORDERED: predniSONE 20 MG Tab PO SCH (07:00)
[2019-02-13] MEDS: Formoterol/Mometasone 200-5 MCG 8.8 GM Inhaler IH SCH ×2 (08:11→20:32)
[2019-02-13] MEDS: Insulin Lispro 100 Units/ML 3 ML Vial SUBCUT SCH ×4 (08:32→22:04)
[2019-02-13] MEDS: Enoxaparin 30 MG/0.3 ML Syringe SUBCUT SCH (08:34)
[2019-02-13] MEDS: Insulin Glarg,Human.Rec.Analog 100 UNIT/ML ML SUBCUT SCH ×2 (08:34→22:03)
[2019-02-13] MEDS: Finasteride 5 MG Tab PO SCH (08:35)
[2019-02-13] MEDS: hydrALAZINE 10 MG Tab PO SCH ×3 (08:35→22:02)
[2019-02-13] MEDS: FLUoxetine 20 MG Cap PO SCH (08:35)
[2019-02-13] MEDS: Aspirin 81 MG Tab.EC PO SCH (08:35)
[2019-02-13] MEDS: Allopurinol 300 MG Tab PO SCH (08:35)
[2019-02-13] MEDS: Carvedilol 6.25 MG Tab PO SCH ×2 (08:36→22:03)
[2019-02-13] MEDS ORDERED: Furosemide 100 MG/10 ML SDV IVPUSH ONE (09:04)
[2019-02-13] MEDS ORDERED: Spironolactone 100 MG Tab PO ONE (09:04)
[2019-02-13] MEDS ORDERED: Albumin 25% 12.5 GM/50 ML BAG IV ONE (09:07)
[2019-02-13] MEDS ORDERED: Furosemide 40 MG/4 ML VIAL IVPUSH ONE ×2 (09:08→20:00)
[2019-02-13] MEDS ORDERED: Spironolactone 25 MG Tab PO SCH (09:15)
[2019-02-13] MEDS ORDERED: FUROSEMIDE IV ONE (10:30)
[2019-02-13] MEDS ORDERED: ALBUMIN IV ONE (10:30)
[2019-02-13] MEDS ORDERED: Furosemide 100 MG/10 ML SDV IVPUSH SCH (13:00)
--- NOTE | 2019-02-13 13:16 | PCM.PN ---
- General Info Date of Service: 02/13/19 Admission Dx/Problem (Free Text): admitted with acute chf and copd causing acute acuña and resp distress. trop normal and pvcs seen but no arrythmia started on iv lasix and steriods and nebs i/os 600/580 weight 119 kg. chest xray shows increased pulm. vasc. and enlarged heart probnp 7900 hgn 9.7 rpeat bnp this am little higher nebs q 4 hours with noticeable stabilization over night abg 7.45 po2 78/ pco2 45 on 4 liters n.c still feels tight this am bs increased to 350 despite sliding scale insulin . denies angina at home and is very compliant with meds and is 2.5 liters o2 continuous . lungs clear but decreased and fair air exchange this am . last echo sept reviewed mild hypokinesis inferior. e.f 50 % dialated rt and left atrium . meds reviewed in detail follows low sodium and fluid restriction and compliant with meds admits getting difficult despite neighbors and son a nd home health through [facility] assessment reviewed with team plan reviewed with team cont diuresis attempt and modify meds daily . cont 02 ad current diet and fluid restrictions and wean steriods correct bs. 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 check iron levels 02/13/19 doing poorly overall . acuña and sob little changed / dry cough and sleeping upright with stable sats on 2.5 l n.c. heart rate stable and no c/o pain but anxious . vss hr 80s /rr 20-28 i/os 2930/1930 minus i liter lungs clear and decreased few insp crackles occ wheeze cor rrr abd benign ext 2 plus edema weight unchanged 119 kg lab slight increase bun and creat to 1.9 bs high 200-347 and on sliding scale high dose and will recheck as off soluedrol and on prednisone 20 mg day hgn 9.1 and alb low 2.3 eating well arthritis unchanged assess chf refractory start spironolactone and cont other meds hypotension held alpha ezekiel and beta ezekiel last night anmenia transfuse one unit prbcs and alb spa with lasix bolus x 2 and see if can mobilize fluid . discussed homegoing issues and he is worried and does not want to take antidepressant . low dose morphine may help while in hosp . consult for palliative care will be needed . consider lasix drip if not able to diurese today better - Patient Data Vitals - Most Recent: Last Vital Signs Temp 36.1 C 02/13/19 08:32 Pulse 74 02/13/19 08:36 Resp 20 02/13/19 08:32 BP 106/88 02/13/19 11:35 Pulse Ox 97 02/13/19 08:32 Weight - Most Recent: 119.884 kg I&O - Last 24 Hours: Intake & Output 02/12/19 02/13/19 02/13/19 22:59 06:59 14:59 Intake Total 800 300 600 Output Total 2050 880 Balance -1250 -580 600 Lab Results Last 24 Hours: Laboratory Results - last 24 hr 02/12/19 02/12/19 02/12/19 Range/Units 05:30 11:52 17:01 WBC (4.23-9.07) K/mm3 RBC (4.63-6.08) M/mm3 Hgb (13.7-17.5) gm/L Hct (40.1-51.0) % MCV (79.0-92.2) fl MCH (25.7-32.2) pg MCHC (32.2-35.5) g/dl RDW Std Deviation (35.1-43.9) fL Plt Count (163-337) K/mm3 MPV (9.4-12.3) fl Neut % (Auto) (34.0-67.9) % Lymph % (Auto) (21.8-53.1) % Shelby % (Auto) (5.3-12.2) % Eos % (Auto) (0.8-7.0) Baso % (Auto) (0.1-1.2) % Neut # (Auto) (1.78-5.38) K/mm3 Lymph # (Auto) (1.32-3.57) K/mm3 Shelby # (Auto) (0.30-0.82) K/mm3 Eos # (Auto) (0.04-0.54) K/mm3 Baso # (Auto) (0.01-0.08) K/mm3 Sodium (136-145) mEq/L Potassium (3.5-5.1) mEq/L Chloride (98-107) mEq/L Carbon Dioxide (21-32) mEq/L Anion Gap (5-15) BUN (7-18) mg/dL Creatinine (0.7-1.3) mg/dL Est Cr Clr Drug Dosing mL/min Estimated GFR (MDRD) (>60) mL/min BUN/Creatinine Ratio (14-18) Glucose (83-115) mg/dL POC Glucose 236 H (83-110) mg/dL Calcium (8.5-10.1) mg/dL Magnesium (1.8-2.4) mg/dl Iron 34 L (65-175) ug/dL NT-Pro-B Natriuret Pep (0-450) pg/mL Vitamin B12 (193-986) pg/ml Total Testosterone 1.03 L (1.75-7.81) ng/mL Blood Type Gel Antibody Screen Crossmatch 02/12/19 02/13/19 02/13/19 Range/Units 20:53 05:55 07:10 WBC 8.60 (4.23-9.07) K/mm3 RBC 3.08 L (4.63-6.08) M/mm3 Hgb 9.1 L (13.7-17.5) gm/L Hct 29.7 L (40.1-51.0) % MCV 96.4 H (79.0-92.2) fl MCH 29.5 (25.7-32.2) pg MCHC 30.6 L (32.2-35.5) g/dl RDW Std Deviation 57.7 H (35.1-43.9) fL Plt Count 258 (163-337) K/mm3 MPV 11.1 (9.4-12.3) fl Neut % (Auto) 83.1 H (34.0-67.9) % Lymph % (Auto) 10.9 L (21.8-53.1) % Shelby % (Auto) 5.6 (5.3-12.2) % Eos % (Auto) 0.1 L (0.8-7.0) Baso % (Auto) 0.1 (0.1-1.2) % Neut # (Auto) 7.14 H (1.78-5.38) K/mm3 Lymph # (Auto) 0.94 L (1.32-3.57) K/mm3 Shelby # (Auto) 0.48 (0.30-0.82) K/mm3 Eos # (Auto) 0.01 L (0.04-0.54) K/mm3 Baso # (Auto) 0.01 (0.01-0.08) K/mm3 Sodium (136-145) mEq/L Potassium (3.5-5.1) mEq/L Chloride (98-107) mEq/L Carbon Dioxide (21-32) mEq/L Anion Gap (5-15) BUN (7-18) mg/dL Creatinine (0.7-1.3) mg/dL Est Cr Clr Drug Dosing mL/min Estimated GFR (MDRD) (>60) mL/min BUN/Creatinine Ratio (14-18) Glucose (83-115) mg/dL POC Glucose 247 H 345 H (83-110) mg/dL Calcium (8.5-10.1) mg/dL Magnesium (1.8-2.4) mg/dl Iron (65-175) ug/dL NT-Pro-B Natriuret Pep (0-450) pg/mL Vitamin B12 (193-986) pg/ml Total Testosterone (1.75-7.81) ng/mL Blood Type Gel Antibody Screen Crossmatch 02/13/19 02/13/19 02/13/19 Range/Units 07:10 07:10 07:10 WBC (4.23-9.07) K/mm3 RBC (4.63-6.08) M/mm3 Hgb (13.7-17.5) gm/L Hct (40.1-51.0) % MCV (79.0-92.2) fl MCH (25.7-32.2) pg MCHC (32.2-35.5) g/dl RDW Std Deviation (35.1-43.9) fL Plt Count (163-337) K/mm3 MPV (9.4-12.3) fl Neut % (Auto) (34.0-67.9) % Lymph % (Auto) (21.8-53.1) % Shelby % (Auto) (5.3-12.2) % Eos % (Auto) (0.8-7.0) Baso % (Auto) (0.1-1.2) % Neut # (Auto) (1.78-5.38) K/mm3 Lymph # (Auto) (1.32-3.57) K/mm3 Shelby # (Auto) (0.30-0.82) K/mm3 Eos # (Auto) (0.04-0.54) K/mm3 Baso # (Auto) (0.01-0.08) K/mm3 Sodium 141 (136-145) mEq/L Potassium 4.1 (3.5-5.1) mEq/L Chloride 102 (98-107) mEq/L Carbon Dioxide 29 (21-32) mEq/L Anion Gap 14.1 (5-15) BUN 49 H (7-18) mg/dL Creatinine 2.0 H (0.7-1.3) mg/dL Est Cr Clr Drug Dosing 21.38 mL/min Estimated GFR (MDRD) 32 (>60) mL/min BUN/Creatinine Ratio 24.5 H (14-18) Glucose 325 H (83-115) mg/dL POC Glucose (83-110) mg/dL Calcium 9.1 (8.5-10.1) mg/dL Magnesium 2.5 H (1.8-2.4) mg/dl Iron (65-175) ug/dL NT-Pro-B Natriuret Pep 8888 H (0-450) pg/mL Vitamin B12 614 (193-986) pg/ml Total Testosterone (1.75-7.81) ng/mL Blood Type Gel Antibody Screen Crossmatch 02/13/19 02/13/19 Range/Units 07:10 11:36 WBC (4.23-9.07) K/mm3 RBC (4.63-6.08) M/mm3 Hgb (13.7-17.5) gm/L Hct (40.1-51.0) % MCV (79.0-92.2) fl MCH (25.7-32.2) pg MCHC (32.2-35.5) g/dl RDW Std Deviation (35.1-43.9) fL Plt Count (163-337) K/mm3 MPV (9.4-12.3) fl Neut % (Auto) (34.0-67.9) % Lymph % (Auto) (21.8-53.1) % Shelby % (Auto) (5.3-12.2) % Eos % (Auto) (0.8-7.0) Baso % (Auto) (0.1-1.2) % Neut # (Auto) (1.78-5.38) K/mm3 Lymph # (Auto) (1.32-3.57) K/mm3 Shelby # (Auto) (0.30-0.82) K/mm3 Eos # (Auto) (0.04-0.54) K/mm3 Baso # (Auto) (0.01-0.08) K/mm3 Sodium (136-145) mEq/L Potassium (3.5-5.1) mEq/L Chloride (98-107) mEq/L Carbon Dioxide (21-32) mEq/L Anion Gap (5-15) BUN (7-18) mg/dL Creatinine (0.7-1.3) mg/dL Est Cr Clr Drug Dosing mL/min Estimated GFR (MDRD) (>60) mL/min BUN/Creatinine Ratio (14-18) Glucose (83-115) mg/dL POC Glucose 390 H (83-110) mg/dL Calcium (8.5-10.1) mg/dL Magnesium (1.8-2.4) mg/dl Iron (65-175) ug/dL NT-Pro-B Natriuret Pep (0-450) pg/mL Vitamin B12 (193-986) pg/ml Total Testosterone (1.75-7.81) ng/mL Blood Type A POSITIVE Gel Antibody Screen Negative Crossmatch See Detail Med Orders - Current: Current Medications Acetaminophen (Tylenol) 650 mg PO Q4H PRN PRN Reason: Pain (Mild 1-3)/fever Albuterol (Proventil Neb Soln) 2.5 mg NEB Q2H PRN PRN Reason: Shortness Of Breath/wheezing Last Admin: 02/13/19 00:58 Dose: 2.5 mg Albuterol/Ipratropium (Duoneb 3.0-0.5 Mg/3 Ml) 3 ml NEB Q6HRRT [facility] Last Admin: 02/13/19 08:03 Dose: 3 ml Allopurinol (Zyloprim) 150 mg PO DAILY [facility] Last Admin: 02/13/19 08:35 Dose: 150 mg Aspirin (Halfprin) 81 mg PO DAILY [facility] Last Admin: 02/13/19 08:35 Dose: 81 mg Carvedilol (Coreg) 6.25 mg PO BID [facility] Last Admin: 02/13/19 08:36 Dose: 6.25 mg Enoxaparin Sodium (Lovenox) 30 mg SUBCUT DAILY [facility] Last Admin: 02/13/19 08:34 Dose: 30 mg Finasteride (Proscar) 5 mg PO DAILY [facility] Last Admin: 02/13/19 08:35 Dose: 5 mg Fluoxetine HCl (Prozac) 20 mg PO DAILY [facility] Last Admin: 02/13/19 08:35 Dose: 20 mg Furosemide (Lasix) 80 mg IVPUSH ONETIME [facility] Stop: 02/13/19 15:00 Hydralazine HCl (Apresoline) 10 mg PO TID [facility] Last Admin: 02/13/19 08:35 Dose: 10 mg Insulin Glargine (Lantus) 34 unit SUBCUT DAILY [facility] Last Admin: 02/13/19 08:34 Dose: 34 units Insulin Glargine (Lantus) 40 unit SUBCUT BEDTIME [facility] Last Admin: 02/12/19 20:58 Dose: 40 units Insulin Human Lispro (Humalog) 0 unit SUBCUT QIDACANDBED [facility]; Protocol Last Admin: 02/13/19 11:37 Dose: 15 units Isosorbide Dinitrate (Isordil) 10 mg PO Q6HR [facility] Last Admin: 02/13/19 11:35 Dose: 10 mg Levothyroxine Sodium (Levothyroxine) 75 mcg PO ACBREAKFAST [facility] Last Admin: 02/13/19 05:51 Dose: 75 mcg Mometasone Furoate/Formoterol Fumar (Dulera 200-5 Mcg) 0 puff IH BID [facility] Last Admin: 02/13/19 08:11 Dose: 2 puff Ondansetron HCl (Zofran Odt) 4 mg PO Q4H PRN PRN Reason: nausea, able to take PO Ondansetron HCl (Zofran) 4 mg IV Q4H PRN PRN Reason: Nausea/Vomiting Pantoprazole Sodium (Protonix) 40 mg PO ACBREAKFAST [facility] Last Admin: 02/13/19 05:52 Dose: 40 mg Prednisone (Prednisone) 20 mg PO WITHBREAKFAST [facility] Stop: 02/17/19 07:01 Last Admin: 02/13/19 08:35 Dose: 20 mg Rosuvastatin Calcium (Crestor) 10 mg PO BEDTIME [facility] Last Admin: 02/12/19 20:59 Dose: 10 mg Sodium Chloride (Saline Flush) 10 ml FLUSH ASDIRECTED PRN PRN Reason: Keep Vein Open Last Admin: 02/11/19 17:47 Dose: 10 ml Tamsulosin HCl (Flomax) 0.4 mg PO BEDTIME [facility] Last Admin: 02/12/19 20:59 Dose: 0.4 mg Discontinued Medications Albuterol/Ipratropium (Duoneb 3.0-0.5 Mg/3 Ml) 3 ml NEB ONETIME ONE Stop: 02/11/19 17:03 Last Admin: 02/11/19 17:09 Dose: 3 ml Furosemide (Lasix) 80 mg IVPUSH NOW ONE Stop: 02/11/19 17:04 Last Admin: 02/11/19 17:46 Dose: 80 mg Furosemide (Lasix) 100 mg PO ONETIME ONE Stop: 02/11/19 20:56 Last Admin: 02/11/19 21:21 Dose: 100 mg Furosemide (Lasix) 80 mg IVPUSH NOW ONE Stop: 02/12/19 09:11 Last Admin: 02/12/19 09:29 Dose: 80 mg Furosemide 80 mg/ Albumin (Human) 12.5 gm in 58 mls @ 116 mls/hr IV ONETIME ONE Stop: 02/13/19 10:59 Last Admin: 02/13/19 10:52 Dose: 116 mls/hr Insulin Human Lispro (Humalog) 0 unit SUBCUT QIDACANDBED [facility]; Protocol Last Admin: 02/13/19 08:32 Dose: 8 units Methylprednisolone Sodium Succinate (Solu-Medrol) 125 mg IVPUSH ONETIME ONE Stop: 02/11/19 17:03 Last Admin: 02/11/19 17:46 Dose: 125 mg Prednisone (Prednisone) 20 mg PO ONETIME ONE Stop: 02/12/19 14:00 Last Admin: 02/12/19 15:49 Dose: 20 mg Spironolactone (Aldactone) 50 mg PO DAILY [facility] Spironolactone (Aldactone) 100 mg PO ONETIME ONE Stop: 02/13/19 09:05 Last Admin: 02/13/19 10:39 Dose: 100 mg - Exam Quality Assessment: Supplemental Oxygen General: Alert, Oriented HEENT: Pupils Equal, Pupils Reactive, EOMI, Mucous Membr. Moist/[place] Neck: Supple Lungs: Clear to Auscultation, Normal Respiratory Effort, Decreased Breath Sounds , Crackles, Wheezing Cardiovascular: Regular Rate, Regular Rhythm GI/Abdominal Exam: Normal Bowel Sounds, Soft, Non-Tender, No Organomegaly, No Distention, No Abnormal Bruit, No Mass, Pelvis Stable (Male) Exam: No Hernia, Normal Inspection, Normal Prostate, Circumcised Back Exam: Normal Inspection, Full Range of Motion Extremities: Normal Inspection, Normal Range of Motion, Non-Tender, No Pedal Edema, Normal Capillary Refill Skin: Warm, Dry, Intact Wound/Incisions: Healing Well Neurological: No New Focal Deficit Psy/Mental Status: Alert, Normal Affect, Normal Mood, Anxious, Depressed - Problem List & Annotations (1) Acute exacerbation of CHF (congestive heart failure) SNOMED Code(s): 798706817, 22654278243593 Code(s): I50.9 - HEART FAILURE, UNSPECIFIED Status: Acute Priority: High Current Visit: Yes Onset Date: 02/11/19 Qualifiers: Heart failure type: combined systolic and diastolic Qualified Code(s): I50.43 - 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) heart failure (2) CKD (chronic kidney disease) stage 4, GFR 15-29 ml/min SNOMED Code(s): 169684836 Code(s): N18.4 - CHRONIC KIDNEY DISEASE, STAGE 4 (SEVERE) Status: Acute Priority: High Current Visit: Yes Onset Date: 02/11/19 (3) COPD (chronic obstructive pulmonary disease) SNOMED Code(s): 12269851 Code(s): J44.9 - CHRONIC OBSTRUCTIVE PULMONARY DISEASE, UNSPECIFIED Status : Acute Priority: High Current Visit: Yes Onset Date: 02/11/19 Qualifiers: COPD type: unspecified COPD Qualified Code(s): J44.9 - Chronic obstructive pulmonary disease, unspecified (4) Abdominal pain SNOMED Code(s): 65671852 Code(s): R10.9 - UNSPECIFIED ABDOMINAL PAIN Status: Acute Priority: High Current Visit: No Qualifiers: Abdominal location: right upper quadrant Qualified Code(s): R10.11 - Right upper quadrant pain - Problem List Review Problem List Initiated/Reviewed/Updated: Yes - My Orders Last 24 Hours: transfuse one unit of crossmatched type spec. blood lasix double dose start spironolactone high dose spa x 50 ml monitor anxiety - Assessment Assessment:: day 2 assess unchanged resp deterioration chf responding poorly to lasix add nitrate today but note narrow pulse pressure. last night . hyopotensive and held alpha and beta ezekiel pm dose decreased steriods as it appears to be primarly chf. bnp unchanged and weight unchanged crf stable anemia check iron and b12 and folate bone marrow looks normal by smear but increased mcv noted.echo report reviewed and a little out proportion to e.f suspect chronic renal insuff and deconditioning and co morbidities adding to difficulties and high readmission rate discussed home going and he needs palliative care referral day 3 see progress note for details virtually unchanged and discussed with team and patient and will try blood trans. to increase oncotic pressure and double lasix dose / add spironolactone reassess comfort measures . may benefit form a little morphine prn anxiety and acuña repeat labs in am note bnp not improved but i liter to negative yest - Plan Plan:: lasix 80 mg i.v this am decreased steriods to prednisone 20 mg day x 5 days then off cont nebs correct bs. home going discussion with family and patient . he has alot of assistance and yet is highly likely to be refractory in treatment of chf consider nitrates alpha blockers and dig. all high risk meds discussed with team 02/13/19 double lasix / transfuse one liter blood with spa 50 cc to increase oncotic pressure and help diurese and help o2 carrying . morphine low dose may help anxiety pallitive care consult
[2019-02-13] MEDS ORDERED: Sodium Chloride 0.9% 250 ML ONE (13:21)
[2019-02-13] MEDS ORDERED: Sodium Chloride 0.9% 250 ML IV SCH (15:15)
--- NOTE | 2019-02-13 17:25 | PCM.SN ---
- Free Text/Narrative Note: Anesthesia Note: Start: [id number] Start: 1615- 1710 Anesthesia requested for difficult IV start. Patient poked numerous times with even the US machine used for some attempts without any success. 20 gauge placed to right antecubital area with the palpation of vein noted. IV flushed with 30 ml's of Normal Saline, intact and secured appropriately. Nurse informed of 20 gauge to the right inner wrist, as well..... Site potentially useable?? Patient having limited IV accessibility and options, nurse encouraged to use with caution and watch diligently for infiltration and pain on administration, ( with IV to the inner wrist.) Patient very cordial and pleasant and cooperative throughout the whole process of obtaining a very difficult intravenous cannulation. Thank you RED! Rebecca Parker [employer]
[2019-02-13] MEDS: Tamsulosin 0.4 MG Cap.ER PO SCH (22:03)
[2019-02-13] MEDS: Rosuvastatin 10 MG Tab PO SCH (22:03)
[2019-02-14] MEDS: Isosorbide Dinitrate 10 MG Tab PO SCH ×5 (00:03→23:44)
[2019-02-14] MEDS: Albuterol/Ipratropium 3.0-0.5 MG/3 ML Neb Soln NEB SCH ×4 (03:20→20:28)
[2019-02-14] MEDS: Levothyroxine 75 MCG Tab PO SCH (05:03)
[2019-02-14] MEDS: Pantoprazole 40 MG Tab.CR PO SCH (05:03)
[2019-02-14] MEDS: Insulin Lispro 100 Units/ML 3 ML Vial SUBCUT SCH ×4 (07:43→21:33)
[2019-02-14] MEDS: Formoterol/Mometasone 200-5 MCG 8.8 GM Inhaler IH SCH ×2 (08:20→20:28)
[2019-02-14] MEDS: Finasteride 5 MG Tab PO SCH (08:59)
[2019-02-14] MEDS: FLUoxetine 20 MG Cap PO SCH (08:59)
[2019-02-14] MEDS: Carvedilol 6.25 MG Tab PO SCH ×2 (08:59→21:30)
[2019-02-14] MEDS: predniSONE 20 MG Tab PO SCH (08:59)
[2019-02-14] MEDS: Aspirin 81 MG Tab.EC PO SCH (09:00)
[2019-02-14] MEDS: Allopurinol 300 MG Tab PO SCH (09:00)
[2019-02-14] MEDS: Insulin Glarg,Human.Rec.Analog 100 UNIT/ML ML SUBCUT SCH ×2 (09:00→21:31)
[2019-02-14] MEDS: Enoxaparin 30 MG/0.3 ML Syringe SUBCUT SCH (09:01)
[2019-02-14] MEDS: hydrALAZINE 10 MG Tab PO SCH ×3 (09:01→21:31)
--- NOTE | 2019-02-14 13:56 | PCM.PN ---
- General Info Date of Service: 02/14/19 Admission Dx/Problem (Free Text): admitted with acute chf and copd causing acute acuña and resp distress. trop normal and pvcs seen but no arrythmia started on iv lasix and steriods and nebs i/os 600/580 weight 119 kg. chest xray shows increased pulm. vasc. and enlarged heart probnp 7900 hgn 9.7 rpeat bnp this am little higher nebs q 4 hours with noticeable stabilization over night abg 7.45 po2 78/ pco2 45 on 4 liters n.c still feels tight this am bs increased to 350 despite sliding scale insulin . denies angina at home and is very compliant with meds and is 2.5 liters o2 continuous . lungs clear but decreased and fair air exchange this am . last echo sept reviewed mild hypokinesis inferior. e.f 50 % dialated rt and left atrium . meds reviewed in detail follows low sodium and fluid restriction and compliant with meds admits getting difficult despite neighbors and son a nd home health through [facility] assessment reviewed with team plan reviewed with team cont diuresis attempt and modify meds daily . cont 02 ad current diet and fluid restrictions and wean steriods correct bs. 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 check iron levels 02/13/19 doing poorly overall . acuña and sob little changed / dry cough and sleeping upright with stable sats on 2.5 l n.c. heart rate stable and no c/o pain but anxious . vss hr 80s /rr 20-28 i/os 2930/1930 minus i liter lungs clear and decreased few insp crackles occ wheeze cor rrr abd benign ext 2 plus edema weight unchanged 119 kg lab slight increase bun and creat to 1.9 bs high 200-347 and on sliding scale high dose and will recheck as off soluedrol and on prednisone 20 mg day hgn 9.1 and alb low 2.3 eating well arthritis unchanged assess chf refractory start spironolactone and cont other meds hypotension held alpha ezekiel and beta ezekiel last night anmenia transfuse one unit prbcs and alb spa with lasix bolus x 2 and see if can mobilize fluid . discussed homegoing issues and he is worried and does not want to take antidepressant . low dose morphine may help while in hosp . consult for palliative care will be needed . consider lasix drip if not able to diurese today better 02/14/19 afebrile/// vss// weight 119 but down 1.5 lbs? i/os show 2200/ 3340 - 1400 cc sinus rythm and psvt episodes self terminating. lungs decreased and no crackles / o2 sats stable on 2.5 liters able to sit in chair cor rr with no s3/s4 jvd edema unchanged abd benign/ eating 100 % neuro mild anxiety skin / multiple i.v insertion attempts / mild bruising / no cellulitis . lab k 3.5 creat 2.0 [place] [address] hgn 10 hct 29. given lasix 160 mg yest. split doses. will start incentive spirometry to treat atelectasis assess refractory hypoxia and chf patient states breathing is better / slowly getting some fluid off but he sounds decreased yet and is on prednisone 20 mg day will cont higher dose lasix and follow up on response and bnp anemia continues renal insuff copd severe with cor pulm. diabetes improved obesity standing and sitting in recliner more boh Functional Status: Reports: Pain Controlled - Review of Systems General: Reports: No Symptoms HEENT: Reports: No Symptoms Pulmonary: Reports: No Symptoms, Wheezing Cardiovascular: Reports: No Symptoms Gastrointestinal: Reports: No Symptoms Genitourinary: Reports: No Symptoms Musculoskeletal: Reports: No Symptoms, Shoulder Pain, Arm Pain, Hand Pain, Back Pain Skin: Reports: No Symptoms Neurological: Reports: No Symptoms Psychiatric: Reports: No Symptoms, Anxiety - Patient Data Vitals - Most Recent: Last Vital Signs Temp 36.5 C 02/14/19 08:44 Pulse 74 02/14/19 08:59 Resp 20 02/14/19 08:44 BP 122/48 L 02/14/19 12:16 Pulse Ox 95 02/14/19 08:44 Weight - Most Recent: 119.295 kg I&O - Last 24 Hours: Intake & Output 02/13/19 02/14/19 02/14/19 22:59 06:59 14:59 Intake Total 1010 400 360 Output Total 1720 1950 Balance -710 -1550 360 Lab Results Last 24 Hours: Laboratory Results - last 24 hr 02/13/19 02/13/19 02/13/19 Range/Units 07:10 17:24 21:30 WBC (4.23-9.07) K/mm3 RBC (4.63-6.08) M/mm3 Hgb (13.7-17.5) gm/L Hct (40.1-51.0) % MCV (79.0-92.2) fl MCH (25.7-32.2) pg MCHC (32.2-35.5) g/dl RDW Std Deviation (35.1-43.9) fL Plt Count (163-337) K/mm3 MPV (9.4-12.3) fl Neut % (Auto) (34.0-67.9) % Lymph % (Auto) (21.8-53.1) % [place] % (Auto) (5.3-12.2) % Eos % (Auto) (0.8-7.0) Baso % (Auto) (0.1-1.2) % Neut # (Auto) (1.78-5.38) K/mm3 Lymph # (Auto) (1.32-3.57) K/mm3 [place] # (Auto) (0.30-0.82) K/mm3 Eos # (Auto) (0.04-0.54) K/mm3 Baso # (Auto) (0.01-0.08) K/mm3 Sodium (136-145) mEq/L Potassium (3.5-5.1) mEq/L Chloride (98-107) mEq/L Carbon Dioxide (21-32) mEq/L Anion Gap (5-15) BUN (7-18) mg/dL Creatinine (0.7-1.3) mg/dL Est Cr Clr Drug Dosing mL/min Estimated GFR (MDRD) (>60) mL/min BUN/Creatinine Ratio (14-18) Glucose (83-115) mg/dL POC Glucose 178 H 269 H (83-110) mg/dL Calcium (8.5-10.1) mg/dL Magnesium (1.8-2.4) mg/dl Total Bilirubin (0.2-1.0) mg/dL AST (15-37) U/L ALT (16-63) U/L Alkaline Phosphatase (46-116) U/L NT-Pro-B Natriuret Pep (0-450) pg/mL Total Protein (6.4-8.2) g/dl Albumin (3.4-5.0) g/dl Globulin gm/dL Albumin/Globulin Ratio (1-2) Blood Type A POSITIVE Gel Antibody Screen Negative Crossmatch See Detail 02/14/19 02/14/19 02/14/19 Range/Units 06:44 06:55 06:55 WBC 9.07 (4.23-9.07) K/mm3 RBC 3.35 L (4.63-6.08) M/mm3 Hgb 10.0 L (13.7-17.5) gm/L Hct 31.6 L (40.1-51.0) % MCV 94.3 H (79.0-92.2) fl MCH 29.9 (25.7-32.2) pg MCHC 31.6 L (32.2-35.5) g/dl RDW Std Deviation 59.3 H (35.1-43.9) fL Plt Count 237 (163-337) K/mm3 MPV 10.7 (9.4-12.3) fl Neut % (Auto) 75.4 H (34.0-67.9) % Lymph % (Auto) 13.5 L (21.8-53.1) % [place] % (Auto) 10.3 (5.3-12.2) % Eos % (Auto) 0.4 L (0.8-7.0) Baso % (Auto) 0.2 (0.1-1.2) % Neut # (Auto) 6.84 H (1.78-5.38) K/mm3 Lymph # (Auto) 1.22 L (1.32-3.57) K/mm3 [place] # (Auto) 0.93 H (0.30-0.82) K/mm3 Eos # (Auto) 0.04 (0.04-0.54) K/mm3 Baso # (Auto) 0.02 (0.01-0.08) K/mm3 Sodium 144 (136-145) mEq/L Potassium 3.5 (3.5-5.1) mEq/L Chloride 105 (98-107) mEq/L Carbon Dioxide 29 (21-32) mEq/L Anion Gap 13.5 (5-15) BUN 46 H (7-18) mg/dL Creatinine 2.0 H (0.7-1.3) mg/dL Est Cr Clr Drug Dosing 21.38 mL/min Estimated GFR (MDRD) 32 (>60) mL/min BUN/Creatinine Ratio 23.0 H (14-18) Glucose 91 (83-115) mg/dL POC Glucose 96 (83-110) mg/dL Calcium 8.9 (8.5-10.1) mg/dL Magnesium 2.4 (1.8-2.4) mg/dl Total Bilirubin 0.7 (0.2-1.0) mg/dL AST 9 L (15-37) U/L ALT 16 (16-63) U/L Alkaline Phosphatase 70 (46-116) U/L NT-Pro-B Natriuret Pep (0-450) pg/mL Total Protein 6.3 L (6.4-8.2) g/dl Albumin 3.0 L (3.4-5.0) g/dl Globulin 3.3 gm/dL Albumin/Globulin Ratio 0.9 L (1-2) Blood Type Gel Antibody Screen Crossmatch 02/14/19 02/14/19 Range/Units 06:55 11:07 WBC (4.23-9.07) K/mm3 RBC (4.63-6.08) M/mm3 Hgb (13.7-17.5) gm/L Hct (40.1-51.0) % MCV (79.0-92.2) fl MCH (25.7-32.2) pg MCHC (32.2-35.5) g/dl RDW Std Deviation (35.1-43.9) fL Plt Count (163-337) K/mm3 MPV (9.4-12.3) fl Neut % (Auto) (34.0-67.9) % Lymph % (Auto) (21.8-53.1) % [place] % (Auto) (5.3-12.2) % Eos % (Auto) (0.8-7.0) Baso % (Auto) (0.1-1.2) % Neut # (Auto) (1.78-5.38) K/mm3 Lymph # (Auto) (1.32-3.57) K/mm3 [place] # (Auto) (0.30-0.82) K/mm3 Eos # (Auto) (0.04-0.54) K/mm3 Baso # (Auto) (0.01-0.08) K/mm3 Sodium (136-145) mEq/L Potassium (3.5-5.1) mEq/L Chloride (98-107) mEq/L Carbon Dioxide (21-32) mEq/L Anion Gap (5-15) BUN (7-18) mg/dL Creatinine (0.7-1.3) mg/dL Est Cr Clr Drug Dosing mL/min Estimated GFR (MDRD) (>60) mL/min BUN/Creatinine Ratio (14-18) Glucose (83-115) mg/dL POC Glucose 146 H (83-110) mg/dL Calcium (8.5-10.1) mg/dL Magnesium (1.8-2.4) mg/dl Total Bilirubin (0.2-1.0) mg/dL AST (15-37) U/L ALT (16-63) U/L Alkaline Phosphatase (46-116) U/L NT-Pro-B Natriuret Pep 92078 H (0-450) pg/mL Total Protein (6.4-8.2) g/dl Albumin (3.4-5.0) g/dl Globulin gm/dL Albumin/Globulin Ratio (1-2) Blood Type Gel Antibody Screen Crossmatch Med Orders - Current: Current Medications Acetaminophen (Tylenol) 650 mg PO Q4H PRN PRN Reason: Pain (Mild 1-3)/fever Albuterol (Proventil Neb Soln) 2.5 mg NEB Q2H PRN PRN Reason: Shortness Of Breath/wheezing Last Admin: 02/13/19 00:58 Dose: 2.5 mg Albuterol/Ipratropium (Duoneb 3.0-0.5 Mg/3 Ml) 3 ml NEB Q6HRRT [facility] Last Admin: 02/14/19 08:20 Dose: 3 ml Allopurinol (Zyloprim) 150 mg PO DAILY [facility] Last Admin: 02/14/19 09:00 Dose: 150 mg Aspirin (Halfprin) 81 mg PO DAILY [facility] Last Admin: 02/14/19 09:00 Dose: 81 mg Carvedilol (Coreg) 6.25 mg PO BID [facility] Last Admin: 02/14/19 08:59 Dose: 6.25 mg Enoxaparin Sodium (Lovenox) 30 mg SUBCUT DAILY [facility] Last Admin: 02/14/19 09:01 Dose: 30 mg Finasteride (Proscar) 5 mg PO DAILY [facility] Last Admin: 02/14/19 08:59 Dose: 5 mg Fluoxetine HCl (Prozac) 20 mg PO DAILY [facility] Last Admin: 02/14/19 08:59 Dose: 20 mg Hydralazine HCl (Apresoline) 10 mg PO TID [facility] Last Admin: 02/14/19 09:01 Dose: 10 mg Insulin Glargine (Lantus) 34 unit SUBCUT DAILY [facility] Last Admin: 02/14/19 09:00 Dose: 34 units Insulin Glargine (Lantus) 40 unit SUBCUT BEDTIME [facility] Last Admin: 02/13/19 22:03 Dose: 40 units Insulin Human Lispro (Humalog) 0 unit SUBCUT QIDACANDBED [facility]; Protocol Last Admin: 02/14/19 12:17 Dose: Not Given Isosorbide Dinitrate (Isordil) 10 mg PO Q6HR [facility] Last Admin: 02/14/19 12:13 Dose: 10 mg Levothyroxine Sodium (Levothyroxine) 75 mcg PO ACBREAKFAST [facility] Last Admin: 02/14/19 05:03 Dose: 75 mcg Mometasone Furoate/Formoterol Fumar (Dulera 200-5 Mcg) 0 puff IH BID [facility] Last Admin: 02/14/19 08:20 Dose: 2 puff Ondansetron HCl (Zofran Odt) 4 mg PO Q4H PRN PRN Reason: nausea, able to take PO Ondansetron HCl (Zofran) 4 mg IV Q4H PRN PRN Reason: Nausea/Vomiting Pantoprazole Sodium (Protonix) 40 mg PO ACBREAKFAST [facility] Last Admin: 02/14/19 05:03 Dose: 40 mg Prednisone (Prednisone) 20 mg PO Q24H [facility] Last Admin: 02/14/19 08:59 Dose: 20 mg Rosuvastatin Calcium (Crestor) 10 mg PO BEDTIME [facility] Last Admin: 02/13/19 22:03 Dose: 10 mg Sodium Chloride (Saline Flush) 10 ml FLUSH ASDIRECTED PRN PRN Reason: Keep Vein Open Last Admin: 02/11/19 17:47 Dose: 10 ml Tamsulosin HCl (Flomax) 0.4 mg PO BEDTIME [facility] Last Admin: 02/13/19 22:03 Dose: 0.4 mg Discontinued Medications Albuterol/Ipratropium (Duoneb 3.0-0.5 Mg/3 Ml) 3 ml NEB ONETIME ONE Stop: 02/11/19 17:03 Last Admin: 02/11/19 17:09 Dose: 3 ml Furosemide (Lasix) 80 mg IVPUSH NOW ONE Stop: 02/11/19 17:04 Last Admin: 02/11/19 17:46 Dose: 80 mg Furosemide (Lasix) 100 mg PO ONETIME ONE Stop: 02/11/19 20:56 Last Admin: 02/11/19 21:21 Dose: 100 mg Furosemide (Lasix) 80 mg IVPUSH NOW ONE Stop: 02/12/19 09:11 Last Admin: 02/12/19 09:29 Dose: 80 mg Furosemide (Lasix) 80 mg IVPUSH ONETIME [facility] Stop: 02/13/19 15:00 Furosemide (Lasix) 80 mg IVPUSH ONETIME ONE Stop: 02/13/19 20:01 Last Admin: 02/13/19 20:21 Dose: 80 mg Furosemide 80 mg/ Albumin (Human) 12.5 gm in 58 mls @ 116 mls/hr IV ONETIME ONE Stop: 02/13/19 10:59 Last Admin: 02/13/19 10:52 Dose: 116 mls/hr Sodium Chloride (Normal Saline) Confirm Administered Dose 250 mls @ as directed .ROUTE .STK-MED ONE Stop: 02/13/19 13:22 Last Admin: 02/13/19 17:31 Dose: Not Given Sodium Chloride (Normal Saline) 250 mls @ 100 mls/hr IV ASDIRECTED [facility] Last Admin: 02/13/19 17:31 Dose: 100 mls/hr Insulin Human Lispro (Humalog) 0 unit SUBCUT QIDACANDBED [facility]; Protocol Last Admin: 02/13/19 08:32 Dose: 8 units Methylprednisolone Sodium Succinate (Solu-Medrol) 125 mg IVPUSH ONETIME ONE Stop: 02/11/19 17:03 Last Admin: 02/11/19 17:46 Dose: 125 mg Prednisone (Prednisone) 20 mg PO WITHBREAKFAST [facility] Stop: 02/17/19 07:01 Last Admin: 02/13/19 08:35 Dose: 20 mg Prednisone (Prednisone) 20 mg PO ONETIME ONE Stop: 02/12/19 14:00 Last Admin: 02/12/19 15:49 Dose: 20 mg Spironolactone (Aldactone) 50 mg PO DAILY [facility] Spironolactone (Aldactone) 100 mg PO ONETIME ONE Stop: 02/13/19 09:05 Last Admin: 02/13/19 10:39 Dose: 100 mg - Exam Quality Assessment: Supplemental Oxygen, DVT Prophylaxis General: Alert, Oriented HEENT: Pupils Equal, Pupils Reactive, EOMI, Mucous Membr. Moist/[place] Neck: Supple Lungs: Clear to Auscultation, Normal Respiratory Effort Cardiovascular: Regular Rate, Regular Rhythm GI/Abdominal Exam: Normal Bowel Sounds, Soft, Non-Tender, No Organomegaly, No Distention, No Abnormal Bruit, No Mass, Pelvis Stable (Male) Exam: No Hernia, Normal Inspection, Normal Prostate, Circumcised Back Exam: Normal Inspection, Full Range of Motion Extremities: Normal Inspection, Normal Range of Motion, Non-Tender, No Pedal Edema, Normal Capillary Refill Skin: Warm, Dry, Intact Wound/Incisions: Healing Well Neurological: No New Focal Deficit Psy/Mental Status: Alert, Normal Affect, Normal Mood - Problem List & Annotations (1) Acute exacerbation of CHF (congestive heart failure) SNOMED Code(s): 348194051, 12166908420246 Code(s): I50.9 - HEART FAILURE, UNSPECIFIED Status: Acute Priority: High Current Visit: Yes Onset Date: 02/11/19 Qualifiers: Heart failure type: combined systolic and diastolic Qualified Code(s): I50.43 - 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) heart failure (2) CKD (chronic kidney disease) stage 4, GFR 15-29 ml/min SNOMED Code(s): 080658698 Code(s): N18.4 - CHRONIC KIDNEY DISEASE, STAGE 4 (SEVERE) Status: Acute Priority: High Current Visit: Yes Onset Date: 02/11/19 Annotation/Comment: : slowly imroved urine output with higher doses lasix (3) COPD (chronic obstructive pulmonary disease) SNOMED Code(s): 35590537 Code(s): J44.9 - CHRONIC OBSTRUCTIVE PULMONARY DISEASE, UNSPECIFIED Status : Acute Priority: High Current Visit: Yes Onset Date: 02/11/19 Qualifiers: COPD type: unspecified COPD Qualified Code(s): J44.9 - Chronic obstructive pulmonary disease, unspecified Annotation/Comment:: on low dose steriods and breathing some improved but still bed not ambulating (4) Abdominal pain SNOMED Code(s): 37870737 Code(s): R10.9 - UNSPECIFIED ABDOMINAL PAIN Status: Acute Priority: High Current Visit: No Qualifiers: Abdominal location: right upper quadrant Qualified Code(s): R10.11 - Right upper quadrant pain - Problem List Review Problem List Initiated/Reviewed/Updated: Yes - My Orders Last 24 Hours: My Active Orders 02/14/19 Breakfast Fluid Restriction [DIET] cont lasix 80 mg bid. trial of incenttive spirometry cont current nebs increase k sec to k 3.5 cont other meds . - Assessment Assessment:: day 2 assess unchanged resp deterioration chf responding poorly to lasix add nitrate today but note narrow pulse pressure. last night . hyopotensive and held alpha and beta ezekiel pm dose decreased steriods as it appears to be primarly chf. bnp unchanged and weight unchanged crf stable anemia check iron and b12 and folate bone marrow looks normal by smear but increased mcv noted.echo report reviewed and a little out proportion to e.f suspect chronic renal insuff and deconditioning and co morbidities adding to difficulties and high readmission rate discussed home going and he needs palliative care referral day 3 see progress note for details virtually unchanged and discussed with team and patient and will try blood trans. to increase oncotic pressure and double lasix dose / add spironolactone reassess comfort measures . may benefit form a little morphine prn anxiety and acuña repeat labs in am note bnp not improved but i liter to negative yest day 4 vss - Plan Plan:: lasix 80 mg i.v this am decreased steriods to prednisone 20 mg day x 5 days then off cont nebs correct bs. home going discussion with family and patient . he has alot of assistance and yet is highly likely to be refractory in treatment of chf consider nitrates alpha blockers and dig. all high risk meds discussed with team 02/13/19 double lasix / transfuse one liter blood with spa 50 cc to increase oncotic pressure and help diurese and help o2 carrying . morphine low dose may help anxiety pallitive care consult 02/14/19 kcl 20 meq po bid x 4 doses lasix 80 mg iv am and pm cont daily prednisone day 2/ suspect will need taper after his 5 days cont o2 and nebs incentive spirometry
[2019-02-14] MEDS ORDERED: Furosemide 40 MG/4 ML VIAL IVPUSH ONE ×3 (14:11→20:00)
[2019-02-14] MEDS: Potassium Chloride 20 MEQ Tab.ER PO SCH ×2 (16:04→21:30)
[2019-02-14] MEDS: Rosuvastatin 10 MG Tab PO SCH (21:30)
[2019-02-14] MEDS: Tamsulosin 0.4 MG Cap.ER PO SCH (21:31)
[2019-02-15] MEDS: Albuterol/Ipratropium 3.0-0.5 MG/3 ML Neb Soln NEB SCH ×4 (02:59→20:50)
[2019-02-15] MEDS: Isosorbide Dinitrate 10 MG Tab PO SCH ×3 (06:40→17:23)
[2019-02-15] MEDS: Pantoprazole 40 MG Tab.CR PO SCH (06:40)
[2019-02-15] MEDS: Levothyroxine 75 MCG Tab PO SCH (06:40)
[2019-02-15] MEDS ORDERED: Magnesium Hydroxide 400 MG/5 ML Susp 30 ML Cup PO ONE (07:00)
[2019-02-15] MEDS: Insulin Lispro 100 Units/ML 3 ML Vial SUBCUT SCH ×4 (07:51→21:40)
[2019-02-15] MEDS: Finasteride 5 MG Tab PO SCH (08:54)
[2019-02-15] MEDS: hydrALAZINE 10 MG Tab PO SCH ×3 (08:55→21:42)
[2019-02-15] MEDS: Carvedilol 6.25 MG Tab PO SCH ×2 (08:55→21:43)
[2019-02-15] MEDS: Potassium Chloride 20 MEQ Tab.ER PO SCH ×2 (08:55→21:43)
[2019-02-15] MEDS: Aspirin 81 MG Tab.EC PO SCH (08:55)
[2019-02-15] MEDS: Allopurinol 300 MG Tab PO SCH (08:55)
[2019-02-15] MEDS: Insulin Glarg,Human.Rec.Analog 100 UNIT/ML ML SUBCUT SCH ×2 (08:56→21:40)
[2019-02-15] MEDS: FLUoxetine 20 MG Cap PO SCH (08:56)
[2019-02-15] MEDS: predniSONE 20 MG Tab PO SCH (08:56)
[2019-02-15] MEDS: Enoxaparin 30 MG/0.3 ML Syringe SUBCUT SCH (08:56)
[2019-02-15] MEDS ORDERED: Furosemide 40 MG/4 ML VIAL IVPUSH ONE ×2 (09:31→15:30)
[2019-02-15] MEDS: Formoterol/Mometasone 200-5 MCG 8.8 GM Inhaler IH SCH ×2 (10:41→20:50)
--- NOTE | 2019-02-15 12:25 | PCM.PN ---
- General Info Date of Service: 02/15/19 Admission Dx/Problem (Free Text): admitted with acute chf and copd causing acute acuña and resp distress. trop normal and pvcs seen but no arrythmia started on iv lasix and steriods and nebs i/os 600/580 weight 119 kg. chest xray shows increased pulm. vasc. and enlarged heart probnp 7900 hgn 9.7 rpeat bnp this am little higher nebs q 4 hours with noticeable stabilization over night abg 7.45 po2 78/ pco2 45 on 4 liters n.c still feels tight this am bs increased to 350 despite sliding scale insulin . denies angina at home and is very compliant with meds and is 2.5 liters o2 continuous . lungs clear but decreased and fair air exchange this am . last echo sept reviewed mild hypokinesis inferior. e.f 50 % dialated rt and left atrium . meds reviewed in detail follows low sodium and fluid restriction and compliant with meds admits getting difficult despite neighbors and son a nd home health through [facility] assessment reviewed with team plan reviewed with team cont diuresis attempt and modify meds daily . cont 02 ad current diet and fluid restrictions and wean steriods correct bs. 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 check iron levels 02/13/19 doing poorly overall . acuña and sob little changed / dry cough and sleeping upright with stable sats on 2.5 l n.c. heart rate stable and no c/o pain but anxious . vss hr 80s /rr 20-28 i/os 2930/1930 minus i liter lungs clear and decreased few insp crackles occ wheeze cor rrr abd benign ext 2 plus edema weight unchanged 119 kg lab slight increase bun and creat to 1.9 bs high 200-347 and on sliding scale high dose and will recheck as off soluedrol and on prednisone 20 mg day hgn 9.1 and alb low 2.3 eating well arthritis unchanged assess chf refractory start spironolactone and cont other meds hypotension held alpha ezekiel and beta ezekiel last night anmenia transfuse one unit prbcs and alb spa with lasix bolus x 2 and see if can mobilize fluid . discussed homegoing issues and he is worried and does not want to take antidepressant . low dose morphine may help while in hosp . consult for palliative care will be needed . consider lasix drip if not able to diurese today better 02/14/19 afebrile/// vss// weight 119 but down 1.5 lbs? i/os show 2200/ 3340 - 1400 cc sinus rythm and psvt episodes self terminating. lungs decreased and no crackles / o2 sats stable on 2.5 liters able to sit in chair cor rr with no s3/s4 jvd edema unchanged abd benign/ eating 100 % neuro mild anxiety skin / multiple i.v insertion attempts / mild bruising / no cellulitis . lab k 3.5 [place] 2.0 [place] [address] hgn 10 hct 29. given lasix 160 mg yest. split doses. will start incentive spirometry to treat atelectasis assess refractory hypoxia and chf patient states breathing is better / slowly getting some fluid off but he sounds decreased yet and is on prednisone 20 mg day will cont higher dose lasix and follow up on response and bnp anemia continues renal insuff copd severe with cor pulm. diabetes improved obesity standing and sitting in recliner more boh Subjective Update: patient continued slow improvement. Had a 4 pound weight loss overnight. He states that his breathing is better but not yet at baseline. Also he is not at his baseline weight. He is on 2.5 L/m of nasal cannula which is his baseline at home. Functional Status: Reports: Pain Controlled - Review of Systems General: Reports: Weakness HEENT: Reports: No Symptoms Pulmonary: Reports: Shortness of Breath Cardiovascular: Reports: Dyspnea on Exertion, Orthopnea, Edema. Denies: Chest Pain Gastrointestinal: Reports: No Symptoms - Patient Data Vitals - Most Recent: Last Vital Signs Temp 97.0 F 02/15/19 08:53 Pulse 64 02/15/19 08:55 Resp 22 H 02/15/19 08:53 BP 126/34 L 02/15/19 11:52 Pulse Ox 99 02/15/19 10:43 Weight - Most Recent: 259 lb 6.4 oz I&O - Last 24 Hours: Intake & Output 02/14/19 02/15/19 02/15/19 22:59 06:59 14:59 Intake Total 630 350 300 Output Total 1500 2800 Balance -870 -2450 300 Lab Results Last 24 Hours: Laboratory Results - last 24 hr 02/14/19 02/14/19 02/15/19 Range/Units 16:38 21:28 06:36 WBC (4.23-9.07) K/mm3 RBC (4.63-6.08) M/mm3 Hgb (13.7-17.5) gm/L Hct (40.1-51.0) % MCV (79.0-92.2) fl MCH (25.7-32.2) pg MCHC (32.2-35.5) g/dl RDW Std Deviation (35.1-43.9) fL Plt Count (163-337) K/mm3 MPV (9.4-12.3) fl Neut % (Auto) (34.0-67.9) % Lymph % (Auto) (21.8-53.1) % Kinney % (Auto) (5.3-12.2) % Eos % (Auto) (0.8-7.0) Baso % (Auto) (0.1-1.2) % Neut # (Auto) (1.78-5.38) K/mm3 Lymph # (Auto) (1.32-3.57) K/mm3 Kinney # (Auto) (0.30-0.82) K/mm3 Eos # (Auto) (0.04-0.54) K/mm3 Baso # (Auto) (0.01-0.08) K/mm3 Manual Slide Review Sodium (136-145) mEq/L Potassium (3.5-5.1) mEq/L Chloride (98-107) mEq/L Carbon Dioxide (21-32) mEq/L Anion Gap (5-15) BUN (7-18) mg/dL Creatinine (0.7-1.3) mg/dL Est Cr Clr Drug Dosing mL/min Estimated GFR (MDRD) (>60) mL/min BUN/Creatinine Ratio (14-18) Glucose (83-115) mg/dL POC Glucose 274 H 317 H 88 (83-110) mg/dL Calcium (8.5-10.1) mg/dL Magnesium (1.8-2.4) mg/dl Total Bilirubin (0.2-1.0) mg/dL AST (15-37) U/L ALT (16-63) U/L Alkaline Phosphatase (46-116) U/L NT-Pro-B Natriuret Pep (0-450) pg/mL Total Protein (6.4-8.2) g/dl Albumin (3.4-5.0) g/dl Globulin gm/dL Albumin/Globulin Ratio (1-2) 02/15/19 02/15/19 02/15/19 Range/Units 08:06 08:06 08:06 WBC 7.47 (4.23-9.07) K/mm3 RBC 3.56 L (4.63-6.08) M/mm3 Hgb 10.5 L (13.7-17.5) gm/L Hct 33.8 L (40.1-51.0) % MCV 94.9 H (79.0-92.2) fl MCH 29.5 (25.7-32.2) pg MCHC 31.1 L (32.2-35.5) g/dl RDW Std Deviation 57.5 H (35.1-43.9) fL Plt Count 272 (163-337) K/mm3 MPV 10.6 (9.4-12.3) fl Neut % (Auto) 69.2 H (34.0-67.9) % Lymph % (Auto) 18.9 L (21.8-53.1) % Kinney % (Auto) 9.9 (5.3-12.2) % Eos % (Auto) 1.2 (0.8-7.0) Baso % (Auto) 0.5 (0.1-1.2) % Neut # (Auto) 5.17 (1.78-5.38) K/mm3 Lymph # (Auto) 1.41 (1.32-3.57) K/mm3 Kinney # (Auto) 0.74 (0.30-0.82) K/mm3 Eos # (Auto) 0.09 (0.04-0.54) K/mm3 Baso # (Auto) 0.04 (0.01-0.08) K/mm3 Manual Slide Review Abnormal smear Sodium 144 (136-145) mEq/L Potassium 3.6 (3.5-5.1) mEq/L Chloride 106 (98-107) mEq/L Carbon Dioxide 31 (21-32) mEq/L Anion Gap 10.6 (5-15) BUN 48 H (7-18) mg/dL Creatinine 2.0 H (0.7-1.3) mg/dL Est Cr Clr Drug Dosing 21.38 mL/min Estimated GFR (MDRD) 32 (>60) mL/min BUN/Creatinine Ratio 24.0 H (14-18) Glucose 92 (83-115) mg/dL POC Glucose (83-110) mg/dL Calcium 9.2 (8.5-10.1) mg/dL Magnesium 2.6 H (1.8-2.4) mg/dl Total Bilirubin 0.5 (0.2-1.0) mg/dL AST 7 L (15-37) U/L ALT 16 (16-63) U/L Alkaline Phosphatase 72 (46-116) U/L NT-Pro-B Natriuret Pep 86618 H (0-450) pg/mL Total Protein 6.6 (6.4-8.2) g/dl Albumin 3.0 L (3.4-5.0) g/dl Globulin 3.6 gm/dL Albumin/Globulin Ratio 0.8 L (1-2) 02/15/19 Range/Units 11:34 WBC (4.23-9.07) K/mm3 RBC (4.63-6.08) M/mm3 Hgb (13.7-17.5) gm/L Hct (40.1-51.0) % MCV (79.0-92.2) fl MCH (25.7-32.2) pg MCHC (32.2-35.5) g/dl RDW Std Deviation (35.1-43.9) fL Plt Count (163-337) K/mm3 MPV (9.4-12.3) fl Neut % (Auto) (34.0-67.9) % Lymph % (Auto) (21.8-53.1) % Kinney % (Auto) (5.3-12.2) % Eos % (Auto) (0.8-7.0) Baso % (Auto) (0.1-1.2) % Neut # (Auto) (1.78-5.38) K/mm3 Lymph # (Auto) (1.32-3.57) K/mm3 Kinney # (Auto) (0.30-0.82) K/mm3 Eos # (Auto) (0.04-0.54) K/mm3 Baso # (Auto) (0.01-0.08) K/mm3 Manual Slide Review Sodium (136-145) mEq/L Potassium (3.5-5.1) mEq/L Chloride (98-107) mEq/L Carbon Dioxide (21-32) mEq/L Anion Gap (5-15) BUN (7-18) mg/dL Creatinine (0.7-1.3) mg/dL Est Cr Clr Drug Dosing mL/min Estimated GFR (MDRD) (>60) mL/min BUN/Creatinine Ratio (14-18) Glucose (83-115) mg/dL POC Glucose 164 H (83-110) mg/dL Calcium (8.5-10.1) mg/dL Magnesium (1.8-2.4) mg/dl Total Bilirubin (0.2-1.0) mg/dL AST (15-37) U/L ALT (16-63) U/L Alkaline Phosphatase (46-116) U/L NT-Pro-B Natriuret Pep (0-450) pg/mL Total Protein (6.4-8.2) g/dl Albumin (3.4-5.0) g/dl Globulin gm/dL Albumin/Globulin Ratio (1-2) Med Orders - Current: Current Medications Acetaminophen (Tylenol) 650 mg PO Q4H PRN PRN Reason: Pain (Mild 1-3)/fever Albuterol (Proventil Neb Soln) 2.5 mg NEB Q2H PRN PRN Reason: Shortness Of Breath/wheezing Last Admin: 02/13/19 00:58 Dose: 2.5 mg Albuterol/Ipratropium (Duoneb 3.0-0.5 Mg/3 Ml) 3 ml NEB Q6HRRT [facility] Last Admin: 02/15/19 10:41 Dose: 3 ml Allopurinol (Zyloprim) 150 mg PO DAILY [facility] Last Admin: 02/15/19 08:55 Dose: 150 mg Aspirin (Halfprin) 81 mg PO DAILY [facility] Last Admin: 02/15/19 08:55 Dose: 81 mg Carvedilol (Coreg) 6.25 mg PO BID [facility] Last Admin: 02/15/19 08:55 Dose: 6.25 mg Enoxaparin Sodium (Lovenox) 30 mg SUBCUT DAILY [facility] Last Admin: 02/15/19 08:56 Dose: 30 mg Finasteride (Proscar) 5 mg PO DAILY [facility] Last Admin: 02/15/19 08:54 Dose: 5 mg Fluoxetine HCl (Prozac) 20 mg PO DAILY [facility] Last Admin: 02/15/19 08:56 Dose: 20 mg Furosemide (Lasix) 80 mg IVPUSH DAILY@1530 ONE Stop: 02/15/19 15:31 Hydralazine HCl (Apresoline) 10 mg PO TID [facility] Last Admin: 02/15/19 08:55 Dose: 10 mg Insulin Glargine (Lantus) 34 unit SUBCUT DAILY [facility] Last Admin: 02/15/19 08:56 Dose: 34 units Insulin Glargine (Lantus) 40 unit SUBCUT BEDTIME [facility] Last Admin: 02/14/19 21:31 Dose: 40 units Insulin Human Lispro (Humalog) 0 unit SUBCUT QIDACANDBED [facility]; Protocol Last Admin: 02/15/19 11:51 Dose: 3 units Isosorbide Dinitrate (Isordil) 10 mg PO Q6HR [facility] Last Admin: 02/15/19 11:52 Dose: 10 mg Levothyroxine Sodium (Levothyroxine) 75 mcg PO ACBREAKFAST [facility] Last Admin: 02/15/19 06:40 Dose: 75 mcg Mometasone Furoate/Formoterol Fumar (Dulera 200-5 Mcg) 0 puff IH BID [facility] Last Admin: 02/15/19 10:41 Dose: 2 puff Ondansetron HCl (Zofran Odt) 4 mg PO Q4H PRN PRN Reason: nausea, able to take PO Ondansetron HCl (Zofran) 4 mg IV Q4H PRN PRN Reason: Nausea/Vomiting Pantoprazole Sodium (Protonix) 40 mg PO ACBREAKFAST [facility] Last Admin: 02/15/19 06:40 Dose: 40 mg Potassium Chloride (Klor-Con M20) 20 meq PO BID [facility] Last Admin: 02/15/19 08:55 Dose: 20 meq Prednisone (Prednisone) 20 mg PO Q24H [facility] Last Admin: 02/15/19 08:56 Dose: 20 mg Rosuvastatin Calcium (Crestor) 10 mg PO BEDTIME [facility] Last Admin: 02/14/19 21:30 Dose: 10 mg Sodium Chloride (Saline Flush) 10 ml FLUSH ASDIRECTED PRN PRN Reason: Keep Vein Open Last Admin: 02/11/19 17:47 Dose: 10 ml Tamsulosin HCl (Flomax) 0.4 mg PO BEDTIME [facility] Last Admin: 02/14/19 21:31 Dose: 0.4 mg Discontinued Medications Albuterol/Ipratropium (Duoneb 3.0-0.5 Mg/3 Ml) 3 ml NEB ONETIME ONE Stop: 02/11/19 17:03 Last Admin: 02/11/19 17:09 Dose: 3 ml Furosemide (Lasix) 80 mg IVPUSH NOW ONE Stop: 02/11/19 17:04 Last Admin: 02/11/19 17:46 Dose: 80 mg Furosemide (Lasix) 100 mg PO ONETIME ONE Stop: 02/11/19 20:56 Last Admin: 02/11/19 21:21 Dose: 100 mg Furosemide (Lasix) 80 mg IVPUSH NOW ONE Stop: 02/12/19 09:11 Last Admin: 02/12/19 09:29 Dose: 80 mg Furosemide (Lasix) 80 mg IVPUSH ONETIME [place] Stop: 02/13/19 15:00 Furosemide (Lasix) 80 mg IVPUSH ONETIME ONE Stop: 02/13/19 20:01 Last Admin: 02/13/19 20:21 Dose: 80 mg Furosemide (Lasix) 80 mg IVPUSH NOW ONE Stop: 02/14/19 14:12 Last Admin: 02/14/19 14:29 Dose: Not Given Furosemide (Lasix) 80 mg IVPUSH ONETIME ONE Stop: 02/14/19 14:15 Last Admin: 02/14/19 15:00 Dose: 80 mg Furosemide (Lasix) 80 mg IVPUSH ONETIME ONE Stop: 02/14/19 20:01 Last Admin: 02/14/19 20:08 Dose: 80 mg Furosemide (Lasix) 80 mg IVPUSH NOW ONE Stop: 02/15/19 09:32 Last Admin: 02/15/19 09:59 Dose: 80 mg Furosemide 80 mg/ Albumin (Human) 12.5 gm in 58 mls @ 116 mls/hr IV ONETIME ONE Stop: 02/13/19 10:59 Last Admin: 02/13/19 10:52 Dose: 116 mls/hr Sodium Chloride (Normal Saline) Confirm Administered Dose 250 mls @ as directed .ROUTE .STK-MED ONE Stop: 02/13/19 13:22 Last Admin: 02/13/19 17:31 Dose: Not Given Sodium Chloride (Normal Saline) 250 mls @ 100 mls/hr IV ASDIRECTED [facility] Last Admin: 02/13/19 17:31 Dose: 100 mls/hr Insulin Human Lispro (Humalog) 0 unit SUBCUT QIDACANDBED [facility]; Protocol Last Admin: 02/13/19 08:32 Dose: 8 units Magnesium Hydroxide (Milk Of Magnesia) 30 ml PO ONETIME ONE Stop: 02/15/19 07:01 Last Admin: 02/15/19 06:39 Dose: 30 ml Methylprednisolone Sodium Succinate (Solu-Medrol) 125 mg IVPUSH ONETIME ONE Stop: 02/11/19 17:03 Last Admin: 02/11/19 17:46 Dose: 125 mg Prednisone (Prednisone) 20 mg PO WITHBREAKFAST [facility] Stop: 02/17/19 07:01 Last Admin: 02/13/19 08:35 Dose: 20 mg Prednisone (Prednisone) 20 mg PO ONETIME ONE Stop: 02/12/19 14:00 Last Admin: 02/12/19 15:49 Dose: 20 mg Spironolactone (Aldactone) 50 mg PO DAILY [facility] Spironolactone (Aldactone) 100 mg PO ONETIME ONE Stop: 02/13/19 09:05 Last Admin: 02/13/19 10:39 Dose: 100 mg - Exam Quality Assessment: Supplemental Oxygen General: Alert, Oriented HEENT: Pupils Equal Neck: Supple Lungs: Clear to Auscultation, Normal Respiratory Effort, Decreased Breath Sounds Cardiovascular: Regular Rate, Regular Rhythm GI/Abdominal Exam: Normal Bowel Sounds, Soft, Non-Tender, No Organomegaly, No Distention Extremities: Pedal Edema (3+ pitting edema mid calf) Skin: Warm, Dry, Intact Psy/Mental Status: Alert, Normal Affect, Normal Mood - Problem List & Annotations (1) Acute exacerbation of CHF (congestive heart failure) SNOMED Code(s): 526879313, 18837878828882 Code(s): I50.9 - HEART FAILURE, UNSPECIFIED Status: Acute Priority: High Current Visit: Yes Onset Date: 02/11/19 Qualifiers: Heart failure type: combined systolic and diastolic Qualified Code(s): I50.43 - 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) heart failure (2) CKD (chronic kidney disease) stage 4, GFR 15-29 ml/min SNOMED Code(s): 123399542 Code(s): N18.4 - CHRONIC KIDNEY DISEASE, STAGE 4 (SEVERE) Status: Acute Priority: High Current Visit: Yes Onset Date: 02/11/19 Annotation/Comment: : slowly imroved urine output with higher doses lasix (3) COPD (chronic obstructive pulmonary disease) SNOMED Code(s): 36657920 Code(s): J44.9 - CHRONIC OBSTRUCTIVE PULMONARY DISEASE, UNSPECIFIED Status : Acute Priority: High Current Visit: Yes Onset Date: 02/11/19 Qualifiers: COPD type: unspecified COPD Qualified Code(s): J44.9 - Chronic obstructive pulmonary disease, unspecified Annotation/Comment:: on low dose steriods and breathing some improved but still bed not ambulating - Problem List Review Problem List Initiated/Reviewed/Updated: Yes - My Orders Last 24 Hours: My Active Orders 02/15/19 15:30 Furosemide [Lasix] 80 mg IVPUSH DAILY@1530 ONE - Plan Plan:: lasix 80 mg i.v this am and afternoon stop steriods to prednisone 20 mg cont nebs correct bs. plan for patient to return home continue current medications and planned discharge, length of stay greater than 96 hours secondary to difficulty with diuresis. Patient remains a poor prognosis. CODE STATUS: Full code
[2019-02-15] MEDS: Tamsulosin 0.4 MG Cap.ER PO SCH (21:42)
[2019-02-15] MEDS: Rosuvastatin 10 MG Tab PO SCH (21:44)
[2019-02-16] MEDS: Isosorbide Dinitrate 10 MG Tab PO SCH ×3 (00:48→11:14)
[2019-02-16] MEDS: Albuterol/Ipratropium 3.0-0.5 MG/3 ML Neb Soln NEB SCH ×2 (02:25→08:34)
[2019-02-16] MEDS: Pantoprazole 40 MG Tab.CR PO SCH (06:45)
[2019-02-16] MEDS: Levothyroxine 75 MCG Tab PO SCH (06:45)
[2019-02-16] MEDS: Insulin Lispro 100 Units/ML 3 ML Vial SUBCUT SCH ×2 (06:47→11:10)
[2019-02-16] MEDS: Formoterol/Mometasone 200-5 MCG 8.8 GM Inhaler IH SCH (08:34)
[2019-02-16] MEDS: Potassium Chloride 20 MEQ Tab.ER PO SCH (08:52)
[2019-02-16] MEDS: hydrALAZINE 10 MG Tab PO SCH (08:52)
[2019-02-16] MEDS: Allopurinol 300 MG Tab PO SCH (08:52)
[2019-02-16] MEDS: Finasteride 5 MG Tab PO SCH (08:52)
[2019-02-16] MEDS: Aspirin 81 MG Tab.EC PO SCH (08:52)
[2019-02-16] MEDS: FLUoxetine 20 MG Cap PO SCH (08:52)
[2019-02-16] MEDS: Insulin Glarg,Human.Rec.Analog 100 UNIT/ML ML SUBCUT SCH (08:54)
[2019-02-16] MEDS: Enoxaparin 30 MG/0.3 ML Syringe SUBCUT SCH (09:10)
[2019-02-16] MEDS ORDERED: Furosemide 100 MG/10 ML SDV IVPUSH ONE (09:25)
[2019-02-16] MEDS: Carvedilol 6.25 MG Tab PO SCH (10:06)
[2019-02-16 11:15] VITALS: BP 120/45
--- NOTE | 2019-02-16 11:45 | PCM.DCSUM1 ---
Discharge Summary - Hospital Course HPI Initial Comments: 80-year-old male who was recently discharged from the hospital one month ago returns to the emergency room with a 15 pound weight gain over the last week. Patient states he's also had an increase in shortness of breath. He denies any chest pain. Does have some increased swelling in his legs. Previous hospitalization patient was very resistant to diuretics and had to be put on a Lasix drip, IV hydralazine, and nitroglycerin. Patient was given 81 g of IV Lasix in the emergency room and only voided one time in 4 hours. Patient was initially on 4 L nasal cannula O2 but is down to 2 L on admission. He continues to complain of shortness of breath. Patient has two-pillow orthopnea, PND, and dyspnea on exertion and just a few feet. He is on torsemide 60 mg twice a day at home.patient also has a history of COPD. Brief History: Patient was admitted and switched to IV Lasix. Initially he had very poor response to the IV Lasix. On day 3 he was given 1 unit packed red blood cells and by day 4 he had a significant drop in weight. Renal function did worsen over the hospitalization corresponding with intravascular contraction due to diuresis. Likely, patient initially is loop diuretic resistance secondary to his high-dose torsemide at home. Diagnosis: Stroke: No - Discharge Data Discharge Date: 02/16/19 Discharge Disposition: Home, Self-Care 01 Condition: Poor - Discharge Diagnosis/Problem(s) (1) Acute exacerbation of CHF (congestive heart failure) SNOMED Code(s): 690046473, [id number] ICD Code: I50.9 - HEART FAILURE, UNSPECIFIED Status: Acute Priority: High Current Visit: Yes Onset Date: 02/11/19 Qualifiers: Heart failure type: combined systolic and diastolic Qualified Code(s): I50.43 - 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) heart failure (2) CKD (chronic kidney disease) stage 4, GFR 15-29 ml/min SNOMED Code(s): 301149410 ICD Code: N18.4 - CHRONIC KIDNEY DISEASE, STAGE 4 (SEVERE) Status: Acute Priority: High Current Visit: Yes Onset Date: 02/11/19 Problem Details: slowly imroved urine output with higher doses lasix (3) COPD (chronic obstructive pulmonary disease) SNOMED Code(s): 37459615 ICD Code: J44.9 - CHRONIC OBSTRUCTIVE PULMONARY DISEASE, UNSPECIFIED Status : Acute Priority: High Current Visit: Yes Onset Date: 02/11/19 Problem Details: on low dose steriods and breathing some improved but still bed not ambulating Qualifiers: COPD type: unspecified COPD Qualified Code(s): J44.9 - Chronic obstructive pulmonary disease, unspecified - Patient Summary/Data Consults: Consultations 02/12/19 11:38 OT Evaluation and Treatment [CONS] Routine PT Evaluation and Treatment [CONS] Routine 02/12/19 12:03 Consult to Case Management/Religion Department Chair [CONS] Routine - Patient Instructions Diet: Diabetic Diet Driving: Do Not Drive Showering/Bathing: May Shower Other/Special Instructions: Follow up with PCP this week for a recheck on renal function and CHF. - Discharge Plan *PRESCRIPTION DRUG MONITORING PROGRAM REVIEWED*: Not Applicable *COPY OF PRESCRIPTION DRUG MONITORING REPORT IN PATIENT TIP: Not Applicable Home Medications: Home Meds Allopurinol [Zyloprim] 150 mg PO DAILY 07/02/17 [History] Aspirin [Adult Low Dose Aspirin EC] 81 mg PO DAILY 07/02/17 [History] FLUoxetine HCl [Fluoxetine HCl] 20 mg PO DAILY 07/02/17 [History] Finasteride 5 mg PO DAILY 07/02/17 [History] Insulin Aspart [NovoLOG] See Protocol SUBCUT WITHMEALSANDBED 07/02/17 [History] Pantoprazole Sodium 40 mg PO DAILY 07/02/17 [History] Tamsulosin HCl 0.4 mg PO BEDTIME 07/02/17 [History] Albuterol Sulfate [Proair Respiclick] 1 puff INH Q6H PRN 07/03/17 [History] Levothyroxine Sodium [Synthroid] 75 mcg PO DAILY 07/03/17 [History] Tiotropium [Spiriva HandiHaler] 1 cap INH DAILY 07/03/17 [History] Albuterol/Ipratropium [DuoNeb 3.0-0.5 MG/3 ML] 3 ml NEB Q6HR PRN 05/21/18 [ History] Budesonide/Formoterol [Symbicort 160-4.5 MCG] 2 puff INH BID 05/21/18 [History] Insulin Glarg,Human.Rec.Analog [Lantus Solostar] 40 units SUBCUT BEDTIME [History] Nitroglycerin 0.4 mg PO TID PRN 12/14/18 [History] Sennosides/Docusate Sodium [Docusate Sodium-Senna Tablet] 1 tab PO BID 12/14/18 [History] Ticagrelor [Brilinta] 90 mg PO BID 12/14/18 [History] Torsemide 60 mg PO BID 12/14/18 [History] hydrALAZINE [Apresoline] 10 mg PO TID 12/14/18 [History] atorvaSTATin Calcium [Atorvastatin Calcium] 40 mg PO BEDTIME 01/08/19 [History] Carvedilol [Coreg] 6.25 mg PO BID tablet 01/13/19 [Rx] Oxygen Therapy Mode: Nasal Cannula Oxygen Flow Rate (L/min): 2.5 Patient Handouts: Chronic Obstructive Pulmonary Disease Exacerbation, Easy-to- Read, Home Oxygen Use, Adult, Heart Failure, [id number] Referrals: Carla Smalls MD [Primary Care Provider] - (The [facility] will call you with a date and time for your appoitment. ) - Discharge Summary/Plan Comment DC Time >30 min.: Yes Discharge Summary/Plan Comment: Patient has end-stage congestive heart failure and is likely going to have more episodes of exacerbation. He also is very resistant to loop diuretics, likely secondary to the necessary early high amount of torsemide he is on at home. I had a long discussion with him in regards to his overall prognosis. Patient's overall prognosis is poor. Patient will be discharged with close follow-up with the [facility] to have renal function and cardiac evaluation in the next couple of days. Length of stay was greater than 96 hours because of difficulty with diuresis. - General Info Date of Service: 02/16/19 Admission Dx/Problem (Free Text: admitted with acute chf and copd causing acute acuña and resp distress. trop normal and pvcs seen but no arrythmia started on iv lasix and steriods and nebs i/os 600/580 weight 119 kg. chest xray shows increased pulm. vasc. and enlarged heart probnp 7900 hgn 9.7 rpeat bnp this am little higher nebs q 4 hours with noticeable stabilization over night abg 7.45 po2 78/ pco2 45 on 4 liters n.c still feels tight this am bs increased to 350 despite sliding scale insulin . denies angina at home and is very compliant with meds and is 2.5 liters o2 continuous . lungs clear but decreased and fair air exchange this am . last echo sept reviewed mild hypokinesis inferior. e.f 50 % dialated rt and left atrium . meds reviewed in detail follows low sodium and fluid restriction and compliant with meds admits getting difficult despite neighbors and son a nd home health through [facility] assessment reviewed with team plan reviewed with team cont diuresis attempt and modify meds daily . cont 02 ad current diet and fluid restrictions and wean steriods correct bs. 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 check iron levels 02/13/19 doing poorly overall . acuña and sob little changed / dry cough and sleeping upright with stable sats on 2.5 l n.c. heart rate stable and no c/o pain but anxious . vss hr 80s /rr 20-28 i/os 2930/1930 minus i liter lungs clear and decreased few insp crackles occ wheeze cor rrr abd benign ext 2 plus edema weight unchanged 119 kg lab slight increase bun and creat to 1.9 bs high 200-347 and on sliding scale high dose and will recheck as off soluedrol and on prednisone 20 mg day hgn 9.1 and alb low 2.3 eating well arthritis unchanged assess chf refractory start spironolactone and cont other meds hypotension held alpha ezekiel and beta ezekiel last night anmenia transfuse one unit prbcs and alb spa with lasix bolus x 2 and see if can mobilize fluid . discussed homegoing issues and he is worried and does not want to take antidepressant . low dose morphine may help while in hosp . consult for palliative care will be needed . consider lasix drip if not able to diurese today better 02/14/19 afebrile/// vss// weight 119 but down 1.5 lbs? i/os show 2200/ 3340 - 1400 cc sinus rythm and psvt episodes self terminating. lungs decreased and no crackles / o2 sats stable on 2.5 liters able to sit in chair cor rr with no s3/s4 jvd edema unchanged abd benign/ eating 100 % neuro mild anxiety skin / multiple i.v insertion attempts / mild bruising / no cellulitis . lab k 3.5 creat 2[place] [address] hgn 10 hct 29. given lasix 160 mg yest. split doses. will start incentive spirometry to treat atelectasis assess refractory hypoxia and chf patient states breathing is better / slowly getting some fluid off but he sounds decreased yet and is on prednisone 20 mg day will cont higher dose lasix and follow up on response and bnp anemia continues renal insuff copd severe with cor pulm. diabetes improved obesity standing and sitting in recliner more boh Subjective Update: patient continued slow improvement. Had a 4 pound weight loss overnight. He states that his breathing is at baseline. Also he is 2 pounds from baseline weight. He is on 2.5 L/m of nasal cannula which is his baseline at home. Functional Status: Reports: Pain Controlled - Review of Systems General: Reports: No Symptoms HEENT: Reports: No Symptoms Pulmonary: Reports: Shortness of Breath Cardiovascular: Reports: Dyspnea on Exertion, Edema. Denies: Chest Pain Gastrointestinal: Reports: No Symptoms. Denies: Abdominal Pain - Patient Data Vitals - Most Recent: Last Vital Signs Temp 97.5 F 02/16/19 11:14 Pulse 66 02/16/19 11:14 Resp 20 02/16/19 11:14 BP 120/45 L 02/16/19 11:14 Pulse Ox 98 02/16/19 11:14 Weight - Most Recent: 256 lb 8 oz I&O - Last 24 hours: Intake & Output 02/15/19 02/16/19 02/16/19 22:59 06:59 14:59 Intake Total 480 300 300 Output Total 1550 1900 Balance -1070 -1600 300 Lab Results - Last 24 hrs: Laboratory Results - last 24 hr 02/15/19 02/15/19 02/16/19 Range/Units 16:55 21:38 06:12 Sodium (136-145) mEq/L Potassium (3.5-5.1) mEq/L Chloride (98-107) mEq/L Carbon Dioxide (21-32) mEq/L Anion Gap (5-15) BUN (7-18) mg/dL Creatinine (0.7-1.3) mg/dL Est Cr Clr Drug Dosing mL/min Estimated GFR (MDRD) (>60) mL/min BUN/Creatinine Ratio (14-18) Glucose (83-115) mg/dL POC Glucose 283 H 233 H 103 (83-110) mg/dL Calcium (8.5-10.1) mg/dL Magnesium (1.8-2.4) mg/dl NT-Pro-B Natriuret Pep (0-450) pg/mL 02/16/19 02/16/19 02/16/19 Range/Units 06:44 06:44 11:06 Sodium 145 (136-145) mEq/L Potassium 4.1 (3.5-5.1) mEq/L Chloride 106 (98-107) mEq/L Carbon Dioxide 28 (21-32) mEq/L Anion Gap 15.1 H (5-15) BUN 55 H (7-18) mg/dL Creatinine 2.1 H (0.7-1.3) mg/dL Est Cr Clr Drug Dosing 20.36 mL/min Estimated GFR (MDRD) 30 (>60) mL/min BUN/Creatinine Ratio 26.2 H (14-18) Glucose 99 (83-115) mg/dL POC Glucose 131 H (83-110) mg/dL Calcium 9.4 (8.5-10.1) mg/dL Magnesium 2.8 H (1.8-2.4) mg/dl NT-Pro-B Natriuret Pep 7688 H (0-450) pg/mL Med Orders - Current: Current Medications Acetaminophen (Tylenol) 650 mg PO Q4H PRN PRN Reason: Pain (Mild 1-3)/fever Albuterol (Proventil Neb Soln) 2.5 mg NEB Q2H PRN PRN Reason: Shortness Of Breath/wheezing Last Admin: 02/13/19 00:58 Dose: 2.5 mg Albuterol/Ipratropium (Duoneb 3.0-0.5 Mg/3 Ml) 3 ml NEB Q6HRRT [facility] Last Admin: 02/16/19 08:34 Dose: 3 ml Allopurinol (Zyloprim) 150 mg PO DAILY [facility] Last Admin: 02/16/19 08:52 Dose: 150 mg Aspirin (Halfprin) 81 mg PO DAILY [facility] Last Admin: 02/16/19 08:52 Dose: 81 mg Carvedilol (Coreg) 6.25 mg PO BID [facility] Last Admin: 02/16/19 10:06 Dose: 6.25 mg Enoxaparin Sodium (Lovenox) 30 mg SUBCUT DAILY [facility] Last Admin: 02/16/19 09:10 Dose: 30 mg Finasteride (Proscar) 5 mg PO DAILY [facility] Last Admin: 02/16/19 08:52 Dose: 5 mg Fluoxetine HCl (Prozac) 20 mg PO DAILY [facility] Last Admin: 02/16/19 08:52 Dose: 20 mg Hydralazine HCl (Apresoline) 10 mg PO TID [facility] Last Admin: 02/16/19 08:52 Dose: 10 mg Insulin Glargine (Lantus) 34 unit SUBCUT DAILY [facility] Last Admin: 02/16/19 08:54 Dose: 34 units Insulin Glargine (Lantus) 40 unit SUBCUT BEDTIME [facility] Last Admin: 02/15/19 21:40 Dose: 40 units Insulin Human Lispro (Humalog) 0 unit SUBCUT QIDACANDBED [facility]; Protocol Last Admin: 02/16/19 11:10 Dose: Not Given Isosorbide Dinitrate (Isordil) 10 mg PO Q6HR [facility] Last Admin: 02/16/19 11:14 Dose: 10 mg Levothyroxine Sodium (Levothyroxine) 75 mcg PO ACBREAKFAST [facility] Last Admin: 02/16/19 06:45 Dose: 75 mcg Mometasone Furoate/Formoterol Fumar (Dulera 200-5 Mcg) 0 puff IH BID [facility] Last Admin: 02/16/19 08:34 Dose: 2 puff Ondansetron HCl (Zofran Odt) 4 mg PO Q4H PRN PRN Reason: nausea, able to take PO Ondansetron HCl (Zofran) 4 mg IV Q4H PRN PRN Reason: Nausea/Vomiting Pantoprazole Sodium (Protonix) 40 mg PO ACBREAKFAST [facility] Last Admin: 02/16/19 06:45 Dose: 40 mg Potassium Chloride (Klor-Con M20) 20 meq PO BID [facility] Last Admin: 02/16/19 08:52 Dose: 20 meq Rosuvastatin Calcium (Crestor) 10 mg PO BEDTIME [facility] Last Admin: 02/15/19 21:44 Dose: 10 mg Sodium Chloride (Saline Flush) 10 ml FLUSH ASDIRECTED PRN PRN Reason: Keep Vein Open Last Admin: 02/11/19 17:47 Dose: 10 ml Tamsulosin HCl (Flomax) 0.4 mg PO BEDTIME [facility] Last Admin: 02/15/19 21:42 Dose: 0.4 mg Discontinued Medications Albuterol/Ipratropium (Duoneb 3.0-0.5 Mg/3 Ml) 3 ml NEB ONETIME ONE Stop: 02/11/19 17:03 Last Admin: 02/11/19 17:09 Dose: 3 ml Furosemide (Lasix) 80 mg IVPUSH NOW ONE Stop: 02/11/19 17:04 Last Admin: 02/11/19 17:46 Dose: 80 mg Furosemide (Lasix) 100 mg PO ONETIME ONE Stop: 02/11/19 20:56 Last Admin: 02/11/19 21:21 Dose: 100 mg Furosemide (Lasix) 80 mg IVPUSH NOW ONE Stop: 02/12/19 09:11 Last Admin: 02/12/19 09:29 Dose: 80 mg Furosemide (Lasix) 80 mg IVPUSH ONETIME [facility] Stop: 02/13/19 15:00 Furosemide (Lasix) 80 mg IVPUSH ONETIME ONE Stop: 02/13/19 20:01 Last Admin: 02/13/19 20:21 Dose: 80 mg Furosemide (Lasix) 80 mg IVPUSH NOW ONE Stop: 02/14/19 14:12 Last Admin: 02/14/19 14:29 Dose: Not Given Furosemide (Lasix) 80 mg IVPUSH ONETIME ONE Stop: 02/14/19 14:15 Last Admin: 02/14/19 15:00 Dose: 80 mg Furosemide (Lasix) 80 mg IVPUSH ONETIME ONE Stop: 02/14/19 20:01 Last Admin: 02/14/19 20:08 Dose: 80 mg Furosemide (Lasix) 80 mg IVPUSH NOW ONE Stop: 02/15/19 09:32 Last Admin: 02/15/19 09:59 Dose: 80 mg Furosemide (Lasix) 80 mg IVPUSH DAILY@1530 ONE Stop: 02/15/19 15:31 Last Admin: 02/15/19 15:17 Dose: 80 mg Furosemide (Lasix) 80 mg IVPUSH NOW ONE Stop: 02/16/19 09:26 Last Admin: 02/16/19 10:06 Dose: 80 mg Furosemide 80 mg/ Albumin (Human) 12.5 gm in 58 mls @ 116 mls/hr IV ONETIME ONE Stop: 02/13/19 10:59 Last Admin: 02/13/19 10:52 Dose: 116 mls/hr Sodium Chloride (Normal Saline) Confirm Administered Dose 250 mls @ as directed .ROUTE .STK-MED ONE Stop: 02/13/19 13:22 Last Admin: 02/13/19 17:31 Dose: Not Given Sodium Chloride (Normal Saline) 250 mls @ 100 mls/hr IV ASDIRECTED [facility] Last Admin: 02/13/19 17:31 Dose: 100 mls/hr Insulin Human Lispro (Humalog) 0 unit SUBCUT QIDACANDBED [facility]; Protocol Last Admin: 02/13/19 08:32 Dose: 8 units Magnesium Hydroxide (Milk Of Magnesia) 30 ml PO ONETIME ONE Stop: 02/15/19 07:01 Last Admin: 02/15/19 06:39 Dose: 30 ml Methylprednisolone Sodium Succinate (Solu-Medrol) 125 mg IVPUSH ONETIME ONE Stop: 02/11/19 17:03 Last Admin: 02/11/19 17:46 Dose: 125 mg Prednisone (Prednisone) 20 mg PO WITHBREAKFAST [facility] Stop: 02/17/19 07:01 Last Admin: 02/13/19 08:35 Dose: 20 mg Prednisone (Prednisone) 20 mg PO ONETIME ONE Stop: 02/12/19 14:00 Last Admin: 02/12/19 15:49 Dose: 20 mg Prednisone (Prednisone) 20 mg PO Q24H [facility] Last Admin: 02/15/19 08:56 Dose: 20 mg Spironolactone (Aldactone) 50 mg PO DAILY [facility] Spironolactone (Aldactone) 100 mg PO ONETIME ONE Stop: 02/13/19 09:05 Last Admin: 02/13/19 10:39 Dose: 100 mg - Exam Quality Assessment: Reports: Supplemental Oxygen General: Reports: Alert, Oriented HEENT: Reports: Pupils Equal, Pupils Reactive Neck: Reports: Supple Lungs: Reports: Normal Respiratory Effort, Decreased Breath Sounds, Rales Cardiovascular: Reports: Regular Rate, Regular Rhythm GI/Abdominal Exam: Normal Bowel Sounds, Soft, Non-Tender, No Organomegaly, No Distention Extremities: Non-Tender, Normal Capillary Refill, Pedal Edema Skin: Reports: Warm, Dry, Intact Neurological: Reports: No New Focal Deficit Psy/Mental Status: Reports: Alert, Normal Affect, Normal Mood
== END 2019-02-16 14:10 | disposition home or self-care (01) | DRG 292 ==
LOC: JD.ED 16:49 → JD.MS 19:23
PROVIDERS: ADMIT Family Medicine; ATTEND Family Medicine
PROC: 30233N1 Transfusion of Nonautologous Red Blood Cells into Peripheral Vein, Percutaneous Approach (ICD-10-PCS; principal; 2019-02-13)
DX: I50.43 Acute on chronic combined systolic (congestive) and diastolic (congestive) heart failure (principal); N18.4 Chronic kidney disease, stage 4 (severe); H54.7 Unspecified visual loss; E78.00 Pure hypercholesterolemia, unspecified; J44.9 Chronic obstructive pulmonary disease, unspecified; E03.9 Hypothyroidism, unspecified; E66.9 Obesity, unspecified; E11.22 Type 2 diabetes mellitus with diabetic chronic kidney disease; I25.10 Atherosclerotic heart disease of native coronary artery without angina pectoris; D64.9 Anemia, unspecified; I95.9 Hypotension, unspecified; F41.9 Anxiety disorder, unspecified; Z98.49 Cataract extraction status, unspecified eye; Z89.021 Acquired absence of right finger(s); Z87.891 Personal history of nicotine dependence; Z79.82 Long term (current) use of aspirin; Z79.4 Long term (current) use of insulin; Z79.899 Other long term (current) drug therapy; I25.2 Old myocardial infarction; Z68.44 Body mass index [BMI] 60.0-69.9, adult; Z95.5 Presence of coronary angioplasty implant and graft; Z85.51 Personal history of malignant neoplasm of bladder
CPT/HCPCS: 36415; 36430; 36600; 71045; 71045-26; 80048; 80053; 82607; 82803; 82947; 82962; 83540; 83735; 83880; 84403; 84484; 85025; 86850; 86900; 86901; 86922; 93005; 93010; 94640; 94660; 94761; 94762; 96374; 96375; 97110-GP; 97116-GP; 97162-GP; 97165-GO; 99284; 99285-25; A9270-GY; J1650; J1815-GY; J1940; J2930; J7050; J7620-GY; P9016; P9047

== ENCOUNTER 2019-05-04 11:17 | Inpatient (IN) | payer OTHER, MEDICARE, MEDICAID ==
[2019-05-04] MEDS ORDERED: Sodium Chloride 0.9% 10 ML Syringe FLUSH PRN (11:34)
[2019-05-04] MEDS ORDERED: Albuterol 0.083% 2.5 MG/3 ML Neb Soln NEB ONE (11:34)
[2019-05-04] MEDS ORDERED: Furosemide 40 MG/4 ML VIAL IVPUSH ONE ×3 (11:36→18:00)
[2019-05-04] MEDS ORDERED: methylPREDNISolone Sodium Succinate 125 MG/2 ML SDV IVPUSH ONE (11:36)
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
--- NOTE | 2019-05-04 12:31 | CR ---
Chest: Portable view of the chest was obtained. Comparison: Prior chest x-ray of 02/12/19. Heart is slightly prominent. Pulmonary vessels are mildly increased. Probable atelectasis is seen within the right base. Possible small right-sided pleural effusion. Bony structures are grossly intact. Impression: 1. Possible mild CHF. Diagnostic code #3
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
[2019-05-04] MEDS ORDERED: Acetaminophen 325 MG Tab PO PRN (17:01)
[2019-05-04] MEDS ORDERED: Insulin Lispro 100 Units/ML 3 ML Vial SUBCUT ONE (18:12)
[2019-05-04] MEDS ORDERED: Albuterol 0.083% 2.5 MG/3 ML Neb Soln NEB PRN (18:18)
[2019-05-04] MEDS: Carvedilol 6.25 MG Tab PO SCH (20:45)
[2019-05-04] MEDS: Insulin Lispro 100 Units/ML 3 ML Vial SUBCUT SCH ×2 (20:46→22:22)
[2019-05-04] MEDS ORDERED: Insulin Glarg,Human.Rec.Analog 100 UNIT/ML ML SUBCUT SCH (21:00)
[2019-05-04] MEDS: Albuterol/Ipratropium 3.0-0.5 MG/3 ML Neb Soln NEB SCH (21:09)
[2019-05-05] MEDS: Albuterol/Ipratropium 3.0-0.5 MG/3 ML Neb Soln NEB SCH ×4 (02:08→20:31)
[2019-05-05] MEDS: Carvedilol 6.25 MG Tab PO SCH ×3 (06:59→21:49)
[2019-05-05] MEDS ORDERED: Nitroglycerin 0.4 MG Tab.SL SL PRN (08:12)
[2019-05-05] MEDS ORDERED: Furosemide 40 MG/4 ML VIAL IVPUSH ONE (08:19)
[2019-05-05] MEDS: Insulin Lispro 100 Units/ML 3 ML Vial SUBCUT SCH ×4 (08:22→21:50)
[2019-05-05] MEDS: Enoxaparin 30 MG/0.3 ML Syringe SUBCUT SCH (08:23)
[2019-05-05] MEDS: Finasteride 5 MG Tab PO SCH (08:30)
[2019-05-05] MEDS: FLUoxetine 20 MG Cap PO SCH (08:30)
[2019-05-05] MEDS: Aspirin 81 MG Tab.EC PO SCH (08:30)
[2019-05-05] MEDS: Ferrous Sulfate 325 MG Tab PO SCH (08:30)
[2019-05-05] MEDS: Potassium Chloride 20 MEQ Tab.ER PO SCH (08:30)
[2019-05-05] MEDS: Allopurinol 300 MG Tab PO SCH (08:30)
[2019-05-05] MEDS: Levothyroxine 75 MCG Tab PO SCH (08:30)
[2019-05-05] MEDS: Pantoprazole 40 MG Tab.CR PO SCH (08:30)
[2019-05-05] MEDS: Ticagrelor 90 MG Tab PO SCH ×2 (08:32→21:49)
[2019-05-05] MEDS: Formoterol/Mometasone 200-5 MCG 8.8 GM Inhaler IH SCH ×2 (09:05→20:35)
[2019-05-05 13:53] LABS: HEMOGLOBIN A1C 6.5 % (4.50-6.20)
[2019-05-05] MEDS: Furosemide 100 MG/10 ML SDV IVPUSH SCH ×2 (14:03→21:54)
--- NOTE | 2019-05-05 14:22 | PCM.PN ---
- General Info Date of Service: 05/05/19 Admission Dx/Problem (Free Text): Admission Diagnosis/Problem Admission Diagnosis/Problem CHF, Congestive heart failure Subjective Update: patient continues to have shortness of breath. He had a 1/2 pound weight loss with a -2000 mL fluid balance overnight. Chest x-ray showed mild perihilar interstitial prominence consistent with volume overload or early congestive heart failure. Patchy airspace disease in the right lung base may represent superimposed pneumonia. Patient has been afebrile and a normal white count. He continues on 3 L nasal cannula, his same amount at home. Functional Status: Reports: Pain Controlled - Review of Systems General: Reports: Fatigue HEENT: Reports: No Symptoms Pulmonary: Reports: Shortness of Breath Cardiovascular: Reports: Orthopnea, Edema. Denies: Chest Pain Gastrointestinal: Reports: No Symptoms Neurological: Reports: No Symptoms - Patient Data Vitals - Most Recent: Last Vital Signs Temp 97.0 F 05/05/19 11:47 Pulse 70 05/05/19 11:45 Resp 20 05/05/19 11:45 BP 108/54 L 05/05/19 11:45 Pulse Ox 100 05/05/19 11:45 Weight - Most Recent: 264 lb 1.609 oz I&O - Last 24 Hours: Intake & Output 05/04/19 05/05/19 05/05/19 22:59 06:59 14:59 Intake Total 340 200 530 Output Total 1150 1200 500 Balance -810 -1000 30 Lab Results Last 24 Hours: Laboratory Results - last 24 hr 05/04/19 05/04/19 05/04/19 Range/Units 13:31 13:31 13:31 WBC (4.23-9.07) K/mm3 RBC (4.63-6.08) M/mm3 Hgb (13.7-17.5) gm/L Hct (40.1-51.0) % MCV (79.0-92.2) fl MCH (25.7-32.2) pg MCHC (32.2-35.5) g/dl RDW Std Deviation (35.1-43.9) fL Plt Count (163-337) K/mm3 MPV (9.4-12.3) fl Neut % (Auto) (34.0-67.9) % Lymph % (Auto) (21.8-53.1) % [place] % (Auto) (5.3-12.2) % Eos % (Auto) (0.8-7.0) Baso % (Auto) (0.1-1.2) % Neut # (Auto) (1.78-5.38) K/mm3 Lymph # (Auto) (1.32-3.57) K/mm3 [place] # (Auto) (0.30-0.82) K/mm3 Eos # (Auto) (0.04-0.54) K/mm3 Baso # (Auto) (0.01-0.08) K/mm3 Neutrophils % (Manual) 86 H (40-60) % Band Neutrophils % 0 (0-10) % Lymphocytes % (Manual) 7 L (20-40) % Atypical Lymphs % 0 % Monocytes % (Manual) 4 (2-10) % Eosinophils % (Manual) 2 (0.8-7.0) % Basophils % (Manual) 1 (0.2-1.2) Manual Slide Review Platelet Estimate Adequate Hypochromasia 1+ slight Anisocytosis 2+ moderate RBC Morph Comment Abnormal Puncture Site ABG pH (7.35-7.45) ABG pCO2 (35.0-45.0) mmHg ABG pO2 (80.0-100.0) mmHg ABG HCO3 (22.0-26.0) meq/L ABG O2 Saturation (96.0-97.0) % ABG Base Excess (-2-2.0) Mohit Test O2 Delivery Device Oxygen Flow Rate FiO2 (21.00-100.00) % Sodium 143 (136-145) mEq/L Potassium 3.9 (3.5-5.1) mEq/L Chloride 106 (98-107) mEq/L Carbon Dioxide 27 (21-32) mEq/L Anion Gap 13.9 (5-15) BUN 35 H (7-18) mg/dL Creatinine 2.0 H (0.7-1.3) mg/dL Est Cr Clr Drug Dosing 21.38 mL/min Estimated GFR (MDRD) 32 (>60) mL/min BUN/Creatinine Ratio 17.5 (14-18) Glucose 83 (83-115) mg/dL POC Glucose (83-110) mg/dL Hemoglobin A1c (4.50-6.20) % Calcium 9.2 (8.5-10.1) mg/dL Magnesium (1.8-2.4) mg/dl Total Bilirubin 0.9 (0.2-1.0) mg/dL AST 14 L (15-37) U/L ALT 25 (16-63) U/L Alkaline Phosphatase 122 H (46-116) U/L Troponin I 0.022 (0.00-0.056) ng/mL C-Reactive Protein 2.9 H* (<1.0) mg/dL NT-Pro-B Natriuret Pep 55616 H (0-450) pg/mL Total Protein 6.9 (6.4-8.2) g/dl Albumin 3.1 L (3.4-5.0) g/dl Globulin 3.8 gm/dL Albumin/Globulin Ratio 0.8 L (1-2) 05/04/19 05/04/19 05/04/19 Range/Units 14:27 15:36 19:16 WBC (4.23-9.07) K/mm3 RBC (4.63-6.08) M/mm3 Hgb (13.7-17.5) gm/L Hct (40.1-51.0) % MCV (79.0-92.2) fl MCH (25.7-32.2) pg MCHC (32.2-35.5) g/dl RDW Std Deviation (35.1-43.9) fL Plt Count (163-337) K/mm3 MPV (9.4-12.3) fl Neut % (Auto) (34.0-67.9) % Lymph % (Auto) (21.8-53.1) % [place] % (Auto) (5.3-12.2) % Eos % (Auto) (0.8-7.0) Baso % (Auto) (0.1-1.2) % Neut # (Auto) (1.78-5.38) K/mm3 Lymph # (Auto) (1.32-3.57) K/mm3 [place] # (Auto) (0.30-0.82) K/mm3 Eos # (Auto) (0.04-0.54) K/mm3 Baso # (Auto) (0.01-0.08) K/mm3 Neutrophils % (Manual) (40-60) % Band Neutrophils % (0-10) % Lymphocytes % (Manual) (20-40) % Atypical Lymphs % % Monocytes % (Manual) (2-10) % Eosinophils % (Manual) (0.8-7.0) % Basophils % (Manual) (0.2-1.2) Manual Slide Review Platelet Estimate Hypochromasia Anisocytosis RBC Morph Comment Puncture Site Lt radial ABG pH 7.41 (7.35-7.45) ABG pCO2 44.7 (35.0-45.0) mmHg ABG pO2 43.0 L (80.0-100.0) mmHg ABG HCO3 27.4 H (22.0-26.0) meq/L ABG O2 Saturation 72.1 L (96.0-97.0) % ABG Base Excess 2.7 H (-2-2.0) Mohit Test Positive O2 Delivery Device Nasal cannula Oxygen Flow Rate 3.0 FiO2 32.00 (21.00-100.00) % Sodium (136-145) mEq/L Potassium (3.5-5.1) mEq/L Chloride (98-107) mEq/L Carbon Dioxide (21-32) mEq/L Anion Gap (5-15) BUN (7-18) mg/dL Creatinine (0.7-1.3) mg/dL Est Cr Clr Drug Dosing mL/min Estimated GFR (MDRD) (>60) mL/min BUN/Creatinine Ratio (14-18) Glucose (83-115) mg/dL POC Glucose 77 L 148 H (83-110) mg/dL Hemoglobin A1c (4.50-6.20) % Calcium (8.5-10.1) mg/dL Magnesium (1.8-2.4) mg/dl Total Bilirubin (0.2-1.0) mg/dL AST (15-37) U/L ALT (16-63) U/L Alkaline Phosphatase (46-116) U/L Troponin I (0.00-0.056) ng/mL C-Reactive Protein (<1.0) mg/dL NT-Pro-B Natriuret Pep (0-450) pg/mL Total Protein (6.4-8.2) g/dl Albumin (3.4-5.0) g/dl Globulin gm/dL Albumin/Globulin Ratio (1-2) 05/04/19 05/05/19 05/05/19 Range/Units 20:30 05:17 05:17 WBC 5.26 (4.23-9.07) K/mm3 RBC 3.56 L (4.63-6.08) M/mm3 Hgb 10.4 L (13.7-17.5) gm/L Hct 34.4 L (40.1-51.0) % MCV 96.6 H (79.0-92.2) fl MCH 29.2 (25.7-32.2) pg MCHC 30.2 L (32.2-35.5) g/dl RDW Std Deviation 56.3 H (35.1-43.9) fL Plt Count 255 (163-337) K/mm3 MPV 11.4 (9.4-12.3) fl Neut % (Auto) 89.3 H (34.0-67.9) % Lymph % (Auto) 7.4 L (21.8-53.1) % [place] % (Auto) 2.9 L (5.3-12.2) % Eos % (Auto) 0 L (0.8-7.0) Baso % (Auto) 0.2 (0.1-1.2) % Neut # (Auto) 4.70 (1.78-5.38) K/mm3 Lymph # (Auto) 0.39 L (1.32-3.57) K/mm3 [place] # (Auto) 0.15 L (0.30-0.82) K/mm3 Eos # (Auto) 0.00 L (0.04-0.54) K/mm3 Baso # (Auto) 0.01 (0.01-0.08) K/mm3 Neutrophils % (Manual) (40-60) % Band Neutrophils % (0-10) % Lymphocytes % (Manual) (20-40) % Atypical Lymphs % % Monocytes % (Manual) (2-10) % Eosinophils % (Manual) (0.8-7.0) % Basophils % (Manual) (0.2-1.2) Manual Slide Review Abnormal smear Platelet Estimate Hypochromasia Anisocytosis RBC Morph Comment Puncture Site ABG pH (7.35-7.45) ABG pCO2 (35.0-45.0) mmHg ABG pO2 (80.0-100.0) mmHg ABG HCO3 (22.0-26.0) meq/L ABG O2 Saturation (96.0-97.0) % ABG Base Excess (-2-2.0) Mohit Test O2 Delivery Device Oxygen Flow Rate FiO2 (21.00-100.00) % Sodium 140 (136-145) mEq/L Potassium 4.5 (3.5-5.1) mEq/L Chloride 104 (98-107) mEq/L Carbon Dioxide 29 (21-32) mEq/L Anion Gap 11.5 (5-15) BUN 39 H (7-18) mg/dL Creatinine 2.1 H (0.7-1.3) mg/dL Est Cr Clr Drug Dosing 20.36 mL/min Estimated GFR (MDRD) 30 (>60) mL/min BUN/Creatinine Ratio 18.6 H (14-18) Glucose 260 H (83-115) mg/dL POC Glucose 300 H (83-110) mg/dL Hemoglobin A1c (4.50-6.20) % Calcium 8.7 (8.5-10.1) mg/dL Magnesium 2.6 H (1.8-2.4) mg/dl Total Bilirubin 0.4 (0.2-1.0) mg/dL AST 12 L (15-37) U/L ALT 19 (16-63) U/L Alkaline Phosphatase 110 (46-116) U/L Troponin I (0.00-0.056) ng/mL C-Reactive Protein (<1.0) mg/dL NT-Pro-B Natriuret Pep (0-450) pg/mL Total Protein 6.1 L (6.4-8.2) g/dl Albumin 2.5 L (3.4-5.0) g/dl Globulin 3.6 gm/dL Albumin/Globulin Ratio 0.7 L (1-2) 05/05/19 05/05/19 05/05/19 Range/Units 05:17 05:17 06:11 WBC (4.23-9.07) K/mm3 RBC (4.63-6.08) M/mm3 Hgb (13.7-17.5) gm/L Hct (40.1-51.0) % MCV (79.0-92.2) fl MCH (25.7-32.2) pg MCHC (32.2-35.5) g/dl RDW Std Deviation (35.1-43.9) fL Plt Count (163-337) K/mm3 MPV (9.4-12.3) fl Neut % (Auto) (34.0-67.9) % Lymph % (Auto) (21.8-53.1) % [place] % (Auto) (5.3-12.2) % Eos % (Auto) (0.8-7.0) Baso % (Auto) (0.1-1.2) % Neut # (Auto) (1.78-5.38) K/mm3 Lymph # (Auto) (1.32-3.57) K/mm3 [place] # (Auto) (0.30-0.82) K/mm3 Eos # (Auto) (0.04-0.54) K/mm3 Baso # (Auto) (0.01-0.08) K/mm3 Neutrophils % (Manual) (40-60) % Band Neutrophils % (0-10) % Lymphocytes % (Manual) (20-40) % Atypical Lymphs % % Monocytes % (Manual) (2-10) % Eosinophils % (Manual) (0.8-7.0) % Basophils % (Manual) (0.2-1.2) Manual Slide Review Platelet Estimate Hypochromasia Anisocytosis RBC Morph Comment Puncture Site ABG pH (7.35-7.45) ABG pCO2 (35.0-45.0) mmHg ABG pO2 (80.0-100.0) mmHg ABG HCO3 (22.0-26.0) meq/L ABG O2 Saturation (96.0-97.0) % ABG Base Excess (-2-2.0) Mohit Test O2 Delivery Device Oxygen Flow Rate FiO2 (21.00-100.00) % Sodium (136-145) mEq/L Potassium (3.5-5.1) mEq/L Chloride (98-107) mEq/L Carbon Dioxide (21-32) mEq/L Anion Gap (5-15) BUN (7-18) mg/dL Creatinine (0.7-1.3) mg/dL Est Cr Clr Drug Dosing mL/min Estimated GFR (MDRD) (>60) mL/min BUN/Creatinine Ratio (14-18) Glucose (83-115) mg/dL POC Glucose 253 H (83-110) mg/dL Hemoglobin A1c 6.50 H (4.50-6.20) % Calcium (8.5-10.1) mg/dL Magnesium (1.8-2.4) mg/dl Total Bilirubin (0.2-1.0) mg/dL AST (15-37) U/L ALT (16-63) U/L Alkaline Phosphatase (46-116) U/L Troponin I (0.00-0.056) ng/mL C-Reactive Protein (<1.0) mg/dL NT-Pro-B Natriuret Pep 51900 H (0-450) pg/mL Total Protein (6.4-8.2) g/dl Albumin (3.4-5.0) g/dl Globulin gm/dL Albumin/Globulin Ratio (1-2) 05/05/19 Range/Units 11:49 WBC (4.23-9.07) K/mm3 RBC (4.63-6.08) M/mm3 Hgb (13.7-17.5) gm/L Hct (40.1-51.0) % MCV (79.0-92.2) fl MCH (25.7-32.2) pg MCHC (32.2-35.5) g/dl RDW Std Deviation (35.1-43.9) fL Plt Count (163-337) K/mm3 MPV (9.4-12.3) fl Neut % (Auto) (34.0-67.9) % Lymph % (Auto) (21.8-53.1) % [place] % (Auto) (5.3-12.2) % Eos % (Auto) (0.8-7.0) Baso % (Auto) (0.1-1.2) % Neut # (Auto) (1.78-5.38) K/mm3 Lymph # (Auto) (1.32-3.57) K/mm3 [place] # (Auto) (0.30-0.82) K/mm3 Eos # (Auto) (0.04-0.54) K/mm3 Baso # (Auto) (0.01-0.08) K/mm3 Neutrophils % (Manual) (40-60) % Band Neutrophils % (0-10) % Lymphocytes % (Manual) (20-40) % Atypical Lymphs % % Monocytes % (Manual) (2-10) % Eosinophils % (Manual) (0.8-7.0) % Basophils % (Manual) (0.2-1.2) Manual Slide Review Platelet Estimate Hypochromasia Anisocytosis RBC Morph Comment Puncture Site ABG pH (7.35-7.45) ABG pCO2 (35.0-45.0) mmHg ABG pO2 (80.0-100.0) mmHg ABG HCO3 (22.0-26.0) meq/L ABG O2 Saturation (96.0-97.0) % ABG Base Excess (-2-2.0) Mohit Test O2 Delivery Device Oxygen Flow Rate FiO2 (21.00-100.00) % Sodium (136-145) mEq/L Potassium (3.5-5.1) mEq/L Chloride (98-107) mEq/L Carbon Dioxide (21-32) mEq/L Anion Gap (5-15) BUN (7-18) mg/dL Creatinine (0.7-1.3) mg/dL Est Cr Clr Drug Dosing mL/min Estimated GFR (MDRD) (>60) mL/min BUN/Creatinine Ratio (14-18) Glucose (83-115) mg/dL POC Glucose 208 H (83-110) mg/dL Hemoglobin A1c (4.50-6.20) % Calcium (8.5-10.1) mg/dL Magnesium (1.8-2.4) mg/dl Total Bilirubin (0.2-1.0) mg/dL AST (15-37) U/L ALT (16-63) U/L Alkaline Phosphatase (46-116) U/L Troponin I (0.00-0.056) ng/mL C-Reactive Protein (<1.0) mg/dL NT-Pro-B Natriuret Pep (0-450) pg/mL Total Protein (6.4-8.2) g/dl Albumin (3.4-5.0) g/dl Globulin gm/dL Albumin/Globulin Ratio (1-2) Med Orders - Current: Current Medications Acetaminophen (Tylenol) 650 mg PO Q4H PRN PRN Reason: Pain (Mild 1-3)/fever Albuterol (Proventil Neb Soln) 2.5 mg NEB Q2H PRN PRN Reason: Dyspnea Albuterol/Ipratropium (Duoneb 3.0-0.5 Mg/3 Ml) 3 ml NEB Q6HRRT [facility] Last Admin: 05/05/19 09:01 Dose: 3 ml Allopurinol (Zyloprim) 150 mg PO DAILY [facility] Last Admin: 05/05/19 08:30 Dose: 150 mg Aspirin (Halfprin) 81 mg PO DAILY [facility] Last Admin: 05/05/19 08:30 Dose: 81 mg Carvedilol (Coreg) 6.25 mg PO BID [facility] Last Admin: 05/05/19 10:26 Dose: Not Given Enoxaparin Sodium (Lovenox) 30 mg SUBCUT DAILY [facility] Last Admin: 05/05/19 08:23 Dose: 30 mg Ferrous Sulfate (Ferrous Sulfate) 325 mg PO DAILY [facility] Last Admin: 05/05/19 08:30 Dose: 325 mg Finasteride (Proscar) 5 mg PO DAILY [facility] Last Admin: 05/05/19 08:30 Dose: 5 mg Fluoxetine HCl (Prozac) 20 mg PO DAILY [facility] Last Admin: 05/05/19 08:30 Dose: 20 mg Furosemide (Lasix) 80 mg IVPUSH 0600,1400,2000 [facility] Last Admin: 05/05/19 14:03 Dose: 80 mg Insulin Glargine (Lantus) 30 unit SUBCUT BIDAC [facility] Insulin Human Lispro (Humalog) 0 unit SUBCUT QIDACANDBED [facility]; Protocol Last Admin: 05/05/19 12:01 Dose: 4 units Levothyroxine Sodium (Levothyroxine) 75 mcg PO ACBREAKFAST [facility] Last Admin: 05/05/19 08:30 Dose: 75 mcg Mometasone Furoate/Formoterol Fumar (Dulera 200-5 Mcg) 2 puff IH BID [facility] Last Admin: 05/05/19 09:05 Dose: 2 puff Nitroglycerin (Nitrostat) 0.4 mg SL TID PRN PRN Reason: Chest Pain Pantoprazole Sodium (Protonix) 40 mg PO DAILY [facility] Last Admin: 05/05/19 08:30 Dose: 40 mg Potassium Chloride (Klor-Con M20) 20 meq PO DAILY [facility] Last Admin: 05/05/19 08:30 Dose: 20 meq Rosuvastatin Calcium (Crestor) 10 mg PO BEDTIME [facility] Senna/Docusate Sodium (Senna Plus) 1 tab PO BID [facility] Last Admin: 05/05/19 08:30 Dose: 1 tab Sodium Chloride (Saline Flush) 10 ml FLUSH ASDIRECTED PRN PRN Reason: Keep Vein Open Last Admin: 05/04/19 11:59 Dose: 10 ml Tamsulosin HCl (Flomax) 0.4 mg PO BEDTIME SCARLETT Ticagrelor (Brilinta) 90 mg PO BID [facility] Last Admin: 05/05/19 08:32 Dose: 90 mg Discontinued Medications Albuterol (Proventil Neb Soln) 2.5 mg NEB ONETIME ONE Stop: 05/04/19 11:35 Last Admin: 05/04/19 11:40 Dose: 2.5 mg [facility] Last Admin: 05/05/19 06:59 Dose: 6.25 mg Furosemide (Lasix) 40 mg IVPUSH NOW ONE Stop: 05/04/19 11:37 Last Admin: 05/04/19 11:59 Dose: 40 mg Furosemide (Lasix) 40 mg IVPUSH NOW ONE Stop: 05/04/19 12:43 Last Admin: 05/04/19 13:18 Dose: 40 mg Furosemide (Lasix) 80 mg IVPUSH ONETIME ONE Stop: 05/04/19 18:01 Last Admin: 05/04/19 18:27 Dose: 80 mg Furosemide (Lasix) 80 mg IVPUSH NOW ONE Stop: 05/05/19 08:20 Last Admin: 05/05/19 08:36 Dose: 80 mg Insulin Glargine (Lantus) 30 unit SUBCUT BEDTIME [facility] Last Admin: 05/04/19 22:27 Dose: 30 units Insulin Human Lispro (Humalog) 2 unit SUBCUT ONETIME ONE Stop: 05/04/19 18:13 Last Admin: 05/04/19 18:27 Dose: 2 unit Methylprednisolone Sodium Succinate (Solu-Medrol) 125 mg IVPUSH ONETIME ONE Stop: 05/04/19 11:37 Last Admin: 05/04/19 11:57 Dose: 125 mg - Exam Quality Assessment: Supplemental Oxygen General: Alert, Oriented HEENT: Pupils Equal, Mucous Membr. Moist/[place]: Supple Lungs: Decreased Breath Sounds, Crackles, Rales. No: Normal Respiratory Effort (tachypnea with increased respiratory effort) Cardiovascular: Regular Rate, Regular Rhythm GI/Abdominal Exam: Normal Bowel Sounds, Soft, Non-Tender, No Organomegaly, No Distention Extremities: Normal Inspection, Pedal Edema (3+) Skin: Other (nonhealing wound on right quintanilla with necrotic tissue) Psy/Mental Status: Alert, Normal Affect, Normal Mood - Problem List Review Problem List Initiated/Reviewed/Updated: Yes - My Orders Last 24 Hours: My Active Orders 05/04/19 16:19 Code Status [Resuscitation Status] Routine 05/04/19 17:01 Up ad Deborah [RC] BID VTE/DVT Education [RC] DAILY Vital Signs [RC] Q4HR Acetaminophen [Tylenol] 650 mg PO Q4H PRN 05/04/19 17:04 Intake and Output Strict [RC] Q2HR 05/04/19 17:06 BIPAP Adult [RT BiPAP/CPAP] [RC] ASDIRECTED 05/04/19 18:16 Blood Glucose Check, Bedside [RC] WITHMEALSANDBED 05/04/19 18:18 Albuterol [Proventil Neb Soln] 2.5 mg NEB Q2H PRN 05/04/19 21:00 Albuterol/Ipratropium [DuoNeb 3.0-0.5 MG/3 ML] 3 ml NEB Q6HRRT 05/04/19 22:00 Insulin Lispro [HumaLOG] See Protocol SUBCUT QIDACANDBED 05/05/19 05:11 Chest 1V Frontal [CR] AM 05/05/19 08:12 Nitroglycerin [Nitrostat] 0.4 mg SL TID PRN 05/05/19 09:00 Allopurinol [Zyloprim] 150 mg PO DAILY Aspirin [Halfprin] 81 mg PO DAILY Carvedilol [Coreg] 6.25 mg PO BID Docusate Sodium/Sennosides [Senna Plus] 1 tab PO BID Enoxaparin [Lovenox] 30 mg SUBCUT DAILY FLUoxetine [PROzac] 20 mg PO DAILY Ferrous Sulfate 325 mg PO DAILY Finasteride [Proscar] 5 mg PO DAILY Levothyroxine 75 mcg PO ACBREAKFAST Mometasone/Formoterol [Dulera 200-5 MCG] 2 puff IH BID Pantoprazole [ProTONIX] 40 mg PO DAILY Potassium Chloride [Klor-Con M20] 20 meq PO DAILY Ticagrelor [Brilinta] 90 mg PO BID 05/05/19 11:51 Consult to Occupational Therapy [OT Evaluation and Treatment] [CONS] Routine PT Evaluation and Treatment [CONS] Routine 05/05/19 11:52 Consult to Physical Therapy [PT Evaluation and Treatment] [CONS] Routine 05/05/19 14:00 Furosemide [Lasix] 80 mg IVPUSH 0600,1400,199905/05/19 16:00 Insulin Glarg,Human.Rec.Analog [LantUS] 30 unit SUBCUT BIDAC 05/05/19 21:00 Rosuvastatin [Crestor] 10 mg PO BEDTIME Tamsulosin [Flomax] 0.4 mg PO BEDTIME 05/05/19 Breakfast [employer] Diet [DIET] Heart Healthy Diet [DIET] 05/06/19 05:11 CBC WITH AUTO DIFF [HEME] AM COMPREHENSIVE METABOLIC PN,CMP [CHEM] AM MAGNESIUM [CHEM] AM 05/06/19 17:15 PRO B-TYPE NATRIUR PEPT,BNPPRO [CHEM] DAILY 05/07/19 05:11 CBC WITH AUTO DIFF [HEME] AM COMPREHENSIVE METABOLIC PN,CMP [CHEM] AM MAGNESIUM [CHEM] AM 05/07/19 17:15 PRO B-TYPE NATRIUR PEPT,BNPPRO [CHEM] DAILY 05/08/19 05:11 CBC WITH AUTO DIFF [HEME] AM COMPREHENSIVE METABOLIC PN,CMP [CHEM] AM MAGNESIUM [CHEM] AM 05/08/19 17:15 PRO B-TYPE NATRIUR PEPT,BNPPRO [CHEM] DAILY 05/09/19 05:11 CBC WITH AUTO DIFF [HEME] AM COMPREHENSIVE METABOLIC PN,CMP [CHEM] AM MAGNESIUM [CHEM] AM 05/09/19 17:15 PRO B-TYPE NATRIUR PEPT,BNPPRO [CHEM] DAILY 05/10/19 05:11 CBC WITH AUTO DIFF [HEME] AM COMPREHENSIVE METABOLIC PN,CMP [CHEM] AM MAGNESIUM [CHEM] AM - Plan Plan:: Assessment * 80-year-old male with acute exacerbation of CHF - proBNP 14,580-->19,155 * Mild COPD exacerbation - avoid steroids secondary to fluid retention and worsening CHF * Chronic renal insufficiency - BUN 35-->39 creatinine 2.0-->2.1 * insulin-dependent diabetes * Poorly healing lower extremity wounds * History of BPH, hypertension, gout, hypothyroidism, depression, peripheral vascular disease Plan * Admit to MedSurg on telemetry * strict I's and O's and daily weights * Lasix 80 mg IV 3 times a day * Reconciled meds * SSI * start BiPAP for improvement in respiratory effort * consult wound care * monitor CBC, CMP, magnesium, BNP daily * CODE STATUS: Full code * VTE prophylaxis with Lovenox * Anticipated length of stay 3-4 days
[2019-05-05] MEDS: Insulin Glarg,Human.Rec.Analog 100 UNIT/ML ML SUBCUT SCH (16:15)
[2019-05-05] MEDS: Tamsulosin 0.4 MG Cap.ER PO SCH (21:49)
[2019-05-05] MEDS: Rosuvastatin 10 MG Tab PO SCH (21:49)
[2019-05-06] MEDS: Albuterol/Ipratropium 3.0-0.5 MG/3 ML Neb Soln NEB SCH ×4 (02:14→20:33)
[2019-05-06] MEDS: Levothyroxine 75 MCG Tab PO SCH (06:51)
[2019-05-06] MEDS: Insulin Glarg,Human.Rec.Analog 100 UNIT/ML ML SUBCUT SCH ×2 (06:51→18:09)
[2019-05-06] MEDS: Furosemide 100 MG/10 ML SDV IVPUSH SCH ×3 (06:55→20:12)
[2019-05-06] MEDS: Insulin Lispro 100 Units/ML 3 ML Vial SUBCUT SCH ×4 (06:57→22:00)
[2019-05-06] MEDS: Formoterol/Mometasone 200-5 MCG 8.8 GM Inhaler IH SCH ×2 (08:19→20:37)
[2019-05-06] MEDS: Potassium Chloride 20 MEQ Tab.ER PO SCH (09:33)
[2019-05-06] MEDS: Ferrous Sulfate 325 MG Tab PO SCH (09:33)
[2019-05-06] MEDS: Pantoprazole 40 MG Tab.CR PO SCH (09:33)
[2019-05-06] MEDS: FLUoxetine 20 MG Cap PO SCH (09:33)
[2019-05-06] MEDS: Allopurinol 300 MG Tab PO SCH (09:33)
[2019-05-06] MEDS: Finasteride 5 MG Tab PO SCH (09:33)
[2019-05-06] MEDS: Aspirin 81 MG Tab.EC PO SCH (09:33)
[2019-05-06] MEDS: Ticagrelor 90 MG Tab PO SCH ×2 (09:33→20:11)
[2019-05-06] MEDS: Enoxaparin 30 MG/0.3 ML Syringe SUBCUT SCH (09:34)
[2019-05-06] MEDS: Carvedilol 6.25 MG Tab PO SCH ×2 (09:34→20:10)
--- NOTE | 2019-05-06 12:52 | PCM.PN ---
- General Info Date of Service: 05/06/19 Admission Dx/Problem (Free Text): Admission Diagnosis/Problem Admission Diagnosis/Problem CHF, Congestive heart failure Subjective Update: Adilson states he is feeling better today. He has less shortness of breath and is able to move around with less difficulty. He has lost another pound and a half and his BNP has decreased. he is on 3 L nasal cannula. This is his home FiO2. - Review of Systems General: Reports: No Symptoms HEENT: Reports: No Symptoms Pulmonary: Reports: Shortness of Breath Cardiovascular: Reports: Orthopnea, Edema. Denies: Palpitations, Lightheadedness Gastrointestinal: Reports: No Symptoms Psychiatric: Reports: No Symptoms - Patient Data Vitals - Most Recent: Last Vital Signs Temp 98.4 F 05/05/19 20:00 Pulse 73 05/06/19 09:34 Resp 20 05/05/19 21:51 BP 101/51 L 05/06/19 09:34 Pulse Ox 97 05/06/19 08:19 Weight - Most Recent: 262 lb 9.6 oz I&O - Last 24 Hours: Intake & Output 05/05/19 05/06/19 05/06/19 22:59 06:59 14:59 Intake Total 680 300 420 Output Total 250 800 Balance 430 -500 420 Lab Results Last 24 Hours: Laboratory Results - last 24 hr 05/05/19 05/05/19 05/05/19 Range/Units 05:17 16:07 21:47 WBC (4.23-9.07) K/mm3 RBC (4.63-6.08) M/mm3 Hgb (13.7-17.5) gm/L Hct (40.1-51.0) % MCV (79.0-92.2) fl MCH (25.7-32.2) pg MCHC (32.2-35.5) g/dl RDW Std Deviation (35.1-43.9) fL Plt Count (163-337) K/mm3 MPV (9.4-12.3) fl Neut % (Auto) (34.0-67.9) % Lymph % (Auto) (21.8-53.1) % [place] % (Auto) (5.3-12.2) % Eos % (Auto) (0.8-7.0) Baso % (Auto) (0.1-1.2) % Neut # (Auto) (1.78-5.38) K/mm3 Lymph # (Auto) (1.32-3.57) K/mm3 [place] # (Auto) (0.30-0.82) K/mm3 Eos # (Auto) (0.04-0.54) K/mm3 Baso # (Auto) (0.01-0.08) K/mm3 Manual Slide Review Sodium (136-145) mEq/L Potassium (3.5-5.1) mEq/L Chloride (98-107) mEq/L Carbon Dioxide (21-32) mEq/L Anion Gap (5-15) BUN (7-18) mg/dL Creatinine (0.7-1.3) mg/dL Est Cr Clr Drug Dosing mL/min Estimated GFR (MDRD) (>60) mL/min BUN/Creatinine Ratio (14-18) Glucose (83-115) mg/dL POC Glucose 145 H 209 H (83-110) mg/dL Hemoglobin A1c 6.50 H (4.50-6.20) % Calcium (8.5-10.1) mg/dL Magnesium (1.8-2.4) mg/dl Total Bilirubin (0.2-1.0) mg/dL AST (15-37) U/L ALT (16-63) U/L Alkaline Phosphatase (46-116) U/L NT-Pro-B Natriuret Pep (0-450) pg/mL Total Protein (6.4-8.2) g/dl Albumin (3.4-5.0) g/dl Globulin gm/dL Albumin/Globulin Ratio (1-2) 05/06/19 05/06/19 05/06/19 Range/Units 06:50 08:22 08:22 WBC 8.45 (4.23-9.07) K/mm3 RBC 3.61 L (4.63-6.08) M/mm3 Hgb 10.7 L (13.7-17.5) gm/L Hct 35.2 L (40.1-51.0) % MCV 97.5 H (79.0-92.2) fl MCH 29.6 (25.7-32.2) pg MCHC 30.4 L (32.2-35.5) g/dl RDW Std Deviation 57.5 H (35.1-43.9) fL Plt Count 259 (163-337) K/mm3 MPV 11.0 (9.4-12.3) fl Neut % (Auto) 79.7 H (34.0-67.9) % Lymph % (Auto) 9.7 L (21.8-53.1) % [place] % (Auto) 8.3 (5.3-12.2) % Eos % (Auto) 1.7 (0.8-7.0) Baso % (Auto) 0.4 (0.1-1.2) % Neut # (Auto) 6.74 H (1.78-5.38) K/mm3 Lymph # (Auto) 0.82 L (1.32-3.57) K/mm3 [place] # (Auto) 0.70 (0.30-0.82) K/mm3 Eos # (Auto) 0.14 (0.04-0.54) K/mm3 Baso # (Auto) 0.03 (0.01-0.08) K/mm3 Manual Slide Review Normal smear Sodium 142 (136-145) mEq/L Potassium 3.9 (3.5-5.1) mEq/L Chloride 105 (98-107) mEq/L Carbon Dioxide 30 (21-32) mEq/L Anion Gap 10.9 (5-15) BUN 45 H (7-18) mg/dL Creatinine 2.2 H (0.7-1.3) mg/dL Est Cr Clr Drug Dosing 19.56 mL/min Estimated GFR (MDRD) 28 (>60) mL/min BUN/Creatinine Ratio 20.5 H (14-18) Glucose 135 H (83-115) mg/dL POC Glucose 84 (83-110) mg/dL Hemoglobin A1c (4.50-6.20) % Calcium 9.0 (8.5-10.1) mg/dL Magnesium 2.5 H (1.8-2.4) mg/dl Total Bilirubin 0.4 (0.2-1.0) mg/dL AST 10 L (15-37) U/L ALT 18 (16-63) U/L Alkaline Phosphatase 103 (46-116) U/L NT-Pro-B Natriuret Pep (0-450) pg/mL Total Protein 6.2 L (6.4-8.2) g/dl Albumin 2.8 L (3.4-5.0) g/dl Globulin 3.4 gm/dL Albumin/Globulin Ratio 0.8 L (1-2) 05/06/19 05/06/19 Range/Units 08:22 11:48 WBC (4.23-9.07) K/mm3 RBC (4.63-6.08) M/mm3 Hgb (13.7-17.5) gm/L Hct (40.1-51.0) % MCV (79.0-92.2) fl MCH (25.7-32.2) pg MCHC (32.2-35.5) g/dl RDW Std Deviation (35.1-43.9) fL Plt Count (163-337) K/mm3 MPV (9.4-12.3) fl Neut % (Auto) (34.0-67.9) % Lymph % (Auto) (21.8-53.1) % [place] % (Auto) (5.3-12.2) % Eos % (Auto) (0.8-7.0) Baso % (Auto) (0.1-1.2) % Neut # (Auto) (1.78-5.38) K/mm3 Lymph # (Auto) (1.32-3.57) K/mm3 [place] # (Auto) (0.30-0.82) K/mm3 Eos # (Auto) (0.04-0.54) K/mm3 Baso # (Auto) (0.01-0.08) K/mm3 Manual Slide Review Sodium (136-145) mEq/L Potassium (3.5-5.1) mEq/L Chloride (98-107) mEq/L Carbon Dioxide (21-32) mEq/L Anion Gap (5-15) BUN (7-18) mg/dL Creatinine (0.7-1.3) mg/dL Est Cr Clr Drug Dosing mL/min Estimated GFR (MDRD) (>60) mL/min BUN/Creatinine Ratio (14-18) Glucose (83-115) mg/dL POC Glucose 98 (83-110) mg/dL Hemoglobin A1c (4.50-6.20) % Calcium (8.5-10.1) mg/dL Magnesium (1.8-2.4) mg/dl Total Bilirubin (0.2-1.0) mg/dL AST (15-37) U/L ALT (16-63) U/L Alkaline Phosphatase (46-116) U/L NT-Pro-B Natriuret Pep 37784 H (0-450) pg/mL Total Protein (6.4-8.2) g/dl Albumin (3.4-5.0) g/dl Globulin gm/dL Albumin/Globulin Ratio (1-2) Med Orders - Current: Current Medications Acetaminophen (Tylenol) 650 mg PO Q4H PRN PRN Reason: Pain (Mild 1-3)/fever Albuterol (Proventil Neb Soln) 2.5 mg NEB Q2H PRN PRN Reason: Dyspnea Albuterol/Ipratropium (Duoneb 3.0-0.5 Mg/3 Ml) 3 ml NEB Q6HRRT [facility] Last Admin: 05/06/19 08:19 Dose: 3 ml Allopurinol (Zyloprim) 150 mg PO DAILY [facility] Last Admin: 05/06/19 09:33 Dose: 150 mg Aspirin (Halfprin) 81 mg PO DAILY [facility] Last Admin: 05/06/19 09:33 Dose: 81 mg Carvedilol (Coreg) 6.25 mg PO BID [facility] Last Admin: 05/06/19 09:34 Dose: 6.25 mg Enoxaparin Sodium (Lovenox) 30 mg SUBCUT DAILY [facility] Last Admin: 05/06/19 09:34 Dose: 30 mg Ferrous Sulfate (Ferrous Sulfate) 325 mg PO DAILY [facility] Last Admin: 05/06/19 09:33 Dose: 325 mg Finasteride (Proscar) 5 mg PO DAILY [facility] Last Admin: 05/06/19 09:33 Dose: 5 mg Fluoxetine HCl (Prozac) 20 mg PO DAILY [facility] Last Admin: 05/06/19 09:33 Dose: 20 mg Furosemide (Lasix) 80 mg IVPUSH 0600,1400,2000 [facility] Last Admin: 05/06/19 06:55 Dose: 80 mg Insulin Glargine (Lantus) 30 unit SUBCUT BIDAC [facility] Last Admin: 05/06/19 06:51 Dose: 30 units Insulin Human Lispro (Humalog) 0 unit SUBCUT QIDACANDBED [facility]; Protocol Last Admin: 05/06/19 11:52 Dose: Not Given Levothyroxine Sodium (Levothyroxine) 75 mcg PO ACBREAKFAST [facility] Last Admin: 05/06/19 06:51 Dose: 75 mcg Mometasone Furoate/Formoterol Fumar (Dulera 200-5 Mcg) 2 puff IH BID [facility] Last Admin: 05/06/19 08:19 Dose: 2 puff Nitroglycerin (Nitrostat) 0.4 mg SL TID PRN PRN Reason: Chest Pain Pantoprazole Sodium (Protonix) 40 mg PO DAILY [facility] Last Admin: 05/06/19 09:33 Dose: 40 mg Potassium Chloride (Klor-Con M20) 20 meq PO DAILY [facility] Last Admin: 05/06/19 09:33 Dose: 20 meq Rosuvastatin Calcium (Crestor) 10 mg PO BEDTIME [facility] Last Admin: 05/05/19 21:49 Dose: 10 mg Senna/Docusate Sodium (Senna Plus) 1 tab PO BID [facility] Last Admin: 05/06/19 09:33 Dose: 1 tab Sodium Chloride (Saline Flush) 10 ml FLUSH ASDIRECTED PRN PRN Reason: Keep Vein Open Last Admin: 05/04/19 11:59 Dose: 10 ml Tamsulosin HCl (Flomax) 0.4 mg PO BEDTIME [facility] Last Admin: 05/05/19 21:49 Dose: 0.4 mg Ticagrelor (Brilinta) 90 mg PO BID [facility] Last Admin: 05/06/19 09:33 Dose: 90 mg Discontinued Medications Albuterol (Proventil Neb Soln) 2.5 mg NEB ONETIME ONE Stop: 05/04/19 11:35 Last Admin: 05/04/19 11:40 Dose: 2.5 mg Carvedilol (Coreg) 6.25 mg PO BIDMEALS [facility] Last Admin: 05/05/19 06:59 Dose: 6.25 mg Furosemide (Lasix) 40 mg IVPUSH NOW ONE Stop: 05/04/19 11:37 Last Admin: 05/04/19 11:59 Dose: 40 mg Furosemide (Lasix) 40 mg IVPUSH NOW ONE Stop: 05/04/19 12:43 Last Admin: 05/04/19 13:18 Dose: 40 mg Furosemide (Lasix) 80 mg IVPUSH ONETIME ONE Stop: 05/04/19 18:01 Last Admin: 05/04/19 18:27 Dose: 80 mg Furosemide (Lasix) 80 mg IVPUSH NOW ONE Stop: 05/05/19 08:20 Last Admin: 05/05/19 08:36 Dose: 80 mg Insulin Glargine (Lantus) 30 unit SUBCUT BEDTIME [facility] Last Admin: 05/04/19 22:27 Dose: 30 units Insulin Human Lispro (Humalog) 2 unit SUBCUT ONETIME ONE Stop: 05/04/19 18:13 Last Admin: 05/04/19 18:27 Dose: 2 unit Methylprednisolone Sodium Succinate (Solu-Medrol) 125 mg IVPUSH ONETIME ONE Stop: 05/04/19 11:37 Last Admin: 05/04/19 11:57 Dose: 125 mg - Exam Quality Assessment: Supplemental Oxygen General: Alert, Oriented HEENT: Pupils Equal, Mucous Membr. Moist/[place] Neck: Supple Lungs: Decreased Breath Sounds, Crackles, Rales. No: Normal Respiratory Effort (increased respiratory effort and tachypnea. Improved from yesterday) Cardiovascular: Regular Rate, Regular Rhythm GI/Abdominal Exam: Normal Bowel Sounds, Soft, Distended (obesity) Extremities: Pedal Edema (2-3+ pitting) Skin: Other (covering over right quintanilla) Psy/Mental Status: Alert, Normal Affect, Normal Mood - Problem List Review Problem List Initiated/Reviewed/Updated: Yes - My Orders Last 24 Hours: My Active Orders 05/05/19 11:51 Consult to Occupational Therapy [OT Evaluation and Treatment] [CONS] Routine PT Evaluation and Treatment [CONS] Routine 05/05/19 11:52 Consult to Physical Therapy [PT Evaluation and Treatment] [CONS] Routine 05/05/19 14:00 Furosemide [Lasix] 80 mg IVPUSH 0600,1400,199905/05/19 16:00 Insulin Glarg,Human.Rec.Analog [LantUS] 30 unit SUBCUT BIDAC 05/05/19 21:00 Rosuvastatin [Crestor] 10 mg PO BEDTIME Tamsulosin [Flomax] 0.4 mg PO BEDTIME 05/07/19 05:11 CBC WITH AUTO DIFF [HEME] AM COMPREHENSIVE METABOLIC PN,CMP [CHEM] AM MAGNESIUM [CHEM] AM 05/07/19 17:15 PRO B-TYPE NATRIUR PEPT,BNPPRO [CHEM] DAILY 05/08/19 05:11 CBC WITH AUTO DIFF [HEME] AM COMPREHENSIVE METABOLIC PN,CMP [CHEM] AM MAGNESIUM [CHEM] AM 05/08/19 17:15 PRO B-TYPE NATRIUR PEPT,BNPPRO [CHEM] DAILY 05/09/19 05:11 CBC WITH AUTO DIFF [HEME] AM COMPREHENSIVE METABOLIC PN,CMP [CHEM] AM MAGNESIUM [CHEM] AM 05/09/19 17:15 PRO B-TYPE NATRIUR PEPT,BNPPRO [CHEM] DAILY 05/10/19 05:11 CBC WITH AUTO DIFF [HEME] AM COMPREHENSIVE METABOLIC PN,CMP [CHEM] AM MAGNESIUM [CHEM] AM - Plan Plan:: Assessment * 80-year-old male with acute exacerbation of CHF - proBNP 14,580-->19,155--> [id number] * Mild COPD exacerbation - avoid steroids secondary to fluid retention and worsening CHF * Chronic renal insufficiency - BUN 35-->39-->45 creatinine 2.0-->2.1-->2.2 * insulin-dependent diabetes * Poorly healing lower extremity wounds * History of BPH, hypertension, gout, hypothyroidism, depression, peripheral vascular disease Plan * Admit to [facility] on telemetry * strict I's and O's and daily weights * Lasix 80 mg IV 3 times a day * Lantus 30 units twice a day * SSI * start BiPAP for improvement in respiratory effort; discontinue if respiratory status improves. * consult wound care * monitor CBC, CMP, magnesium, BNP daily * CODE STATUS: Full code * VTE prophylaxis with Lovenox * Anticipated length of stay 3-4 days
[2019-05-06] MEDS: Rosuvastatin 10 MG Tab PO SCH (20:10)
[2019-05-06] MEDS: Tamsulosin 0.4 MG Cap.ER PO SCH (20:11)
[2019-05-07] MEDS: Albuterol/Ipratropium 3.0-0.5 MG/3 ML Neb Soln NEB SCH ×2 (02:51→08:28)
[2019-05-07] MEDS: Levothyroxine 75 MCG Tab PO SCH (06:07)
[2019-05-07] MEDS: Furosemide 100 MG/10 ML SDV IVPUSH SCH ×3 (06:07→13:50)
[2019-05-07] MEDS: Insulin Lispro 100 Units/ML 3 ML Vial SUBCUT SCH ×2 (06:08→11:41)
[2019-05-07] MEDS: Insulin Glarg,Human.Rec.Analog 100 UNIT/ML ML SUBCUT SCH (08:38)
[2019-05-07] MEDS: Aspirin 81 MG Tab.EC PO SCH (08:39)
[2019-05-07] MEDS: Potassium Chloride 20 MEQ Tab.ER PO SCH (08:39)
[2019-05-07] MEDS: Finasteride 5 MG Tab PO SCH (08:39)
[2019-05-07] MEDS: Enoxaparin 30 MG/0.3 ML Syringe SUBCUT SCH (08:40)
[2019-05-07] MEDS: Allopurinol 300 MG Tab PO SCH (08:40)
[2019-05-07] MEDS: Ticagrelor 90 MG Tab PO SCH (08:40)
[2019-05-07] MEDS: FLUoxetine 20 MG Cap PO SCH (08:40)
[2019-05-07] MEDS: Ferrous Sulfate 325 MG Tab PO SCH (08:40)
[2019-05-07] MEDS: Pantoprazole 40 MG Tab.CR PO SCH (08:40)
[2019-05-07] MEDS: Carvedilol 6.25 MG Tab PO SCH (08:40)
[2019-05-07] MEDS: Formoterol/Mometasone 200-5 MCG 8.8 GM Inhaler IH SCH (11:41)
[2019-05-07 11:42] VITALS: BP 119/62; PULSE 69
[2019-05-07] MEDS ORDERED: Spironolactone 25 MG Tab PO ONE (12:00)
--- NOTE | 2019-05-07 14:33 | PCM.DCSUM1 ---
Discharge Summary - Hospital Course HPI Initial Comments: 88-year-old male with history of CHF, insulin-dependent diabetes, COPD, chronic renal deficiency, BPH, hypothyroidism, depression, and hypertension presents with worsening shortness of breath, lower extremity edema, and weight gain. He states that he has gained 4 pounds in the last couple of days and 10 pounds overall. Over the last 2 days he's had increasing shortness of breath and last night he had difficulty breathing. He has not missed any medications, denies any chest pain, denies any palpitations. He has been feeling lightheaded, but he has not had any syncopal episodes. In the emergency room patient was found to have congestive heart failure and given 80 mg of IV Lasix. Patient is on torsemide 60 mg by mouth twice a day at home. Chest x-ray showed possible CHF with a small right-sided pleural effusion , but no infiltrate. Patient was given Solu-Medrol 125 mg IV push in the emergency room. BNP was 14,580. White count 8.4, hemoglobin 11.3, platelet count 276, sodium 143, potassium 3.9, anion gap 13.9, BUN 35, creatinine 2.0. Renal function appears to be at baseline from previous hospitalizations. Troponin was normal at 0.022. echocardiogram from May 14, 2018 Summary: 1. Left jugular ejection fraction, by visual estimation, is 50-55%. 2. Mildly decreased left ventricular systolic function. 3. The left ventricular internal cavity size is dilated in systole. 4. Hypokinesis of the basal inferior wall suggesting inferior wall LA. 5. Severely dilated left atrium. 6. Mildly dilated right atrium. 7. Moderate to severe mitral valve regurgitation. Diagnosis: Stroke: No - Discharge Data Discharge Date: 05/07/19 Discharge Disposition: Home, Self-Care 01 Condition: Good - Referral to Home Health Date of Face to Face Encounter: 05/07/19 Reason for Homebound Status: Unable to drive or leave home secondary to oxygen needs and weakness/fatigue. Primary Care Physician: Carla Smalls MD Skilled Need: Activities daily living, strength training, gait instability and balance. - Patient Summary/Data Consults: Consultations 05/05/19 11:51 Consult to Occupational Therapy [OT Evaluation and Treatment] [CONS] Routine PT Evaluation and Treatment [CONS] Routine 05/05/19 11:52 Consult to Physical Therapy [PT Evaluation and Treatment] [CONS] Routine Hospital Course: Patient had uneventful hospital course. He was started on Lasix 80 mg IV 3 times a day and had a significant diuresis. His BNP dropped from 19,000-11,000. We did add spironolactone 25 mg a day and stopped his prednisone. Echocardiogram on 05/05/2019 Summary: 1. Left ventricular ejection fraction, by visual estimation, 45-50%. 2. Multiple left ventricular regional wall motion abnormalities exist. 3. The left ventricular internal cavity size is dilated in systole. 4. Normal right ventricular systolic function. 5. There is mild aortic valve sclerosis without stenosis. 6. Mild aortic valve regurgitation. 7. Severe mitral valve regurgitation. 8. Mild to moderate tricuspid valve regurgitation. 9. Right ventricular systolic pressure is severely elevated at 72.8 mmHg 10. Abnormal septal motion consistent with left bundle branch block or conduction abnormality. - Patient Instructions Diet: Heart Healthy Diet, Diabetic Diet Driving: Do Not Drive Showering/Bathing: May Shower Other/Special Instructions: Follow up with PCP next week for recheck, cmp, and magnesium level. - Discharge Plan *PRESCRIPTION DRUG MONITORING PROGRAM REVIEWED*: No *COPY OF PRESCRIPTION DRUG MONITORING REPORT IN PATIENT TIP: No Prescriptions/Med Rec: Spironolactone [Aldactone] 25 mg PO DAILY #30 tab Home Medications: Home Meds Allopurinol [Zyloprim] 150 mg PO DAILY 07/02/17 [History] Aspirin [Adult Low Dose Aspirin EC] 81 mg PO DAILY 07/02/17 [History] FLUoxetine HCl [Fluoxetine HCl] 20 mg PO DAILY 07/02/17 [History] Finasteride 5 mg PO DAILY 07/02/17 [History] Insulin Aspart [NovoLOG] See Protocol SUBCUT WITHMEALSANDBED 07/02/17 [History] Pantoprazole Sodium 40 mg PO DAILY 07/02/17 [History] Tamsulosin HCl 0.4 mg PO BEDTIME 07/02/17 [History] Levothyroxine Sodium [Synthroid] 75 mcg PO DAILY 07/03/17 [History] Tiotropium [Spiriva HandiHaler] 1 cap INH DAILY 07/03/17 [History] Albuterol/Ipratropium [DuoNeb 3.0-0.5 MG/3 ML] 3 ml NEB Q6HR PRN 05/21/18 [ History] Budesonide/Formoterol [Symbicort 160-4.5 MCG] 2 puff INH BID 05/21/18 [History] Insulin Glarg,Human.Rec.Analog [Lantus Solostar] 34 units SUBCUT 08,21 05/21/18 [History] Nitroglycerin 0.4 mg PO TID PRN 12/14/18 [History] Sennosides/Docusate Sodium [Docusate Sodium-Senna Tablet] 50 mg PO BID 12/14/18 [History] Ticagrelor [Brilinta] 90 mg PO BID 12/14/18 [History] Torsemide 40 mg PO BID 12/14/18 [History] atorvaSTATin Calcium [Atorvastatin Calcium] 40 mg PO BEDTIME 01/08/19 [History] Carvedilol [Coreg] 6.25 mg PO BID tablet 01/13/19 [Rx] Ferrous Sulfate 1 tab PO DAILY 05/04/19 [History] Spironolactone [Aldactone] 25 mg PO DAILY #30 tab 05/07/19 [Rx] Oxygen Therapy Mode: Nasal Cannula Oxygen Flow Rate (L/min): 3 Patient Handouts: Heart Failure, [id number], Heart Failure Exacerbation Forms: ED Department Discharge Referrals: Carla Smalls MD [Primary Care Provider] - 05/12/19 12:30 pm (Please follow-up with Dr. Smalls on 05/12/19 at 1230) - Discharge Summary/Plan Comment DC Time >30 min.: Yes Discharge Summary/Plan Comment: Discharge home to follow-up with his primary care provider. Continue on home meds, but add spironolactone 25 mg in the morning and stop potassium. - General Info Date of Service: 05/07/19 Admission Dx/Problem (Free Text: Admission Diagnosis/Problem Admission Diagnosis/Problem CHF, Congestive heart failure Subjective Update: Patient states he is feeling better. He is still some short of breath with activity, but feels he is ready to go home. Functional Status: Reports: Pain Controlled - Review of Systems General: Reports: No Symptoms HEENT: Reports: No Symptoms Pulmonary: Reports: Shortness of Breath Cardiovascular: Reports: Dyspnea on Exertion, Edema. Denies: Chest Pain, Palpitations Gastrointestinal: Reports: No Symptoms Neurological: Reports: No Symptoms Psychiatric: Reports: No Symptoms - Patient Data Vitals - Most Recent: Last Vital Signs Temp 97.3 F 05/07/19 11:30 Pulse 69 05/07/19 11:30 Resp 20 05/07/19 11:30 BP 119/62 05/07/19 11:30 Pulse Ox 99 05/07/19 11:30 Weight - Most Recent: 263 lb 4.8 oz I&O - Last 24 hours: Intake & Output 05/06/19 05/07/19 05/07/19 22:59 06:59 14:59 Intake Total 3090 211 4293 Output Total 2350 1000 1400 Balance -1270 -900 -10 Lab Results - Last 24 hrs: Laboratory Results - last 24 hr 05/06/19 05/06/19 05/07/19 Range/Units 17:29 21:18 05:56 WBC 6.26 (4.23-9.07) K/mm3 RBC 3.48 L (4.63-6.08) M/mm3 Hgb 10.5 L (13.7-17.5) gm/L Hct 34.4 L (40.1-51.0) % MCV 98.9 H (79.0-92.2) fl MCH 30.2 (25.7-32.2) pg MCHC 30.5 L (32.2-35.5) g/dl RDW Std Deviation 59.0 H (35.1-43.9) fL Plt Count 238 (163-337) K/mm3 MPV 11.4 (9.4-12.3) fl Neut % (Auto) 70.0 H (34.0-67.9) % Lymph % (Auto) 14.4 L (21.8-53.1) % [place] % (Auto) 11.3 (5.3-12.2) % Eos % (Auto) 3.4 (0.8-7.0) Baso % (Auto) 0.6 (0.1-1.2) % Neut # (Auto) 4.38 (1.78-5.38) K/mm3 Lymph # (Auto) 0.90 L (1.32-3.57) K/mm3 [place] # (Auto) 0.71 (0.30-0.82) K/mm3 Eos # (Auto) 0.21 (0.04-0.54) K/mm3 Baso # (Auto) 0.04 (0.01-0.08) K/mm3 Manual Slide Review Abnormal smear Sodium (136-145) mEq/L Potassium (3.5-5.1) mEq/L Chloride (98-107) mEq/L Carbon Dioxide (21-32) mEq/L Anion Gap (5-15) BUN (7-18) mg/dL Creatinine (0.7-1.3) mg/dL Est Cr Clr Drug Dosing mL/min Estimated GFR (MDRD) (>60) mL/min BUN/Creatinine Ratio (14-18) Glucose (83-115) mg/dL POC Glucose 132 H 215 H (83-110) mg/dL Calcium (8.5-10.1) mg/dL Magnesium (1.8-2.4) mg/dl Total Bilirubin (0.2-1.0) mg/dL AST (15-37) U/L ALT (16-63) U/L Alkaline Phosphatase (46-116) U/L NT-Pro-B Natriuret Pep (0-450) pg/mL Total Protein (6.4-8.2) g/dl Albumin (3.4-5.0) g/dl Globulin gm/dL Albumin/Globulin Ratio (1-2) 05/07/19 05/07/19 05/07/19 Range/Units 05:56 05:56 06:06 WBC (4.23-9.07) K/mm3 RBC (4.63-6.08) M/mm3 Hgb (13.7-17.5) gm/L Hct (40.1-51.0) % MCV (79.0-92.2) fl MCH (25.7-32.2) pg MCHC (32.2-35.5) g/dl RDW Std Deviation (35.1-43.9) fL Plt Count (163-337) K/mm3 MPV (9.4-12.3) fl Neut % (Auto) (34.0-67.9) % Lymph % (Auto) (21.8-53.1) % [place] % (Auto) (5.3-12.2) % Eos % (Auto) (0.8-7.0) Baso % (Auto) (0.1-1.2) % Neut # (Auto) (1.78-5.38) K/mm3 Lymph # (Auto) (1.32-3.57) K/mm3 [place] # (Auto) (0.30-0.82) K/mm3 Eos # (Auto) (0.04-0.54) K/mm3 Baso # (Auto) (0.01-0.08) K/mm3 Manual Slide Review Sodium 145 (136-145) mEq/L Potassium 4.1 (3.5-5.1) mEq/L Chloride 105 (98-107) mEq/L Carbon Dioxide 30 (21-32) mEq/L Anion Gap 14.1 (5-15) BUN 44 H (7-18) mg/dL Creatinine 2.1 H (0.7-1.3) mg/dL Est Cr Clr Drug Dosing 20.50 mL/min Estimated GFR (MDRD) 30 (>60) mL/min BUN/Creatinine Ratio 21.0 H (14-18) Glucose 62 L (83-115) mg/dL POC Glucose 88 (83-110) mg/dL Calcium 8.5 (8.5-10.1) mg/dL Magnesium 2.5 H (1.8-2.4) mg/dl Total Bilirubin 0.6 (0.2-1.0) mg/dL AST 13 L (15-37) U/L ALT 18 (16-63) U/L Alkaline Phosphatase 100 (46-116) U/L NT-Pro-B Natriuret Pep 14404 H (0-450) pg/mL Total Protein 6.3 L (6.4-8.2) g/dl Albumin 2.8 L (3.4-5.0) g/dl Globulin 3.5 gm/dL Albumin/Globulin Ratio 0.8 L (1-2) 05/07/19 Range/Units 11:28 WBC (4.23-9.07) K/mm3 RBC (4.63-6.08) M/mm3 Hgb (13.7-17.5) gm/L Hct (40.1-51.0) % MCV (79.0-92.2) fl MCH (25.7-32.2) pg MCHC (32.2-35.5) g/dl RDW Std Deviation (35.1-43.9) fL Plt Count (163-337) K/mm3 MPV (9.4-12.3) fl Neut % (Auto) (34.0-67.9) % Lymph % (Auto) (21.8-53.1) % [place] % (Auto) (5.3-12.2) % Eos % (Auto) (0.8-7.0) Baso % (Auto) (0.1-1.2) % Neut # (Auto) (1.78-5.38) K/mm3 Lymph # (Auto) (1.32-3.57) K/mm3 [place] # (Auto) (0.30-0.82) K/mm3 Eos # (Auto) (0.04-0.54) K/mm3 Baso # (Auto) (0.01-0.08) K/mm3 Manual Slide Review Sodium (136-145) mEq/L Potassium (3.5-5.1) mEq/L Chloride (98-107) mEq/L Carbon Dioxide (21-32) mEq/L Anion Gap (5-15) BUN (7-18) mg/dL Creatinine (0.7-1.3) mg/dL Est Cr Clr Drug Dosing mL/min Estimated GFR (MDRD) (>60) mL/min BUN/Creatinine Ratio (14-18) Glucose (83-115) mg/dL POC Glucose 117 H (83-110) mg/dL Calcium (8.5-10.1) mg/dL Magnesium (1.8-2.4) mg/dl Total Bilirubin (0.2-1.0) mg/dL AST (15-37) U/L ALT (16-63) U/L Alkaline Phosphatase (46-116) U/L NT-Pro-B Natriuret Pep (0-450) pg/mL Total Protein (6.4-8.2) g/dl Albumin (3.4-5.0) g/dl Globulin gm/dL Albumin/Globulin Ratio (1-2) Med Orders - Current: Current Medications Acetaminophen (Tylenol) 650 mg PO Q4H PRN PRN Reason: Pain (Mild 1-3)/fever Albuterol (Proventil Neb Soln) 2.5 mg NEB Q2H PRN PRN Reason: Dyspnea Albuterol/Ipratropium (Duoneb 3.0-0.5 Mg/3 Ml) 3 ml NEB Q6HRRT [facility] Last Admin: 05/07/19 08:28 Dose: 3 ml Allopurinol (Zyloprim) 150 mg PO DAILY [facility] Last Admin: 05/07/19 08:40 Dose: 150 mg Aspirin (Halfprin) 81 mg PO DAILY [facility] Last Admin: 05/07/19 08:39 Dose: 81 mg Carvedilol (Coreg) 6.25 mg PO BID [facility] Last Admin: 05/07/19 08:40 Dose: 6.25 mg Enoxaparin Sodium (Lovenox) 30 mg SUBCUT DAILY [facility] Last Admin: 05/07/19 08:40 Dose: 30 mg Ferrous Sulfate (Ferrous Sulfate) 325 mg PO DAILY [facility] Last Admin: 05/07/19 08:40 Dose: 325 mg Finasteride (Proscar) 5 mg PO DAILY [facility] Last Admin: 05/07/19 08:39 Dose: 5 mg Fluoxetine HCl (Prozac) 20 mg PO DAILY [facility] Last Admin: 05/07/19 08:40 Dose: 20 mg Furosemide (Lasix) 80 mg IVPUSH 0600,1400,2000 [facility] Last Admin: 05/07/19 13:50 Dose: Not Given Insulin Glargine (Lantus) 30 unit SUBCUT BIDAC [facility] Last Admin: 05/07/19 08:38 Dose: 30 units Insulin Human Lispro (Humalog) 0 unit SUBCUT QIDACANDBED [facility]; Protocol Last Admin: 05/07/19 11:41 Dose: Not Given Levothyroxine Sodium (Levothyroxine) 75 mcg PO ACBREAKFAST [facility] Last Admin: 05/07/19 06:07 Dose: 75 mcg Mometasone Furoate/Formoterol Fumar (Dulera 200-5 Mcg) 2 puff IH BID [facility] Last Admin: 05/07/19 11:41 Dose: Not Given Nitroglycerin (Nitrostat) 0.4 mg SL TID PRN PRN Reason: Chest Pain Pantoprazole Sodium (Protonix) 40 mg PO DAILY [facility] Last Admin: 05/07/19 08:40 Dose: 40 mg Potassium Chloride (Klor-Con M20) 20 meq PO DAILY [facility] Last Admin: 05/07/19 08:39 Dose: 20 meq Rosuvastatin Calcium (Crestor) 10 mg PO BEDTIME [facility] Last Admin: 05/06/19 20:10 Dose: 10 mg Senna/Docusate Sodium (Senna Plus) 1 tab PO BID [facility] Last Admin: 05/07/19 08:39 Dose: 1 tab Sodium Chloride (Saline Flush) 10 ml FLUSH ASDIRECTED PRN PRN Reason: Keep Vein Open Last Admin: 05/04/19 11:59 Dose: 10 ml Tamsulosin HCl (Flomax) 0.4 mg PO BEDTIME [facility] Last Admin: 05/06/19 20:11 Dose: 0.4 mg Ticagrelor (Brilinta) 90 mg PO BID [facility] Last Admin: 05/07/19 08:40 Dose: 90 mg Discontinued Medications Albuterol (Proventil Neb Soln) 2.5 mg NEB ONETIME ONE Stop: 05/04/19 11:35 Last Admin: 05/04/19 11:40 Dose: 2.5 mg [facility] Admin: 05/05/19 06:59 Dose: 6.25 mg Furosemide (Lasix) 40 mg IVPUSH NOW ONE Stop: 05/04/19 11:37 Last Admin: 05/04/19 11:59 Dose: 40 mg Furosemide (Lasix) 40 mg IVPUSH NOW ONE Stop: 05/04/19 12:43 Last Admin: 05/04/19 13:18 Dose: 40 mg Furosemide (Lasix) 80 mg IVPUSH ONETIME ONE Stop: 05/04/19 18:01 Last Admin: 05/04/19 18:27 Dose: 80 mg Furosemide (Lasix) 80 mg IVPUSH NOW ONE Stop: 05/05/19 08:20 Last Admin: 05/05/19 08:36 Dose: 80 mg Insulin Glargine (Lantus) 30 unit SUBCUT BEDTIME [facility] Last Admin: 05/04/19 22:27 Dose: 30 units Insulin Human Lispro (Humalog) 2 unit SUBCUT ONETIME ONE Stop: 05/04/19 18:13 Last Admin: 05/04/19 18:27 Dose: 2 unit Methylprednisolone Sodium Succinate (Solu-Medrol) 125 mg IVPUSH ONETIME ONE Stop: 05/04/19 11:37 Last Admin: 05/04/19 11:57 Dose: 125 mg Spironolactone (Aldactone) 25 mg PO ONETIME ONE Stop: 05/07/19 12:01 Last Admin: 05/07/19 11:55 Dose: 25 mg - Exam Quality Assessment: Reports: Supplemental Oxygen General: Reports: Alert, Oriented HEENT: Reports: Pupils Equal, Mucous Membr. Moist/[place] Neck: Reports: Supple Lungs: Reports: Normal Respiratory Effort, Crackles, Rales Cardiovascular: Reports: Regular Rate, Regular Rhythm, Murmurs GI/Abdominal Exam: Normal Bowel Sounds, Soft, No Organomegaly, No Distention Back Exam: Reports: Normal Inspection, Full Range of Motion Extremities: Normal Inspection, Pedal Edema (3-4+ pitting edema) Skin: Reports: Warm, Dry, Intact Wound/Incisions: Reports: Healing Well Psy/Mental Status: Reports: Alert, Normal Affect, Normal Mood
--- NOTE | 2019-05-10 06:40 | CR ---
Chest: Portable view of the chest was obtained. Comparison: Prior chest x-ray of 05/14/19. Central lung markings are mildly increased. Questionable pleural effusions are again noted within both lung bases. Probable bibasilar atelectasis is also noted which is worse within the right lung base. Difficult to completely exclude pneumonia within the right base. Degenerative endplate spurring is noted within the spine. Impression: 1. Findings suggestive of continuing pulmonary vascular congestion with probable bilateral pleural effusions. 2. Probable atelectasis within both lung bases. Difficult to exclude pneumonia within the right lung base if patient has infectious symptoms. Diagnostic code #3 I agree with preliminary report from [facility], finalized on 05/05/19, 10:43 AM Central Time
== END 2019-05-07 14:39 | disposition home or self-care (01) | DRG 291 ==
LOC: JD.ED 11:17 → JD.MS 15:52
PROVIDERS: ADMIT Family Medicine; ATTEND Family Medicine
DX: J44.9 Chronic obstructive pulmonary disease, unspecified (principal); I13.0 Hypertensive heart and chronic kidney disease with heart failure and stage 1 through stage 4 chronic kidney disease, or unspecified chronic kidney disease; I50.43 Acute on chronic combined systolic (congestive) and diastolic (congestive) heart failure; J44.1 Chronic obstructive pulmonary disease with (acute) exacerbation; E11.9 Type 2 diabetes mellitus without complications; Z68.42 Body mass index [BMI] 45.0-49.9, adult; N18.9 Chronic kidney disease, unspecified; E11.22 Type 2 diabetes mellitus with diabetic chronic kidney disease; E03.9 Hypothyroidism, unspecified; N40.0 Benign prostatic hyperplasia without lower urinary tract symptoms; Z79.01 Long term (current) use of anticoagulants; F32.9 Major depressive disorder, single episode, unspecified; H54.7 Unspecified visual loss; E78.00 Pure hypercholesterolemia, unspecified; G47.30 Sleep apnea, unspecified; M10.9 Gout, unspecified; E11.51 Type 2 diabetes mellitus with diabetic peripheral angiopathy without gangrene; E66.01 Morbid (severe) obesity due to excess calories; S81.802D Unspecified open wound, left lower leg, subsequent encounter; S81.801D Unspecified open wound, right lower leg, subsequent encounter; Z79.4 Long term (current) use of insulin; Z79.82 Long term (current) use of aspirin; Z79.899 Other long term (current) drug therapy; I25.2 Old myocardial infarction; Z95.5 Presence of coronary angioplasty implant and graft; Z99.81 Dependence on supplemental oxygen; Z85.51 Personal history of malignant neoplasm of bladder; Z85.820 Personal history of malignant melanoma of skin; Z92.21 Personal history of antineoplastic chemotherapy
CPT/HCPCS: 36415; 71045; 80053; 82962 ×2; 83880; 84484; 85007; 85027; 86140; 93005; 94640; 96374; 96375; 96376; 99285; J1940 ×2; J2930; 36600; 82803; 83036; 83735; 85025; 93010; 93306; 94660; 94760; 94761; 97110-GO; 97110-GP; 97116-GP; 97162-GP; 97165-GO; 97530-GO; 99283; A9270-GY; J1650; J1815-GY; J7620-GY

== ENCOUNTER 2019-06-15 12:48 | Inpatient (IN) | payer MEDICARE, OTHER, MEDICAID ==
[2019-06-15] MEDS ORDERED: 50% Dextrose in Water 50 ML Syringe IVPUSH ONE (13:27)
[2019-06-15] MEDS ORDERED: Sodium Chloride 0.9% 10 ML Syringe FLUSH PRN (13:57)
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
[2019-06-15] MEDS ORDERED: Furosemide 40 MG/4 ML VIAL IVPUSH ONE (14:31)
--- NOTE | 2019-06-15 16:01 | CR ---
Chest: Two views of the chest were obtained. Comparison: Previous chest x-ray of 05/05/19. Decreased pleural effusions from prior exam. Minimal blunting remains within the lateral and posterior right costophrenic angles. Pulmonary vessels are felt to be slightly congested. Diaphragms are flattened compatible with emphysematous change. Scattered disc space narrowing and mild endplate spurring is noted within the spine with minimal scoliosis. Impression: 1. Small right-sided pleural effusion. 2. Emphysematous change. 3. Probable pulmonary vascular congestion. Diagnostic code #3
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
[2019-06-15] MEDS ORDERED: Ondansetron 4 MG/2 ML SDV IV PRN (16:24)
[2019-06-15] MEDS ORDERED: Acetaminophen 325 MG Tab PO PRN (16:24)
[2019-06-15] MEDS ORDERED: Ondansetron 4 MG Tab.DIS PO PRN (16:24)
[2019-06-15] MEDS: Albuterol/Ipratropium 3.0-0.5 MG/3 ML Neb Soln NEB SCH ×2 (17:15→21:38)
[2019-06-15] MEDS: Azithromycin 250 MG Tab PO SCH (18:03)
[2019-06-15] MEDS: Aspirin 81 MG Tab.EC PO SCH (18:04)
[2019-06-15] MEDS: Finasteride 5 MG Tab PO SCH (18:04)
[2019-06-15] MEDS: Furosemide 40 MG/4 ML VIAL IVPUSH SCH (18:06)
[2019-06-15] MEDS ORDERED: Carvedilol 6.25 MG Tab PO SCH (21:00)
[2019-06-15] MEDS: Insulin Lispro 100 Units/ML 3 ML Vial SUBCUT SCH ×2 (21:27→21:28)
[2019-06-15] MEDS: Insulin Glarg,Human.Rec.Analog 100 UNIT/ML ML SUBCUT SCH (21:29)
[2019-06-15] MEDS: Ticagrelor 90 MG Tab PO SCH (21:31)
[2019-06-15] MEDS: Tamsulosin 0.4 MG Cap.ER PO SCH (21:31)
[2019-06-15] MEDS: Spironolactone 25 MG Tab PO SCH (21:32)
[2019-06-15] MEDS: Rosuvastatin 10 MG Tab PO SCH (21:32)
[2019-06-16] MEDS: Furosemide 40 MG/4 ML VIAL IVPUSH SCH ×2 (00:03→08:17)
[2019-06-16] MEDS: Albuterol/Ipratropium 3.0-0.5 MG/3 ML Neb Soln NEB SCH ×4 (00:17→20:42)
[2019-06-16] MEDS: Levothyroxine 75 MCG Tab PO SCH (06:04)
[2019-06-16] MEDS: Psyllium Husk Powder Sugar Free 3.4 GM Packet PO SCH ×3 (06:05→15:38)
[2019-06-16] MEDS: Insulin Lispro 100 Units/ML 3 ML Vial SUBCUT SCH ×4 (07:45→21:23)
[2019-06-16] MEDS: Insulin Glarg,Human.Rec.Analog 100 UNIT/ML ML SUBCUT SCH ×2 (08:14→21:22)
[2019-06-16] MEDS: Azithromycin 250 MG Tab PO SCH (08:21)
[2019-06-16] MEDS: FLUoxetine 20 MG Cap PO SCH (08:22)
[2019-06-16] MEDS: Allopurinol 300 MG Tab PO SCH (08:23)
[2019-06-16] MEDS: Aspirin 81 MG Tab.EC PO SCH (08:23)
[2019-06-16] MEDS: Finasteride 5 MG Tab PO SCH (08:23)
[2019-06-16] MEDS: Enoxaparin 30 MG/0.3 ML Syringe SUBCUT SCH (08:24)
[2019-06-16] MEDS ORDERED: Ferrous Sulfate 325 MG Tab PO SCH (09:00)
[2019-06-16] MEDS: Ticagrelor 90 MG Tab PO SCH ×2 (09:44→21:21)
[2019-06-16] MEDS: Spironolactone 25 MG Tab PO SCH ×2 (09:44→21:21)
[2019-06-16] MEDS: Nitroglycerin 0.4 MG Tab.SL SL PRN ×3 (11:58→22:36)
[2019-06-16] MEDS: Carvedilol 6.25 MG Tab PO SCH ×2 (12:17→21:20)
--- NOTE | 2019-06-16 14:47 | PCM.PN ---
- General Info Date of Service: 06/16/19 Admission Dx/Problem (Free Text): decompensated congestive heart failure Subjective Update: I was called to patient's bedside this morning secondary to complaints of chest pain. Patient states that he has episodes of central chest pain that resolved by nitroglycerin several times per week. This was similar to that episode. He was given nitroglycerin sublingual 0.4 mg with good resolution. EKG was performed which showed a ventricular rate of 99 in sinus rhythm. He has a right bundle branch block with left anterior fascicular block. Compared to previous EKGs it was unchanged except for amplitude. Patient had his Coreg held yesterday and we gave we started him on his Coreg. Patient had complete resolution of his chest pain and is now resting comfortably. Lab work was ordered including a CMP and troponin. Of note the sodium has come down to 131 with an increase in his creatinine to 2.5. Patient has had good diuresis overnight with a 4 pound weight loss and it appears he may be somewhat volume contracted now. Functional Status: Reports: Pain Controlled - Review of Systems General: Reports: Weakness, Fatigue HEENT: Reports: No Symptoms Pulmonary: Reports: Shortness of Breath, Cough Cardiovascular: Reports: Chest Pain, Edema Gastrointestinal: Reports: No Symptoms Neurological: Reports: No Symptoms Psychiatric: Reports: No Symptoms - Patient Data Vitals - Most Recent: Last Vital Signs Temp 97.5 F 06/16/19 04:26 Pulse 102 H 06/16/19 12:17 Resp 20 06/16/19 12:07 BP 132/69 06/16/19 12:17 Pulse Ox 98 06/16/19 12:07 Weight - Most Recent: 229 lb 0.964 oz I&O - Last 24 Hours: Intake & Output 06/15/19 06/16/19 06/16/19 22:59 06:59 14:59 Intake Total 350 360 Output Total 1000 0 Balance -1000 -1700 360 Lab Results Last 24 Hours: Laboratory Results - last 24 hr 06/15/19 06/15/19 06/15/19 Range/Units 13:20 13:20 16:30 WBC (4.23-9.07) K/mm3 RBC (4.63-6.08) M/mm3 Hgb (13.7-17.5) gm/dl Hct (40.1-51.0) % MCV (79.0-92.2) fl MCH (25.7-32.2) pg MCHC (32.2-35.5) g/dl RDW Std Deviation (35.1-43.9) fL Plt Count (163-337) K/mm3 MPV (9.4-12.3) fl Neut % (Auto) (34.0-67.9) % Lymph % (Auto) (21.8-53.1) % [place] % (Auto) (5.3-12.2) % Eos % (Auto) (0.8-7.0) Baso % (Auto) (0.1-1.2) % Neut # (Auto) (1.78-5.38) K/mm3 Lymph # (Auto) (1.32-3.57) K/mm3 [place] # (Auto) (0.30-0.82) K/mm3 Eos # (Auto) (0.04-0.54) K/mm3 Baso # (Auto) (0.01-0.08) K/mm3 Neutrophils % (Manual) 76 H (40-60) % Band Neutrophils % 0 (0-10) % Lymphocytes % (Manual) 11 L (20-40) % Atypical Lymphs % 0 % Monocytes % (Manual) 9 (2-10) % Eosinophils % (Manual) 4 (0.8-7.0) % Basophils % (Manual) 0 L (0.2-1.2) Manual Slide Review Platelet Estimate Adequate RBC Morph Comment Normal Sodium (136-145) mEq/L Potassium (3.5-5.1) mEq/L Chloride (98-107) mEq/L Carbon Dioxide (21-32) mEq/L Anion Gap (5-15) BUN (7-18) mg/dL Creatinine (0.7-1.3) mg/dL Est Cr Clr Drug Dosing mL/min Estimated GFR (MDRD) (>60) mL/min BUN/Creatinine Ratio (14-18) Glucose (83-115) mg/dL POC Glucose (83-110) mg/dL Calcium (8.5-10.1) mg/dL Phosphorus (2.6-4.7) mg/dL Magnesium (1.8-2.4) mg/dl Troponin I (0.00-0.056) ng/mL NT-Pro-B Natriuret Pep 75440 H (0-450) pg/mL Urine Color Light yellow (Yellow) Urine Appearance Clear (Clear) Urine pH 7.0 (5.0-8.0) Ur Specific [place] 1.020 (1.005-1.030) Urine Protein Negative (Negative) Urine Glucose (UA) Negative (Negative) Urine Ketones Negative (Negative) Urine Occult Blood Negative (Negative) Urine Nitrite Negative (Negative) Urine Bilirubin Negative (Negative) Urine Urobilinogen 0.2 (0.2-1.0) Ur Leukocyte Esterase Negative (Negative) Urine RBC 0-5 (0-5) /hpf Urine WBC 0-5 (0-5) /hpf Ur Squamous Epith Cells 0-5 (0-5) /hpf Urine Bacteria Occasional (FEW) /hpf Urine Mucus Not seen (FEW) /hpf 06/15/19 06/15/19 06/16/19 Range/Units 17:17 21:15 04:47 WBC 5.78 (4.23-9.07) K/mm3 RBC 3.83 L (4.63-6.08) M/mm3 Hgb 11.5 L (13.7-17.5) gm/dl Hct 36.0 L (40.1-51.0) % MCV 94.0 H (79.0-92.2) fl MCH 30.0 (25.7-32.2) pg MCHC 31.9 L (32.2-35.5) g/dl RDW Std Deviation 54.1 H (35.1-43.9) fL Plt Count 299 D (163-337) K/mm3 MPV 11.0 (9.4-12.3) fl Neut % (Auto) 88.9 H (34.0-67.9) % Lymph % (Auto) 7.6 L (21.8-53.1) % [place] % (Auto) 2.8 L (5.3-12.2) % Eos % (Auto) 0.2 L (0.8-7.0) Baso % (Auto) 0.2 (0.1-1.2) % Neut # (Auto) 5.14 (1.78-5.38) K/mm3 Lymph # (Auto) 0.44 L (1.32-3.57) K/mm3 [place] # (Auto) 0.16 L (0.30-0.82) K/mm3 Eos # (Auto) 0.01 L (0.04-0.54) K/mm3 Baso # (Auto) 0.01 (0.01-0.08) K/mm3 Neutrophils % (Manual) (40-60) % Band Neutrophils % (0-10) % Lymphocytes % (Manual) (20-40) % Atypical Lymphs % % Monocytes % (Manual) (2-10) % Eosinophils % (Manual) (0.8-7.0) % Basophils % (Manual) (0.2-1.2) Manual Slide Review Abnormal smear Platelet Estimate RBC Morph Comment Sodium (136-145) mEq/L Potassium (3.5-5.1) mEq/L Chloride (98-107) mEq/L Carbon Dioxide (21-32) mEq/L Anion Gap (5-15) BUN (7-18) mg/dL Creatinine (0.7-1.3) mg/dL Est Cr Clr Drug Dosing mL/min Estimated GFR (MDRD) (>60) mL/min BUN/Creatinine Ratio (14-18) Glucose (83-115) mg/dL POC Glucose 146 H 307 H (83-110) mg/dL Calcium (8.5-10.1) mg/dL Phosphorus (2.6-4.7) mg/dL Magnesium (1.8-2.4) mg/dl Troponin I (0.00-0.056) ng/mL NT-Pro-B Natriuret Pep (0-450) pg/mL Urine Color (Yellow) Urine Appearance (Clear) Urine pH (5.0-8.0) Ur Specific [place] (1.005-1.030) Urine Protein (Negative) Urine Glucose (UA) (Negative) Urine Ketones (Negative) Urine Occult Blood (Negative) Urine Nitrite (Negative) Urine Bilirubin (Negative) Urine Urobilinogen (0.2-1.0) Ur Leukocyte Esterase (Negative) Urine RBC (0-5) /hpf Urine WBC (0-5) /hpf Ur Squamous Epith Cells (0-5) /hpf Urine Bacteria (FEW) /hpf Urine Mucus (FEW) /hpf 06/16/19 06/16/19 06/16/19 Range/Units 04:47 06:04 11:14 WBC (4.23-9.07) K/mm3 RBC (4.63-6.08) M/mm3 Hgb (13.7-17.5) gm/dl Hct (40.1-51.0) % MCV (79.0-92.2) fl MCH (25.7-32.2) pg MCHC (32.2-35.5) g/dl RDW Std Deviation (35.1-43.9) fL Plt Count (163-337) K/mm3 MPV (9.4-12.3) fl Neut % (Auto) (34.0-67.9) % Lymph % (Auto) (21.8-53.1) % [place] % (Auto) (5.3-12.2) % Eos % (Auto) (0.8-7.0) Baso % (Auto) (0.1-1.2) % Neut # (Auto) (1.78-5.38) K/mm3 Lymph # (Auto) (1.32-3.57) K/mm3 [place] # (Auto) (0.30-0.82) K/mm3 Eos # (Auto) (0.04-0.54) K/mm3 Baso # (Auto) (0.01-0.08) K/mm3 Neutrophils % (Manual) (40-60) % Band Neutrophils % (0-10) % Lymphocytes % (Manual) (20-40) % Atypical Lymphs % % Monocytes % (Manual) (2-10) % Eosinophils % (Manual) (0.8-7.0) % Basophils % (Manual) (0.2-1.2) Manual Slide Review Platelet Estimate RBC Morph Comment Sodium 135 L (136-145) mEq/L Potassium 4.6 (3.5-5.1) mEq/L Chloride 99 (98-107) mEq/L Carbon Dioxide 32 (21-32) mEq/L Anion Gap 8.6 (5-15) BUN 58 H (7-18) mg/dL Creatinine 2.3 H (0.7-1.3) mg/dL Est Cr Clr Drug Dosing 18.59 mL/min Estimated GFR (MDRD) 27 (>60) mL/min BUN/Creatinine Ratio 25.2 H (14-18) Glucose 241 H (83-115) mg/dL POC Glucose 248 H 398 H (83-110) mg/dL Calcium 9.4 (8.5-10.1) mg/dL Phosphorus 3.4 (2.6-4.7) mg/dL Magnesium 2.5 H (1.8-2.4) mg/dl Troponin I (0.00-0.056) ng/mL NT-Pro-B Natriuret Pep (0-450) pg/mL Urine Color (Yellow) Urine Appearance (Clear) Urine pH (5.0-8.0) Ur Specific [place] (1.005-1.030) Urine Protein (Negative) Urine Glucose (UA) (Negative) Urine Ketones (Negative) Urine Occult Blood (Negative) Urine Nitrite (Negative) Urine Bilirubin (Negative) Urine Urobilinogen (0.2-1.0) Ur Leukocyte Esterase (Negative) Urine RBC (0-5) /hpf Urine WBC (0-5) /hpf Ur Squamous Epith Cells (0-5) /hpf Urine Bacteria (FEW) /hpf Urine Mucus (FEW) /hpf 06/16/19 Range/Units 12:32 WBC (4.23-9.07) K/mm3 RBC (4.63-6.08) M/mm3 Hgb (13.7-17.5) gm/dl Hct (40.1-51.0) % MCV (79.0-92.2) fl MCH (25.7-32.2) pg MCHC (32.2-35.5) g/dl RDW Std Deviation (35.1-43.9) fL Plt Count (163-337) K/mm3 MPV (9.4-12.3) fl Neut % (Auto) (34.0-67.9) % Lymph % (Auto) (21.8-53.1) % [place] % (Auto) (5.3-12.2) % Eos % (Auto) (0.8-7.0) Baso % (Auto) (0.1-1.2) % Neut # (Auto) (1.78-5.38) K/mm3 Lymph # (Auto) (1.32-3.57) K/mm3 [place] # (Auto) (0.30-0.82) K/mm3 Eos # (Auto) (0.04-0.54) K/mm3 Baso # (Auto) (0.01-0.08) K/mm3 Neutrophils % (Manual) (40-60) % Band Neutrophils % (0-10) % Lymphocytes % (Manual) (20-40) % Atypical Lymphs % % Monocytes % (Manual) (2-10) % Eosinophils % (Manual) (0.8-7.0) % Basophils % (Manual) (0.2-1.2) Manual Slide Review Platelet Estimate RBC Morph Comment Sodium 131 L (136-145) mEq/L Potassium 4.5 (3.5-5.1) mEq/L Chloride 94 L (98-107) mEq/L Carbon Dioxide 30 (21-32) mEq/L Anion Gap 11.5 (5-15) BUN 63 H (7-18) mg/dL Creatinine 2.5 H (0.7-1.3) mg/dL Est Cr Clr Drug Dosing 17.10 mL/min Estimated GFR (MDRD) 24 (>60) mL/min BUN/Creatinine Ratio 25.2 H (14-18) Glucose 371 H (83-115) mg/dL POC Glucose (83-110) mg/dL Calcium 9.7 (8.5-10.1) mg/dL Phosphorus (2.6-4.7) mg/dL Magnesium (1.8-2.4) mg/dl Troponin I 0.051 (0.00-0.056) ng/mL NT-Pro-B Natriuret Pep (0-450) pg/mL Urine Color (Yellow) Urine Appearance (Clear) Urine pH (5.0-8.0) Ur Specific [place] (1.005-1.030) Urine Protein (Negative) Urine Glucose (UA) (Negative) Urine Ketones (Negative) Urine Occult Blood (Negative) Urine Nitrite (Negative) Urine Bilirubin (Negative) Urine Urobilinogen (0.2-1.0) Ur Leukocyte Esterase (Negative) Urine RBC (0-5) /hpf Urine WBC (0-5) /hpf Ur Squamous Epith Cells (0-5) /hpf Urine Bacteria (FEW) /hpf Urine Mucus (FEW) /hpf Med Orders - Current: Current Medications Acetaminophen (Tylenol) 650 mg PO Q4H PRN PRN Reason: Pain (Mild 1-3)/fever Albuterol/Ipratropium (Duoneb 3.0-0.5 Mg/3 Ml) 3 ml NEB Q6HRRT [facility] Allopurinol (Zyloprim) 150 mg PO DAILY [facility] Last Admin: 06/16/19 08:23 Dose: 150 mg Aspirin (Halfprin) 81 mg PO DAILY [facility] Last Admin: 06/16/19 08:23 Dose: 81 mg Azithromycin (Zithromax) 250 mg PO DAILY [facility] Stop: 06/18/19 09:01 Carvedilol (Coreg) 6.25 mg PO BID [facility] Last Admin: 06/16/19 12:17 Dose: 6.25 mg Enoxaparin Sodium (Lovenox) 30 mg SUBCUT DAILY [facility] Last Admin: 06/16/19 08:24 Dose: 30 mg Ferrous Sulfate (Ferrous Sulfate) 324 mg PO DAILY [facility] Finasteride (Proscar) 5 mg PO DAILY [facility] Last Admin: 06/16/19 08:23 Dose: 5 mg Fluoxetine HCl (Prozac) 20 mg PO DAILY [facility] Last Admin: 06/16/19 08:22 Dose: 20 mg Furosemide (Lasix) 40 mg IVPUSH ONETIME ONE Stop: 06/16/19 16:01 Insulin Glargine (Lantus) 30 unit SUBCUT BID [facility] Insulin Human Lispro (Humalog) 0 unit SUBCUT QIDACANDBED [facility]; Protocol Last Admin: 06/16/19 11:44 Dose: 10 units Levothyroxine Sodium (Levothyroxine) 75 mcg PO ACBREAKFAST [facility] Last Admin: 06/16/19 06:04 Dose: 75 mcg Methylprednisolone (Medrol) 16 mg PO DAILY [facility] Stop: 06/17/19 09:01 Methylprednisolone (Medrol) 12 mg PO DAILY [facility] Stop: 06/18/19 09:01 Methylprednisolone (Medrol) 8 mg PO DAILY [facility] Stop: 06/19/19 09:01 Methylprednisolone (Medrol) 4 mg PO DAILY [facility] Stop: 06/20/19 09:01 Nitroglycerin (Nitrostat) 0.4 mg SL Q5M PRN PRN Reason: Chest Pain Last Admin: 06/16/19 11:58 Dose: 0.4 mg Ondansetron HCl (Zofran Odt) 4 mg PO Q6H PRN PRN Reason: nausea, able to take PO Ondansetron HCl (Zofran) 4 mg IV Q6H PRN PRN Reason: Nausea/Vomiting Psyllium Husk (Metamucil Sugar Free) 1 packet PO TID [facility] Stop: 06/16/19 15:01 Last Admin: 06/16/19 09:44 Dose: 1 packet Rosuvastatin Calcium (Crestor) 10 mg PO BEDTIME [facility] Last Admin: 06/15/19 21:32 Dose: 10 mg Senna/Docusate Sodium (Senna Plus) 1 tab PO BID [facility] Last Admin: 06/16/19 08:22 Dose: 1 tab Sodium Chloride (Saline Flush) 10 ml FLUSH ASDIRECTED PRN PRN Reason: Keep Vein Open Last Admin: 06/15/19 14:48 Dose: 10 ml Spironolactone (Aldactone) 25 mg PO BID [facility] Last Admin: 06/16/19 09:44 Dose: 25 mg Tamsulosin HCl (Flomax) 0.4 mg PO BEDTIME [facility] Last Admin: 06/15/19 21:31 Dose: 0.4 mg Ticagrelor (Brilinta) 90 mg PO BID [facility] Last Admin: 06/16/19 09:44 Dose: 90 mg Discontinued Medications Albuterol/Ipratropium (Duoneb 3.0-0.5 Mg/3 Ml) 3 ml NEB Q4H [facility] Stop: 06/16/19 04:31 Last Admin: 06/16/19 04:16 Dose: 3 ml Azithromycin (Zithromax) 500 mg PO DAILY [facility] Stop: 06/19/19 09:01 Last Admin: 06/16/19 08:21 Dose: 500 mg Carvedilol (Coreg) 3.125 mg PO BID [facility] Dextrose/Water (Dextrose 50% In Water) 25 ml IVPUSH ASDIRECTED ONE Stop: 06/15/19 13:28 Last Admin: 06/15/19 13:30 Dose: 25 ml Ferrous Sulfate (Ferrous Sulfate) 325 mg PO DAILY [facility] Last Admin: 06/16/19 08:22 Dose: 325 mg Furosemide (Lasix) 80 mg IVPUSH NOW ONE Stop: 06/15/19 14:32 Last Admin: 06/15/19 14:49 Dose: 80 mg Furosemide (Lasix) 80 mg IVPUSH Q8H [facility] Stop: 06/16/19 08:31 Last Admin: 06/16/19 08:17 Dose: 80 mg Insulin Glargine (Lantus) 25 unit SUBCUT BID [facility] Last Admin: 06/16/19 08:14 Dose: 25 units Methylprednisolone (Medrol) 24 mg PO DAILY [facility] Stop: 06/15/19 16:46 Last Admin: 06/15/19 18:05 Dose: 24 mg Methylprednisolone (Medrol) 20 mg PO DAILY [facility] Stop: 06/16/19 09:01 Last Admin: 06/16/19 08:19 Dose: 20 mg - Exam Quality Assessment: Supplemental Oxygen General: Alert, Oriented HEENT: Pupils Equal Neck: Supple Lungs: Rales (bibasilar) Cardiovascular: Regular Rhythm, Tachycardia (Male) Exam: No Hernia - Problem List Review Problem List Initiated/Reviewed/Updated: Yes - My Orders Last 24 Hours: My Active Orders 06/16/19 10:11 Patient Status [ADT] Routine 06/16/19 10:13 Consult to Occupational Therapy [OT Evaluation and Treatment] [CONS] Routine Consult to Physical Therapy [PT Evaluation and Treatment] [CONS] Routine 06/16/19 11:56 Nitroglycerin [Nitrostat] 0.4 mg SL Q5M PRN 06/16/19 12:15 Carvedilol [Coreg] 6.25 mg PO BID 06/16/19 12:19 EKG 12 Lead [EK] Stat 06/16/19 15:00 Albuterol/Ipratropium [DuoNeb 3.0-0.5 MG/3 ML] 3 ml NEB Q6HRRT 06/16/19 16:00 Furosemide [Lasix] 40 mg IVPUSH ONETIME ONE 06/16/19 16:15 TROPONIN I [CHEM] Routine 06/16/19 21:00 Insulin Glarg,Human.Rec.Analog [LantUS] 30 unit SUBCUT BID 06/16/19 Dinner Consistent Carbohydrate Diet [DIET] 06/17/19 05:00 PRO B-TYPE NATRIUR PEPT,BNPPRO [CHEM] DAILY 06/17/19 05:11 CBC WITH AUTO DIFF [HEME] AM CMP [COMPREHENSIVE METABOLIC PN,CMP] [CHEM] AM MAGNESIUM [CHEM] AM 06/17/19 09:00 Azithromycin [Zithromax] 250 mg PO DAILY 06/18/19 05:00 PRO B-TYPE NATRIUR PEPT,BNPPRO [CHEM] DAILY 06/18/19 05:11 CBC WITH AUTO DIFF [HEME] AM CMP [COMPREHENSIVE METABOLIC PN,CMP] [CHEM] AM MAGNESIUM [CHEM] AM 06/19/19 05:00 PRO B-TYPE NATRIUR PEPT,BNPPRO [CHEM] DAILY 06/19/19 05:11 CBC WITH AUTO DIFF [HEME] AM CMP [COMPREHENSIVE METABOLIC PN,CMP] [CHEM] AM MAGNESIUM [CHEM] AM 06/20/19 05:00 PRO B-TYPE NATRIUR PEPT,BNPPRO [CHEM] DAILY 06/20/19 05:11 CBC WITH AUTO DIFF [HEME] AM CMP [COMPREHENSIVE METABOLIC PN,CMP] [CHEM] AM MAGNESIUM [CHEM] AM 06/21/19 05:11 CBC WITH AUTO DIFF [HEME] AM CMP [COMPREHENSIVE METABOLIC PN,CMP] [CHEM] AM MAGNESIUM [CHEM] AM - Plan Plan:: Multifactorial dyspnea in the setting of chronic hypoxemic respiratory failure Home O2 dependent at 2.5L SOB 2/2 heart failure and COPD exacerbation PLAN - As per each problem Acute on chronic ischemic HF s/p Pacemaker Echocardiogram from May 05, 2019: 1. Left ventricular ejection fraction, by visual estimation, is 45-50%. 2. Multiple left ventricular regional wall motion abnormalities exist. 3. The left ventricular internal cavity size is dilated in systole. 4. Normal right ventricular systolic function. 5. There is mild aortic valve sclerosis without stenosis. 6. Mild aortic valve regurgitation. 7. Severe mitral valve regurgitation. 8. Mild to moderate tricuspid valve regurgitation. 9. The right ventricular systolic pressure is severely elevated at 72.8 mmHg. 10. Abnormal septal motion consistent with left bundle branch block or conduction abnormality. Takes torsemide 60mg BID, carvedilol 6.25BID, Was told by telepharmacy to take 40 torsemide, spironolactone 25mg and metolazone 5mg on top of his regular medications PLAN - restart Coreg - Strict I/O's - Daily weights - Telemetry - decrease IV Furosemide plan consider restarting torsemide in the morning - Fluid and sodium restricted diet - Interrogate pacemaker - Heart failure education prior to discharge Acute COPD exacerbation Acutely worsening shortness of breath Wheezing and decreased air entry at bases Home management with Symbicort, Spiriva and as needed Albuterol and Duoneb nebulizations Used albuterol inhaler yesterday 4 times with minimal temporary improvement PLAN - Azithromycin for 5 days - Medrol pack, 24g today with dose taper of 4g less every day - DuoNebs q6h Type II diabetes mellitus, HbA1c- 6.5 (04/2019) On sliding scale at home + BID Glargine (34u AM- 40u PM) At home glucose 130-140 Normally requires 4-8 units on sliding scale [place] controlled, goal HbA1c on patients above 70y/o is 8 blood sugars are increasing PLAN - Moderate sliding scale - Accuchecks before each meal and bedtime - Hypoglycemia protocol - Continue home glargine at slightly reduced amount of 30 units twice a day - Diabetic diet - Dietary consult - Diabetic education prior to discharge Coronary artery disease s/p Myocardial infarct s/p stented coronary artery Verbally reported by patient [address] Home management with aspirin, Brilinta, Atorvastatin troponin negative PLAN - Continue home medications - repeat troponin 4 hours Iron deficiency anemia, unspecified On home supplementation with iron Trend since 04/2019 10.4-11.7 PLAN - Goal Hb >8 due to heart history - Monitor for blood loss - Repeat CBC as needed Constipation, chronic On home scheduled docusate-senna BID Last BM 2 days ago, not normal for him PLAN - Continue home medications - Evaluate if laxatives are needed in AM Hypertension BP on admission 114/62 Home management as per heart failure medications PLAN - Beta blockers on hold - Trend BP - PRN Hydralazine 10mg for BP > 220/100 Hypothyroidism No acute issues Home management with levothyroxine PLAN - Continue levothyroxine for now Depression No suicidal ideation, visual or auditory hallucinations PLAN - Continue home fluoxetine BPH (benign prostatic hyperplasia) Home finasteride and tamsulosin No acute urinary retention PLAN - Continue home medications - Monitor urine output Gout No recent gouty attacks On home allopurinol PLAN - Continue home allopurinol Obstructive sleep apnea of adult Compliant with CPAP at home PLAN - Continue home CPAP Hypoalbuminemia Likely 2/2 chronic deconditioning PLAN - Prealbumin ordered for AM - Dietary consult Chronic kidney disease, stage 3B (GFR-32) creatinine and BUN slightly increased since admission PLAN - Monitor urine output - Repeat labs as needed - Renally dosed medications PROPHYLAXIS DVT-Lovenox 30 GI- home PPI CODE STATUS: FULL CODE DISPOSITION: Patient will be admitted under observation for aggressive diuresis and nebulization treatment for acute exacerbations, discharge likely in 24-36 hours.
[2019-06-16] MEDS: Furosemide 40 MG/4 ML VIAL IVPUSH ONE ×2 (15:38→16:05)
[2019-06-16] MEDS: Tamsulosin 0.4 MG Cap.ER PO SCH (21:19)
[2019-06-16] MEDS: Rosuvastatin 10 MG Tab PO SCH (21:22)
[2019-06-16] MEDS ORDERED: Aluminum Hydroxide/Magnesium Hydroxide/Simethicone Susp 30 ML Cup ONE (22:23)
[2019-06-16] MEDS ORDERED: Lidocaine 2% Viscous Solution 15 ML Cup PO ONE (22:32)
[2019-06-16] MEDS ORDERED: Aluminum Hydroxide/Magnesium Hydroxide/Simethicone Susp 30 ML Cup PO ONE (22:35)
[2019-06-17] MEDS ORDERED: Nitroglycerin 0.4 MG Tab.SL SL PRN (00:26)
[2019-06-17] MEDS: Albuterol/Ipratropium 3.0-0.5 MG/3 ML Neb Soln NEB SCH ×4 (02:16→20:54)
[2019-06-17] MEDS: Levothyroxine 75 MCG Tab PO SCH (07:32)
[2019-06-17] MEDS: Pantoprazole 40 MG Tab.CR PO SCH (08:48)
[2019-06-17] MEDS: Ferrous Sulfate 324 MG Tab.EC PO SCH (08:48)
[2019-06-17] MEDS: Allopurinol 300 MG Tab PO SCH (08:49)
[2019-06-17] MEDS: Ticagrelor 90 MG Tab PO SCH ×2 (08:50→21:40)
[2019-06-17] MEDS: Azithromycin 250 MG Tab PO SCH (08:50)
[2019-06-17] MEDS: Finasteride 5 MG Tab PO SCH (08:50)
[2019-06-17] MEDS: Aspirin 81 MG Tab.EC PO SCH (08:51)
[2019-06-17] MEDS: Spironolactone 25 MG Tab PO SCH ×2 (08:51→21:40)
[2019-06-17] MEDS: FLUoxetine 20 MG Cap PO SCH (08:51)
[2019-06-17] MEDS: Carvedilol 6.25 MG Tab PO SCH ×2 (08:52→21:43)
[2019-06-17] MEDS: Enoxaparin 30 MG/0.3 ML Syringe SUBCUT SCH (08:54)
[2019-06-17] MEDS: Insulin Glarg,Human.Rec.Analog 100 UNIT/ML ML SUBCUT SCH ×2 (08:56→21:41)
[2019-06-17] MEDS: Insulin Lispro 100 Units/ML 3 ML Vial SUBCUT SCH ×4 (08:57→21:41)
[2019-06-17] MEDS: Potassium Chloride 20 MEQ Tab.ER PO SCH (11:17)
[2019-06-17] MEDS: Torsemide 20 MG Tab PO SCH ×2 (11:18→21:40)
--- NOTE | 2019-06-17 15:43 | PCM.PN ---
- General Info Date of Service: 06/17/19 Admission Dx/Problem (Free Text): decompensated congestive heart failure Subjective Update: Patient had multiple episodes of sharp/burning chest pain after eating yesterday. On review of his chart it appears that Protonix was not continued from his home medications. He has been on Protonix for several years. Protonix was restarted this morning and he has been chest pain-free up through this afternoon. shortness of breath has improved and he has had no significant weight loss over the last 24 hours. He has had a 25 pound weight loss in 5 weeks. I do not have the records from the [place] congestive heart failure nursing daily weight program to know if this was verified by their scales. Functional Status: Reports: Pain Controlled - Review of Systems General: Reports: Fatigue HEENT: Reports: No Symptoms Pulmonary: Reports: No Symptoms Cardiovascular: Reports: No Symptoms Gastrointestinal: Reports: No Symptoms - Patient Data Vitals - Most Recent: Last Vital Signs Temp 97.5 F 06/17/19 11:31 Pulse 75 06/17/19 11:31 Resp 18 06/17/19 11:31 BP 101/62 06/17/19 11:55 Pulse Ox 99 06/17/19 14:53 Weight - Most Recent: 229 lb 9.6 oz I&O - Last 24 Hours: Intake & Output 06/17/19 06/17/19 06/17/19 06:59 14:59 22:59 Intake Total 600 270 180 Output Total 1425 Balance -825 270 180 Lab Results Last 24 Hours: Laboratory Results - last 24 hr 06/16/19 06/16/19 06/16/19 Range/Units 16:25 16:52 20:54 WBC (4.23-9.07) K/mm3 RBC (4.63-6.08) M/mm3 Hgb (13.7-17.5) gm/dl Hct (40.1-51.0) % MCV (79.0-92.2) fl MCH (25.7-32.2) pg MCHC (32.2-35.5) g/dl RDW Std Deviation (35.1-43.9) fL Plt Count (163-337) K/mm3 MPV (9.4-12.3) fl Neut % (Auto) (34.0-67.9) % Lymph % (Auto) (21.8-53.1) % [place] % (Auto) (5.3-12.2) % Eos % (Auto) (0.8-7.0) Baso % (Auto) (0.1-1.2) % Neut # (Auto) (1.78-5.38) K/mm3 Lymph # (Auto) (1.32-3.57) K/mm3 [place] # (Auto) (0.30-0.82) K/mm3 Eos # (Auto) (0.04-0.54) K/mm3 Baso # (Auto) (0.01-0.08) K/mm3 Sodium (136-145) mEq/L Potassium (3.5-5.1) mEq/L Chloride (98-107) mEq/L Carbon Dioxide (21-32) mEq/L Anion Gap (5-15) BUN (7-18) mg/dL Creatinine (0.7-1.3) mg/dL Est Cr Clr Drug Dosing mL/min Estimated GFR (MDRD) (>60) mL/min BUN/Creatinine Ratio (14-18) Glucose (83-115) mg/dL POC Glucose 391 H 356 H (83-110) mg/dL Calcium (8.5-10.1) mg/dL Magnesium (1.8-2.4) mg/dl Total Bilirubin (0.2-1.0) mg/dL AST (15-37) U/L ALT (16-63) U/L Alkaline Phosphatase (46-116) U/L Troponin I 0.041 (0.00-0.056) ng/mL NT-Pro-B Natriuret Pep (0-450) pg/mL Total Protein (6.4-8.2) g/dl Albumin (3.4-5.0) g/dl Globulin gm/dL Albumin/Globulin Ratio (1-2) 06/17/19 06/17/19 06/17/19 Range/Units 05:31 05:31 05:31 WBC 9.99 H (4.23-9.07) K/mm3 RBC 3.76 L (4.63-6.08) M/mm3 Hgb 11.0 L (13.7-17.5) gm/dl Hct 34.8 L (40.1-51.0) % MCV 92.6 H (79.0-92.2) fl MCH 29.3 (25.7-32.2) pg MCHC 31.6 L (32.2-35.5) g/dl RDW Std Deviation 53.7 H (35.1-43.9) fL Plt Count 330 (163-337) K/mm3 MPV 11.2 (9.4-12.3) fl Neut % (Auto) 79.1 H (34.0-67.9) % Lymph % (Auto) 11.1 L (21.8-53.1) % [place] % (Auto) 8.4 (5.3-12.2) % Eos % (Auto) 0.8 (0.8-7.0) Baso % (Auto) 0.3 (0.1-1.2) % Neut # (Auto) 7.90 H (1.78-5.38) K/mm3 Lymph # (Auto) 1.11 L (1.32-3.57) K/mm3 [place] # (Auto) 0.84 H (0.30-0.82) K/mm3 Eos # (Auto) 0.08 (0.04-0.54) K/mm3 Baso # (Auto) 0.03 (0.01-0.08) K/mm3 Sodium 135 L (136-145) mEq/L Potassium 3.9 (3.5-5.1) mEq/L Chloride 97 L (98-107) mEq/L Carbon Dioxide 29 (21-32) mEq/L Anion Gap 12.9 (5-15) BUN 73 H (7-18) mg/dL Creatinine 2.5 H (0.7-1.3) mg/dL Est Cr Clr Drug Dosing 17.22 mL/min Estimated GFR (MDRD) 24 (>60) mL/min BUN/Creatinine Ratio 29.2 H (14-18) Glucose 244 H (83-115) mg/dL POC Glucose (83-110) mg/dL Calcium 9.5 (8.5-10.1) mg/dL Magnesium 2.7 H (1.8-2.4) mg/dl Total Bilirubin 0.3 (0.2-1.0) mg/dL AST 13 L (15-37) U/L ALT 19 (16-63) U/L Alkaline Phosphatase 91 (46-116) U/L Troponin I (0.00-0.056) ng/mL NT-Pro-B Natriuret Pep 78520 H (0-450) pg/mL Total Protein 6.5 (6.4-8.2) g/dl Albumin 2.4 L (3.4-5.0) g/dl Globulin 4.1 gm/dL Albumin/Globulin Ratio 0.6 L (1-2) 06/17/19 06/17/19 Range/Units 06:39 11:13 WBC (4.23-9.07) K/mm3 RBC (4.63-6.08) M/mm3 Hgb (13.7-17.5) gm/dl Hct (40.1-51.0) % MCV (79.0-92.2) fl MCH (25.7-32.2) pg MCHC (32.2-35.5) g/dl RDW Std Deviation (35.1-43.9) fL Plt Count (163-337) K/mm3 MPV (9.4-12.3) fl Neut % (Auto) (34.0-67.9) % Lymph % (Auto) (21.8-53.1) % [place] % (Auto) (5.3-12.2) % Eos % (Auto) (0.8-7.0) Baso % (Auto) (0.1-1.2) % Neut # (Auto) (1.78-5.38) K/mm3 Lymph # (Auto) (1.32-3.57) K/mm3 [place] # (Auto) (0.30-0.82) K/mm3 Eos # (Auto) (0.04-0.54) K/mm3 Baso # (Auto) (0.01-0.08) K/mm3 Sodium (136-145) mEq/L Potassium (3.5-5.1) mEq/L Chloride (98-107) mEq/L Carbon Dioxide (21-32) mEq/L Anion Gap (5-15) BUN (7-18) mg/dL Creatinine (0.7-1.3) mg/dL Est Cr Clr Drug Dosing mL/min Estimated GFR (MDRD) (>60) mL/min BUN/Creatinine Ratio (14-18) Glucose (83-115) mg/dL POC Glucose 200 H 279 H (83-110) mg/dL Calcium (8.5-10.1) mg/dL Magnesium (1.8-2.4) mg/dl Total Bilirubin (0.2-1.0) mg/dL AST (15-37) U/L ALT (16-63) U/L Alkaline Phosphatase (46-116) U/L Troponin I (0.00-0.056) ng/mL NT-Pro-B Natriuret Pep (0-450) pg/mL Total Protein (6.4-8.2) g/dl Albumin (3.4-5.0) g/dl Globulin gm/dL Albumin/Globulin Ratio (1-2) Med Orders - Current: Current Medications Acetaminophen (Tylenol) 650 mg PO Q4H PRN PRN Reason: Pain (Mild 1-3)/fever Albuterol/Ipratropium (Duoneb 3.0-0.5 Mg/3 Ml) 3 ml NEB Q6HRRT [facility] Last Admin: 06/17/19 14:51 Dose: 3 ml Allopurinol (Zyloprim) 150 mg PO DAILY [facility] Last Admin: 06/17/19 08:49 Dose: 150 mg Aspirin (Halfprin) 81 mg PO DAILY [facility] Last Admin: 06/17/19 08:51 Dose: 81 mg Azithromycin (Zithromax) 250 mg PO DAILY [facility] Stop: 06/18/19 09:01 Last Admin: 06/17/19 08:50 Dose: 250 mg Carvedilol (Coreg) 6.25 mg PO BID [facility] Last Admin: 06/17/19 08:52 Dose: 6.25 mg Enoxaparin Sodium (Lovenox) 30 mg SUBCUT DAILY [facility] Last Admin: 06/17/19 08:54 Dose: 30 mg Ferrous Sulfate (Ferrous Sulfate) 324 mg PO DAILY [facility] Last Admin: 06/17/19 08:48 Dose: 324 mg Finasteride (Proscar) 5 mg PO DAILY [facility] Last Admin: 06/17/19 08:50 Dose: 5 mg Fluoxetine HCl (Prozac) 20 mg PO DAILY [facility] Last Admin: 06/17/19 08:51 Dose: 20 mg Guaifenesin (Mucinex) 600 mg PO DAILY [facility] Insulin Glargine (Lantus) 30 unit SUBCUT BID [facility] Last Admin: 06/17/19 08:56 Dose: 30 units Insulin Human Lispro (Humalog) 0 unit SUBCUT QIDACANDBED [facility]; Protocol Last Admin: 06/17/19 11:25 Dose: 6 units Levothyroxine Sodium (Levothyroxine) 75 mcg PO ACBREAKFAST [facility] Last Admin: 06/17/19 07:32 Dose: 75 mcg Nitroglycerin (Nitrostat) 0.4 mg SL Q5M PRN PRN Reason: Chest Pain Ondansetron HCl (Zofran Odt) 4 mg PO Q6H PRN PRN Reason: nausea, able to take PO Ondansetron HCl (Zofran) 4 mg IV Q6H PRN PRN Reason: Nausea/Vomiting Pantoprazole Sodium (Protonix) 40 mg PO DAILY [facility] Last Admin: 06/17/19 08:48 Dose: 40 mg Potassium Chloride (Klor-Con M20) 20 meq PO DAILY [facility] Last Admin: 06/17/19 11:17 Dose: 20 meq Rosuvastatin Calcium (Crestor) 10 mg PO BEDTIME [facility] Last Admin: 06/16/19 21:22 Dose: 10 mg Senna/Docusate Sodium (Senna Plus) 1 tab PO BID [facility] Last Admin: 06/17/19 08:49 Dose: 1 tab Sodium Chloride (Saline Flush) 10 ml FLUSH ASDIRECTED PRN PRN Reason: Keep Vein Open Last Admin: 06/15/19 14:48 Dose: 10 ml Spironolactone (Aldactone) 25 mg PO BID [facility] Last Admin: 06/17/19 08:51 Dose: 25 mg Tamsulosin HCl (Flomax) 0.4 mg PO BEDTIME [facility] Last Admin: 06/16/19 21:19 Dose: 0.4 mg Ticagrelor (Brilinta) 90 mg PO BID [facility] Last Admin: 06/17/19 08:50 Dose: 90 mg Torsemide (Demadex) 20 mg PO BID [facility] Last Admin: 06/17/19 11:18 Dose: 20 mg Discontinued Medications Al Hydroxide/Mg Hydroxide (Mag-Al Plus) Confirm Administered Dose 30 ml .ROUTE .STK-MED ONE Stop: 06/16/19 22:24 Last Admin: 06/16/19 22:41 Dose: Not Given Al Hydroxide/Mg Hydroxide (Mag-Al Plus) 30 ml PO ONETIME ONE Stop: 06/16/19 22:36 Last Admin: 06/16/19 22:41 Dose: 30 ml Albuterol/Ipratropium (Duoneb 3.0-0.5 Mg/3 Ml) 3 ml NEB Q4H [facility] Stop: 06/16/19 04:31 Last Admin: 06/16/19 04:16 Dose: 3 ml Azithromycin (Zithromax) 500 mg PO DAILY [facility] Stop: 06/19/19 09:01 Last Admin: 06/16/19 08:21 Dose: 500 mg Carvedilol (Coreg) 3.125 mg PO BID [facility] Dextrose/Water (Dextrose 50% In Water) 25 ml IVPUSH ASDIRECTED ONE Stop: 06/15/19 13:28 Last Admin: 06/15/19 13:30 Dose: 25 ml Ferrous Sulfate (Ferrous Sulfate) 325 mg PO DAILY [facility] Last Admin: 06/16/19 08:22 Dose: 325 mg Furosemide (Lasix) 80 mg IVPUSH NOW ONE Stop: 06/15/19 14:32 Last Admin: 06/15/19 14:49 Dose: 80 mg Furosemide (Lasix) 80 mg IVPUSH Q8H [facility] Stop: 06/16/19 08:31 Last Admin: 06/16/19 08:17 Dose: 80 mg Furosemide (Lasix) 40 mg IVPUSH ONETIME ONE Stop: 06/16/19 16:01 Last Admin: 06/16/19 16:05 Dose: Not Given Insulin Glargine (Lantus) 25 unit SUBCUT BID [facility] Last Admin: 06/16/19 08:14 Dose: 25 units Lidocaine HCl (Xylocaine 2% Viscous) 15 ml PO ONETIME ONE Stop: 06/16/19 22:33 Last Admin: 06/16/19 22:40 Dose: 15 ml Methylprednisolone (Medrol) 24 mg PO DAILY [facility] Stop: 06/15/19 16:46 Last Admin: 06/15/19 18:05 Dose: 24 mg Methylprednisolone (Medrol) 20 mg PO DAILY [facility] Stop: 06/16/19 09:01 Last Admin: 06/16/19 08:19 Dose: 20 mg Methylprednisolone (Medrol) 16 mg PO DAILY [facility] Stop: 06/17/19 09:01 Last Admin: 06/17/19 08:46 Dose: 16 mg Methylprednisolone (Medrol) 12 mg PO DAILY [facility] Stop: 06/18/19 09:01 Methylprednisolone (Medrol) 8 mg PO DAILY [facility] Stop: 06/19/19 09:01 Methylprednisolone (Medrol) 4 mg PO DAILY [facility] Stop: 06/20/19 09:01 Nitroglycerin (Nitrostat) 0.4 mg SL Q5M PRN PRN Reason: Chest Pain Last Admin: 06/16/19 22:36 Dose: 0.4 mg Psyllium Husk (Metamucil Sugar Free) 1 packet PO TID [facility] Stop: 06/16/19 15:01 Last Admin: 06/16/19 15:38 Dose: 1 packet - Exam Quality Assessment: Supplemental Oxygen General: Alert HEENT: Pupils Equal Neck: Supple Lungs: Clear to Auscultation, Normal Respiratory Effort Cardiovascular: Regular Rate, Regular Rhythm GI/Abdominal Exam: Normal Bowel Sounds, Soft, Non-Tender, No Distention Extremities: Normal Inspection, Pedal Edema Skin: Warm Neurological: No New Focal Deficit Psy/Mental Status: Alert, Normal Affect, Normal Mood - Problem List Review Problem List Initiated/Reviewed/Updated: Yes - My Orders Last 24 Hours: My Active Orders 06/16/19 15:00 Albuterol/Ipratropium [DuoNeb 3.0-0.5 MG/3 ML] 3 ml NEB Q6HRRT 06/16/19 21:00 Insulin Glarg,Human.Rec.Analog [LantUS] 30 unit SUBCUT BID 06/16/19 Dinner Consistent Carbohydrate Diet [DIET] 06/17/19 00:26 Nitroglycerin [Nitrostat] 0.4 mg SL Q5M PRN 06/17/19 09:00 Azithromycin [Zithromax] 250 mg PO DAILY Pantoprazole [ProTONIX] 40 mg PO DAILY 06/17/19 10:00 Potassium Chloride [Klor-Con M20] 20 meq PO DAILY Torsemide [Demadex] 20 mg PO BID 06/18/19 05:00 PRO B-TYPE NATRIUR PEPT,BNPPRO [CHEM] DAILY 06/18/19 05:11 CBC WITH AUTO DIFF [HEME] AM CMP [COMPREHENSIVE METABOLIC PN,CMP] [CHEM] AM MAGNESIUM [CHEM] AM 06/18/19 09:00 guaiFENesin [Mucinex] 600 mg PO DAILY 06/19/19 05:00 PRO B-TYPE NATRIUR PEPT,BNPPRO [CHEM] DAILY 06/19/19 05:11 CBC WITH AUTO DIFF [HEME] AM CMP [COMPREHENSIVE METABOLIC PN,CMP] [CHEM] AM MAGNESIUM [CHEM] AM 06/20/19 05:00 PRO B-TYPE NATRIUR PEPT,BNPPRO [CHEM] DAILY 06/20/19 05:11 CBC WITH AUTO DIFF [HEME] AM CMP [COMPREHENSIVE METABOLIC PN,CMP] [CHEM] AM MAGNESIUM [CHEM] AM 06/21/19 05:11 CBC WITH AUTO DIFF [HEME] AM CMP [COMPREHENSIVE METABOLIC PN,CMP] [CHEM] AM MAGNESIUM [CHEM] AM - Plan Plan:: Multifactorial dyspnea in the setting of chronic hypoxemic respiratory failure Home O2 dependent at 2.5L SOB 2/2 heart failure and COPD exacerbation PLAN - As per each problem Acute on chronic ischemic HF s/p Pacemaker Echocardiogram from May 05, 2019: 1. Left ventricular ejection fraction, by visual estimation, is 45-50%. 2. Multiple left ventricular regional wall motion abnormalities exist. 3. The left ventricular internal cavity size is dilated in systole. 4. Normal right ventricular systolic function. 5. There is mild aortic valve sclerosis without stenosis. 6. Mild aortic valve regurgitation. 7. Severe mitral valve regurgitation. 8. Mild to moderate tricuspid valve regurgitation. 9. The right ventricular systolic pressure is severely elevated at 72.8 mmHg. 10. Abnormal septal motion consistent with left bundle branch block or conduction abnormality. Takes torsemide 60mg BID, carvedilol 6.25BID, Was told by telepharmacy to take 40 torsemide, spironolactone 25mg and metolazone 5mg on top of his regular medications PLAN - restart Coreg - Strict I/O's - Daily weights - Telemetry - Switch to home torsemide - Fluid and sodium restricted diet - Interrogate pacemaker - Heart failure education prior to discharge Acute COPD exacerbation Acutely worsening shortness of breath Wheezing and decreased air entry at bases Home management with Symbicort, Spiriva and as needed Albuterol and Duoneb nebulizations Used albuterol inhaler yesterday 4 times with minimal temporary improvement PLAN - Azithromycin for 5 days - DC Medrol - DuoNebs q6h Type II diabetes mellitus, HbA1c- 6.5 (04/2019) On sliding scale at home + BID Glargine (34u AM- 40u PM) At home glucose 130-140 Normally requires 4-8 units on sliding scale [place] controlled, goal HbA1c on patients above 70y/o is 8 blood sugars are increasing secondary to Medrol PLAN - Moderate sliding scale - Accuchecks before each meal and bedtime - Hypoglycemia protocol - Continue home glargine at slightly reduced amount of 30 units twice a day - Diabetic diet - Dietary consult - Diabetic education prior to discharge - Stop Medrol secondary to increasing glucose Coronary artery disease s/p Myocardial infarct s/p stented coronary artery Verbally reported by patient [address] Home management with aspirin, Brilinta, Atorvastatin troponin negative PLAN - Continue home medications - repeat troponin 4 hours Iron deficiency anemia, unspecified On home supplementation with iron Trend since 04/2019 10.4-11.7 PLAN - Goal Hb >8 due to heart history - Monitor for blood loss - Repeat CBC as needed Constipation, chronic On home scheduled docusate-senna BID Last BM 2 days ago, not normal for him PLAN - Continue home medications - Evaluate if laxatives are needed in AM Hypertension BP on admission 114/62 Home management as per heart failure medications PLAN - Beta blockers on hold - Trend BP - PRN Hydralazine 10mg for BP > 220/100 Hypothyroidism No acute issues Home management with levothyroxine PLAN - Continue levothyroxine for now Depression No suicidal ideation, visual or auditory hallucinations PLAN - Continue home fluoxetine BPH (benign prostatic hyperplasia) Home finasteride and tamsulosin No acute urinary retention PLAN - Continue home medications - Monitor urine output Gout No recent gouty attacks On home allopurinol PLAN - Continue home allopurinol Obstructive sleep apnea of adult Compliant with CPAP at home PLAN - Continue home CPAP Hypoalbuminemia Likely 2/2 chronic deconditioning PLAN - Prealbumin ordered for AM - Dietary consult Chronic kidney disease, stage 3B (GFR-32) creatinine and BUN slightly increased since admission PLAN - Monitor urine output - Repeat labs as needed - Renally dosed medications PROPHYLAXIS DVT-Lovenox 30 GI- home PPI CODE STATUS: FULL CODE DISPOSITION: Patient will be admitted under observation for aggressive diuresis and nebulization treatment for acute exacerbations, discharge likely in 24-36 hours.
[2019-06-17] MEDS: Rosuvastatin 10 MG Tab PO SCH (21:40)
[2019-06-17] MEDS: Tamsulosin 0.4 MG Cap.ER PO SCH (21:41)
[2019-06-18] MEDS: Albuterol/Ipratropium 3.0-0.5 MG/3 ML Neb Soln NEB SCH ×2 (03:06→08:32)
[2019-06-18] MEDS: Levothyroxine 75 MCG Tab PO SCH (06:38)
[2019-06-18] MEDS: Insulin Lispro 100 Units/ML 3 ML Vial SUBCUT SCH ×2 (06:38→12:04)
[2019-06-18] MEDS: Enoxaparin 30 MG/0.3 ML Syringe SUBCUT SCH (08:52)
[2019-06-18] MEDS: Insulin Glarg,Human.Rec.Analog 100 UNIT/ML ML SUBCUT SCH (08:53)
[2019-06-18] MEDS: Finasteride 5 MG Tab PO SCH (08:54)
[2019-06-18] MEDS: Ferrous Sulfate 324 MG Tab.EC PO SCH (08:54)
[2019-06-18] MEDS: Ticagrelor 90 MG Tab PO SCH (08:54)
[2019-06-18] MEDS: Torsemide 20 MG Tab PO SCH (08:54)
[2019-06-18] MEDS: Azithromycin 250 MG Tab PO SCH (08:54)
[2019-06-18] MEDS: Pantoprazole 40 MG Tab.CR PO SCH (08:54)
[2019-06-18] MEDS: Spironolactone 25 MG Tab PO SCH (08:54)
[2019-06-18] MEDS: Aspirin 81 MG Tab.EC PO SCH (08:54)
[2019-06-18] MEDS: FLUoxetine 20 MG Cap PO SCH (08:54)
[2019-06-18] MEDS: Potassium Chloride 20 MEQ Tab.ER PO SCH (08:55)
[2019-06-18] MEDS: Allopurinol 300 MG Tab PO SCH (08:58)
[2019-06-18] MEDS: Carvedilol 6.25 MG Tab PO SCH ×2 (08:59→09:07)
[2019-06-18] MEDS ORDERED: guaiFENesin 600 MG Tab.ER PO SCH (09:00)
[2019-06-18] MEDS ORDERED: Carvedilol 3.125 MG Tab PO SCH (10:00)
[2019-06-18 11:18] VITALS: BP 97/55; PULSE 72
--- NOTE | 2019-06-18 13:13 | PCM.DCSUM1 ---
Discharge Summary - Hospital Course HPI Initial Comments: This is an 88 year old male with extensive cardiac past medical history who comes to the ED complaining of worsening shortness of breath. As per patient he was in his usual health state up to yesterday when he started having worsening shortness of breath, HONG, lower extremity edema. He weighed himself and noticed he had gained 9lbs since Friday. He has a telehealth appointment every day for his medications through the CT who recommended he take an extra tablet of each of his water pills. Once he noticed the shortness of breath was not improving he decided to come in the ED for further evaluation. Diagnosis: Stroke: No - Discharge Data Discharge Date: 06/18/19 Discharge Disposition: Home, Self-Care 01 Condition: Good - Referral to Home Health Primary Care Physician: Carla Smalls MD - Patient Summary/Data Consults: Consultations 06/16/19 10:13 Consult to Occupational Therapy [OT Evaluation and Treatment] [CONS] Routine Consult to Physical Therapy [PT Evaluation and Treatment] [CONS] Routine Hospital Course: Patient admitted CHF exacerbation and COPD exacerbation. he appropriately diuresed over 2 days. Of note he has had a 25 pound weight loss since last hospitalization. He was placed on 4 days of Zithromax. Last night he did have some ventricular tachycardia versus atrial flutter. He was not wearing his CPAP mask and likely this was caused by relative hypoxemia due to sleep apnea. He was encouraged to wear his CPAP. He was restarted on home dose of torsemide. He was also treated for a COPD exacerbation. He had 3 episodes of chest pain which turned out to be esophageal spasm because his Protonix was held on admission. - Patient Instructions Diet: Heart Healthy Diet Activity: As Tolerated Driving: Do Not Drive Showering/Bathing: May Shower Other/Special Instructions: Follow up with you PCP early next week. - Discharge Plan *PRESCRIPTION DRUG MONITORING PROGRAM REVIEWED*: No *COPY OF PRESCRIPTION DRUG MONITORING REPORT IN PATIENT TIP: No Prescriptions/Med Rec: Carvedilol [Coreg] 3.125 mg PO BID #60 tablet Home Medications: Home Meds Allopurinol [Zyloprim] 150 mg PO DAILY 07/02/17 [History] Aspirin [Adult Low Dose Aspirin EC] 81 mg PO DAILY 07/02/17 [History] FLUoxetine HCl [Fluoxetine HCl] 20 mg PO DAILY 07/02/17 [History] Finasteride 5 mg PO DAILY 07/02/17 [History] Insulin Aspart [NovoLOG] See Protocol SUBCUT WITHMEALSANDBED 07/02/17 [History] Pantoprazole Sodium 40 mg PO DAILY 07/02/17 [History] Tamsulosin HCl 0.4 mg PO BEDTIME 07/02/17 [History] Levothyroxine Sodium [Synthroid] 75 mcg PO DAILY 07/03/17 [History] Tiotropium [Spiriva HandiHaler] 1 cap INH DAILY 07/03/17 [History] Albuterol/Ipratropium [DuoNeb 3.0-0.5 MG/3 ML] 3 ml NEB Q6HR PRN 05/21/18 [ History] Budesonide/Formoterol [Symbicort 160-4.5 MCG] 2 puff INH BID 05/21/18 [History] Insulin Glarg,Human.Rec.Analog [Lantus Solostar] 34 units SUBCUT QAM 05/21/18 [ History] Nitroglycerin 0.4 mg PO ASDIRECTED PRN 12/14/18 [History] Sennosides/Docusate Sodium [Docusate Sodium-Senna Tablet] 1 tab PO BID 12/14/18 [History] Ticagrelor [Brilinta] 90 mg PO BID 12/14/18 [History] Torsemide 20 mg PO BID 12/14/18 [History] atorvaSTATin Calcium [Atorvastatin Calcium] 40 mg PO BEDTIME 01/08/19 [History] Ferrous Sulfate 325 mg PO DAILY 05/04/19 [History] Spironolactone [Aldactone] 25 mg PO DAILY #30 tab 05/07/19 [Rx] Albuterol Sulfate [Albuterol Sulfate Hfa] 1 puff INH Q6H PRN 06/16/19 [History] Insulin Glarg,Human.Rec.Analog [Lantus Solostar] 40 unit SUBCUT QPM 06/16/19 [ History] Potassium Chloride [Klor-Con] 20 meq PO DAILY 06/16/19 [History] guaiFENesin [Mucus Relief ER] 600 mg PO DAILY 06/16/19 [History] metOLazone [Metolazone] 5 mg PO DAILY PRN 06/16/19 [History] Carvedilol [Coreg] 3.125 mg PO BID #60 tablet 06/18/19 [Rx] Patient Handouts: Sepsis, Adult, Heart Failure Forms: ED Department Discharge Referrals: Carla Smalls MD [Primary Care Provider] - 06/23/19 1:00 pm (At your follow-up appointment, request a new home oxygen qualification be done for portable oxygen. Then request the new home oxygen order be sent to [facility] to get a portable oxygen concentrator (backpack oxygen) using your non-[employer] insurance. 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 Follow-up with primary care early next week. Continue home monitoring of weight. - Patient Data Vitals - Most Recent: Last Vital Signs Temp 98.1 F 06/18/19 09:00 Pulse 72 06/18/19 11:16 Resp 24 H 06/18/19 11:14 BP 97/55 L 06/18/19 11:16 Pulse Ox 98 06/18/19 11:14 Weight - Most Recent: 229 lb 1.6 oz I&O - Last 24 hours: Intake & Output 06/17/19 06/18/19 06/18/19 22:59 06:59 14:59 Intake Total 750 500 270 Output Total 750 1450 Balance 0 -950 270 Lab Results - Last 24 hrs: Laboratory Results - last 24 hr 06/17/19 06/17/19 06/18/19 Range/Units 17:23 20:38 04:21 WBC 9.66 H (4.23-9.07) K/mm3 RBC 3.96 L (4.63-6.08) M/mm3 Hgb 11.5 L (13.7-17.5) gm/dl Hct 36.8 L (40.1-51.0) % MCV 92.9 H (79.0-92.2) fl MCH 29.0 (25.7-32.2) pg MCHC 31.3 L (32.2-35.5) g/dl RDW Std Deviation 54.9 H (35.1-43.9) fL Plt Count 334 (163-337) K/mm3 MPV 11.1 (9.4-12.3) fl Neut % (Auto) 77.7 H (34.0-67.9) % Lymph % (Auto) 12.6 L (21.8-53.1) % [place] % (Auto) 8.1 (5.3-12.2) % Eos % (Auto) 0.9 (0.8-7.0) Baso % (Auto) 0.2 (0.1-1.2) % Neut # (Auto) 7.50 H (1.78-5.38) K/mm3 Lymph # (Auto) 1.22 L (1.32-3.57) K/mm3 [place] # (Auto) 0.78 (0.30-0.82) K/mm3 Eos # (Auto) 0.09 (0.04-0.54) K/mm3 Baso # (Auto) 0.02 (0.01-0.08) K/mm3 Sodium (136-145) mEq/L Potassium (3.5-5.1) mEq/L Chloride (98-107) mEq/L Carbon Dioxide (21-32) mEq/L Anion Gap (5-15) BUN (7-18) mg/dL Creatinine (0.7-1.3) mg/dL Est Cr Clr Drug Dosing mL/min Estimated GFR (MDRD) (>60) mL/min BUN/Creatinine Ratio (14-18) Glucose (83-115) mg/dL POC Glucose 337 H 377 H (83-110) mg/dL Calcium (8.5-10.1) mg/dL Magnesium (1.8-2.4) mg/dl Total Bilirubin (0.2-1.0) mg/dL AST (15-37) U/L ALT (16-63) U/L Alkaline Phosphatase (46-116) U/L Total Protein (6.4-8.2) g/dl Albumin (3.4-5.0) g/dl Globulin gm/dL Albumin/Globulin Ratio (1-2) 06/18/19 06/18/19 06/18/19 Range/Units 04:21 06:36 11:13 WBC (4.23-9.07) K/mm3 RBC (4.63-6.08) M/mm3 Hgb (13.7-17.5) gm/dl Hct (40.1-51.0) % MCV (79.0-92.2) fl MCH (25.7-32.2) pg MCHC (32.2-35.5) g/dl RDW Std Deviation (35.1-43.9) fL Plt Count (163-337) K/mm3 MPV (9.4-12.3) fl Neut % (Auto) (34.0-67.9) % Lymph % (Auto) (21.8-53.1) % [place] % (Auto) (5.3-12.2) % Eos % (Auto) (0.8-7.0) Baso % (Auto) (0.1-1.2) % Neut # (Auto) (1.78-5.38) K/mm3 Lymph # (Auto) (1.32-3.57) K/mm3 [place] # (Auto) (0.30-0.82) K/mm3 Eos # (Auto) (0.04-0.54) K/mm3 Baso # (Auto) (0.01-0.08) K/mm3 Sodium 139 (136-145) mEq/L Potassium 4.1 (3.5-5.1) mEq/L Chloride 100 (98-107) mEq/L Carbon Dioxide 29 (21-32) mEq/L Anion Gap 14.1 (5-15) BUN 77 H (7-18) mg/dL Creatinine 2.3 H (0.7-1.3) mg/dL Est Cr Clr Drug Dosing 18.71 mL/min Estimated GFR (MDRD) 27 (>60) mL/min BUN/Creatinine Ratio 33.5 H (14-18) Glucose 193 H (83-115) mg/dL POC Glucose 135 H 248 H (83-110) mg/dL Calcium 9.2 (8.5-10.1) mg/dL Magnesium 2.4 (1.8-2.4) mg/dl Total Bilirubin 0.3 (0.2-1.0) mg/dL AST 10 L (15-37) U/L ALT 14 L (16-63) U/L Alkaline Phosphatase 94 (46-116) U/L Total Protein 6.5 (6.4-8.2) g/dl Albumin 2.6 L (3.4-5.0) g/dl Globulin 3.9 gm/dL Albumin/Globulin Ratio 0.7 L (1-2) Med Orders - Current: Current Medications Acetaminophen (Tylenol) 650 mg PO Q4H PRN PRN Reason: Pain (Mild 1-3)/fever Albuterol/Ipratropium (Duoneb 3.0-0.5 Mg/3 Ml) 3 ml NEB Q6HRRT [facility] Last Admin: 06/18/19 08:32 Dose: 3 ml Allopurinol (Zyloprim) 150 mg PO DAILY [facility] Last Admin: 06/18/19 08:58 Dose: 150 mg Aspirin (Halfprin) 81 mg PO DAILY [facility] Last Admin: 06/18/19 08:54 Dose: 81 mg Carvedilol (Coreg) 3.125 mg PO BID [facility] Last Admin: 06/18/19 11:16 Dose: 3.125 mg Enoxaparin Sodium (Lovenox) 30 mg SUBCUT DAILY [facility] Last Admin: 06/18/19 08:52 Dose: 30 mg Ferrous Sulfate (Ferrous Sulfate) 324 mg PO DAILY [facility] Last Admin: 06/18/19 08:54 Dose: 324 mg Finasteride (Proscar) 5 mg PO DAILY [facility] Last Admin: 06/18/19 08:54 Dose: 5 mg Fluoxetine HCl (Prozac) 20 mg PO DAILY [facility] Last Admin: 06/18/19 08:54 Dose: 20 mg Guaifenesin (Mucinex) 600 mg PO DAILY [facility] Last Admin: 06/18/19 08:55 Dose: 600 mg Insulin Glargine (Lantus) 30 unit SUBCUT BID [facility] Last Admin: 06/18/19 08:53 Dose: 30 units Insulin Human Lispro (Humalog) 0 unit SUBCUT QIDACANDBED [facility]; Protocol Last Admin: 06/18/19 12:04 Dose: 4 units Levothyroxine Sodium (Levothyroxine) 75 mcg PO ACBREAKFAST [facility] Last Admin: 06/18/19 06:38 Dose: 75 mcg Nitroglycerin (Nitrostat) 0.4 mg SL Q5M PRN PRN Reason: Chest Pain Last Admin: 06/17/19 18:34 Dose: 0.4 mg Ondansetron HCl (Zofran Odt) 4 mg PO Q6H PRN PRN Reason: nausea, able to take PO Ondansetron HCl (Zofran) 4 mg IV Q6H PRN PRN Reason: Nausea/Vomiting Pantoprazole Sodium (Protonix) 40 mg PO DAILY [facility] Last Admin: 06/18/19 08:54 Dose: 40 mg Potassium Chloride (Klor-Con M20) 20 meq PO DAILY [facility] Last Admin: 06/18/19 08:55 Dose: 20 meq Rosuvastatin Calcium (Crestor) 10 mg PO BEDTIME [facility] Last Admin: 06/17/19 21:40 Dose: 10 mg Senna/Docusate Sodium (Senna Plus) 1 tab PO BID [facility] Last Admin: 06/18/19 08:54 Dose: 1 tab Sodium Chloride (Saline Flush) 10 ml FLUSH ASDIRECTED PRN PRN Reason: Keep Vein Open Last Admin: 06/15/19 14:48 Dose: 10 ml Spironolactone (Aldactone) 25 mg PO BID [facility] Last Admin: 06/18/19 08:54 Dose: 25 mg Tamsulosin HCl (Flomax) 0.4 mg PO BEDTIME [facility] Last Admin: 06/17/19 21:41 Dose: 0.4 mg Ticagrelor (Brilinta) 90 mg PO BID [facility] Last Admin: 06/18/19 08:54 Dose: 90 mg Torsemide (Demadex) 20 mg PO BID [facility] Last Admin: 06/18/19 08:54 Dose: 20 mg Discontinued Medications Al Hydroxide/Mg Hydroxide (Mag-Al Plus) Confirm Administered Dose 30 ml .ROUTE .STK-MED ONE Stop: 06/16/19 22:24 Last Admin: 06/16/19 22:41 Dose: Not Given Al Hydroxide/Mg Hydroxide (Mag-Al Plus) 30 ml PO ONETIME ONE Stop: 06/16/19 22:36 Last Admin: 06/16/19 22:41 Dose: 30 ml Albuterol/Ipratropium (Duoneb 3.0-0.5 Mg/3 Ml) 3 ml NEB Q4H [facility] Stop: 06/16/19 04:31 Last Admin: 06/16/19 04:16 Dose: 3 ml Azithromycin (Zithromax) 500 mg PO DAILY [facility] Stop: 06/19/19 09:01 Last Admin: 06/16/19 08:21 Dose: 500 mg Azithromycin (Zithromax) 250 mg PO DAILY [facility] Stop: 06/18/19 09:01 Last Admin: 06/18/19 08:54 Dose: 250 mg Carvedilol (Coreg) 3.125 mg PO BID [facility] Carvedilol (Coreg) 6.25 mg PO BID [facility] Last Admin: 06/18/19 09:07 Dose: Not Given Dextrose/Water (Dextrose 50% In Water) 25 ml IVPUSH ASDIRECTED ONE Stop: 06/15/19 13:28 Last Admin: 06/15/19 13:30 Dose: 25 ml Ferrous Sulfate (Ferrous Sulfate) 325 mg PO DAILY [facility] Last Admin: 06/16/19 08:22 Dose: 325 mg Furosemide (Lasix) 80 mg IVPUSH NOW ONE Stop: 06/15/19 14:32 Last Admin: 06/15/19 14:49 Dose: 80 mg Furosemide (Lasix) 80 mg IVPUSH Q8H [facility] Stop: 06/16/19 08:31 Last Admin: 06/16/19 08:17 Dose: 80 mg Furosemide (Lasix) 40 mg IVPUSH ONETIME ONE Stop: 06/16/19 16:01 Last Admin: 06/16/19 16:05 Dose: Not Given Insulin Glargine (Lantus) 25 unit SUBCUT BID [facility] Last Admin: 06/16/19 08:14 Dose: 25 units Lidocaine HCl (Xylocaine 2% Viscous) 15 ml PO ONETIME ONE Stop: 06/16/19 22:33 Last Admin: 06/16/19 22:40 Dose: 15 ml Methylprednisolone (Medrol) 24 mg PO DAILY [facility] Stop: 06/15/19 16:46 Last Admin: 06/15/19 18:05 Dose: 24 mg Methylprednisolone (Medrol) 20 mg PO DAILY [facility] Stop: 06/16/19 09:01 Last Admin: 06/16/19 08:19 Dose: 20 mg Methylprednisolone (Medrol) 16 mg PO DAILY [facility] Stop: 06/17/19 09:01 Last Admin: 06/17/19 08:46 Dose: 16 mg Methylprednisolone (Medrol) 12 mg PO DAILY [facility] Stop: 06/18/19 09:01 Methylprednisolone (Medrol) 8 mg PO DAILY [facility] Stop: 06/19/19 09:01 Methylprednisolone (Medrol) 4 mg PO DAILY [facility] Stop: 06/20/19 09:01 Nitroglycerin (Nitrostat) 0.4 mg SL Q5M PRN PRN Reason: Chest Pain Last Admin: 06/16/19 22:36 Dose: 0.4 mg Psyllium Husk (Metamucil Sugar Free) 1 packet PO TID [place] Stop: 06/16/19 15:01 Last Admin: 06/16/19 15:38 Dose: 1 packet
--- NOTE | 2019-06-18 18:00 | PCM.PN ---
- General Info Date of Service: 06/18/19 Admission Dx/Problem (Free Text): decompensated congestive heart failure Subjective Update: patient is doing well. He does have some fatigue. We will decrease his Coreg to 3.125. Blood pressures have been on the low side. He had an episode of ventricular tachycardia overnight, but he did also did not use his CPAP last night. He is also getting Zithromax. This could be making his heart more arrhythmia problem. Functional Status: Reports: Pain Controlled - Review of Systems General: Reports: No Symptoms HEENT: Reports: No Symptoms Pulmonary: Reports: No Symptoms Cardiovascular: Reports: No Symptoms - Patient Data Vitals - Most Recent: Last Vital Signs Temp 98.1 F 06/18/19 09:00 Pulse 72 06/18/19 11:16 Resp 24 H 06/18/19 11:14 BP 97/55 L 06/18/19 11:16 Pulse Ox 98 06/18/19 11:14 Weight - Most Recent: 229 lb 1.6 oz I&O - Last 24 Hours: Intake & Output 06/18/19 06/18/19 06/18/19 06:59 14:59 22:59 Intake Total 500 270 580 Output Total 1450 Balance -950 270 580 Lab Results Last 24 Hours: Laboratory Results - last 24 hr 06/17/19 06/17/19 06/18/19 Range/Units 17:23 20:38 04:21 WBC 9.66 H (4.23-9.07) K/mm3 RBC 3.96 L (4.63-6.08) M/mm3 Hgb 11.5 L (13.7-17.5) gm/dl Hct 36.8 L (40.1-51.0) % MCV 92.9 H (79.0-92.2) fl MCH 29.0 (25.7-32.2) pg MCHC 31.3 L (32.2-35.5) g/dl RDW Std Deviation 54.9 H (35.1-43.9) fL Plt Count 334 (163-337) K/mm3 MPV 11.1 (9.4-12.3) fl Neut % (Auto) 77.7 H (34.0-67.9) % Lymph % (Auto) 12.6 L (21.8-53.1) % Valley % (Auto) 8.1 (5.3-12.2) % Eos % (Auto) 0.9 (0.8-7.0) Baso % (Auto) 0.2 (0.1-1.2) % Neut # (Auto) 7.50 H (1.78-5.38) K/mm3 Lymph # (Auto) 1.22 L (1.32-3.57) K/mm3 Valley # (Auto) 0.78 (0.30-0.82) K/mm3 Eos # (Auto) 0.09 (0.04-0.54) K/mm3 Baso # (Auto) 0.02 (0.01-0.08) K/mm3 Sodium (136-145) mEq/L Potassium (3.5-5.1) mEq/L Chloride (98-107) mEq/L Carbon Dioxide (21-32) mEq/L Anion Gap (5-15) BUN (7-18) mg/dL Creatinine (0.7-1.3) mg/dL Est Cr Clr Drug Dosing mL/min Estimated GFR (MDRD) (>60) mL/min BUN/Creatinine Ratio (14-18) Glucose (83-115) mg/dL POC Glucose 337 H 377 H (83-110) mg/dL Calcium (8.5-10.1) mg/dL Magnesium (1.8-2.4) mg/dl Total Bilirubin (0.2-1.0) mg/dL AST (15-37) U/L ALT (16-63) U/L Alkaline Phosphatase (46-116) U/L Total Protein (6.4-8.2) g/dl Albumin (3.4-5.0) g/dl Globulin gm/dL Albumin/Globulin Ratio (1-2) 06/18/19 06/18/19 06/18/19 Range/Units 04:21 06:36 11:13 WBC (4.23-9.07) K/mm3 RBC (4.63-6.08) M/mm3 Hgb (13.7-17.5) gm/dl Hct (40.1-51.0) % MCV (79.0-92.2) fl MCH (25.7-32.2) pg MCHC (32.2-35.5) g/dl RDW Std Deviation (35.1-43.9) fL Plt Count (163-337) K/mm3 MPV (9.4-12.3) fl Neut % (Auto) (34.0-67.9) % Lymph % (Auto) (21.8-53.1) % Valley % (Auto) (5.3-12.2) % Eos % (Auto) (0.8-7.0) Baso % (Auto) (0.1-1.2) % Neut # (Auto) (1.78-5.38) K/mm3 Lymph # (Auto) (1.32-3.57) K/mm3 Valley # (Auto) (0.30-0.82) K/mm3 Eos # (Auto) (0.04-0.54) K/mm3 Baso # (Auto) (0.01-0.08) K/mm3 Sodium 139 (136-145) mEq/L Potassium 4.1 (3.5-5.1) mEq/L Chloride 100 (98-107) mEq/L Carbon Dioxide 29 (21-32) mEq/L Anion Gap 14.1 (5-15) BUN 77 H (7-18) mg/dL Creatinine 2.3 H (0.7-1.3) mg/dL Est Cr Clr Drug Dosing 18.71 mL/min Estimated GFR (MDRD) 27 (>60) mL/min BUN/Creatinine Ratio 33.5 H (14-18) Glucose 193 H (83-115) mg/dL POC Glucose 135 H 248 H (83-110) mg/dL Calcium 9.2 (8.5-10.1) mg/dL Magnesium 2.4 (1.8-2.4) mg/dl Total Bilirubin 0.3 (0.2-1.0) mg/dL AST 10 L (15-37) U/L ALT 14 L (16-63) U/L Alkaline Phosphatase 94 (46-116) U/L Total Protein 6.5 (6.4-8.2) g/dl Albumin 2.6 L (3.4-5.0) g/dl Globulin 3.9 gm/dL Albumin/Globulin Ratio 0.7 L (1-2) Med Orders - Current: Current Medications Acetaminophen (Tylenol) 650 mg PO Q4H PRN PRN Reason: Pain (Mild 1-3)/fever Albuterol/Ipratropium (Duoneb 3.0-0.5 Mg/3 Ml) 3 ml NEB Q6HRRT [facility] Last Admin: 06/18/19 08:32 Dose: 3 ml Allopurinol (Zyloprim) 150 mg PO DAILY [facility] Last Admin: 06/18/19 08:58 Dose: 150 mg Aspirin (Halfprin) 81 mg PO DAILY [facility] Last Admin: 06/18/19 08:54 Dose: 81 mg Carvedilol (Coreg) 3.125 mg PO BID [facility] Last Admin: 06/18/19 11:16 Dose: 3.125 mg Enoxaparin Sodium (Lovenox) 30 mg SUBCUT DAILY [facility] Last Admin: 06/18/19 08:52 Dose: 30 mg Ferrous Sulfate (Ferrous Sulfate) 324 mg PO DAILY [facility] Last Admin: 06/18/19 08:54 Dose: 324 mg Finasteride (Proscar) 5 mg PO DAILY [facility] Last Admin: 06/18/19 08:54 Dose: 5 mg Fluoxetine HCl (Prozac) 20 mg PO DAILY [facility] Last Admin: 06/18/19 08:54 Dose: 20 mg Guaifenesin (Mucinex) 600 mg PO DAILY [facility] Last Admin: 06/18/19 08:55 Dose: 600 mg Insulin Glargine (Lantus) 30 unit SUBCUT BID [facility] Last Admin: 06/18/19 08:53 Dose: 30 units Insulin Human Lispro (Humalog) 0 unit SUBCUT QIDACANDBED [facility]; Protocol Last Admin: 06/18/19 12:04 Dose: 4 units Levothyroxine Sodium (Levothyroxine) 75 mcg PO ACBREAKFAST [facility] Last Admin: 06/18/19 06:38 Dose: 75 mcg Nitroglycerin (Nitrostat) 0.4 mg SL Q5M PRN PRN Reason: Chest Pain Last Admin: 06/17/19 18:34 Dose: 0.4 mg Ondansetron HCl (Zofran Odt) 4 mg PO Q6H PRN PRN Reason: nausea, able to take PO Ondansetron HCl (Zofran) 4 mg IV Q6H PRN PRN Reason: Nausea/Vomiting Pantoprazole Sodium (Protonix) 40 mg PO DAILY [facility] Last Admin: 06/18/19 08:54 Dose: 40 mg Potassium Chloride (Klor-Con M20) 20 meq PO DAILY [facility] Last Admin: 06/18/19 08:55 Dose: 20 meq Rosuvastatin Calcium (Crestor) 10 mg PO BEDTIME [facility] Last Admin: 06/17/19 21:40 Dose: 10 mg Senna/Docusate Sodium (Senna Plus) 1 tab PO BID [facility] Last Admin: 06/18/19 08:54 Dose: 1 tab Sodium Chloride (Saline Flush) 10 ml FLUSH ASDIRECTED PRN PRN Reason: Keep Vein Open Last Admin: 06/15/19 14:48 Dose: 10 ml Spironolactone (Aldactone) 25 mg PO BID [facility] Last Admin: 06/18/19 08:54 Dose: 25 mg Tamsulosin HCl (Flomax) 0.4 mg PO BEDTIME [facility] Last Admin: 06/17/19 21:41 Dose: 0.4 mg Ticagrelor (Brilinta) 90 mg PO BID [facility] Last Admin: 06/18/19 08:54 Dose: 90 mg Torsemide (Demadex) 20 mg PO BID [facility] Last Admin: 06/18/19 08:54 Dose: 20 mg Discontinued Medications Al Hydroxide/Mg Hydroxide (Mag-Al Plus) Confirm Administered Dose 30 ml .ROUTE .STK-MED ONE Stop: 06/16/19 22:24 Last Admin: 06/16/19 22:41 Dose: Not Given Al Hydroxide/Mg Hydroxide (Mag-Al Plus) 30 ml PO ONETIME ONE Stop: 06/16/19 22:36 Last Admin: 06/16/19 22:41 Dose: 30 ml Albuterol/Ipratropium (Duoneb 3.0-0.5 Mg/3 Ml) 3 ml NEB Q4H [facility] Stop: 06/16/19 04:31 Last Admin: 06/16/19 04:16 Dose: 3 ml Azithromycin (Zithromax) 500 mg PO DAILY [facility] Stop: 06/19/19 09:01 Last Admin: 06/16/19 08:21 Dose: 500 mg Azithromycin (Zithromax) 250 mg PO DAILY [facility] Stop: 06/18/19 09:01 Last Admin: 06/18/19 08:54 Dose: 250 mg Carvedilol (Coreg) 3.125 mg PO BID [facility] Carvedilol (Coreg) 6.25 mg PO BID [facility] Last Admin: 06/18/19 09:07 Dose: Not Given Dextrose/Water (Dextrose 50% In Water) 25 ml IVPUSH ASDIRECTED ONE Stop: 06/15/19 13:28 Last Admin: 06/15/19 13:30 Dose: 25 ml Ferrous Sulfate (Ferrous Sulfate) 325 mg PO DAILY [facility] Last Admin: 06/16/19 08:22 Dose: 325 mg Furosemide (Lasix) 80 mg IVPUSH NOW ONE Stop: 06/15/19 14:32 Last Admin: 06/15/19 14:49 Dose: 80 mg Furosemide (Lasix) 80 mg IVPUSH Q8H [facility] Stop: 06/16/19 08:31 Last Admin: 06/16/19 08:17 Dose: 80 mg Furosemide (Lasix) 40 mg IVPUSH ONETIME ONE Stop: 06/16/19 16:01 Last Admin: 06/16/19 16:05 Dose: Not Given Insulin Glargine (Lantus) 25 unit SUBCUT BID [facility] Last Admin: 06/16/19 08:14 Dose: 25 units Lidocaine HCl (Xylocaine 2% Viscous) 15 ml PO ONETIME ONE Stop: 06/16/19 22:33 Last Admin: 06/16/19 22:40 Dose: 15 ml Methylprednisolone (Medrol) 24 mg PO DAILY [facility] Stop: 06/15/19 16:46 Last Admin: 06/15/19 18:05 Dose: 24 mg Methylprednisolone (Medrol) 20 mg PO DAILY [facility] Stop: 06/16/19 09:01 Last Admin: 06/16/19 08:19 Dose: 20 mg Methylprednisolone (Medrol) 16 mg PO DAILY [facility] Stop: 06/17/19 09:01 Last Admin: 06/17/19 08:46 Dose: 16 mg Methylprednisolone (Medrol) 12 mg PO DAILY [facility] Stop: 06/18/19 09:01 Methylprednisolone (Medrol) 8 mg PO DAILY [facility] Stop: 06/19/19 09:01 Methylprednisolone (Medrol) 4 mg PO DAILY [facility] Stop: 06/20/19 09:01 Nitroglycerin (Nitrostat) 0.4 mg SL Q5M PRN PRN Reason: Chest Pain Last Admin: 06/16/19 22:36 Dose: 0.4 mg Psyllium Husk (Metamucil Sugar Free) 1 packet PO TID [facility] Stop: 06/16/19 15:01 Last Admin: 06/16/19 15:38 Dose: 1 packet - Exam Quality Assessment: Supplemental Oxygen General: Alert, Oriented HEENT: Pupils Equal Neck: Supple Lungs: Normal Respiratory Effort, Rales (mild bibasilar) Cardiovascular: Regular Rate, Regular Rhythm GI/Abdominal Exam: Normal Bowel Sounds, Soft, Non-Tender, No Distention Extremities: Pedal Edema - Problem List Review Problem List Initiated/Reviewed/Updated: Yes - My Orders Last 24 Hours: My Active Orders 06/18/19 09:00 guaiFENesin [Mucinex] 600 mg PO DAILY 06/18/19 10:00 Carvedilol [Coreg] 3.125 mg PO BID 06/18/19 13:12 Ready for Discharge [RC] PER UNIT ROUTINE 06/19/19 05:11 CBC WITH AUTO DIFF [HEME] AM CMP [COMPREHENSIVE METABOLIC PN,CMP] [CHEM] AM MAGNESIUM [CHEM] AM 06/20/19 05:11 CBC WITH AUTO DIFF [HEME] AM CMP [COMPREHENSIVE METABOLIC PN,CMP] [CHEM] AM MAGNESIUM [CHEM] AM 06/21/19 05:11 CBC WITH AUTO DIFF [HEME] AM CMP [COMPREHENSIVE METABOLIC PN,CMP] [CHEM] AM MAGNESIUM [CHEM] AM - Plan Plan:: Multifactorial dyspnea in the setting of chronic hypoxemic respiratory failure Home O2 dependent at 2.5L SOB 2/2 heart failure and COPD exacerbation PLAN - As per each problem Acute on chronic ischemic HF s/p Pacemaker Echocardiogram from May 05, 2019: 1. Left ventricular ejection fraction, by visual estimation, is 45-50%. 2. Multiple left ventricular regional wall motion abnormalities exist. 3. The left ventricular internal cavity size is dilated in systole. 4. Normal right ventricular systolic function. 5. There is mild aortic valve sclerosis without stenosis. 6. Mild aortic valve regurgitation. 7. Severe mitral valve regurgitation. 8. Mild to moderate tricuspid valve regurgitation. 9. The right ventricular systolic pressure is severely elevated at 72.8 mmHg. 10. Abnormal septal motion consistent with left bundle branch block or conduction abnormality. Takes torsemide 60mg BID, carvedilol 6.25BID, Was told by telepharmacy to take 40 torsemide, spironolactone 25mg and metolazone 5mg on top of his regular medications PLAN - restart Coreg - Strict I/O's - Daily weights - Telemetry - Switch to home torsemide - Fluid and sodium restricted diet - Interrogate pacemaker - Heart failure education prior to discharge Acute COPD exacerbation Acutely worsening shortness of breath Wheezing and decreased air entry at bases Home management with Symbicort, Spiriva and as needed Albuterol and Duoneb nebulizations Used albuterol inhaler yesterday 4 times with minimal temporary improvement PLAN - Azithromycin for 5 days - DC Medrol - DuoNebs q6h Type II diabetes mellitus, HbA1c- 6.5 (04/2019) On sliding scale at home + BID Glargine (34u AM- 40u PM) At home glucose 130-140 Normally requires 4-8 units on sliding scale Friant controlled, goal HbA1c on patients above 70y/o is 8 blood sugars are increasing secondary to Medrol PLAN - Moderate sliding scale - Accuchecks before each meal and bedtime - Hypoglycemia protocol - Continue home glargine at slightly reduced amount of 30 units twice a day - Diabetic diet - Dietary consult - Diabetic education prior to discharge - Stop Medrol secondary to increasing glucose Coronary artery disease s/p Myocardial infarct s/p stented coronary artery Verbally reported by patient [address] Home management with aspirin, Brilinta, Atorvastatin troponin negative PLAN - Continue home medications - repeat troponin 4 hours Iron deficiency anemia, unspecified On home supplementation with iron Trend since 04/2019 10.4-11.7 PLAN - Goal Hb >8 due to heart history - Monitor for blood loss - Repeat CBC as needed Constipation, chronic On home scheduled docusate-senna BID Last BM 2 days ago, not normal for him PLAN - Continue home medications - Evaluate if laxatives are needed in AM Hypertension BP on admission 114/62 Home management as per heart failure medications PLAN - Beta blockers on hold - Trend BP - PRN Hydralazine 10mg for BP > 220/100 Hypothyroidism No acute issues Home management with levothyroxine PLAN - Continue levothyroxine for now Depression No suicidal ideation, visual or auditory hallucinations PLAN - Continue home fluoxetine BPH (benign prostatic hyperplasia) Home finasteride and tamsulosin No acute urinary retention PLAN - Continue home medications - Monitor urine output Gout No recent gouty attacks On home allopurinol PLAN - Continue home allopurinol Obstructive sleep apnea of adult Compliant with CPAP at home PLAN - Continue home CPAP Hypoalbuminemia Likely 2/2 chronic deconditioning PLAN - Prealbumin ordered for AM - Dietary consult Chronic kidney disease, stage 3B (GFR-32) creatinine and BUN slightly increased since admission PLAN - Monitor urine output - Repeat labs as needed - Renally dosed medications PROPHYLAXIS DVT-Lovenox 30 GI- home PPI CODE STATUS: FULL CODE DISPOSITION: Patient will be admitted under observation for aggressive diuresis and nebulization treatment for acute exacerbations, discharge likely in 24-36 hours.
== END 2019-06-18 17:50 | disposition home or self-care (01) | DRG 291 ==
LOC: JD.ED 12:48 → JD.MS 16:11 → OBSVTOIN 06-16 10:11
PROVIDERS: ADMIT Internal Medicine; ATTEND Internal Medicine
DX: I13.0 Hypertensive heart and chronic kidney disease with heart failure and stage 1 through stage 4 chronic kidney disease, or unspecified chronic kidney disease (principal); I50.9 Heart failure, unspecified; I50.43 Acute on chronic combined systolic (congestive) and diastolic (congestive) heart failure; J44.1 Chronic obstructive pulmonary disease with (acute) exacerbation; I48.92 Unspecified atrial flutter; N18.4 Chronic kidney disease, stage 4 (severe); J96.11 Chronic respiratory failure with hypoxia; R00.0 Tachycardia, unspecified; K22.4 Dyskinesia of esophagus; H54.7 Unspecified visual loss; N40.0 Benign prostatic hyperplasia without lower urinary tract symptoms; E11.22 Type 2 diabetes mellitus with diabetic chronic kidney disease; M10.9 Gout, unspecified; E03.9 Hypothyroidism, unspecified; E66.9 Obesity, unspecified; G47.33 Obstructive sleep apnea (adult) (pediatric); I25.10 Atherosclerotic heart disease of native coronary artery without angina pectoris; D50.9 Iron deficiency anemia, unspecified; K59.09 Other constipation; F32.9 Major depressive disorder, single episode, unspecified; I08.1 Rheumatic disorders of both mitral and tricuspid valves; Z85.828 Personal history of other malignant neoplasm of skin; Z79.01 Long term (current) use of anticoagulants; E88.09 Other disorders of plasma-protein metabolism, not elsewhere classified; Z79.890 Hormone replacement therapy; Z85.820 Personal history of malignant melanoma of skin; Z99.81 Dependence on supplemental oxygen; I25.2 Old myocardial infarction; Z95.5 Presence of coronary angioplasty implant and graft; Z85.51 Personal history of malignant neoplasm of bladder; Z98.49 Cataract extraction status, unspecified eye; Z79.899 Other long term (current) drug therapy; Z79.82 Long term (current) use of aspirin; Z79.4 Long term (current) use of insulin; Z95.0 Presence of cardiac pacemaker; Z87.891 Personal history of nicotine dependence
CPT/HCPCS: 36415 ×2; 71046; 80048; 80053; 81001; 82962 ×4; 83735; 83880; 84100; 84484; 85007; 85025; 85027; 85610; 85730; 93005; 94640 ×4; 94761; 96374; 96375; 99285; A9270 ×22; J1650; J1815 ×3; J1940 ×4; J7060; 96372; 96376; 97110-GO; 97116-GP; 97162-GP; 97165-GO; 97530-GO; 99284; G0378; J7620-GY

== ENCOUNTER 2019-11-18 13:42 | Emergency (ER) | payer MEDICARE, OTHER, MEDICAID ==
[2019-11-18] MEDS ORDERED: Sodium Chloride 0.9% 10 ML Syringe FLUSH PRN (14:13)
[2019-11-18] MEDS ORDERED: Ondansetron 4 MG/2 ML SDV IVPUSH ONE ×2 (14:14→15:20)
[2019-11-18] MEDS ORDERED: Sodium Chloride 0.9% 1,000 ML IV SCH (14:30)
--- NOTE | 2019-11-18 15:06 | CR ---
Abdomen: Supine and upright views the abdomen were obtained. Comparison: No previous study. Slightly prominent gas within small bowel is noted. Small bowel does not appear to be dilated. Findings raise the question of excessive swallowed gas or mild ileus. Degenerative change is noted within the spine. Calcification is noted within the mid right abdomen possibly due to nonobstructing renal stone. No free air is seen. Mild vascular calcification is noted. Impression: 1. Slightly prominent gas within small bowel as described above. 2. Other findings believed to be incidental and nonacute. Diagnostic code #2 This report was dictated in MDT
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
--- NOTE | 2019-11-18 15:24 | US ---
Limited abdominal ultrasound: Multiple real-time images of the upper right abdomen were obtained. Small gallstone measuring 6 mm is seen within the gallbladder. No gallbladder wall thickening or biliary duct dilatation is seen. Liver shows no focal abnormality. Right kidney shows a cyst within the midpole measuring 1.5 cm. Right kidney shows no hydronephrosis or other mass. Pancreas is obscured from bowel gas. Inferior vena cava is patent. Main portal vein shows normal hepatopedal flow. Impression: 1. Single small gallstone within the gallbladder. No gallbladder wall thickening or biliary duct dilatation is seen. 2. Obscured pancreas and bowel gas. 3. 1.5 cm cyst within the mid right kidney. 4. No additional abnormality is appreciated. Diagnostic code #2 Study was dictated in MDT
--- NOTE | 2019-11-18 16:20 | CT ---
CT abdomen and pelvis Technique: Multiple axial sections were obtained from above the dome of the diaphragm inferiorly to the pubic symphysis. Intravenous and oral contrast was not utilized. Comparison: Previous CT abdomen and pelvis exam of 07/09/17. Findings: Visualized lung bases show nothing acute. Liver contains no focal parenchymal abnormality. Spleen appears within normal limits. Adrenal glands show no nodule. Pancreas is within normal limits. Gallbladder shows a small calcified gallstone measuring 6 mm. Aorta shows atherosclerotic change continues into the iliac vessels without aneurysm. No retroperitoneal adenopathy or mesenteric abnormalities are seen. No pelvic mass or adenopathy is appreciated. Cyst noted within the left kidney measuring 1.8 cm. Small hyperdense finding is seen within the upper right kidney measuring 6 mm which is most likely due to small hemorrhagic cyst. Dilated left extrarenal pelvis is seen as well as dilated left ureter. Dilatation stops close to the bladder. There is slight inflammatory-type change off the inferior bladder which is stable from prior CT exam compatible with scarring. There is mild asymmetric wall thickening within the bladder in the region of the left UVJ and difficult to exclude small uroepithelial tumor as causing the dilated ureter. No additional abnormality is appreciated within the bladder. Bone window settings were reviewed. Scattered mild degenerative change is noted within the spine. No acute osseous finding is appreciated. Impression: 1. Dilated extrarenal pelvis within the left kidney. Dilated left ureter which stops close to the bladder. Slight asymmetric bladder wall thickening is seen within this area and difficult to exclude small uroepithelial tumor as the etiology for the ureteral dilatation. Cystoscopy would be needed to confirm or rule out. 2. Other findings believed to be incidental as noted above. 3. Nothing acute is otherwise seen. Diagnostic code #9 Study was dictated in MDT
[2019-11-18] MEDS ORDERED: HYDROmorphone 0.5 MG/0.5 ML Syringe IVPUSH ONE ×2 (17:20→17:47)
[2019-11-18 19:02] VITALS: BP 130/63; PULSE 82
== END 2019-11-18 18:15 ==
LOC: JD.ED 13:42
DX: N17.9 Acute kidney failure, unspecified (principal); E78.00 Pure hypercholesterolemia, unspecified; I25.2 Old myocardial infarction; I50.9 Heart failure, unspecified; J44.9 Chronic obstructive pulmonary disease, unspecified; M10.9 Gout, unspecified; E11.9 Type 2 diabetes mellitus without complications; E03.9 Hypothyroidism, unspecified; Z68.41 Body mass index [BMI] 40.0-44.9, adult; E66.9 Obesity, unspecified; Z79.82 Long term (current) use of aspirin; Z79.4 Long term (current) use of insulin; Z79.899 Other long term (current) drug therapy
CPT/HCPCS: 36415; 74019; 74176; 76705; 80053; 81001; 83690; 83735; 84484; 85025; 86140; 93005; 96361; 96374; 96375; 96376; 99285; J1170; J2405; J7030; 93010